=== PATIENT | male | born 1945 | race Caucasian/White ===

== ENCOUNTER 2016-07-12 12:26 | Inpatient (IN) | payer MEDICARE ==
--- NOTE | 2016-07-12 12:38 | ER Document Report ---
ED Medical Screen (RME) - General Chief Complaint: Productive Cough Stated Complaint: COUGHING UP BLOOD,NOSE BLEED Time Seen by Provider: 07/12/16 12:32 Notes: 71-year-old male with A. fib, diabetes, hypertension, hyperlipidemia, on Coumadin. Recently getting over pneumonia. Reports last night developed bleeding from the left nostril, blurred throughout the mouth. He is noted bleeding areas on the margins of the tongue, and petechial spots all over the thighs. He states his PT/INR has not been checked in quite some time. I have greeted and performed a rapid initial assessment of this patient. A comprehensive ED assessment and evaluation of the patient, analysis of test results and completion of the medical decision making process will be conducted by additional ED providers. TRAVEL OUTSIDE OF THE [place] IN LAST 30 DAYS: No - Related Data Allergies/Adverse Reactions: Sulfa (Sulfonamide Antibiotics) Allergy (Verified 07/12/16 12:33) Past Medical History - Past Medical History Cardiac Medical History: Reports: Hx Hypertension Renal/ Medical History: Denies: Hx Peritoneal Dialysis Past Surgical History: Reports: Hx Tonsillectomy, Hx Vascular Surgery - Immunizations Hx Diphtheria, Pertussis, Tetanus Vaccination: Yes Physical Exam - Vital signs Vitals: Temp Pulse Resp BP Pulse Ox 98.7 F 130 H 16 113/40 L 96 07/12/16 12:28 07/12/16 12:28 07/12/16 12:28 07/12/16 12:28 07/12/16 12:28 Course - Vital Signs Vital signs: Temp Pulse Resp BP Pulse Ox 98.7 F 130 H 16 113/40 L 96 07/12/16 12:28 07/12/16 12:28 07/12/16 12:28 07/12/16 12:28 07/12/16 12:28
[2016-07-12] MEDS ORDERED: NORMAL SALINE 1000 ML 1,000 ML IV ONE ×2 (12:57→15:29)
--- NOTE | 2016-07-12 12:57 | ER Document Report ---
ED General - General Chief Complaint: Productive Cough Stated Complaint: COUGHING UP BLOOD,NOSE BLEED Time Seen by Provider: 07/12/16 12:32 Mode of Arrival: Ambulatory Information source: Patient Notes: Pt is a 71 year old male with a history of copd, A fib, HTN, HLD on warfarin and aspirin who presents to the ER today for nosebleed, cough, and spotted rash over his body. Pt states he just got over pneumonia and was coughing 2 nights ago when he coughed "very hard" and woke up the next morning with the spots on his legs, states it has progressively spread all over his body and today he started having a nose bleed and bleeding from his mouth. he has never had this happen before. He denies shortness of breath, wheezing, trouble breathing, abdominal pain or headache. He does not know his warfarin doseage. Dr. Weber follows his INR regularly per patient. TRAVEL OUTSIDE OF THE [place] IN LAST 30 DAYS: No - Related Data Allergies/Adverse Reactions: Sulfa (Sulfonamide Antibiotics) Allergy (Verified 07/12/16 12:33) Past Medical History - General Information source: Patient - Social History Smoking Status: Former Smoker Family History: Reviewed & Not Pertinent Patient has suicidal ideation: No Patient has homicidal ideation: No - Past Medical History Cardiac Medical History: Reports: Hx Hypertension Renal/ Medical History: Denies: Hx Peritoneal Dialysis Past Surgical History: Reports: Hx Tonsillectomy, Hx Vascular Surgery - Immunizations Hx Diphtheria, Pertussis, Tetanus Vaccination: Yes Review of Systems - Review of Systems Constitutional: See HPI EENT: See HPI Cardiovascular: See HPI Respiratory: No symptoms reported Gastrointestinal: No symptoms reported Genitourinary: No symptoms reported Male Genitourinary: No symptoms reported Musculoskeletal: No symptoms reported Skin: See HPI Hematologic/Lymphatic: No symptoms reported Neurological/Psychological: No symptoms reported Physical Exam - Vital signs Vitals: Temp Pulse Resp BP Pulse Ox 98.7 F 130 H 16 113/40 L 96 07/12/16 12:28 07/12/16 12:28 07/12/16 12:28 07/12/16 12:28 07/12/16 12:28 - Notes Notes: PHYSICAL EXAMINATION: GENERAL: pale appearing, in no acute distress. HEAD: Atraumatic, normocephalic. EYES: Pupils equal round and reactive to light, extraocular movements intact, sclera anicteric, conjunctiva are normal. ENT: petechiae to soft and hard palate, dried blood on tongue and lips, dried and congealed blood in bilateral nostrils, no active bleeding NECK: Normal range of motion, supple without lymphadenopathy LUNGS: CTAB and equal. No wheezes rales or rhonchi. HEART: tachycardic with regular rhythm without murmurs ABDOMEN: Soft, no tenderness. No guarding, no rebound BACK: no vertebral tenderness, normal ROM GI/: no CVA tenderness EXTREMITIES: Normal range of motion, no pitting edema. No cyanosis. NEUROLOGICAL: Cranial nerves grossly intact. Normal sensory/motor exams. PSYCH: Normal mood, normal affect. alert and oriented x 3 SKIN: Warm, Dry, normal turgor, petechial rash over entire body, non blanching, discloration to bilateral lower extremities Course - Re-evaluation Re-evalutation: 07/12/16 14:59 Pt has a platelet count of 3,000, PT of 52.6 and INR of 5.56, fibrinogen is normal, hemoglobin of 11.3, WBC elevated at 12.6, potassium of 2.8, he has gotten potassium IV and po, FFP and platelets were ordered, we only have 1 unit of platelets in the hospital. Dr. Jenkins was consulted and did evaluate pt with me, agree with plan. Dr. Mendoza, hospitalist agrees to admit pt to [facility] here with normal CT head, no bleed and chest x ray revealing mild vascular congestion but no pneumonia. 07/12/16 15:00 07/12/16 15:01 - Vital Signs Vital signs: Temp Pulse Resp BP Pulse Ox 98.7 F 109 H 20 131/70 H 92 07/12/16 12:28 07/12/16 13:19 07/12/16 13:19 07/12/16 13:19 07/12/16 13:19 - Laboratory Result Diagrams: 07/12/16 12:44 07/12/16 12:44 Laboratory results interpreted by me: 07/12/16 07/12/16 07/12/16 12:44 12:44 12:44 WBC 12.6 H RBC 4.17 L Hgb 11.3 L Hct 33.6 L RDW 16.0 H Plt Count 3 L* PT 52.6 H* INR 5.56 H* APTT Potassium 2.8 L* Chloride 96 L Carbon Dioxide 33 H BUN 31 H Calcium 8.0 L Total Bilirubin 2.1 H Direct Bilirubin 0.6 H Total Protein 5.9 L Albumin 2.7 L Crossmatch 07/12/16 07/12/16 12:44 13:45 WBC RBC Hgb Hct RDW Plt Count PT INR APTT 74.1 H Potassium Chloride Carbon Dioxide BUN Calcium Total Bilirubin Direct Bilirubin Total Protein Albumin Crossmatch See Detail Critical Care Note - Critical Care Note Total time excluding time spent on procedures (mins): 55 - 55 minutes spent in critical care time with patient, consulted with attending, speaking with family , placing orders and evaluating tests and labs. Discharge - Discharge Clinical Impression: Elevated INR (international normalized ratio) due to prior anticoagulant medication ingestion, Hypokalemia, Nosebleed, Petechial rash Condition: Stable Disposition: ADMITTED INPATIENT Admitting Provider: Hospitalist Unit Admitted: [facility]
[2016-07-12 13:02] LABS: HEMATOCRIT 33.6 % (37.9-51.0); HEMOGLOBIN 11.3 g/dL (13.5-17.0); HGB HCT DIFFERENCE 0.3; MEAN CORPUSCULAR HGB CONC 33.5 g/dL (32.0-36.0); MEAN CORPUSCULAR VOLUME 81 fl (80-97); RED BLOOD COUNT 4.17 10^6/uL (4.35-5.55); WHITE BLOOD COUNT 12.6 10^3/uL (4.0-10.5)
[2016-07-12 13:15] LABS: ALANINE AMINOTRANSFERASE 50 U/L (21-72); ALBUMIN 2.7 g/dL (3.5-5.0); ALKALINE PHOSPHATASE 57 U/L (38-126); ANION GAP 10 (5-19); ASPARTATE AMINO TRANSFERASE 48 U/L (17-59); BILIRUBIN,DIRECT 0.6 mg/dL (0.0-0.4); BILIRUBIN,TOTAL 2.1 mg/dL (0.2-1.3); BLOOD UREA NITROGEN 31 mg/dL (7-20); CARBON DIOXIDE 33 mmol/L (22-30); CHLORIDE 96 mmol/L (98-107); GLUCOSE 105 mg/dL (75-110); SODIUM 138.8 mmol/L (137-145); TOTAL PROTEIN 5.9 g/dL (6.3-8.2)
[2016-07-12 13:18] LABS: BAND NEUTROPHILS % (MANUAL) 4 % (3-5); BASOPHILS % (MANUAL) 0 % (0-2); EOSINOPHILS % (MANUAL) 0 % (0-6); LYMPHOCYTES % (MANUAL) 27 % (13-45); TOTAL CELLS COUNTED 100
[2016-07-12 13:19] LABS: POTASSIUM 2.8 mmol/L (3.6-5.0)
[2016-07-12 13:21] LABS: ANISOCYTOSIS 1+; HYPOCHROMASIA SLIGHT; POLYCHROMASIA SLIGHT
[2016-07-12] MEDS ORDERED: POTASSIUM CHLORIDE 10 MEQ TABLET.SA PO ONE ×2 (13:23→16:05)
[2016-07-12] MEDS ORDERED: NORMAL SALINE 250 ML IV PRN ×4 (13:27→14:43)
[2016-07-12] MEDS ORDERED: PHYTONADIONE INJ 10 MG/1 ML AMPULE IV ONE (13:29)
[2016-07-12 13:35] LABS: PROTHROMBIN TIME 52.6 SEC (11.4-15.4)
[2016-07-12 13:58] LABS: PARTIAL THROMBOPLASTIN TIME 74.1 SEC (23.5-35.8)
--- NOTE | 2016-07-12 14:28 | RADIOLOGY REPORT (SQ) ---
EXAM DESCRIPTION: CT HEAD WITHOUT COMPLETED DATE/TIME: 07/12/2016 2:18 pm REASON FOR STUDY: low platelelets COMPARISON: 11/13/2014. TECHNIQUE: Axial images acquired through the brain without intravenous contrast. Images reviewed wi th bone, brain and subdural windows. Images stored on PACS. All CT scanners at this facility use dose modulation, iterative reconstruction, and/or weight based d osing when appropriate to reduce radiation dose to as low as reasonably achievable (ALARA). [facility]: Dose Right [facility]: CareDose [facility]: Dose Right [facility]: Teradose 4D [facility]: Crowd Analyzer RADIATION DOSE: 129.22 mGy. LIMITATIONS: None. FINDINGS: VENTRICLES: Normal size and contour. CEREBRUM: No masses. No hemorrhage. No midline shift. Normal yadav/white matter differentiation. N o evidence for acute infarction. CEREBELLUM: No masses. No hemorrhage. No alteration of density. No evidence for acute infarction. EXTRAAXIAL SPACES: No fluid collections. No masses. ORBITS AND GLOBE: No intra- or extraconal masses. Normal contour of globe without masses. CALVARIUM: No fracture. PARANASAL SINUSES: Soft tissue completely fills the left maxillary sinus. The remainder of the paran noemí sinuses are clear. SOFT TISSUES: No mass or hematoma. OTHER: No other significant finding. IMPRESSION: NORMAL BRAIN CT WITHOUT CONTRAST. CHRONIC LEFT MAXILLARY SINUS DISEASE. TECHNICAL DOCUMENTATION: JOB ID: [id number] Quality ID # [id number]: Final reports with documentation of one or more dose reduction techniques (e.g., Au tomated exposure control, adjustment of the mA and/or kV according to patient size, use of iterative reconstruction technique) 2010 [employer]- All Rights Reserved
--- NOTE | 2016-07-12 14:33 | RADIOLOGY REPORT (SQ) ---
EXAM DESCRIPTION: CHEST SINGLE VIEW COMPLETED DATE/TIME: 07/12/2016 2:24 pm REASON FOR STUDY: hypoxia COMPARISON: 11/13/2014. EXAM PARAMETERS: NUMBER OF VIEWS: One view. TECHNIQUE: Single frontal radiographic view of the chest acquired. RADIATION DOSE: NA LIMITATIONS: None. FINDINGS: LUNGS AND PLEURA: No opacities, masses or pneumothorax. No pleural effusion. MEDIASTINUM AND HILAR STRUCTURES: No masses. Contour normal. HEART AND VASCULAR STRUCTURES: Mild cardiomegaly. Mild vascular congestion. BONES: No acute findings. HARDWARE: Sternotomy wires and coronary bypass markers. OTHER: No other significant finding. IMPRESSION: MILD CARDIOMEGALY WITH MILD VASCULAR CONGESTION. TECHNICAL DOCUMENTATION: JOB ID: [id number]
[2016-07-12] MEDS: POTASSI CL 20 MEQ/50 ML RIDER 50 ML IV SCH ×2 (14:45→14:54)
[2016-07-12] MEDS ORDERED: IMMUNE GLOB,GAM CAPRYLATE(IGG) 20 GM/200 ML SDV IV SCH ×2 (15:30→17:00)
[2016-07-12] MEDS ORDERED: METOPROLOL TARTRATE PF/INJ 5 MG/5 ML SDV IV ONE (15:31)
[2016-07-12] MEDS ORDERED: LANSOPRAZOLE 30 MG TAB.RAP.DR PO ONE (15:32)
[2016-07-12] MEDS ORDERED: DEXAMETHASONE SOD PHOS INJ 10 MG/1 ML VIAL IV ONE (15:33)
[2016-07-12] MEDS ORDERED: DEXAMETHASONE 4 MG TABLET PO ONE (16:00)
[2016-07-12] MEDS ORDERED: ACETAMINOPHEN 325 MG TABLET PO PRN (16:06)
[2016-07-12] MEDS ORDERED: ONDANSETRON HCL INJ/PF 4 MG/2 ML SDV IV PRN (16:06)
[2016-07-12] MEDS ORDERED: LEVALBUTEROL HCL NEB 1.25 MG/3 ML AMPUL NEB PRN (16:06)
[2016-07-12] MEDS ORDERED: PANTOPRAZOLE SODIUM 40 MG VIAL IV ONE (16:30)
[2016-07-12] MEDS ORDERED: IMMUNE GLOBULIN 10 GM/100 ML IV SCH (17:00)
[2016-07-12] MEDS ORDERED: LANSOPRAZOLE 30 MG TAB.RAP.DR PO SCH (17:00)
[2016-07-12] MEDS ORDERED: FUROSEMIDE INJ/PF 20 MG/2 ML SDV IV ONE (18:19)
[2016-07-12] MEDS ORDERED: HYDROCODONE BIT/HOMATROPINE 5-1.5 MG TABLET PO PRN (18:20)
[2016-07-12] MEDS ORDERED: ALPRAZOLAM 0.25 MG TABLET PO PRN (18:21)
[2016-07-12] MEDS: SUCRALFATE SUSP 1 GM/10 ML UDCUP PO SCH ×2 (18:30→22:48)
--- NOTE | 2016-07-12 18:30 | PDOC H&P ---
History of Present Illness Admission Date/PCP: 07/12/16 16:06 History of Present Illness: DAVID MERAZ is a 71 year old male with a past medical history of coronary artery disease, BPH, COPD who presents to the emergency department with epistaxis. Patient approximately 3 weeks ago was diagnosed with pneumonia and was prescribed Levaquin and steroids. After this time he had resolution including improvement of his breathing and return to his primary care physician because of ongoing cough. He was started on Symbicort at that time. Patient continued to have a cough is productive of clear sputum. Approximately 1 week after his pneumonia, the patient was feeling ill with a "stomach virus. He had diarrhea at that time. Patient does continue to have diarrhea. He denies any abdominal pain but reports that he is uncomfortable. 2 days ago patient continued to cough and acutely developed a petechial rash all over his body. He then subsequently developed epistaxis and began having dizziness. Patient denies any fevers except for an association with his pneumonia 3 weeks prior. In the emergency department, patient is found to have a platelet level of 3000. He is referred to the hospitalist service for evaluation and treatment of his thrombocytopenia. Patient's medications are currently unavailable at this time. He does not know them and they are being reconciled by the pharmacy. Currently list is automatically generated by [employer]. Past Medical History Cardiac Medical History: Reports: Atrial Fibrillation, Coronary Artery Disease, Myocardial Infarction, Hypertension Pulmonary Medical History: Reports: Chronic Obstructive Pulmonary Disease (COPD) , Pneumonia Endocrine Medical History: Reports: Obesity GI Medical History: Reports: Gastroesophageal Reflux Disease Musculoskeltal Medical History: Reports: Arthritis Hematology: Reports: None Past Surgical History Past Surgical History: Reports: Coronary Artery Bypass Graft, Tonsillectomy, Vascular Surgery Social History Smoking Status: Current Every Day Smoker Cigarettes Packs Per Day: 1.5 Frequency of Alcohol Use: None Hx Recreational Drug Use: No Hx Prescription Drug Abuse: No - Advance Directive Resuscitation Status: Full Code Surrogate healthcare decision maker:: Tino Begum Family History Family History: CAD, DM, Hypertension Parental Family History Reviewed: Yes Children Family History Reviewed: Yes Sibling(s) Family History Reviewed.: Yes Medication/Allergy Allergies/Adverse Reactions: Sulfa (Sulfonamide Antibiotics) Allergy (Verified 07/12/16 12:33) Review of Systems Constitutional: PRESENT: anorexia, fatigue. ABSENT: chills, fever(s), headache( s), weight gain, weight loss Eyes: ABSENT: visual disturbances Ears: ABSENT: hearing changes Nose, Mouth, and Throat: PRESENT: other - Epistaxis Cardiovascular: ABSENT: chest pain, dyspnea on exertion, edema, orthropnea, palpitations Respiratory: PRESENT: cough, dyspnea, hemoptysis Gastrointestinal: PRESENT: diarrhea, melena. ABSENT: abdominal pain, constipation, heartburn, hematemesis, hematochezia, nausea, vomiting Genitourinary: ABSENT: dysuria, hematuria Musculoskeletal: ABSENT: joint swelling Integumentary: PRESENT: lesions, rash. ABSENT: wounds Neurological: ABSENT: abnormal gait, abnormal speech, confusion, dizziness, focal weakness, syncope Psychiatric: ABSENT: anxiety, depression, homidical ideation, suicidal ideation Endocrine: ABSENT: cold intolerance, heat intolerance, polydipsia, polyuria Hematologic/Lymphatic: ABSENT: easy bleeding, easy bruising Physical Exam Vital Signs: Temp Pulse Resp BP Pulse Ox 98.7 F 109 H 24 H 146/86 H 92 07/12/16 12:28 07/12/16 13:19 07/12/16 16:41 07/12/16 16:41 07/12/16 16:41 Intake & Output 07/11/16 07/12/16 07/13/16 06:59 06:59 06:59 Intake Total 347 Balance 347 General appearance: PRESENT: morbidly obese, severe distress, well-developed, well-nourished Head exam: PRESENT: normocephalic Eye exam: PRESENT: conjunctiva pale, EOMI, PERRLA, scleral icterus Ear exam: PRESENT: normal external ear exam Mouth exam: PRESENT: dry mucosa, tongue midline - purpura, other - dried blood Neck exam: ABSENT: JVD, lymphadenopathy, thyromegaly, tracheal deviation Respiratory exam: PRESENT: clear to auscultation la, prolonged expiratory phas , symmetrical, unlabored. ABSENT: rales, rhonchi, tachypnea, wheezes Cardiovascular exam: PRESENT: irregular rhythm, +S1, +S2, systolic murmur, tachycardia. ABSENT: diastolic murmur, gallop, rubs Pulses: PRESENT: +1 pedal pulses bilateral Vascular exam: PRESENT: normal capillary refill GI/Abdominal exam: PRESENT: normal bowel sounds, soft. ABSENT: distended, firm , guarding, mass, organolmegaly, rebound, rigid, tenderness Rectal exam: PRESENT: black stool, bloody stool, heme (+) stool Extremities exam: PRESENT: full ROM. ABSENT: clubbing, pedal edema, tenderness Neurological exam: PRESENT: alert, awake, oriented to person, oriented to place , oriented to time, oriented to situation, CN II-XII grossly intact. ABSENT: motor sensory deficit Psychiatric exam: PRESENT: appropriate affect, normal mood. ABSENT: homicidal ideation, suicidal ideation Skin exam: PRESENT: dry, petechiae, warm. ABSENT: cyanosis, rash Results Impressions: Chest X-Ray 07/12/16 13:31 IMPRESSION: MILD CARDIOMEGALY WITH MILD VASCULAR CONGESTION. Head CT 07/12/16 13:33 IMPRESSION: NORMAL BRAIN CT WITHOUT CONTRAST. CHRONIC LEFT MAXILLARY SINUS DISEASE. Assessment & Plan - Diagnosis (1) Acute ITP Is this a current diagnosis for this admission?: YesPlan: Patient's labs and presentation are most consistent with acute ITP. Place patient in the ICU. We will give platelets, IvIg 1 mg/kg for 2 days dexamethasone 40 mg p.o. daily x4 days, and plasma. Have sent antiplatelet antibodies, Levar, LDH, haptoglobin. Patient's fibrinogen is normal. Unlikely to be DIC. Have consulted hematology. Initial CT of the head is negative. Monitor with mends every [address] if patient has any alteration in mentation. (2) CAD (coronary artery disease) Qualifiers: Coronary Disease-Associated Artery/Lesion type: [place] artery [place] vs. transplanted heart: [place] heart Associated angina: without angina Qualified Code(s): I25.10 - Atherosclerotic heart disease of [place] coronary artery without angina pectoris Is this a current diagnosis for this admission?: Yes (3) A-fib Qualifiers: Atrial fibrillation type: unspecified Qualified Code(s): I48.91 - Unspecified atrial fibrillation Is this a current diagnosis for this admission?: YesPlan: We will continue metoprolol. Stop Coumadin (4) Acute blood loss anemia Is this a current diagnosis for this admission?: YesPlan: Secondary to ITP. Will recheck a CBC and likely transfuse packed red cells. If he falls below 8. (5) COPD (chronic obstructive pulmonary disease) Qualifiers: COPD type: unspecified COPD Qualified Code(s): J44.9 - Chronic obstructive pulmonary disease, unspecified Is this a current diagnosis for this admission?: YesPlan: Place patient on Spiriva and as needed breathing treatments. (6) Tobacco abuse Is this a current diagnosis for this admission?: YesPlan: Nicotine patch as needed. Patient has only stopped smoking recently. (7) Elevated INR (international normalized ratio) due to prior anticoagulant medication ingestion Is this a current diagnosis for this admission?: YesPlan: Patient has been given vitamin K and will give FFP. (8) Hypokalemia Is this a current diagnosis for this admission?: YesPlan: check a magnesium and replete - Time Critical Time spent with patient: 35 or more minutes Medications reviewed and adjusted accordingly: Yes - Inpatient Certification Based on my medical assessment, after consideration of the patient's comorbidities, presenting symptoms, or acuity I expect that the services needed warrant INPATIENT care.: Yes I certify that my determination is in accordance with my understanding of Medicare's requirements for reasonable and necessary INPATIENT services [42 CFR 412.3e].: Yes Medical Necessity: Significant Comorbidiites Make Outpatient Treatment Too Risky , Need for Neurological Checks, Risk of Complication if Not Cared For in Hospital Post Hospital Care: D/C Trouble Tracer Documentation
[2016-07-12] MEDS ORDERED: FUROSEMIDE INJ/PF 20 MG/2 ML SDV ONE (18:31)
[2016-07-12] MEDS: METOPROLOL TARTRATE 25 MG TABLET PO SCH ×2 (18:32→22:47)
[2016-07-12] MEDS ORDERED: FUROSEMIDE INJ/PF 20 MG/2 ML SDV IV PRN (18:49)
[2016-07-12 19:23] LABS: LDH 1335 U/L (313-618); MAGNESIUM 1.5 mg/dL (1.6-2.3)
[2016-07-12 20:39] LABS: FOLATE 7.51 ng/mL (>2.76)
[2016-07-12] MEDS ORDERED: PANTOPRAZOLE SODIUM 40 MG VIAL IV SCH (22:00)
[2016-07-13 00:37] LABS: PARTIAL THROMBOPLASTIN TIME 40.6 SEC (23.5-35.8)
[2016-07-13 00:45] LABS: ANION GAP 10 (5-19); BLOOD UREA NITROGEN 29 mg/dL (7-20); CALCIUM 7.6 mg/dL (8.4-10.2); CARBON DIOXIDE 30 mmol/L (22-30); CHLORIDE 100 mmol/L (98-107); CREATININE RESULT 0.88 mg/dL (0.52-1.25); GLUCOSE 164 mg/dL (75-110); POTASSIUM 3.1 mmol/L (3.6-5.0); SODIUM 139.5 mmol/L (137-145)
[2016-07-13 00:53] LABS: PROTHROMBIN TIME 17.4 SEC (11.4-15.4)
[2016-07-13 01:15] LABS: ABSOLUTE BASOPHILS # (AUTO) 0.1 10^3/uL (0.0-0.2); ABSOLUTE LYMPHOCYTES (AUTO) 2.9 10^3/uL (0.5-4.7); ABSOLUTE MONOCYTES (AUTO) 0.2 10^3/uL (0.1-1.4); ABSOLUTE NEUT (AUTO) 5.9 10^3/uL (1.7-8.2); BASOPHILS % (AUTO) 0.7 % (0-2); EOSINOPHILS % (AUTO) 0.1 % (0-6); HEMATOCRIT 25.9 % (37.9-51.0); HGB HCT DIFFERENCE -0.1; LYMPHOCYTES % (AUTO) 31.7 % (13-45); MEAN CORPUSCULAR HEMOGLOBIN 27.2 pg (27.0-33.4); MEAN CORPUSCULAR HGB CONC 33.3 g/dL (32.0-36.0); MEAN CORPUSCULAR VOLUME 82 fl (80-97); MONOCYTES % (AUTO) 2.4 % (3-13); RED BLOOD COUNT 3.17 10^6/uL (4.35-5.55); RED CELL DISTRIBUTION WIDTH 16.2 % (11.5-14.0); SEGMENTED NEUTROPHILS % (AUTO) 65.1 % (42-78)
[2016-07-13 01:17] LABS: HEMOGLOBIN 8.6 g/dL (13.5-17.0)
[2016-07-13] MEDS ORDERED: POTASSIUM CHLORIDE 20 MEQ/50 ML RTU IV SCH (02:15)
[2016-07-13] MEDS ORDERED: CALCIUM GLUCONATE 1,000 MG in DEXTROSE 5%-WATER 50 ML IV ONE (02:15)
[2016-07-13 02:17] LABS: HEMATOCRIT 26.5 % (37.9-51.0); HGB HCT DIFFERENCE 0.5; MEAN CORPUSCULAR HEMOGLOBIN 27.8 pg (27.0-33.4); MEAN CORPUSCULAR VOLUME 82 fl (80-97); RED BLOOD COUNT 3.24 10^6/uL (4.35-5.55); WHITE BLOOD COUNT 10.6 10^3/uL (4.0-10.5)
[2016-07-13] MEDS ORDERED: CALCIUM GLUCONATE 1000 MG/10 ML INJ IV ONE (02:49)
[2016-07-13 02:50] LABS: BAND NEUTROPHILS % (MANUAL) 1 % (3-5); BASOPHILS % (MANUAL) 0 % (0-2); EOSINOPHILS % (MANUAL) 0 % (0-6); LYMPHOCYTES % (MANUAL) 14 % (13-45); TOTAL CELLS COUNTED 100
[2016-07-13 02:52] LABS: ANISOCYTOSIS 1+; OVALOCYTES SLIGHT; POLYCHROMASIA SLIGHT; TOXIC GRANULATION SLIGHT; TOXIC VACUOLATION PRESENT
[2016-07-13 02:56] LABS: ADD HIVPANEL? NO; HIV (1 AND 2) ANTIBODY NEGATIVE (NEGATIVE)
--- NOTE | 2016-07-13 02:57 | PDOC TRANSFER SUMMARY ---
General Admission Date/PCP: 07/12/16 16:06 Resuscitation Status: Full Code - Transfer Diagnosis (1) Acute ITP Is this a current diagnosis for this admission?: YesDiagnosis Summary: See the H&P for details to summarize patient had pneumonia 3 weeks ago placed on Levaquin and prednisone resulting in resolution of symptoms. 1 week ago developed symptoms of viral gastroenteritis with persistent melena. 48 hours ago developed epistasis and petechial rash. Patient continued to take usual dose of Coumadin and aspirin. In the emergency room he was found to have an INR of 5.5 and hemoglobin 11.3, platelets of 3000. He is admitted to the ICU receiving FFP, Decadron, IVIG, subcu vitamin K, 4 units of platelets 2 hour posttransfusion CBC reveal platelets still 3000, hemoglobin of 8.6 verified by blood smear, INR improved to 1.3 patient has persistent bleeding. Subsequently I believe he is a candidate for teaching facility and tertiary care with subspecialty support including hematology and surgery for possible rituximab versus splenectomy. (2) A-fib Is this a current diagnosis for this admission?: YesDiagnosis Summary: Current rate control beta-konstantin as needed (3) Acute blood loss anemia Is this a current diagnosis for this admission?: YesDiagnosis Summary: Secondary to ITP 2 units of packed red blood cells ordered follow-up CBC (4) Elevated INR (international normalized ratio) due to prior anticoagulant medication ingestion Is this a current diagnosis for this admission?: YesDiagnosis Summary: Normalizing status post FFP and discontinuation of Coumadin. - Transfer Medications Home Medications: Amlodipine Besylate [Amlodipine Besylate] 1 tab PO BID 07/12/16 Atorvastatin Calcium [Lipitor 80 mg Tablet] 1 tab PO QAM 07/12/16 Budesonide/Formoterol Fumarate [Symbicort Hfa 80-4.5 Mcg Inhaler 6.9 gm] 1 puff IH 07/12/16 Cyclobenzaprine HCl [Cyclobenzaprine HCl] 1 tab PO TID PRN 07/12/16 Lisinopril [Lisinopril] 1 tab PO QAM 07/12/16 Metoprolol Tartrate [Metoprolol Tartrate] 75 mg PO BID 07/12/16 Oxycodone HCl [Oxycodone HCl] 1 tab PO Q6H PRN 07/12/16 Tamsulosin HCl [Tamsulosin HCl] 0.4 mg PO QAM 07/12/16 Warfarin Sodium [Warfarin Sodium] 3 tab PO QHS 07/12/16 Transfer Medications: Current Medications Acetaminophen (Tylenol 325 Mg Tablet) 650 mg PO Q4HP PRN PRN Reason: PAIN/FEVER Stop: 08/11/16 16:05 Alprazolam (Xanax 0.25 Mg Tablet) 0.25 mg PO Q6HP PRN Stop: 07/19/16 18:20 Dexamethasone (Decadron 4 Mg Tablet) 40 mg PO DAILY JENNIFER Stop: 07/16/16 09:59 Furosemide (Lasix Inj/Pf 20 Mg/2 Ml Sdv) 20 mg IV Q2HP PRN Stop: 08/11/16 18:48 Hydrocodone Bit/Homatropine Methylb (Hycodan 5-1.5 Mg Tablet) 1 tab PO Q6HP PRN Stop: 08/11/16 18:19 Sodium Chloride (Nacl 0.9% 250 Ml Iv Soln) 250 mls @ 0 mls/hr IV CONTINUOUS PRN ; As Directed PRN Reason: AFTER EACH UNIT Stop: 07/13/16 13:26 Sodium Chloride (Nacl 0.9% 250 Ml Iv Soln) 250 mls @ 0 mls/hr IV CONTINUOUS PRN ; As Directed PRN Reason: AFTER EACH UNIT Stop: 07/13/16 13:43 Sodium Chloride (Nacl 0.9% 250 Ml Iv Soln) 250 mls @ 30 mls/hr IV .DURING TRANSFUSION PRN PRN Reason: THIS MED IS NOT "PRN" Stop: 07/13/16 14:42 Sodium Chloride (Nacl 0.9% 250 Ml Iv Soln) 250 mls @ 0 mls/hr IV CONTINUOUS PRN ; As Directed PRN Reason: AFTER EACH UNIT Stop: 07/13/16 14:42 Last Admin: 07/12/16 18:32 Dose: Not Given Potassium Chloride/Water (Potassium Chloride Donaldo 20 Meq/50 Ml) 20 meq in 50 mls @ 25 mls/hr IV Q2H [facility] Stop: 07/13/16 06:14 Calcium Gluconate 1,000 mg/ (Dextrose) 60 mls @ 60 mls/hr IV NOW ONE Stop: 07/13/16 03:14 Immune Globulin (Gamunex-C 10% Inj 20 Gm/200 Ml (Ivig) Sdv) 100 gm IV DAILY@ 1700 [facility] Stop: 07/15/16 16:59 Last Admin: 07/12/16 18:31 Dose: 100 gm Immune Globulin (Gamunex-C 10% Inj 10 Gm/100 Ml (Ivig) Sdv) 10 gm IV DAILY@ 1700 JENN[facility] Stop: 07/15/16 16:59 Last Admin: 07/12/16 16:48 Dose: 10 gm Levalbuterol HCl (Xopenex Neb 1.25 Mg/3 Ml Ampul) 1.25 mg NEB RTQ2HP PRN Stop: 08/11/16 16:05 Last Admin: 07/13/16 00:02 Dose: 1.25 mg Metoprolol Tartrate (Lopressor 25 Mg Tablet) 75 mg PO BID JENNIFER Stop: 08/11/16 17:59 Last Admin: 07/12/16 22:47 Dose: 75 mg Ondansetron HCl (Zofran Inj/Pf 4 Mg/2 Ml Sdv) 4 mg IV Q6HP PRN PRN Reason: FOR NAUSEA/VOMITING Stop: 08/11/16 16:05 Pantoprazole Sodium (Protonix Iv Inj 40 Mg Vial) 40 mg IV Q12 JENNIFER Stop: 07/15/16 21:59 Last Admin: 07/12/16 22:48 Dose: 40 mg Potassium Chloride (Klor-Con 10 Meq Tablet.Sa) 40 meq PO NOW ONE Stop: 07/13/16 03:01 Sodium Chloride (Saline Flush 2.5 Ml Monoject Prefil Syrin) 2.5 ml IV Q8 JENNIFER Stop: 08/11/16 21:59 Last Admin: 07/12/16 22:48 Dose: 2.5 ml Sucralfate (Carafate Susp 1 Gm/10 Ml Udcup) 1 gm PO Q6 JENNIFER Stop: 08/11/16 17:59 Last Admin: 07/12/16 22:48 Dose: 1 gm - Allergies Allergies/Adverse Reactions: Sulfa (Sulfonamide Antibiotics) Allergy (Verified 07/12/16 12:33) Hospital Course Hospital Course: See the H&P for details to summarize patient had pneumonia 3 weeks ago placed on Levaquin and prednisone resulting in resolution of symptoms. 1 week ago developed symptoms of viral gastroenteritis with persistent melena. 48 hours ago developed epistasis and petechial rash. Patient continued to take usual dose of Coumadin and aspirin. In the emergency room he was found to have an INR of 5.5 and hemoglobin 11.3, platelets of 3000. He is admitted to the ICU receiving FFP, Decadron, IVIG, subcu vitamin K, 4 units of platelets 2 hour posttransfusion CBC reveal platelets still 3000, hemoglobin of 8.6 verified by blood smear, INR improved to 1.3 patient has persistent bleeding. Subsequently I believe he is a candidate for teaching facility and tertiary care with subspecialty support including hematology and surgery for possible rituximab and /or splenectomy. Physical Exam Vital Signs: Temp Pulse Resp BP Pulse Ox 97.7 F 80 26 H 124/81 91 L 07/12/16 23:48 07/12/16 23:56 07/13/16 02:00 07/13/16 01:56 07/13/16 02:00 Intake & Output 07/11/16 07/12/16 07/13/16 11:59 11:59 11:59 Intake Total 1706 Output Total 2350 Balance -644 Weight 113.6 kg General appearance: PRESENT: cooperative, mild distress, obese Head exam: PRESENT: atraumatic, normocephalic Eye exam: PRESENT: conjunctiva pink, EOMI, PERRLA. ABSENT: scleral icterus Mouth exam: PRESENT: other - Widespread ataxia of the oral mucosa Neck exam: ABSENT: carotid bruit, JVD, lymphadenopathy, thyromegaly Respiratory exam: PRESENT: crackles, prolonged expiratory phas, tachypnea Cardiovascular exam: PRESENT: irregular rhythm, +S1, +S2, tachycardia Pulses: PRESENT: normal dorsalis pedis pul Vascular exam: PRESENT: normal capillary refill GI/Abdominal exam: PRESENT: normal bowel sounds, soft, other - Scattered petechia on the abdomen and trunk. ABSENT: distended, guarding, mass, organolmegaly, rebound, tenderness Rectal exam: PRESENT: deferred Extremities exam: PRESENT: +1 edema, other - Widespread petechia of the lower extremity Neurological exam: PRESENT: altered, oriented to person, oriented to place, CN II-XII grossly intact Psychiatric exam: PRESENT: appropriate affect, normal mood. ABSENT: homicidal ideation, suicidal ideation Skin exam: PRESENT: petechiae Results Laboratory Results: 07/13/16 00:20 07/12/16 07/13/16 07/13/16 18:45 00:20 00:20 WBC 9.0 RBC 3.17 L Hgb 8.6 L D Hct 25.9 L MCV 82 MCH 27.2 MCHC 33.3 RDW 16.2 H Plt Count 3 L* Seg Neutrophils % 65.1 Lymphocytes % 31.7 Monocytes % 2.4 L Eosinophils % 0.1 Basophils % 0.7 Absolute Neutrophils 5.9 Absolute Lymphocytes 2.9 Absolute Monocytes 0.2 Absolute Eosinophils 0.0 Absolute Basophils 0.1 Sodium 139.5 Potassium 3.1 L Chloride 100 Carbon Dioxide 30 Anion Gap 10 BUN 29 H Creatinine 0.88 Est GFR ( Amer) > 60 Est GFR (Non-Af Amer) > 60 Glucose 164 H Calcium 7.6 L Magnesium 1.5 L Iron 85.4 TIBC 260 % Saturation 33 Ferritin 208.00 Vitamin B12 675.0 Folate 7.51 Impressions: Chest X-Ray 07/12/16 13:31 IMPRESSION: MILD CARDIOMEGALY WITH MILD VASCULAR CONGESTION. Head CT 07/12/16 13:33 IMPRESSION: NORMAL BRAIN CT WITHOUT CONTRAST. CHRONIC LEFT MAXILLARY SINUS DISEASE. Plan Discharge Plan: Coordination of CARE in transfer to tertiary care facility with hematology support. Time Spent: Greater than 30 Minutes - Time spent approximately 40 minutes
[2016-07-13] MEDS ORDERED: POTASSIUM CHLORIDE 10 MEQ TABLET.SA PO ONE (03:00)
[2016-07-13 04:42] VITALS: BP 122/96
[2016-07-13] MEDS ORDERED: DEXAMETHASONE 4 MG TABLET PO SCH (10:00)
[2016-07-14 12:13] LABS: PATH REVIEW PATHOLOGIST REVIEWED
== END 2016-07-13 04:40 | disposition short-term general hospital (02) | DRG 813 ==
LOC: ER 12:26 → EH 15:17 → UNDOADMIN 15:17 → EH 16:06 → ICU 17:40
PROVIDERS: ADMIT Family Medicine; ATTEND Family Medicine
PROC: 30230K1 Transfusion of Nonautologous Frozen Plasma into Peripheral Vein, Open Approach (ICD-10-PCS; principal; 2016-07-12)
PROC: 30230R1 Transfusion of Nonautologous Platelets into Peripheral Vein, Open Approach (ICD-10-PCS; 2016-07-12)
DX: D69.3 Immune thrombocytopenic purpura (principal); D62 Acute posthemorrhagic anemia; E87.6 Hypokalemia; E11.9 Type 2 diabetes mellitus without complications; I10 Essential (primary) hypertension; J44.9 Chronic obstructive pulmonary disease, unspecified; E78.5 Hyperlipidemia, unspecified; I48.91 Unspecified atrial fibrillation; F17.210 Nicotine dependence, cigarettes, uncomplicated; Z79.01 Long term (current) use of anticoagulants; Z88.2 Allergy status to sulfonamides; Z75.1 Person awaiting admission to adequate facility elsewhere
CPT/HCPCS: 36415; 36430; 70450; 71010; 80048; 80053; 82607; 82728; 82746; 83540; 83550; 83615; 83735; 84466; 85025; 85045; 85384; 85610; 85730; 86701; 86850; 86880; 86900; 86901; 86920; 87493; 94640; 96361; 96365; 96375; 99285; J1561; J0610; J1100; J1940; J3430; J3480; J3490; J7030; P9017; P9035; S0164

== ENCOUNTER 2016-11-22 12:45 | Emergency (ER) | payer MEDICARE ==
--- NOTE | 2016-11-22 13:19 | ER Document Report ---
ED General - General Chief Complaint: Foot Pain Stated Complaint: LEFT ANKLE PAIN Time Seen by Provider: 11/22/16 13:05 Notes: patient is a 71 year old male who presents with left big toe pain that started this am and left lateral ankle pain that has been for 48 hours. 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 HE admits to pain in these areas after helping his aorund the house and walking more then he is used to. denies trauma fall PMH: COPD, HTN, A. fib. Recent treatment at [facility] for ITP. F/u with Dr. Weber on TRAVEL OUTSIDE OF THE [place] IN LAST 30 DAYS: No - Related Data Allergies/Adverse Reactions: Sulfa (Sulfonamide Antibiotics) Allergy (Verified 11/22/16 12:57) Past Medical History - Social History Smoking Status: Former Smoker Family History: CAD, DM, Hypertension - Past Medical History Cardiac Medical History: Reports: Hx Atrial Fibrillation, Hx Coronary Artery Disease, Hx Heart Attack, Hx Hypertension Pulmonary Medical History: Reports: Hx COPD, Hx Pneumonia Renal/ Medical History: Denies: Hx Peritoneal Dialysis GI Medical History: Reports: Hx Gastroesophageal Reflux Disease Musculoskeltal Medical History: Reports Hx Arthritis Past Surgical History: Reports: Hx Coronary Artery Bypass Graft, Hx Tonsillectomy, Hx Vascular Surgery - Immunizations Hx Diphtheria, Pertussis, Tetanus Vaccination: Yes Review of Systems - Review of Systems Constitutional: No symptoms reported Cardiovascular: No symptoms reported Respiratory: No symptoms reported Gastrointestinal: No symptoms reported Musculoskeletal: See HPI -: Yes All other systems reviewed and negative Physical Exam - Vital signs Vitals: Temp Pulse Resp BP Pulse Ox 98.0 F 106 H 18 172/93 H 95 11/22/16 12:55 11/22/16 12:55 11/22/16 12:55 11/22/16 12:55 11/22/16 12:55 - General General appearance: Appears well, Alert In distress: None - Respiratory Respiratory status: No respiratory distress Chest status: Nontender Breath sounds: Normal Chest palpation: Normal - Cardiovascular Rhythm: Regular Heart sounds: Normal auscultation, S1 appreciated, S2 appreciated Gallop: None auscultated Pulses: Normal: Dorsalis pedis Normal capillary refill: Yes - Extremities General lower extremity: No: Lisa's sign Knee: Normal, Nontender Calf: Normal, Nontender, Other - 1+ pitting edema bilaterally Ankle: Tender - lateral malleolus, Edema. No: Abrasion, Deformity, Ecchymosis, Instability, Laceration, Limited ROM, Positive Martínez's test, Unable to bear weight Foot: Other - no erythema, swelling or tenderness. No: Normal - amputated left big toe, Tender, Deformity, Ecchymosis, Edema, Metatarsal compress. pain, Unable to bear weight - Skin Skin Temperature: Warm Skin Moisture: Dry Skin Color: Wylie Skin Turgor: Edematous Course - Re-evaluation Re-evalutation: 11/22/16 14:41 Patient is a 71 year old male who is hemodynamically stable, no acute distress and afebrile. No evidence of a septic joint, gout flare, dislocation, or fracture on exam and imaging. Vitals wnl. At this time, I do not see an indication for labs or further imaging. Will discharge with conservative measures, return precautions, and follow-up recommendations. - Vital Signs Vital signs: Temp Pulse Resp BP Pulse Ox 98.1 F 76 22 H 152/86 H 95 11/22/16 13:22 11/22/16 13:22 11/22/16 13:22 11/22/16 13:22 11/22/16 13:22 - Diagnostic Test Radiology reviewed: Image reviewed, Reports reviewed Discharge - Discharge Clinical Impression: Toe pain, Ankle pain Condition: Good Disposition: HOME, SELF-CARE Instructions: Gout ([facility]), Gout Diet ([facility]), Sprained Ankle ([facility]) Prescriptions: Naproxen 500 mg PO BID 5 Days tablet Referrals: JESSICA CANALES MD [Primary Care Provider] - Follow up in 3-5 days
[2016-11-22 13:23] VITALS: BP 152/86
--- NOTE | 2016-11-22 14:00 | RADIOLOGY REPORT (SQ) ---
EXAM DESCRIPTION: FOOT LEFT COMPLETE COMPLETED DATE/TIME: 11/22/2016 1:52 pm REASON FOR STUDY: pain COMPARISON: None. NUMBER OF VIEWS: Three views. TECHNIQUE: AP, lateral and oblique radiographic images acquired of the left foot. LIMITATIONS: None. FINDINGS: MINERALIZATION: Normal. BONES: No acute fracture or dislocation. No worrisome bone lesions. Chronic post amputation change 1st toe phalanx. Minimal posterior calcaneal spurring. JOINTS: No effusions. SOFT TISSUES: No soft tissue swelling. No foreign body. OTHER: No other significant finding. IMPRESSION: NO RADIOGRAPHIC EVIDENCE OF ACUTE INJURY. TECHNICAL DOCUMENTATION: JOB ID: [id number] [employer]- All Rights Reserved
--- NOTE | 2016-11-22 14:00 | RADIOLOGY REPORT (SQ) ---
EXAM DESCRIPTION: ANKLE LEFT COMPLETE COMPLETED DATE/TIME: 11/22/2016 1:52 pm REASON FOR STUDY: pain COMPARISON: None. NUMBER OF VIEWS: Three views. TECHNIQUE: AP, lateral, and oblique radiographic images acquired of the left ankle. LIMITATIONS: None. FINDINGS: MINERALIZATION: Normal. BONES: No acute fracture or dislocation. No worrisome bone lesions. JOINTS: No effusions. SOFT TISSUES: Diffuse soft tissue swelling. OTHER: No other significant finding. IMPRESSION: SOFT TISSUE SWELLING. NO ACUTE OSSEOUS ABNORMALITY. TECHNICAL DOCUMENTATION: JOB ID: [id number] [employer]- All Rights Reserved
[2016-11-22] MEDS ORDERED: NAPROXEN 250 MG TABLET PO ONE (14:25)
== END 2016-11-22 14:35 | disposition home or self-care (01) ==
LOC: ER 12:45
DX: M79.675 Pain in left toe(s) (principal); M25.572 Pain in left ankle and joints of left foot; J44.9 Chronic obstructive pulmonary disease, unspecified; I10 Essential (primary) hypertension; I48.91 Unspecified atrial fibrillation; Z88.2 Allergy status to sulfonamides; Z87.891 Personal history of nicotine dependence; I25.2 Old myocardial infarction; Z95.1 Presence of aortocoronary bypass graft
CPT/HCPCS: 99283

== ENCOUNTER 2017-08-17 13:00 | Inpatient (IN) | payer MEDICARE ==
--- NOTE | 2017-08-17 14:20 | ER Document Report ---
ED Medical Screen (RME) - General Chief Complaint: Leg Swelling Stated Complaint: ANKLE PAIN Time Seen by Provider: 08/17/17 14:17 Mode of Arrival: Wheelchair Information source: Patient Notes: 72-year-old male has been to 5 different doctors in the past 5 days presents with complaints of swelling and pain in the right lateral ankle remains in the mid calf with discoloration Patient has had Doppler x-ray seen ortho vascular PCP I have greeted and performed a rapid initial assessment of this patient. A comprehensive ED assessment and evaluation of the patient, analysis of test results and completion of the medical decision making process will be conducted by additional ED providers. PHYSICAL EXAMINATION: GENERAL: Well-appearing, well-nourished and in no acute distress. HEAD: Atraumatic, normocephalic. EYES: Pupils equal round extraocular movements intact, conjunctiva are normal. ENT: Nares patent NECK: Normal range of motion LUNGS: No respiratory distress Musculoskeletal: Normal range of motion NEUROLOGICAL: Normal speech, normal gait. PSYCH: Normal mood, normal affect. SKIN: Discoloration noted of the right lateral ankle to the midcalf TRAVEL OUTSIDE OF THE [place] IN LAST 30 DAYS: No - Related Data Allergies/Adverse Reactions: Sulfa (Sulfonamide Antibiotics) Allergy (Verified 08/17/17 13:03) Past Medical History - Past Medical History Cardiac Medical History: Reports: Hx Atrial Fibrillation, Hx Coronary Artery Disease, Hx Heart Attack, Hx Hypertension Pulmonary Medical History: Reports: Hx COPD, Hx Pneumonia Renal/ Medical History: Denies: Hx Peritoneal Dialysis GI Medical History: Reports: Hx Gastroesophageal Reflux Disease Musculoskeltal Medical History: Reports Hx Arthritis Past Surgical History: Reports: Hx Coronary Artery Bypass Graft, Hx Tonsillectomy, Hx Vascular Surgery - Immunizations Hx Diphtheria, Pertussis, Tetanus Vaccination: Yes Physical Exam - Vital signs Vitals: Temp Pulse Resp BP Pulse Ox 97.9 F 113 H 20 149/88 H 95 08/17/17 13:10 08/17/17 13:10 08/17/17 13:10 08/17/17 13:10 08/17/17 13:10 Course - Vital Signs Vital signs: Temp Pulse Resp BP Pulse Ox 97.9 F 113 H 20 149/88 H 95 08/17/17 13:10 08/17/17 13:10 08/17/17 13:10 08/17/17 13:10 08/17/17 13:10 Doctor's Discharge - Discharge Referrals: RAMÓN DICKERSON MD [Primary Care Provider] - Follow up as needed
[2017-08-17 15:23] LABS: HEMATOCRIT 49.8 % (37.9-51.0); HEMOGLOBIN 16.7 g/dL (13.5-17.0); MEAN CORPUSCULAR HEMOGLOBIN 27.4 pg (27.0-33.4); MEAN CORPUSCULAR HGB CONC 33.6 g/dL (32.0-36.0); MEAN CORPUSCULAR VOLUME 82 fl (80-97); PLATELET COUNT 318 10^3/uL (150-450); RED BLOOD COUNT 6.11 10^6/uL (4.35-5.55); RED CELL DISTRIBUTION WIDTH 15.4 % (11.5-14.0); WHITE BLOOD COUNT 20.1 10^3/uL (4.0-10.5)
[2017-08-17 15:40] LABS: ABSOLUTE LYMPHOCYTES# (MANUAL) 1.8 10^3/uL (0.5-4.7); ABSOLUTE MONOCYTES # (MANUAL) 1.2 10^3/uL (0.1-1.4); ABSOLUTE NEUTROPHILS# (MANUAL) 17.1 10^3/uL (1.7-8.2); BAND NEUTROPHILS % (MANUAL) 1 % (3-5); BASOPHILS % (MANUAL) 0 % (0-2); EOSINOPHILS % (MANUAL) 0 % (0-6); LYMPHOCYTES % (MANUAL) 9 % (13-45); MONOCYTES % (MANUAL) 6 % (3-13); SEGMENTED NEUTROPHILS % (MAN) 84 % (42-78); TOTAL CELLS COUNTED 100
[2017-08-17 15:41] LABS: ANISOCYTOSIS SLIGHT; PLATELET COMMENT ADEQUATE; TOXIC GRANULATION SLIGHT
[2017-08-17 15:43] LABS: ALANINE AMINOTRANSFERASE 31 U/L (21-72); ALBUMIN 4.2 g/dL (3.5-5.0); ALKALINE PHOSPHATASE 93 U/L (38-126); ANION GAP 19 (5-19); ASPARTATE AMINO TRANSFERASE 41 U/L (17-59); BILIRUBIN,DIRECT 0.7 mg/dL (0.0-0.4); BILIRUBIN,TOTAL 0.9 mg/dL (0.2-1.3); BLOOD UREA NITROGEN 35 mg/dL (7-20); CALCIUM 8.8 mg/dL (8.4-10.2); CARBON DIOXIDE 21 mmol/L (22-30); CHLORIDE 97 mmol/L (98-107); SODIUM 136.5 mmol/L (137-145); TOTAL PROTEIN 8.7 g/dL (6.3-8.2); URIC ACID 6.7 mg/dL (3.5-8.5)
[2017-08-17 16:11] LABS: GLUCOSE 459 mg/dL (75-110)
[2017-08-17] MEDS ORDERED: CLINDAMYCIN 900 MG/D5W RTU 900 MG/50 ML RTUPB IV ONE (16:17)
[2017-08-17] MEDS: NORMAL SALINE 1000 ML 1,000 ML IV PRN ×2 (16:46→17:29)
[2017-08-17] MEDS ORDERED: IPRATROPIUM/ALBUTEROL 0.5-2.5 MG/3 ML AMPUL NEB PRN (17:40)
[2017-08-17] MEDS ORDERED: NORMAL SALINE 1000 ML 1,000 ML IV PRN (17:53)
[2017-08-17] MEDS ORDERED: ONDANSETRON 4 MG TAB.RAPDIS PO PRN (17:53)
[2017-08-17] MEDS ORDERED: ONDANSETRON HCL INJ/PF 4 MG/2 ML SDV IV PRN (17:53)
[2017-08-17] MEDS ORDERED: DEXTROSE 40% GEL 15 GM TUBE PO PRN ×2 (18:01)
[2017-08-17] MEDS ORDERED: DEXTROSE 50%-WATER 25 GM/50 ML DISP.SYRIN IV PRN ×2 (18:01)
[2017-08-17] MEDS ORDERED: GLUCAGON,HUMAN RECOMB 1 MG INJ IM PRN (18:01)
--- NOTE | 2017-08-17 18:09 | ER Document Report ---
ED General - General Chief Complaint: Leg Swelling Stated Complaint: ANKLE PAIN Time Seen by Provider: 08/17/17 14:17 Mode of Arrival: Wheelchair TRAVEL OUTSIDE OF THE [place] IN LAST 30 DAYS: No - HPI Patient complains to provider of: Ankle pain Notes: Patient coming in for redness erythema of the right ankle. Patient states been evaluated multiple providers is on PCP orthopedics vascular with no clear definite diagnosis of why his ankle is painful and red. Patient states that patient x-rays performed showing arthritic changes however was diagnosed with gout placed on prednisone with no relief of his pain or redness. Patient states mild increase in the redness going up the leg. Patient states no fevers. No history of diabetes. - Related Data Allergies/Adverse Reactions: Sulfa (Sulfonamide Antibiotics) Allergy (Verified 08/17/17 13:03) Past Medical History - General Information source: Patient - Social History Smoking Status: Current Some Day Smoker Chew tobacco use (# tins/day): No Frequency of alcohol use: None Drug Abuse: None Family History: CAD, DM, Hypertension Patient has suicidal ideation: No Patient has homicidal ideation: No - Past Medical History Cardiac Medical History: Reports: Hx Atrial Fibrillation, Hx Coronary Artery Disease, Hx Heart Attack, Hx Hypertension Pulmonary Medical History: Reports: Hx COPD, Hx Pneumonia Renal/ Medical History: Denies: Hx Peritoneal Dialysis GI Medical History: Reports: Hx Gastroesophageal Reflux Disease Musculoskeltal Medical History: Reports Hx Arthritis Past Surgical History: Reports: Hx Bowel Surgery, Hx Cardiac Surgery - bypass, Hx Coronary Artery Bypass Graft, Hx Tonsillectomy, Hx Vascular Surgery - Immunizations Hx Diphtheria, Pertussis, Tetanus Vaccination: Yes Review of Systems - Review of Systems Constitutional: No symptoms reported EENT: No symptoms reported Cardiovascular: No symptoms reported Respiratory: No symptoms reported Gastrointestinal: No symptoms reported Genitourinary: No symptoms reported Male Genitourinary: No symptoms reported Musculoskeletal: Other - Ankle pain swelling Skin: No symptoms reported Hematologic/Lymphatic: No symptoms reported Neurological/Psychological: No symptoms reported Physical Exam - Vital signs Vitals: Temp Pulse Resp BP Pulse Ox 97.9 F 113 H 20 149/88 H 95 08/17/17 13:10 08/17/17 13:10 08/17/17 13:10 08/17/17 13:10 08/17/17 13:10 Interpretation: Normal - General General appearance: Appears well, Alert - HEENT Head: Normocephalic, Atraumatic Eyes: Normal Pupils: PERRL - Respiratory Respiratory status: No respiratory distress Chest status: Nontender Breath sounds: Normal Chest palpation: Normal - Cardiovascular Rhythm: Regular Heart sounds: Normal auscultation Murmur: No - Abdominal Inspection: Normal Distension: No distension Bowel sounds: Normal Tenderness: Nontender Organomegaly: No organomegaly - Back Back: Normal, Nontender - Extremities General upper extremity: Normal inspection, Nontender, Normal color, Normal ROM , Normal temperature General lower extremity: Nontender, Normal color, Normal ROM, Normal temperature , Normal weight bearing. No: Normal inspection - Redness erythema warmth of the lateral malleolus the erythema does extend up to the anterior salmeron, Lisa's sign - Neurological Neuro grossly intact: Yes Cognition: Normal Orientation: AAOx4 Perry Coma Scale Eye Opening: Spontaneous Perry Coma Scale Verbal: Oriented Guy Coma Scale Motor: Obeys Commands Guy Coma Scale Total: 15 Speech: Normal Motor strength normal: LUE, RUE, LLE, RLE Sensory: Normal - Psychological Associated symptoms: Normal affect, Normal mood - Skin Skin Temperature: Warm Skin Moisture: Dry Skin Color: Normal Course - Re-evaluation Re-evalutation: 08/17/17 18:07 Patient recently on steroids does have elevated blood glucose however no signs of acute DKA. Patient states he has had this happen before when he is on chronic steroid therapy did require insulin at the time however this is been many years ago when this occurred. Patient states he is on no medication at this time for diabetes. Patient does have also leukocytosis which could be due to underlying infection or steroids. Complicated history and do feel the best course of action at this time will be to treat the patient for overlying cellulitis as this looks to be clinically what is going on and to continue to monitor the patient. Patient agrees discussed with hospitalist agrees with plan. - Vital Signs Vital signs: Temp Pulse Resp BP Pulse Ox 97.5 F 76 18 170/96 H 93 08/17/17 17:56 08/17/17 17:56 08/17/17 17:56 08/17/17 17:56 08/17/17 17:56 - Laboratory Result Diagrams: 08/17/17 15:08 08/17/17 15:08 Laboratory results interpreted by me: 08/17/17 08/17/17 15:08 15:08 WBC 20.1 H RBC 6.11 H RDW 15.4 H Seg Neuts % (Manual) 84 H Band Neutrophils % 1 L Lymphocytes % (Manual) 9 L Abs Neuts (Manual) 17.1 H Sodium 136.5 L Chloride 97 L Carbon Dioxide 21 L BUN 35 H Glucose 459 H* Direct Bilirubin 0.7 H Total Protein 8.7 H Discharge - Discharge Clinical Impression: Cellulitis Qualifiers: Site of cellulitis: unspecified site Qualified Code(s): L03.90 - Cellulitis, unspecified Condition: Good Disposition: ADMITTED INPATIENT Admitting Provider: Hospitalist - May Unit Admitted: Medical Floor Referrals: RAMÓN DICKERSON MD [ACTIVE STAFF] - Follow up as needed
[2017-08-17 19:33] LABS: INTERNATIONAL RATION (INR) 2.35; PROTHROMBIN TIME 26.9 SEC (11.4-15.4)
[2017-08-17 19:34] LABS: PARTIAL THROMBOPLASTIN TIME 42.5 SEC (23.5-35.8)
--- NOTE | 2017-08-17 19:41 | PDOC H&P ---
History of Present Illness Admission Date/PCP: August 17, 2017 JESSICA CANALES MD Patient complains of: Erythema and pain of the right ankle History of Present Illness: The patient is a 72-year-old gentleman with past medical history of Coronary artery disease Benign prostatic hypertrophy COPD Atrial fibrillation on Coumadin for anticoagulation. Hypertension Obesity GERD Arthritis History of History ITP [address] Canales for primary care. He presented to the emergency room reporting pain and swelling of the right ankle erythema, which has been ongoing for the past 2 weeks. There was concern for possible gout and he also saw orthopedics as an outpatient. He was also seen by the surgical service he was treated with steroids and colchicine. And reports that venous Dopplers were negative for blood clots. In the emergency room he was treated with IV clindamycin and was also noted to have blood sugars in the 400s. He tells me that he is not diabetic and that in the past he was on a prolonged course of steroids for ITP which had raised his blood sugars but he is on no medicine for blood sugars at present. Past Medical History Cardiac Medical History: Reports: Atrial Fibrillation, Coronary Artery Disease, Myocardial Infarction, Hypertension Pulmonary Medical History: Reports: Chronic Obstructive Pulmonary Disease (COPD) , Pneumonia GI Medical History: Reports: Gastroesophageal Reflux Disease Musculoskeltal Medical History: Reports: Arthritis Past Surgical History Past Surgical History: Reports: Coronary Artery Bypass Graft, Tonsillectomy, Vascular Surgery Social History Smoking Status: Current Some Day Smoker Frequency of Alcohol Use: None Hx Recreational Drug Use: No Hx Prescription Drug Abuse: No - Advance Directive Resuscitation Status: Full Code Family History Family History: CAD, DM, Hypertension Parental Family History Reviewed: Yes Children Family History Reviewed: Yes Sibling(s) Family History Reviewed.: Yes Medication/Allergy Home Medications: Amlodipine Besylate [Norvasc 5 mg Tablet] 5 mg PO Q12 08/17/17 Aspirin [Aspirin EC] 81 mg PO BID 08/17/17 Fiber [Fiber Choice] 1 tab PO DAILY 08/17/17 Lisinopril [Zestril] 20 mg PO DAILY 08/17/17 Metoprolol Tartrate [Lopressor 50 mg Tablet] 75 mg PO Q12 08/17/17 Oxycodone HCl 15 mg PO Q6HP PRN 08/17/17 Tamsulosin HCl [Flomax 0.4 mg Cap.sr] 0.4 mg PO DAILY 08/17/17 Warfarin Sodium [Coumadin 5 mg Tablet] 5 mg PO QHS 08/17/17 Allergies/Adverse Reactions: Sulfa (Sulfonamide Antibiotics) Allergy (Verified 08/17/17 13:03) Review of Systems Constitutional: ABSENT: fever(s) Eyes: ABSENT: visual disturbances Ears: ABSENT: hearing changes Nose, Mouth, and Throat: ABSENT: headache(s) Cardiovascular: PRESENT: edema. ABSENT: chest pain Respiratory: ABSENT: dyspnea Gastrointestinal: PRESENT: constipation. ABSENT: abdominal pain Genitourinary: ABSENT: dysuria Musculoskeletal: PRESENT: joint swelling - Right ankle pain erythema and swelling Integumentary: ABSENT: pruritus Neurological: PRESENT: focal weakness Psychiatric: ABSENT: hallucinations Endocrine: ABSENT: heat intolerance Hematologic/Lymphatic: ABSENT: easy bleeding Allergic/Immunologic: ABSENT: seasonal rhinorrhea Physical Exam Vital Signs: Temp Pulse Resp BP Pulse Ox 97.5 F 76 18 170/96 H 93 08/17/17 17:56 08/17/17 17:56 08/17/17 17:56 08/17/17 17:56 08/17/17 17:56 Intake & Output 08/16/17 08/17/17 08/18/17 06:59 06:59 06:59 Weight 115.9 kg General appearance: PRESENT: no acute distress, obese Head exam: PRESENT: normocephalic Ear exam: PRESENT: normal external ear exam Mouth exam: PRESENT: moist Neck exam: ABSENT: tracheal deviation Respiratory exam: PRESENT: symmetrical, unlabored. ABSENT: crackles, wheezes Cardiovascular exam: PRESENT: RRR GI/Abdominal exam: PRESENT: normal bowel sounds, soft. ABSENT: tenderness Rectal exam: PRESENT: deferred Extremities exam: PRESENT: other - Right ankle pain swelling and erythema and tenderness with decreased range of movement. Neurological exam: PRESENT: alert, awake, oriented to person, oriented to place , oriented to time, oriented to situation Psychiatric exam: PRESENT: appropriate affect Skin exam: ABSENT: petechiae Results Laboratory Results: 08/17/17 15:08 08/17/17 15:08 08/17/17 08/17/17 15:08 15:08 WBC 20.1 H RBC 6.11 H Hgb 16.7 Hct 49.8 MCV 82 MCH 27.4 MCHC 33.6 RDW 15.4 H Plt Count 318 Seg Neutrophils % Not Reportable Lymphocytes % Not Reportable Monocytes % Not Reportable Eosinophils % Not Reportable Basophils % Not Reportable Absolute Neutrophils Not Reportable Absolute Lymphocytes Not Reportable Absolute Monocytes Not Reportable Absolute Eosinophils Not Reportable Absolute Basophils Not Reportable Sodium 136.5 L Potassium 4.0 Chloride 97 L Carbon Dioxide 21 L Anion Gap 19 BUN 35 H Creatinine 1.06 Est GFR ( Amer) > 60 Est GFR (Non-Af Amer) > 60 Glucose 459 H* Uric Acid 6.7 Calcium 8.8 Total Bilirubin 0.9 AST 41 ALT 31 Alkaline Phosphatase 93 Total Protein 8.7 H Albumin 4.2 Assessment & Plan - Diagnosis (1) Cellulitis of right ankle Is this a current diagnosis for this admission?: Yes Plan: IsClindamycin, MRI- rule out osteomyelitis (2) A-fib Qualifiers: Atrial fibrillation type: unspecified Qualified Code(s): I48.91 - Unspecified atrial fibrillation Is this a current diagnosis for this admission?: Yes Plan: On coumadin. Check INR Continue Metoprolol (3) CAD (coronary artery disease) Qualifiers: Coronary Disease-Associated Artery/Lesion type: [place] artery [place] vs. transplanted heart: [place] heart Associated angina: without angina Qualified Code(s): I25.10 - Atherosclerotic heart disease of [place] coronary artery without angina pectoris Is this a current diagnosis for this admission?: Yes Plan: Continue outpatient meds (4) Tobacco abuse Is this a current diagnosis for this admission?: Yes (5) Uncontrolled blood glucose Is this a current diagnosis for this admission?: Yes Plan: 1 dose Lantus now. Diabetic diet. Insulin sliding scale. Check hemoglobin A1c. - Time Time Spent: 50 to 70 Minutes - Inpatient Certification Medical Necessity: Significant Comorbidiites Make Outpatient Treatment Too Risky , Need Close Monitoring Due to Risk of Patient Decompensation, Need for IV Antibiotics
[2017-08-17] MEDS ORDERED: METOPROLOL TARTRATE 100 MG TABLET PO SCH (20:00)
[2017-08-17] MEDS ORDERED: ENOXAPARIN SODIUM INJ 40 MG/0.4 ML DISP.SYRIN SUBCUT ONE (20:00)
[2017-08-17] MEDS ORDERED: INSULIN GLARGINE,HUM.REC.ANLOG 1,000 UNIT/10 ML UNIT SUBCUT ONE (20:30)
[2017-08-17] MEDS: CLINDAMYCIN 300 MG/D5W RTU 300 MG/50 ML RTUPB IV SCH (21:27)
[2017-08-17] MEDS: AMLODIPINE BESYLATE 5 MG TABLET PO SCH (21:28)
[2017-08-17] MEDS: METOPROLOL TARTRATE 50 MG TABLET PO SCH (21:29)
[2017-08-17] MEDS: LACTOBACILLUS ACIDOPHILUS 250 MG TAB PO SCH (21:29)
[2017-08-17] MEDS: WARFARIN SODIUM 5 MG TABLET PO SCH (21:31)
[2017-08-17] MEDS: ACETAMINOPHEN 325 MG TABLET PO PRN (21:41)
[2017-08-17] MEDS ORDERED: (PENDING PHARMACY ID) (Warfarin Sodium 5 MG) PO SCH (22:00)
[2017-08-18] MEDS: OXYCODONE HCL IR 5 MG TABLET PO PRN ×4 (00:59→23:59)
[2017-08-18] MEDS: CLINDAMYCIN 300 MG/D5W RTU 300 MG/50 ML RTUPB IV SCH ×4 (03:50→21:28)
--- NOTE | 2017-08-18 04:32 | RADIOLOGY REPORT (SQ) ---
EXAM DESCRIPTION: MRI LOWER EXTREMITY WITHOUT IV CONTRAST COMPLETED DATE/TME: 08/17/2017 00:00 CLINICAL HISTORY: 72 years Male, R ankle swelling erythema, r/o osteomyelitis COMPARISON: None. TECHNIQUE/LIMITATION: Targeted, large [id number] noncontrast MRI of the distal right lower leg and ankle. FINDINGS: Moderate subcutaneous edema of the right lower leg, bone marrow signal appears normal, no noncontrast MRI evidence to suggest osteomyelitis. Flexor and extensor structures of the right ankle, stabilization structures, Achilles tendon, plantar fascia, talar dome, and cartilaginous surfaces appear grossly intact. IMPRESSION: Moderate subcutaneous soft tissue edema of the right lower leg and ankle. Else, no acute findings. Correlation with current radiographs recommended.
[2017-08-18 07:32] LABS: HEMATOCRIT 46.3 % (37.9-51.0); HEMOGLOBIN 15.7 g/dL (13.5-17.0); MEAN CORPUSCULAR HEMOGLOBIN 27.4 pg (27.0-33.4); MEAN CORPUSCULAR HGB CONC 33.9 g/dL (32.0-36.0); MEAN CORPUSCULAR VOLUME 81 fl (80-97); PLATELET COUNT 274 10^3/uL (150-450); RED BLOOD COUNT 5.73 10^6/uL (4.35-5.55); RED CELL DISTRIBUTION WIDTH 15.3 % (11.5-14.0); WHITE BLOOD COUNT 19.4 10^3/uL (4.0-10.5)
[2017-08-18 07:49] LABS: ANION GAP 13 (5-19); BLOOD UREA NITROGEN 24 mg/dL (7-20); CALCIUM 8.6 mg/dL (8.4-10.2); CARBON DIOXIDE 23 mmol/L (22-30); CHLORIDE 104 mmol/L (98-107); GLUCOSE 125 mg/dL (75-110); PHOSPHORUS 2.9 mg/dL (2.5-4.5); POTASSIUM 3.4 mmol/L (3.6-5.0); SODIUM 140.2 mmol/L (137-145)
[2017-08-18] MEDS ORDERED: (PENDING PHARMACY ID) (Lisinopril [Zestril] 20 MG) PO SCH (10:00)
[2017-08-18] MEDS ORDERED: ENOXAPARIN SODIUM INJ 40 MG/0.4 ML DISP.SYRIN SUBCUT SCH (10:00)
[2017-08-18] MEDS: TAMSULOSIN HCL 0.4 MG CAP.SR.24H PO SCH (10:30)
[2017-08-18] MEDS: LISINOPRIL 10 MG TABLET PO SCH (10:30)
[2017-08-18] MEDS: AMLODIPINE BESYLATE 5 MG TABLET PO SCH ×2 (10:30→21:32)
[2017-08-18] MEDS: METOPROLOL TARTRATE 50 MG TABLET PO SCH ×2 (10:31→21:34)
[2017-08-18] MEDS: LACTOBACILLUS ACIDOPHILUS 250 MG TAB PO SCH ×2 (10:32→21:32)
--- NOTE | 2017-08-18 18:06 | PDOC PROGRESS REPORT ---
Subjective Progress Note for:: 08/18/17 Subjective:: Doing a little better today. Ankle remains swollen. Unable to ambulate due to pain and swelling. Denies fevers, chills, CP, SOB, N/V Reason For Visit: CELLULITIS,UNCONTROLLED DIABETES Physical Exam Vital Signs: Temp Pulse Resp BP Pulse Ox 98.7 F 74 16 137/68 H 94 08/18/17 08:07 08/18/17 12:15 08/18/17 12:15 08/18/17 08:07 08/18/17 12:15 Intake & Output 08/17/17 08/18/17 08/19/17 06:59 06:59 06:59 Intake Total 220 Output Total 1300 Balance -1080 Weight 110.4 kg General appearance: PRESENT: no acute distress, cooperative, obese Head exam: PRESENT: normocephalic Mouth exam: PRESENT: moist Respiratory exam: PRESENT: unlabored Cardiovascular exam: PRESENT: +S1, +S2. ABSENT: tachycardia GI/Abdominal exam: PRESENT: normal bowel sounds, soft. ABSENT: tenderness Extremities exam: PRESENT: pedal edema, other - Right ankle + erythema, + swelling + tender to palpation Neurological exam: PRESENT: alert, awake, CN II-XII grossly intact Psychiatric exam: PRESENT: appropriate affect Skin exam: PRESENT: erythema Results Laboratory Results: 08/18/17 06:38 08/18/17 06:38 08/18/17 08/18/17 08/18/17 06:38 06:38 06:38 WBC 19.4 H RBC 5.73 H Hgb 15.7 Hct 46.3 MCV 81 MCH 27.4 MCHC 33.9 RDW 15.3 H Plt Count 274 Sodium 140.2 Potassium 3.4 L Chloride 104 Carbon Dioxide 23 Anion Gap 13 BUN 24 H Creatinine 0.67 Est GFR ( Amer) > 60 Est GFR (Non-Af Amer) > 60 Glucose 125 H Calcium 8.6 Phosphorus 2.9 Magnesium 1.8 TSH 2.93 08/18/17 06:38 NT-Pro-B Natriuret Pep 1430 H Impressions: Lower Extremity MRI 08/17/17 00:00 IMPRESSION: Moderate subcutaneous soft tissue edema of the right lower leg and ankle. Else, no acute findings. Correlation with current radiographs recommended. Assessment & Plan - Diagnosis (1) Cellulitis of right ankle Is this a current diagnosis for this admission?: Yes Plan: Improved however remains swollen and painful. Unable to ambulate - MRI negative for osteomyelitis, notable for soft tissue swelling - Leukocytosis persists, however no fevers or other criteria for SIRS - Blood cultures NGTD at 24 hours - Continue IV clindamycin --> likely transition to PO on 08/19 - PT consult and anticipate discharge in 24 hours (2) Inability to ambulate due to ankle or foot Is this a current diagnosis for this admission?: Yes Plan: Per above - PT consulted, appreciated recommendations (3) Leukocytosis Is this a current diagnosis for this admission?: Yes Plan: Left shift, likely due to active infection - Continue antibitiotics - Trend WBC (4) HTN (hypertension) Qualifiers: Hypertension type: essential hypertension Qualified Code(s): I10 - Essential (primary) hypertension Is this a current diagnosis for this admission?: Yes Plan: BP good control here. continue current medications - Time Time Spent with patient: Less than 15 minutes Medications reviewed and adjusted accordingly: Yes Anticipated discharge: Home, Home with Homehealth Within: within 24 hours
[2017-08-18] MEDS: WARFARIN SODIUM 5 MG TABLET PO SCH (21:34)
[2017-08-19] MEDS: CLINDAMYCIN 300 MG/D5W RTU 300 MG/50 ML RTUPB IV SCH ×2 (02:36→09:02)
[2017-08-19 06:17] LABS: HEMATOCRIT 45.9 % (37.9-51.0); HEMOGLOBIN 15.8 g/dL (13.5-17.0); MEAN CORPUSCULAR HEMOGLOBIN 27.9 pg (27.0-33.4); MEAN CORPUSCULAR HGB CONC 34.5 g/dL (32.0-36.0); MEAN CORPUSCULAR VOLUME 81 fl (80-97); PLATELET COUNT 244 10^3/uL (150-450); RED BLOOD COUNT 5.68 10^6/uL (4.35-5.55); RED CELL DISTRIBUTION WIDTH 15.6 % (11.5-14.0); WHITE BLOOD COUNT 19.3 10^3/uL (4.0-10.5)
[2017-08-19 06:36] LABS: ANION GAP 13 (5-19); BLOOD UREA NITROGEN 24 mg/dL (7-20); CALCIUM 8.4 mg/dL (8.4-10.2); CARBON DIOXIDE 23 mmol/L (22-30); CHLORIDE 102 mmol/L (98-107); GLUCOSE 147 mg/dL (75-110); PHOSPHORUS 3.2 mg/dL (2.5-4.5); POTASSIUM 3.2 mmol/L (3.6-5.0); SODIUM 137.6 mmol/L (137-145)
[2017-08-19] MEDS: OXYCODONE HCL IR 5 MG TABLET PO PRN ×4 (09:00→18:43)
[2017-08-19] MEDS ORDERED: POTASSIUM CHLORIDE 10 MEQ CAPSULE.ER PO ONE (09:58)
[2017-08-19] MEDS: AMLODIPINE BESYLATE 5 MG TABLET PO SCH ×2 (10:05→21:52)
[2017-08-19] MEDS: LACTOBACILLUS ACIDOPHILUS 250 MG TAB PO SCH ×2 (10:06→21:50)
[2017-08-19] MEDS: TAMSULOSIN HCL 0.4 MG CAP.SR.24H PO SCH (10:06)
[2017-08-19] MEDS: LISINOPRIL 10 MG TABLET PO SCH (10:06)
[2017-08-19] MEDS: METOPROLOL TARTRATE 50 MG TABLET PO SCH ×2 (10:07→21:51)
[2017-08-19 10:51] LABS: INTERNATIONAL RATION (INR) 1.87; PROTHROMBIN TIME 22.4 SEC (11.4-15.4)
[2017-08-19] MEDS ORDERED: CEPHALEXIN 500 MG CAPSULE PO ONE (13:00)
[2017-08-19] MEDS ORDERED: LEVOFLOXACIN 500 MG TABLET PO SCH (15:00)
--- NOTE | 2017-08-19 16:20 | PDOC CONSULTATION ---
Consultation Consult Date: 08/19/17 Consult reason:: right lateral malleolar skin infection and abscess History of Present Illness Admission Date/PCP: 08/17/17 18:17 JESSICA CANALES MD Patient complains of: right lateral malleolar skin infection and abscess History of Present Illness: DAVID MERAZ is a 72 year old male with a 2 week hx of right lateral malleolar skin redness, pain, swelling, now with suspected fluid collection. I have been consulted to perform incision and drainage of this area as oer apparent subcutaneous abscess. According to the patient, he had a right femoral distal vascular bypass several years ago; he has been suffering of redness and pain of the lateral right malleolus with increase of pain and redness now spread to the right anterolateral leg. Past Medical History Cardiac Medical History: Reports: Atrial Fibrillation, Coronary Artery Disease, Myocardial Infarction, Hypertension Pulmonary Medical History: Reports: Chronic Obstructive Pulmonary Disease (COPD) , Pneumonia GI Medical History: Reports: Gastroesophageal Reflux Disease Musculoskeltal Medical History: Reports: Arthritis Past Surgical History Past Surgical History: Reports: Coronary Artery Bypass Graft, Tonsillectomy, Vascular Surgery Social History Smoking Status: Current Some Day Smoker Frequency of Alcohol Use: None Hx Recreational Drug Use: No Hx Prescription Drug Abuse: No - Advance Directive Resuscitation Status: Full Code Family History Family History: Reviewed & Not Pertinent, CAD, DM, Hypertension Parental Family History Reviewed: No Children Family History Reviewed: No Sibling(s) Family History Reviewed.: No Medication/Allergy Home Medications: Amlodipine Besylate [Norvasc 5 mg Tablet] 5 mg PO Q12 08/17/17 Aspirin [Aspirin EC] 81 mg PO BID 08/17/17 Fiber [Fiber Choice] 1 tab PO DAILY 08/17/17 Lisinopril [Zestril] 20 mg PO DAILY 08/17/17 Metoprolol Tartrate [Lopressor 50 mg Tablet] 75 mg PO Q12 08/17/17 Oxycodone HCl 15 mg PO Q6HP PRN 08/17/17 Tamsulosin HCl [Flomax 0.4 mg Cap.sr] 0.4 mg PO DAILY 08/17/17 Warfarin Sodium [Coumadin 5 mg Tablet] 5 mg PO QHS 08/17/17 Acetaminophen [Tylenol 325 mg Tablet] 650 mg PO Q4HP PRN tablet 08/19/17 Cephalexin Monohydrate [Keflex 500 mg Capsule] 500 mg PO Q6 7 Days #14 capsule 08/19/17 Lactobacillus Acidophilus [Bacid 250 mg Tablet] 500 mg PO Q12 15 Days #30 tab Levofloxacin [Levaquin 500 mg Tablet] 500 mg PO DAILY 5 Days #5 tablet 08/19/17 Allergies/Adverse Reactions: Sulfa (Sulfonamide Antibiotics) Allergy (Verified 08/17/17 13:03) Physical Exam Vital Signs: Temp Pulse Resp BP Pulse Ox 98.2 F 75 18 147/83 H 96 08/19/17 11:47 08/19/17 11:47 08/19/17 11:47 08/19/17 11:47 08/19/17 11:47 Intake & Output 08/18/17 08/19/17 08/20/17 06:59 06:59 06:59 Intake Total 220 515 Output Total 1300 1075 Balance -1080 -560 Weight 110.4 kg 110.858 kg General appearance: PRESENT: no acute distress Head exam: PRESENT: atraumatic Eye exam: PRESENT: EOMI Mouth exam: PRESENT: neck supple Respiratory exam: PRESENT: clear to auscultation la Cardiovascular exam: PRESENT: irregular rhythm - as per atrial fibrillation Pulses: PRESENT: +1 pedal pulses bilateral, +2 pedal pulses bilateral - on the right foot (DP) GI/Abdominal exam: PRESENT: soft Extremities exam: PRESENT: full ROM, tenderness - of the right lateral malleolus with erythema and edema 10 x 8 cm Musculoskeletal exam: PRESENT: full ROM Results Laboratory Results: 08/19/17 05:40 08/19/17 05:40 08/19/17 08/19/17 05:40 05:40 WBC 19.3 H RBC 5.68 H Hgb 15.8 Hct 45.9 MCV 81 MCH 27.9 MCHC 34.5 RDW 15.6 H Plt Count 244 Sodium 137.6 Potassium 3.2 L Chloride 102 Carbon Dioxide 23 Anion Gap 13 BUN 24 H Creatinine 0.75 Est GFR ( Amer) > 60 Est GFR (Non-Af Amer) > 60 Glucose 147 H Calcium 8.4 Phosphorus 3.2 Magnesium 1.9 08/18/17 06:38 NT-Pro-B Natriuret Pep 1430 H Impressions: Lower Extremity MRI 08/17/17 00:00 IMPRESSION: Moderate subcutaneous soft tissue edema of the right lower leg and ankle. Else, no acute findings. Correlation with current radiographs recommended. Assessment & Plan - Diagnosis (2) Cellulitis of right ankle Is this a current diagnosis for this admission?: Yes - Plan Summary Plan Summary: A/ Right lateral malleolus erythema, edema, tenderness with palpable fluctuation as pe subcutaneous abscess symptoms persistent for 2 week Atrial fibrillation Paient on Coumadin INR today 1.8 K 3.2, replaced orally Patient on Keflex Plan: NPO after midnight IVF Hold Coumadin T&C 2 units FFP to be given before surgery tomorrow Replace K Consent for right lateral malleolus Incision and drainage tomorrow
[2017-08-19] MEDS ORDERED: NORMAL SALINE 1000 ML 1,000 ML IV PRN (16:23)
--- NOTE | 2017-08-19 16:32 | PDOC PROGRESS REPORT ---
Subjective Progress Note for:: 08/19/17 Subjective:: The patient is a 72-year-old gentleman with a history of coronary artery disease who presented with cellulitis of the right ankle. He was started on antibiotics. MRI did not show osteomyelitis. He has an area of tenderness and fluctuance over the right lateral malleolus. The patient was evaluated by Dr. Jacobson from the surgical service. There are plans for incision and drainage tomorrow morning. Reason For Visit: CELLULITIS,UNCONTROLLED DIABETES Physical Exam Vital Signs: Temp Pulse Resp BP Pulse Ox 98.2 F 75 18 147/83 H 96 08/19/17 11:47 08/19/17 11:47 08/19/17 11:47 08/19/17 11:47 08/19/17 11:47 Intake & Output 08/18/17 08/19/17 08/20/17 06:59 06:59 06:59 Intake Total 220 515 Output Total 1300 1075 Balance -1080 -560 Weight 110.4 kg 110.858 kg General appearance: PRESENT: no acute distress, obese Head exam: PRESENT: normocephalic Mouth exam: PRESENT: moist Respiratory exam: PRESENT: symmetrical, unlabored Cardiovascular exam: PRESENT: RRR GI/Abdominal exam: PRESENT: normal bowel sounds, soft. ABSENT: tenderness Rectal exam: PRESENT: deferred Musculoskeletal exam: PRESENT: other - Erythema of the right ankle, improving positive fluctuance and tenderness over the right lateral malleolus Neurological exam: PRESENT: alert, awake, oriented to person, oriented to place , oriented to time, oriented to situation Psychiatric exam: PRESENT: appropriate affect Results Laboratory Results: 08/19/17 05:40 08/19/17 05:40 08/19/17 08/19/17 05:40 05:40 WBC 19.3 H RBC 5.68 H Hgb 15.8 Hct 45.9 MCV 81 MCH 27.9 MCHC 34.5 RDW 15.6 H Plt Count 244 Sodium 137.6 Potassium 3.2 L Chloride 102 Carbon Dioxide 23 Anion Gap 13 BUN 24 H Creatinine 0.75 Est GFR ( Amer) > 60 Est GFR (Non-Af Amer) > 60 Glucose 147 H Calcium 8.4 Phosphorus 3.2 Magnesium 1.9 08/18/17 06:38 NT-Pro-B Natriuret Pep 1430 H Impressions: Lower Extremity MRI 08/17/17 00:00 IMPRESSION: Moderate subcutaneous soft tissue edema of the right lower leg and ankle. Else, no acute findings. Correlation with current radiographs recommended. Assessment & Plan - Diagnosis (1) Cellulitis of right ankle Is this a current diagnosis for this admission?: Yes Plan: Clindamycin switched to Keflex. Plan for incision and drainage on August 20. (2) A-fib Qualifiers: Atrial fibrillation type: unspecified Qualified Code(s): I48.91 - Unspecified atrial fibrillation Is this a current diagnosis for this admission?: Yes Plan: On Coumadin. Monitor INR. Plan to reverse INR for incision and drainage tomorrow. Continue Metoprolol (3) CAD (coronary artery disease) Qualifiers: Coronary Disease-Associated Artery/Lesion type: [place] artery [place] vs. transplanted heart: [place] heart Associated angina: without angina Qualified Code(s): I25.10 - Atherosclerotic heart disease of [place] coronary artery without angina pectoris Is this a current diagnosis for this admission?: Yes Plan: Continue outpatient meds (4) Tobacco abuse Is this a current diagnosis for this admission?: Yes (5) Uncontrolled blood glucose Is this a current diagnosis for this admission?: Yes Plan: Secondary to steroid use. Follow-up with primary care physician. - Time Time Spent with patient: 35 or more minutes
[2017-08-19] MEDS ORDERED: POTASSI CL 20 MEQ/50 ML RIDER 20 MEQ/50 ML RTUPB IV SCH (17:00)
[2017-08-19] MEDS ORDERED: VANCOMYCIN HCL 1,000 MG in DEXTROSE 5%-WATER 250 ML IV ONE (17:30)
[2017-08-19] MEDS ORDERED: PIPERACILLIN SODIUM/TAZOBACTAM 3.375 GM in NORMAL SALINE 100 ML IV SCH (18:00)
[2017-08-19] MEDS ORDERED: CEPHALEXIN 500 MG CAPSULE PO SCH (18:00)
[2017-08-19] MEDS: CLINDAMYCIN 600 MG/D5W RTU 600 MG/50 ML RTUPB IV SCH (21:52)
[2017-08-19 22:39] LABS: ANION GAP 13 (5-19); BLOOD UREA NITROGEN 25 mg/dL (7-20); CALCIUM 7.7 mg/dL (8.4-10.2); CARBON DIOXIDE 22 mmol/L (22-30); CHLORIDE 103 mmol/L (98-107); GLUCOSE 163 mg/dL (75-110); POTASSIUM 3.6 mmol/L (3.6-5.0); SODIUM 138.2 mmol/L (137-145)
[2017-08-19] MEDS: INSULIN LISPRO 100 UNIT/ML 3 ML VIAL SUBCUT PRN (22:42)
[2017-08-20 04:34] LABS: HEMATOCRIT 46.4 % (37.9-51.0); HEMOGLOBIN 15.9 g/dL (13.5-17.0); MEAN CORPUSCULAR HEMOGLOBIN 27.6 pg (27.0-33.4); MEAN CORPUSCULAR HGB CONC 34.2 g/dL (32.0-36.0); MEAN CORPUSCULAR VOLUME 81 fl (80-97); PLATELET COUNT 209 10^3/uL (150-450); RED BLOOD COUNT 5.75 10^6/uL (4.35-5.55); RED CELL DISTRIBUTION WIDTH 15.6 % (11.5-14.0); WHITE BLOOD COUNT 16.3 10^3/uL (4.0-10.5)
[2017-08-20 04:40] LABS: INTERNATIONAL RATION (INR) 2.74; PROTHROMBIN TIME 30.3 SEC (11.4-15.4)
[2017-08-20 05:00] LABS: ANION GAP 13 (5-19); BLOOD UREA NITROGEN 25 mg/dL (7-20); CALCIUM 8.5 mg/dL (8.4-10.2); CARBON DIOXIDE 23 mmol/L (22-30); CHLORIDE 106 mmol/L (98-107); GLUCOSE 129 mg/dL (75-110); PHOSPHORUS 3.4 mg/dL (2.5-4.5); POTASSIUM 3.5 mmol/L (3.6-5.0); SODIUM 142.1 mmol/L (137-145)
[2017-08-20] MEDS: CLINDAMYCIN 600 MG/D5W RTU 600 MG/50 ML RTUPB IV SCH ×3 (06:00→22:39)
[2017-08-20] MEDS ORDERED: FENTANYL CITRATE INJ/PF 100 MCG/2 ML AMPUL ONE (06:48)
[2017-08-20] MEDS ORDERED: MIDAZOLAM 2 MG/2 ML INJ ONE (06:48)
[2017-08-20] MEDS ORDERED: LIDOCAINE 2% INJ-PF (20 MG/ML) 10 ML AMPUL ONE (06:48)
[2017-08-20] MEDS ORDERED: PROPOFOL INJ 200 MG/20 ML VIAL IV ONE (06:49)
[2017-08-20] MEDS ORDERED: NORMAL SALINE 250 ML IV PRN (07:54)
--- NOTE | 2017-08-20 08:35 | PDOC PROGRESS REPORT ---
Subjective Progress Note for:: 08/20/17 Subjective:: 72 y/o M with a right lateral ankle abscess. He denies any CP, SOB, F/C, N/V, dizziness, orthostasis, malaise, fatigue. He does report pain in his ankle, and redness extending up the leg. Reason For Visit: CELLULITIS,UNCONTROLLED DIABETES Physical Exam Vital Signs: Temp Pulse Resp BP Pulse Ox 98.4 F 88 18 142/88 H 96 08/20/17 04:18 08/20/17 04:18 08/20/17 04:18 08/20/17 04:18 08/20/17 04:18 Intake & Output 08/19/17 08/20/17 08/21/17 06:59 06:59 06:59 Intake Total 515 2508 Output Total 1075 2355 Balance -560 153 Weight 110.858 kg 108.681 kg General appearance: PRESENT: no acute distress Head exam: PRESENT: atraumatic, normocephalic Eye exam: PRESENT: EOMI, PERRLA. ABSENT: scleral icterus Mouth exam: PRESENT: moist, neck supple Neck exam: ABSENT: meningismus, tenderness, thyromegaly, tracheal deviation Respiratory exam: ABSENT: rales, retraction, rhonchi Cardiovascular exam: PRESENT: RRR Pulses: PRESENT: normal radial pulses Vascular exam: PRESENT: normal capillary refill GI/Abdominal exam: ABSENT: distended, tenderness Rectal exam: PRESENT: deferred Extremities exam: PRESENT: +1 edema - right LE, other - Abscess to right ankle with skin necrosis and purulent drainage. Musculoskeletal exam: PRESENT: tenderness - right ankle Neurological exam: PRESENT: alert, awake, oriented to person, oriented to place , oriented to time, CN II-XII grossly intact. ABSENT: motor sensory deficit Psychiatric exam: ABSENT: agitated, anxious, depressed Skin exam: PRESENT: erythema - right ankle. ABSENT: cyanosis Results Laboratory Results: 08/20/17 03:51 08/20/17 03:51 08/19/17 08/19/17 08/20/17 17:10 22:01 03:51 WBC 16.3 H RBC 5.75 H Hgb 15.9 Hct 46.4 MCV 81 MCH 27.6 MCHC 34.2 RDW 15.6 H Plt Count 209 Sodium 138.2 Potassium 3.6 Chloride 103 Carbon Dioxide 22 Anion Gap 13 BUN 25 H Creatinine 0.97 Est GFR ( Amer) > 60 Est GFR (Non-Af Amer) > 60 Glucose 163 H Calcium 7.7 L Phosphorus Magnesium Blood Type A NEGATIVE 08/20/17 03:51 WBC RBC Hgb Hct MCV MCH MCHC RDW Plt Count Sodium 142.1 Potassium 3.5 L Chloride 106 Carbon Dioxide 23 Anion Gap 13 BUN 25 H Creatinine 0.82 Est GFR ( Amer) > 60 Est GFR (Non-Af Amer) > 60 Glucose 129 H Calcium 8.5 Phosphorus 3.4 Magnesium 2.2 Blood Type 08/18/17 06:38 NT-Pro-B Natriuret Pep 1430 H Impressions: Lower Extremity MRI 08/17/17 00:00 IMPRESSION: Moderate subcutaneous soft tissue edema of the right lower leg and ankle. Else, no acute findings. Correlation with current radiographs recommended. Assessment & Plan - Plan Summary Plan Summary: 72 y/o M with a right ankle abscess. There is purulent drainage and skin necrosis. I have recommended surgical drainage with debridement. The pt is on Coumadin and his INR is elevated. Plan FFP administration and surgery after correction of INR. Risks/benefits discussed, informed consent obtained, and all questions answered.
[2017-08-20] MEDS ORDERED: DIPHENHYDRAMINE HCL 50 MG/ML VIAL ONE (09:26)
[2017-08-20] MEDS ORDERED: DEXAMETHASONE SOD PHOSPHATE INJ 4 MG/1 ML VIAL ONE (09:32)
[2017-08-20] MEDS ORDERED: FAMOTIDINE INJ/PF 20 MG/2 ML SDV IV ONE (09:39)
--- NOTE | 2017-08-20 09:59 | Progress Note ---
Provider Note Provider Note: While undergoing his second unit of FFP transfusion, the patient experienced a transfusion reaction. Surgery will be delayed at this time due to the transfusion reaction. The patient is currently receiving treatment for this.
[2017-08-20] MEDS ORDERED: DIPHENHYDRAMINE HCL 50 MG/ML VIAL IV PRN (10:02)
[2017-08-20 10:10] LABS: PROTHROMBIN TIME 24.6 SEC (11.4-15.4)
[2017-08-20] MEDS: AMLODIPINE BESYLATE 5 MG TABLET PO SCH ×2 (11:25→22:33)
[2017-08-20] MEDS: TAMSULOSIN HCL 0.4 MG CAP.SR.24H PO SCH (11:26)
[2017-08-20] MEDS: METOPROLOL TARTRATE 50 MG TABLET PO SCH ×2 (11:26→22:34)
[2017-08-20] MEDS: LACTOBACILLUS ACIDOPHILUS 250 MG TAB PO SCH ×2 (11:27→22:33)
[2017-08-20] MEDS: LISINOPRIL 10 MG TABLET PO SCH (11:28)
[2017-08-20] MEDS: INSULIN LISPRO 100 UNIT/ML 3 ML VIAL SUBCUT PRN ×3 (11:40→22:39)
[2017-08-20] MEDS: OXYCODONE HCL IR 5 MG TABLET PO PRN ×4 (11:40→22:37)
[2017-08-20 13:15] LABS: APPEARANCE,URINE CLEAR; BILIRUBIN,URINE NEGATIVE (NEGATIVE); COLOR,URINE YELLOW; GLUCOSE, URINE >=500 mg/dL (NEGATIVE); KETONES,URINE NEGATIVE (NEGATIVE); LEUKOCYTE ESTERASE,URINE NEGATIVE (NEGATIVE); NITRITE,URINE NEGATIVE (NEGATIVE); PROTEIN,URINE 100 mg/dL (NEGATIVE); URINE SPECIFIC GRAVITY 1.008
--- NOTE | 2017-08-20 16:29 | PDOC PROGRESS REPORT ---
Subjective Progress Note for:: 08/20/17 - Patient seen on rounds this morning Subjective:: Patient states that his leg is still really hard and surgeon had canceled the I& D due to his elevated INR levels. He has no other acute complaints at this time. Reason For Visit: CELLULITIS,UNCONTROLLED DIABETES Physical Exam Vital Signs: Temp Pulse Resp BP Pulse Ox 98.5 F 74 16 139/69 H 96 08/20/17 11:06 08/20/17 14:00 08/20/17 11:06 08/20/17 11:06 08/20/17 11:06 Intake & Output 08/19/17 08/20/17 08/21/17 06:59 06:59 06:59 Intake Total 515 2508 Output Total 1075 2355 Balance -560 153 Weight 244 lb 6.4 oz 239 lb 9.6 oz General appearance: PRESENT: no acute distress, well-developed, well-nourished Head exam: PRESENT: atraumatic, normocephalic Eye exam: PRESENT: EOMI. ABSENT: conjunctival injection Mouth exam: PRESENT: neck supple. ABSENT: dry mucosa Neck exam: PRESENT: full ROM. ABSENT: JVD - He really wants to go home and, tenderness Respiratory exam: PRESENT: clear to auscultation la, symmetrical - As always amazes me Cardiovascular exam: PRESENT: irregular rhythm, +S1, +S2 Pulses: PRESENT: +2 pedal pulses bilateral GI/Abdominal exam: PRESENT: normal bowel sounds, soft. ABSENT: tenderness Extremities exam: PRESENT: tenderness - Right lower [id number] and tender to palpation with serosanguineous discharge noted from wound. Sensation intact. Decreased range of motion due to pain and swelling. Pulses 2 + Neurological exam: PRESENT: alert, altered, awake, oriented to person, oriented to place, oriented to time, CN II-XII grossly intact Skin exam: PRESENT: dry, warm, other - Except as noted above Results Laboratory Results: 08/20/17 03:51 08/20/17 03:51 08/19/17 08/19/17 08/20/17 17:10 22:01 03:51 WBC 16.3 H RBC 5.75 H Hgb 15.9 Hct 46.4 MCV 81 MCH 27.6 MCHC 34.2 RDW 15.6 H Plt Count 209 Sodium 138.2 Potassium 3.6 Chloride 103 Carbon Dioxide 22 Anion Gap 13 BUN 25 H Creatinine 0.97 Est GFR ( Amer) > 60 Est GFR (Non-Af Amer) > 60 Glucose 163 H Uric Acid Calcium 7.7 L Phosphorus Magnesium Urine Color Urine Appearance Urine pH Ur Specific [place] Urine Protein Urine Glucose (UA) Urine Ketones Urine Blood Urine Nitrite Ur Leukocyte Esterase Blood Type A NEGATIVE 08/20/17 08/20/17 08/20/17 03:51 09:45 12:55 WBC RBC Hgb Hct MCV MCH MCHC RDW Plt Count Sodium 142.1 Potassium 3.5 L Chloride 106 Carbon Dioxide 23 Anion Gap 13 BUN 25 H Creatinine 0.82 Est GFR ( Amer) > 60 Est GFR (Non-Af Amer) > 60 Glucose 129 H Uric Acid 6.6 Calcium 8.5 Phosphorus 3.4 Magnesium 2.2 Urine Color YELLOW Urine Appearance CLEAR Urine pH 6.0 Ur Specific [place] 1.008 Urine Protein 100 H Urine Glucose (UA) >=500 H Urine Ketones NEGATIVE Urine Blood MODERATE H Urine Nitrite NEGATIVE Ur Leukocyte Esterase NEGATIVE Blood Type 08/18/17 06:38 NT-Pro-B Natriuret Pep 1430 H Impressions: Lower Extremity MRI 08/17/17 00:00 IMPRESSION: Moderate subcutaneous soft tissue edema of the right lower leg and ankle. Else, no acute findings. Correlation with current radiographs recommended. Assessment & Plan - Diagnosis (1) Cellulitis of right ankle Is this a current diagnosis for this admission?: Yes (2) Abscess of ankle Is this a current diagnosis for this admission?: Yes (3) CAD (coronary artery disease) Qualifiers: Coronary Disease-Associated Artery/Lesion type: [place] artery [place] vs. transplanted heart: [place] heart Associated angina: without angina Qualified Code(s): I25.10 - Atherosclerotic heart disease of [place] coronary artery without angina pectoris Is this a current diagnosis for this admission?: Yes (4) A-fib Qualifiers: Atrial fibrillation type: chronic Qualified Code(s): I48.2 - Chronic atrial fibrillation Is this a current diagnosis for this admission?: Yes (5) COPD (chronic obstructive pulmonary disease) Qualifiers: COPD type: unspecified COPD Qualified Code(s): J44.9 - Chronic obstructive pulmonary disease, unspecified Is this a current diagnosis for this admission?: Yes (6) HTN (hypertension) Qualifiers: Hypertension type: essential hypertension Qualified Code(s): I10 - Essential (primary) hypertension Is this a current diagnosis for this admission?: Yes - Time Time Spent with patient: 25-34 minutes - Plan Summary Plan Summary: Patient was to go for I&D this morning with surgery unfortunately due to elevated INR surgery is declining procedure at this time. He received 1 dose of PE but ended up with urticarial rash for the second FFP and hence it was held. I talked with surgeon and we will hold his Coumadin and repeat his INR in the morning-if his INR is less than 1.8 and he will go ahead and have his I& D done. In the meantime today we will give him some heparin for DVT prophylaxis. Otherwise he is doing stable and his pain is well controlled.
[2017-08-20] MEDS: FAMOTIDINE INJ/PF 20 MG/2 ML SDV IV SCH (22:40)
[2017-08-21 05:31] LABS: HEMATOCRIT 45.1 % (37.9-51.0); HEMOGLOBIN 15.5 g/dL (13.5-17.0); MEAN CORPUSCULAR HEMOGLOBIN 27.9 pg (27.0-33.4); MEAN CORPUSCULAR HGB CONC 34.5 g/dL (32.0-36.0); MEAN CORPUSCULAR VOLUME 81 fl (80-97); PLATELET COUNT 263 10^3/uL (150-450); RED BLOOD COUNT 5.57 10^6/uL (4.35-5.55); RED CELL DISTRIBUTION WIDTH 15.2 % (11.5-14.0)
[2017-08-21 05:34] LABS: PROTHROMBIN TIME 26.4 SEC (11.4-15.4)
[2017-08-21 05:49] LABS: ALANINE AMINOTRANSFERASE 38 U/L (21-72); ALBUMIN 3.8 g/dL (3.5-5.0); ALKALINE PHOSPHATASE 83 U/L (38-126); ANION GAP 14 (5-19); ASPARTATE AMINO TRANSFERASE 20 U/L (17-59); BILIRUBIN,DIRECT 0.5 mg/dL (0.0-0.4); BILIRUBIN,TOTAL 0.9 mg/dL (0.2-1.3); BLOOD UREA NITROGEN 27 mg/dL (7-20); CALCIUM 8.9 mg/dL (8.4-10.2); CARBON DIOXIDE 24 mmol/L (22-30); CHLORIDE 104 mmol/L (98-107); GLUCOSE 115 mg/dL (75-110); POTASSIUM 3.7 mmol/L (3.6-5.0); SODIUM 142.4 mmol/L (137-145); TOTAL PROTEIN 7.6 g/dL (6.3-8.2)
[2017-08-21] MEDS: CLINDAMYCIN 600 MG/D5W RTU 600 MG/50 ML RTUPB IV SCH ×3 (06:09→22:17)
[2017-08-21] MEDS: LACTOBACILLUS ACIDOPHILUS 250 MG TAB PO SCH ×3 (09:42→22:48)
--- NOTE | 2017-08-21 10:12 | PDOC PROGRESS REPORT ---
Subjective Progress Note for:: 08/21/17 Subjective:: no c/o Reason For Visit: CELLULITIS,UNCONTROLLED DIABETES Physical Exam Vital Signs: Temp Pulse Resp BP Pulse Ox 98.5 F 89 16 142/92 H 95 08/21/17 08:24 08/21/17 08:24 08/21/17 08:24 08/21/17 08:24 08/21/17 08:24 Intake & Output 08/20/17 08/21/17 08/22/17 06:59 06:59 06:59 Intake Total 2508 1216 Output Total 2355 1175 Balance 153 41 Weight 108.681 kg 108.4 kg Skin exam: PRESENT: other - right leg cellulitis Results Laboratory Results: 08/21/17 04:06 08/21/17 04:06 08/19/17 08/20/17 08/20/17 17:10 09:45 12:55 WBC RBC Hgb Hct MCV MCH MCHC RDW Plt Count Sodium Potassium Chloride Carbon Dioxide Anion Gap BUN Creatinine Est GFR ( Amer) Est GFR (Non-Af Amer) Glucose Uric Acid 6.6 Calcium Total Bilirubin AST ALT Alkaline Phosphatase Total Protein Albumin Urine Color YELLOW Urine Appearance CLEAR Urine pH 6.0 Ur Specific [place] 1.008 Urine Protein 100 H Urine Glucose (UA) >=500 H Urine Ketones NEGATIVE Urine Blood MODERATE H Urine Nitrite NEGATIVE Ur Leukocyte Esterase NEGATIVE Blood Type A NEGATIVE 08/21/17 08/21/17 04:06 04:06 WBC 17.0 H RBC 5.57 H Hgb 15.5 Hct 45.1 MCV 81 MCH 27.9 MCHC 34.5 RDW 15.2 H Plt Count 263 Sodium 142.4 Potassium 3.7 Chloride 104 Carbon Dioxide 24 Anion Gap 14 BUN 27 H Creatinine 0.79 Est GFR ( Amer) > 60 Est GFR (Non-Af Amer) > 60 Glucose 115 H Uric Acid Calcium 8.9 Total Bilirubin 0.9 AST 20 ALT 38 Alkaline Phosphatase 83 Total Protein 7.6 Albumin 3.8 Urine Color Urine Appearance Urine pH Ur Specific [place] Urine Protein Urine Glucose (UA) Urine Ketones Urine Blood Urine Nitrite Ur Leukocyte Esterase Blood Type 08/18/17 06:38 NT-Pro-B Natriuret Pep 1430 H Impressions: Lower Extremity MRI 08/17/17 00:00 IMPRESSION: Moderate subcutaneous soft tissue edema of the right lower leg and ankle. Else, no acute findings. Correlation with current radiographs recommended. Assessment & Plan - Diagnosis (1) Abscess of ankle Is this a current diagnosis for this admission?: Yes (2) Cellulitis of right ankle Is this a current diagnosis for this admission?: Yes - Plan Summary Plan Summary: A/ right leg cellulitis, possible malleolar subcutaneous abscess transfusion reaction to FFP yesterday Still elevated PT/INR P/ Please, call us when PT/INR are approaching normal values and patient will undergo I&D right lateral malleolar subcutanous abscess
[2017-08-21] MEDS: LISINOPRIL 10 MG TABLET PO SCH (11:01)
[2017-08-21] MEDS: TAMSULOSIN HCL 0.4 MG CAP.SR.24H PO SCH (11:01)
[2017-08-21] MEDS: METOPROLOL TARTRATE 50 MG TABLET PO SCH ×2 (11:02→22:24)
[2017-08-21] MEDS: AMLODIPINE BESYLATE 5 MG TABLET PO SCH ×2 (11:02→22:16)
[2017-08-21] MEDS: FAMOTIDINE INJ/PF 20 MG/2 ML SDV IV SCH ×2 (11:03→22:18)
[2017-08-21] MEDS: INSULIN LISPRO 100 UNIT/ML 3 ML VIAL SUBCUT PRN ×3 (12:28→22:22)
[2017-08-21] MEDS: OXYCODONE HCL IR 5 MG TABLET PO PRN (17:07)
--- NOTE | 2017-08-21 18:37 | PDOC PROGRESS REPORT ---
Subjective Progress Note for:: 08/21/17 - seen on rounds this morning Subjective:: states he continues to have pain in right ankle but otherwise doing well. Reason For Visit: CELLULITIS,UNCONTROLLED DIABETES Physical Exam Vital Signs: Temp Pulse Resp BP Pulse Ox 98.5 F 70 14 154/80 H 97 08/21/17 16:48 08/21/17 16:48 08/21/17 16:48 08/21/17 16:48 08/21/17 16:48 Intake & Output 08/20/17 08/21/17 08/22/17 06:59 06:59 06:59 Intake Total 2508 1216 882 Output Total 2355 1175 980 Balance 153 41 -98 Weight 239 lb 9.6 oz 238 lb 15.697 oz General appearance: PRESENT: no acute distress, obese Head exam: PRESENT: atraumatic, normocephalic Eye exam: PRESENT: EOMI. ABSENT: conjunctival injection, scleral icterus Ear exam: PRESENT: normal external ear exam Mouth exam: PRESENT: moist, neck supple Neck exam: PRESENT: full ROM. ABSENT: JVD, tenderness Respiratory exam: PRESENT: clear to auscultation la, symmetrical Cardiovascular exam: PRESENT: +S1, +S2 Pulses: PRESENT: +2 pedal pulses bilateral GI/Abdominal exam: PRESENT: normal bowel sounds, soft. ABSENT: tenderness Extremities exam: PRESENT: joint swelling - Right ankle swollen and tender to touch, receding erythema, decreased range of motion due to pain edema, sensation intact, distal pulses 2+, tenderness, +2 edema Neurological exam: PRESENT: alert, awake, oriented to person, oriented to place , oriented to time, CN II-XII grossly intact Skin exam: PRESENT: warm Results Laboratory Results: 08/21/17 04:06 08/21/17 04:06 08/21/17 08/21/17 04:06 04:06 WBC 17.0 H RBC 5.57 H Hgb 15.5 Hct 45.1 MCV 81 MCH 27.9 MCHC 34.5 RDW 15.2 H Plt Count 263 Sodium 142.4 Potassium 3.7 Chloride 104 Carbon Dioxide 24 Anion Gap 14 BUN 27 H Creatinine 0.79 Est GFR ( Amer) > 60 Est GFR (Non-Af Amer) > 60 Glucose 115 H Calcium 8.9 Total Bilirubin 0.9 AST 20 ALT 38 Alkaline Phosphatase 83 Total Protein 7.6 Albumin 3.8 08/18/17 06:38 NT-Pro-B Natriuret Pep 1430 H Impressions: Lower Extremity MRI 08/17/17 00:00 IMPRESSION: Moderate subcutaneous soft tissue edema of the right lower leg and ankle. Else, no acute findings. Correlation with current radiographs recommended. Assessment & Plan - Diagnosis (1) Cellulitis of right ankle Is this a current diagnosis for this admission?: Yes (2) Abscess of ankle Is this a current diagnosis for this admission?: Yes (3) CAD (coronary artery disease) Qualifiers: Coronary Disease-Associated Artery/Lesion type: [place] artery [place] vs. transplanted heart: [place] heart Associated angina: without angina Qualified Code(s): I25.10 - Atherosclerotic heart disease of [place] coronary artery without angina pectoris Is this a current diagnosis for this admission?: Yes (4) A-fib Qualifiers: Atrial fibrillation type: chronic Qualified Code(s): I48.2 - Chronic atrial fibrillation Is this a current diagnosis for this admission?: Yes (5) COPD (chronic obstructive pulmonary disease) Qualifiers: COPD type: unspecified COPD Qualified Code(s): J44.9 - Chronic obstructive pulmonary disease, unspecified Is this a current diagnosis for this admission?: Yes (6) HTN (hypertension) Qualifiers: Hypertension type: essential hypertension Qualified Code(s): I10 - Essential (primary) hypertension Is this a current diagnosis for this admission?: Yes - Time Time Spent with patient: 15-24 minutes - Plan Summary Plan Summary: Patient seen and his INR is still greater than 1.8. Surgery will not I&D his wound until INR is less than 1.8. I have held this Coumadin for the last 2 days hoping that it will go below 1.8 and surgery can perform the procedure. reStarted on diet. Otherwise she is doing well.
[2017-08-22 05:07] LABS: INTERNATIONAL RATION (INR) 1.92; PROTHROMBIN TIME 22.9 SEC (11.4-15.4)
[2017-08-22] MEDS: CLINDAMYCIN 600 MG/D5W RTU 600 MG/50 ML RTUPB IV SCH ×3 (05:40→21:37)
[2017-08-22] MEDS: METOPROLOL TARTRATE 50 MG TABLET PO SCH ×2 (09:32→21:37)
[2017-08-22] MEDS: AMLODIPINE BESYLATE 5 MG TABLET PO SCH ×2 (09:33→21:37)
[2017-08-22] MEDS: TAMSULOSIN HCL 0.4 MG CAP.SR.24H PO SCH (09:34)
[2017-08-22] MEDS: LISINOPRIL 10 MG TABLET PO SCH (09:34)
[2017-08-22] MEDS: FAMOTIDINE INJ/PF 20 MG/2 ML SDV IV SCH ×2 (09:34→21:37)
[2017-08-22] MEDS: OXYCODONE HCL IR 5 MG TABLET PO PRN ×3 (11:36→22:37)
[2017-08-22] MEDS ORDERED: GLUCAGON,HUMAN RECOMB 1 MG INJ SUBCUT PRN (11:38)
[2017-08-22] MEDS ORDERED: DEXTROSE 50%-WATER 25 GM/50 ML DISP.SYRIN IV PRN ×2 (11:38)
[2017-08-22] MEDS ORDERED: DEXTROSE 40% GEL 15 GM TUBE PO PRN ×2 (11:38)
--- NOTE | 2017-08-22 11:48 | PDOC PROGRESS REPORT ---
Subjective Progress Note for:: 08/22/17 Subjective:: comfortable Reason For Visit: CELLULITIS,UNCONTROLLED DIABETES Physical Exam Vital Signs: Temp Pulse Resp BP Pulse Ox 98.7 F 72 22 H 125/83 94 08/22/17 07:44 08/22/17 07:44 08/22/17 07:44 08/22/17 07:44 08/22/17 07:44 Intake & Output 08/21/17 08/22/17 08/23/17 06:59 06:59 06:59 Intake Total 1216 2132 Output Total 1175 8700 Balance 41 -248 Weight 108.4 kg 97.8 kg General appearance: PRESENT: no acute distress Extremities exam: PRESENT: other - RLE: decreased anterior leg erythema, still erythema and edema right lateral malleolar area with skin uceration and drainage ; stogmata of venostasis Results Laboratory Results: 08/21/17 04:06 08/21/17 04:06 08/18/17 06:38 NT-Pro-B Natriuret Pep 1430 H Impressions: Lower Extremity MRI 08/17/17 00:00 IMPRESSION: Moderate subcutaneous soft tissue edema of the right lower leg and ankle. Else, no acute findings. Correlation with current radiographs recommended. Assessment & Plan - Diagnosis (1) Abscess of ankle Is this a current diagnosis for this admission?: Yes (2) Cellulitis of right ankle Is this a current diagnosis for this admission?: Yes (3) Coagulopathy Is this a current diagnosis for this admission?: Yes - Plan Summary Plan Summary: A/ RLE cellulitis improved Subcutaneous abscess right lateral malleolar area with skin ulceration and drainage PT/INR spontaneously decreased to almost normal (22.9/1.9, respectively) P/ Plan I&D right lateral malleolar subcutaneous abscess tomorrow NPO after midnight Cipro IV preop IVF starting tonight
[2017-08-22] MEDS: INSULIN LISPRO 100 UNIT/ML 3 ML VIAL SUBCUT PRN ×2 (12:41→17:29)
--- NOTE | 2017-08-22 12:53 | PDOC PROGRESS REPORT ---
Subjective Progress Note for:: 08/22/17 Subjective:: Patient doing well has no new complaints at this time. He continues to have pain on his right ankle from the abscess/cellulitis. Reason For Visit: CELLULITIS,UNCONTROLLED DIABETES Physical Exam Vital Signs: Temp Pulse Resp BP Pulse Ox 98.5 F 75 20 133/81 H 97 08/22/17 11:21 08/22/17 11:21 08/22/17 11:21 08/22/17 11:21 08/22/17 11:21 Intake & Output 08/21/17 08/22/17 08/23/17 06:59 06:59 06:59 Intake Total 1216 2132 Output Total 1175 2380 Balance 41 -248 Weight 238 lb 15.697 oz 215 lb 9.793 oz General appearance: PRESENT: no acute distress, obese Head exam: PRESENT: atraumatic, normocephalic Eye exam: PRESENT: EOMI. ABSENT: conjunctival injection, scleral icterus Mouth exam: PRESENT: moist, neck supple Neck exam: PRESENT: full ROM. ABSENT: JVD, tenderness Respiratory exam: PRESENT: clear to auscultation la, symmetrical Cardiovascular exam: PRESENT: +S1, +S2 Pulses: PRESENT: +2 pedal pulses bilateral GI/Abdominal exam: PRESENT: normal bowel sounds, soft. ABSENT: tenderness Extremities exam: PRESENT: tenderness - Right ankle tender to palpation with 1-2 + edema. Erythema is improving. Sensation intact, distal pulses 2+. Musculoskeletal exam: PRESENT: full ROM Neurological exam: PRESENT: alert, awake, oriented to person, oriented to place , oriented to time, CN II-XII grossly intact Skin exam: PRESENT: dry, warm Results Laboratory Results: 08/21/17 04:06 08/21/17 04:06 08/18/17 06:38 NT-Pro-B Natriuret Pep 1430 H Impressions: Lower Extremity MRI 08/17/17 00:00 IMPRESSION: Moderate subcutaneous soft tissue edema of the right lower leg and ankle. Else, no acute findings. Correlation with current radiographs recommended. Assessment & Plan - Diagnosis (1) Cellulitis of right ankle Is this a current diagnosis for this admission?: Yes (2) Abscess of ankle Is this a current diagnosis for this admission?: Yes (3) CAD (coronary artery disease) Qualifiers: Coronary Disease-Associated Artery/Lesion type: [place] artery [place] vs. transplanted heart: [place] heart Associated angina: without angina Qualified Code(s): I25.10 - Atherosclerotic heart disease of [place] coronary artery without angina pectoris Is this a current diagnosis for this admission?: Yes (4) A-fib Qualifiers: Atrial fibrillation type: chronic Qualified Code(s): I48.2 - Chronic atrial fibrillation Is this a current diagnosis for this admission?: Yes (5) COPD (chronic obstructive pulmonary disease) Qualifiers: COPD type: unspecified COPD Qualified Code(s): J44.9 - Chronic obstructive pulmonary disease, unspecified Is this a current diagnosis for this admission?: Yes (6) HTN (hypertension) Qualifiers: Hypertension type: essential hypertension Qualified Code(s): I10 - Essential (primary) hypertension Is this a current diagnosis for this admission?: Yes - Time Time Spent with patient: Less than 15 minutes - Plan Summary Plan Summary: Patient has cellulitis/abscess of the right ankle. Currently on clindamycin. He has been awaiting surgery to perform I&D but unfortunately his INR is not at the level that surgeons would want to perform the procedure. The target goal is INR less than 1.8. Unfortunately his INR today is once again 1.9. I have held his warfarin for the last 3 days and hoping that his INR with be below 1.8 before he is able to have the procedure performed on a by surgery. We will consult surgery again tomorrow if his INR is less than 1.8. We will continue to hold his Coumadin. But I will put him back on heparin to prevent any DVTs at this time. He is currently on her diet but we may have to do n.p.o. overnight for possible procedure tomorrow.
[2017-08-22] MEDS ORDERED: CYCLOBENZAPRINE HCL 10 MG TABLET PO PRN (14:04)
[2017-08-22] MEDS ORDERED: LEVOFLOXACIN 500 MG/D5W RTU 500 MG/100 ML RTUPB IV SCH (18:00)
[2017-08-22] MEDS: LACTOBACILLUS ACIDOPHILUS 250 MG TAB PO SCH (21:37)
[2017-08-22] MEDS ORDERED: NORMAL SALINE 1000 ML 1,000 ML IV PRN (23:00)
[2017-08-23] MEDS ORDERED: LEVOFLOXACIN 500 MG/D5W RTU 500 MG/100 ML RTUPB IV PRN (05:00)
[2017-08-23] MEDS: CLINDAMYCIN 600 MG/D5W RTU 600 MG/50 ML RTUPB IV SCH ×3 (05:07→21:36)
[2017-08-23 05:35] LABS: ABSOLUTE BASOPHILS # (AUTO) 0.1 10^3/uL (0.0-0.2); ABSOLUTE EOSINOPHILS # (AUTO) 0.1 10^3/uL (0.0-0.6); ABSOLUTE LYMPHOCYTES (AUTO) 1.9 10^3/uL (0.5-4.7); ABSOLUTE MONOCYTES (AUTO) 1.6 10^3/uL (0.1-1.4); ABSOLUTE NEUT (AUTO) 11.6 10^3/uL (1.7-8.2); BASOPHILS % (AUTO) 0.5 % (0-2); EOSINOPHILS % (AUTO) 0.8 % (0-6); HEMATOCRIT 46.2 % (37.9-51.0); HEMOGLOBIN 15.8 g/dL (13.5-17.0); LYMPHOCYTES % (AUTO) 12.5 % (13-45); MEAN CORPUSCULAR HEMOGLOBIN 27.6 pg (27.0-33.4); MEAN CORPUSCULAR HGB CONC 34.1 g/dL (32.0-36.0); MEAN CORPUSCULAR VOLUME 81 fl (80-97); MONOCYTES % (AUTO) 10.5 % (3-13); PLATELET COUNT 205 10^3/uL (150-450); RED BLOOD COUNT 5.72 10^6/uL (4.35-5.55); RED CELL DISTRIBUTION WIDTH 15.1 % (11.5-14.0); SEGMENTED NEUTROPHILS % (AUTO) 75.7 % (42-78); TOTAL CELLS COUNTED % (AUTO) 100 %; WHITE BLOOD COUNT 15.4 10^3/uL (4.0-10.5)
[2017-08-23 06:35] LABS: INTERNATIONAL RATION (INR) 1.43; PROTHROMBIN TIME 18.1 SEC (11.4-15.4)
[2017-08-23] MEDS ORDERED: LIDOCAINE 0.5% INJ-PF (5 MG/ML) 50 ML SDV ONE (08:47)
[2017-08-23] MEDS ORDERED: BUPIVACAINE HCL 0.25 % INJ/PF (2.5 MG/1 ML) 30 ML VIAL ONE (08:47)
[2017-08-23] MEDS ORDERED: LIDOCAINE 2% INJ-PF (20 MG/ML) 10 ML AMPUL ONE (09:01)
[2017-08-23] MEDS ORDERED: KETAMINE HCL INJ 500 MG/10 ML VIAL ONE (09:01)
[2017-08-23] MEDS ORDERED: FENTANYL CITRATE INJ/PF 100 MCG/2 ML AMPUL ONE ×3 (09:01→10:06)
[2017-08-23] MEDS ORDERED: PROPOFOL INJ 200 MG/20 ML VIAL IV ONE (09:02)
[2017-08-23] MEDS ORDERED: MIDAZOLAM 2 MG/2 ML INJ ONE (09:02)
--- NOTE | 2017-08-23 09:12 | EKG REPORT ---
SEVERITY:- ABNORMAL ECG - ATRIAL FIBRILLATION, V-RATE 64-101 LAD, LAFB PROBABLE LVH WITH SECONDARY REPOL ABNRM : Confirmed by: Kelsy Tuttle MD 23-Aug-2017 09:11:31
[2017-08-23] MEDS ORDERED: DIPHENHYDRAMINE HCL 50 MG/ML VIAL IV PRN (09:46)
[2017-08-23] MEDS ORDERED: PROMETHAZINE HCL INJ 25 MG/1 ML VIAL IV PRN (09:46)
[2017-08-23] MEDS ORDERED: FENTANYL CITRATE INJ/PF 100 MCG/2 ML AMPUL IV PRN ×2 (09:46)
--- NOTE | 2017-08-23 09:54 | Operative Report ---
Operative Report DATE OF SURGERY: 08/23/17 PREOPERATIVE DIAGNOSIS: Deep soft tissue infection right ankle POSTOPERATIVE DIAGNOSIS: Same OPERATION: Excisional debridement with a #10 blade of skin, subcutaneous tissue , fascia involving the tissue overlying the right lateral malleolus and distal posterior lateral leg SURGEON: RIDGE MUÑIZ ANESTHESIA: LMAC TISSUE REMOVED OR ALTERED: Skin, subcutaneous tissue, fascia, nonviable tissue, fibrous tissue COMPLICATIONS: None ESTIMATED BLOOD LOSS: Minimal INTRAOPERATIVE FINDINGS: See below PROCEDURE: The patient was taken to the preop holding area the main operating room where the right leg was isolated and prepped and draped sterile fashion with emphasis on the foot and the ankle. Surgical plan surgical timeout conducted. The procedure is performed on the [facility]. Findings are significant for a 2 cm ulcer over the lateral malleolus's, with excoriated, necrotic skin around the perimeter. The lateral malleolus was anesthetized with quarter percent Marcaine. Approximately 2-1/2 cm diameter hole was cut in the skin and subcutaneous tissue all the way down to the fascia of the with a #10 blade. Using a curette, and suction district plant supervisor, loculations and tracking under the skin flaps were broken up. There was tracking of the infection up the posterior lateral distal leg. There was no raymond pus; the infection was primarily involving the subcutaneous tissue. Loculations and tracks were broken up such that there was one common open area. We felt the debridement was thorough and complete. Deep subcutaneous tissue was cultured for Gram stain sensitivity. Wound irrigated out with saline, packed with approximately 1 foot of half-inch iodoform packing. 4 x 4's and Kerlix applied. Patient tolerated procedure well. Plan: 1. Continue intravenous antibiotics; 2. Patient may be up and ambulating surgical boot 3. Likely start dressing changes more morning and plan for outpatient p.o. antibiotics in the next 24 hours.
[2017-08-23] MEDS: FENTANYL CITRATE INJ/PF 100 MCG/2 ML AMPUL IV PRN ×2 (10:10→10:20)
[2017-08-23] MEDS: AMLODIPINE BESYLATE 5 MG TABLET PO SCH ×2 (11:49→21:36)
[2017-08-23] MEDS: FAMOTIDINE INJ/PF 20 MG/2 ML SDV IV SCH ×2 (11:49→21:36)
[2017-08-23] MEDS: METOPROLOL TARTRATE 50 MG TABLET PO SCH ×2 (11:50→21:36)
[2017-08-23] MEDS: OXYCODONE HCL IR 5 MG TABLET PO PRN ×2 (11:50→20:08)
[2017-08-23] MEDS: LISINOPRIL 10 MG TABLET PO SCH (11:51)
[2017-08-23] MEDS: LACTOBACILLUS ACIDOPHILUS 250 MG TAB PO SCH ×2 (11:51→21:36)
[2017-08-23] MEDS: TAMSULOSIN HCL 0.4 MG CAP.SR.24H PO SCH (11:51)
--- NOTE | 2017-08-23 15:39 | PDOC PROGRESS REPORT ---
Subjective Progress Note for:: 08/23/17 - Seen on rounds this morning. Subjective:: Discussed with patient about his I&D today since his Coumadin is below 1.8 today. He will be going for I&D with the surgeon later this morning. No new acute symptoms except for his right ankle pain. Reason For Visit: CELLULITIS,UNCONTROLLED DIABETES Physical Exam Vital Signs: Temp Pulse Resp BP Pulse Ox 97.5 F 68 18 135/77 H 95 08/23/17 13:48 08/23/17 13:48 08/23/17 13:48 08/23/17 13:48 08/23/17 13:48 Intake & Output 08/22/17 08/23/17 08/24/17 06:59 06:59 06:59 Intake Total 2132 2879 550 Output Total 2380 2050 200 Balance -248 829 350 Weight 215 lb 9.793 oz 214 lb 15.211 oz General appearance: PRESENT: no acute distress, obese Head exam: PRESENT: atraumatic, normocephalic Eye exam: PRESENT: EOMI. ABSENT: conjunctival injection, conjunctiva pink, scleral icterus Ear exam: PRESENT: normal external ear exam Mouth exam: PRESENT: moist, neck supple Neck exam: PRESENT: full ROM. ABSENT: JVD, tenderness Respiratory exam: PRESENT: clear to auscultation la, symmetrical Cardiovascular exam: PRESENT: RRR, +S1, +S2 Pulses: PRESENT: +2 pedal pulses bilateral GI/Abdominal exam: PRESENT: normal bowel sounds, soft. ABSENT: tenderness Extremities exam: PRESENT: tenderness - Right lower ankle- with edema, warm to touc, tender to palpation, sensation intact and decreased range of motion due to pain and swelling. Distal pulses 2+, dressing in place with some serosanguineous discharge Neurological exam: PRESENT: alert, awake, oriented to person, oriented to place , oriented to time, CN II-XII grossly intact Skin exam: PRESENT: dry, warm Results Laboratory Results: 08/23/17 03:51 08/21/17 04:06 08/23/17 03:51 WBC 15.4 H RBC 5.72 H Hgb 15.8 Hct 46.2 MCV 81 MCH 27.6 MCHC 34.1 RDW 15.1 H Plt Count 205 Seg Neutrophils % 75.7 Lymphocytes % 12.5 L Monocytes % 10.5 Eosinophils % 0.8 Basophils % 0.5 Absolute Neutrophils 11.6 H Absolute Lymphocytes 1.9 Absolute Monocytes 1.6 H Absolute Eosinophils 0.1 Absolute Basophils 0.1 08/18/17 06:38 NT-Pro-B Natriuret Pep 1430 H Impressions: Lower Extremity MRI 08/17/17 00:00 IMPRESSION: Moderate subcutaneous soft tissue edema of the right lower leg and ankle. Else, no acute findings. Correlation with current radiographs recommended. Assessment & Plan - Diagnosis (1) Cellulitis of right ankle Is this a current diagnosis for this admission?: Yes (2) Abscess of ankle Is this a current diagnosis for this admission?: Yes (3) CAD (coronary artery disease) Qualifiers: Coronary Disease-Associated Artery/Lesion type: [place] artery [place] vs. transplanted heart: [place] heart Associated angina: without angina Qualified Code(s): I25.10 - Atherosclerotic heart disease of [place] coronary artery without angina pectoris Is this a current diagnosis for this admission?: Yes (4) A-fib Qualifiers: Atrial fibrillation type: chronic Qualified Code(s): I48.2 - Chronic atrial fibrillation Is this a current diagnosis for this admission?: Yes (5) COPD (chronic obstructive pulmonary disease) Qualifiers: COPD type: unspecified COPD Qualified Code(s): J44.9 - Chronic obstructive pulmonary disease, unspecified Is this a current diagnosis for this admission?: Yes (6) HTN (hypertension) Qualifiers: Hypertension type: essential hypertension Qualified Code(s): I10 - Essential (primary) hypertension Is this a current diagnosis for this admission?: Yes - Plan Summary Plan Summary: 72-year-old male with a right ankle cellulitis/abscess. We have been awaiting for the surgeons to do an I&D but his INR was not an optimal level for procedure. Today his INR is less than 1.8 and hence surgery we will perform I& D this morning. We will start his Coumadin this afternoon and continue with IV antibiotics and hopefully we can transition him tomorrow to p.o. after procedure and hopefully discharge him. Recheck INR in the morning.
[2017-08-23] MEDS: WARFARIN SODIUM 5 MG TABLET PO SCH (21:36)
[2017-08-23] MEDS: ACETAMINOPHEN 325 MG TABLET PO PRN (23:56)
[2017-08-24 05:00] LABS: INTERNATIONAL RATION (INR) 1.37; PROTHROMBIN TIME 17.6 SEC (11.4-15.4)
[2017-08-24] MEDS: CLINDAMYCIN 600 MG/D5W RTU 600 MG/50 ML RTUPB IV SCH ×2 (05:04→14:19)
[2017-08-24] MEDS: INSULIN LISPRO 100 UNIT/ML 3 ML VIAL SUBCUT PRN ×2 (08:55→12:31)
[2017-08-24] MEDS ORDERED: LEVOFLOXACIN 500 MG/D5W RTU 500 MG/100 ML RTUPB IV SCH (10:00)
[2017-08-24] MEDS: AMLODIPINE BESYLATE 5 MG TABLET PO SCH ×2 (10:50→21:33)
[2017-08-24] MEDS: LACTOBACILLUS ACIDOPHILUS 250 MG TAB PO SCH ×2 (10:50→21:33)
[2017-08-24] MEDS: LISINOPRIL 10 MG TABLET PO SCH (10:50)
[2017-08-24] MEDS: METOPROLOL TARTRATE 50 MG TABLET PO SCH ×2 (10:51→21:33)
[2017-08-24] MEDS: TAMSULOSIN HCL 0.4 MG CAP.SR.24H PO SCH (10:51)
[2017-08-24] MEDS: FAMOTIDINE INJ/PF 20 MG/2 ML SDV IV SCH ×2 (10:52→21:33)
[2017-08-24] MEDS: OXYCODONE HCL IR 5 MG TABLET PO PRN ×3 (14:26→21:29)
--- NOTE | 2017-08-24 15:53 | PDOC PROGRESS REPORT ---
Subjective Progress Note for:: 08/24/17 Subjective:: The patient is a 72-year-old gentleman with a history of coronary artery disease who presented with cellulitis of the right ankle. He was started on antibiotics. MRI did not show osteomyelitis. He was found to have an area of tenderness and fluctuance over the right lateral malleolus. Incision and drainage was performed on August 23 by the surgical service. Wound cultures are positive for staph aureus Reason For Visit: CELLULITIS,UNCONTROLLED DIABETES Physical Exam Vital Signs: Temp Pulse Resp BP Pulse Ox 98.2 F 74 17 156/94 H 94 08/24/17 11:35 08/24/17 14:00 08/24/17 11:35 08/24/17 11:35 08/24/17 11:35 Intake & Output 08/23/17 08/24/17 08/25/17 06:59 06:59 06:59 Intake Total 2879 1726 Output Total 2050 1425 Balance 829 301 Weight 97.5 kg 102.4 kg General appearance: PRESENT: no acute distress, obese Head exam: PRESENT: normocephalic Ear exam: PRESENT: normal external ear exam Mouth exam: PRESENT: moist Neck exam: ABSENT: tracheal deviation Respiratory exam: PRESENT: symmetrical, unlabored Cardiovascular exam: PRESENT: RRR GI/Abdominal exam: PRESENT: normal bowel sounds, soft. ABSENT: tenderness Rectal exam: PRESENT: deferred Extremities exam: ABSENT: pedal edema Neurological exam: PRESENT: alert, awake, oriented to person, oriented to place , oriented to time Psychiatric exam: PRESENT: appropriate affect Results Laboratory Results: 08/23/17 03:51 08/21/17 04:06 08/21/17 18:47 Ankle - Cellulitis Gram Stain - Final 08/21/17 18:47 Ankle - Cellulitis Wound Culture - Final Staphylococcus Aureus 08/18/17 06:38 NT-Pro-B Natriuret Pep 1430 H Impressions: Lower Extremity MRI 08/17/17 00:00 IMPRESSION: Moderate subcutaneous soft tissue edema of the right lower leg and ankle. Else, no acute findings. Correlation with current radiographs recommended. Assessment & Plan - Diagnosis (1) Cellulitis of right ankle Is this a current diagnosis for this admission?: Yes Plan: Clindamycin switched to Keflex. status post incision and drainage. (2) A-fib Qualifiers: Atrial fibrillation type: chronic Qualified Code(s): I48.2 - Chronic atrial fibrillation Is this a current diagnosis for this admission?: Yes Plan: On Coumadin and metoprolol (3) CAD (coronary artery disease) Qualifiers: Coronary Disease-Associated Artery/Lesion type: [place] artery [place] vs. transplanted heart: [place] heart Associated angina: without angina Qualified Code(s): I25.10 - Atherosclerotic heart disease of [place] coronary artery without angina pectoris Is this a current diagnosis for this admission?: Yes Plan: Continue outpatient meds (4) Tobacco abuse Is this a current diagnosis for this admission?: Yes (5) Uncontrolled blood glucose Is this a current diagnosis for this admission?: Yes Plan: Secondary to steroid use. Hyperglycemia has resolved. - Time Time Spent with patient: 25-34 minutes
[2017-08-24] MEDS ORDERED: ENOXAPARIN SODIUM INJ 40 MG/0.4 ML DISP.SYRIN SUBCUT ONE (17:00)
[2017-08-24] MEDS: CEPHALEXIN 500 MG CAPSULE PO SCH ×2 (18:13→23:13)
--- NOTE | 2017-08-24 20:34 | PDOC PROGRESS REPORT ---
Subjective Reason For Visit: CELLULITIS,UNCONTROLLED DIABETES Physical Exam Vital Signs: Temp Pulse Resp BP Pulse Ox 98.6 F 70 17 154/83 H 96 08/24/17 15:39 08/24/17 15:39 08/24/17 15:39 08/24/17 15:39 08/24/17 15:39 Intake & Output 08/23/17 08/24/17 08/25/17 06:59 06:59 06:59 Intake Total 2879 1726 1507 Output Total 2050 1425 Balance 402 511 4761 Weight 97.5 kg 102.4 kg Results Laboratory Results: 08/23/17 03:51 08/21/17 04:06 08/21/17 18:47 Ankle - Cellulitis Gram Stain - Final 08/21/17 18:47 Ankle - Cellulitis Wound Culture - Final Staphylococcus Aureus 08/18/17 06:38 NT-Pro-B Natriuret Pep 1430 H Impressions: Lower Extremity MRI 08/17/17 00:00 IMPRESSION: Moderate subcutaneous soft tissue edema of the right lower leg and ankle. Else, no acute findings. Correlation with current radiographs recommended. Assessment & Plan - Diagnosis (1) Abscess of ankle Is this a current diagnosis for this admission?: Yes - Plan Summary Plan Summary: This is a 72-year-old male status post incision and drainage of a right ankle abscess. The dressing was removed today. There is no further purulence. Start damp to dry dressing changes twice daily. Continue antibiotics. Home soon.
[2017-08-24] MEDS: WARFARIN SODIUM 5 MG TABLET PO SCH (21:33)
[2017-08-25] MEDS: CEPHALEXIN 500 MG CAPSULE PO SCH ×2 (05:11→11:23)
[2017-08-25 07:23] LABS: INTERNATIONAL RATION (INR) 1.54; PROTHROMBIN TIME 19.2 SEC (11.4-15.4)
[2017-08-25] MEDS: FAMOTIDINE INJ/PF 20 MG/2 ML SDV IV SCH (09:51)
[2017-08-25] MEDS: TAMSULOSIN HCL 0.4 MG CAP.SR.24H PO SCH (09:51)
[2017-08-25] MEDS: AMLODIPINE BESYLATE 5 MG TABLET PO SCH (09:52)
[2017-08-25] MEDS: LACTOBACILLUS ACIDOPHILUS 250 MG TAB PO SCH (09:52)
[2017-08-25] MEDS: LISINOPRIL 10 MG TABLET PO SCH (09:53)
[2017-08-25] MEDS: METOPROLOL TARTRATE 50 MG TABLET PO SCH (09:53)
[2017-08-25] MEDS ORDERED: ENOXAPARIN SODIUM INJ 40 MG/0.4 ML DISP.SYRIN SUBCUT SCH (10:00)
[2017-08-25] MEDS: OXYCODONE HCL IR 5 MG TABLET PO PRN (11:23)
[2017-08-25 12:18] VITALS: BP 155/77
--- NOTE | 2017-08-25 15:24 | PDOC DISCHARGE SUMMARY ---
General - Admit/Disc Date/PCP Admission Date/Primary Care Provider: 08/17/17 18:17 JESSICA CANALES MD Discharge Date: 08/25/17 - Discharge Diagnosis (1) Cellulitis of right ankle Is this a current diagnosis for this admission?: Yes Summary: Cellulitis and abscess status post incision and drainage. Wound cultures grew MSSA (2) A-fib Is this a current diagnosis for this admission?: Yes (3) CAD (coronary artery disease) Is this a current diagnosis for this admission?: Yes (4) Tobacco abuse Is this a current diagnosis for this admission?: Yes (5) Uncontrolled blood glucose Is this a current diagnosis for this admission?: Yes Summary: Due to steroids, diabetes was ruled out - Additional Information Resuscitation Status: Full Code Discharge Diet: Cardiac, Diabetic Discharge Activity: Activity As Tolerated, Balance Activity w/Rest Prescriptions: Cephalexin Monohydrate [Keflex 500 mg Capsule] 500 mg PO Q6 7 Days #14 capsule Cephalexin Monohydrate [Keflex 500 mg Capsule] 500 mg PO Q6 5 Days #20 capsule Lactobacillus Acidophilus [Bacid 250 mg Tablet] 500 mg PO Q12 15 Days #30 tab Levofloxacin [Levaquin 500 mg Tablet] 500 mg PO DAILY 5 Days #5 tablet Home Medications: Amlodipine Besylate [Norvasc 5 mg Tablet] 5 mg PO Q12 08/17/17 Aspirin [Aspirin EC] 81 mg PO BID 08/17/17 Fiber [Fiber Choice] 1 tab PO DAILY 08/17/17 Lisinopril [Zestril] 20 mg PO DAILY 08/17/17 Metoprolol Tartrate [Lopressor 50 mg Tablet] 75 mg PO Q12 08/17/17 Oxycodone HCl 15 mg PO Q6HP PRN 08/17/17 Tamsulosin HCl [Flomax 0.4 mg Cap.sr] 0.4 mg PO DAILY 08/17/17 Warfarin Sodium [Coumadin 5 mg Tablet] 5 mg PO QHS 08/17/17 Acetaminophen [Tylenol 325 mg Tablet] 650 mg PO Q4HP PRN tablet 08/19/17 Cephalexin Monohydrate [Keflex 500 mg Capsule] 500 mg PO Q6 7 Days #14 capsule 08/19/17 Lactobacillus Acidophilus [Bacid 250 mg Tablet] 500 mg PO Q12 15 Days #30 tab Levofloxacin [Levaquin 500 mg Tablet] 500 mg PO DAILY 5 Days #5 tablet 08/19/17 Cephalexin Monohydrate [Keflex 500 mg Capsule] 500 mg PO Q6 5 Days #20 capsule 08/25/17 Warfarin Sodium [Coumadin 5 mg Tablet] 5 mg PO QHS tablet 08/25/17 History of Present Illness Patient complains of: Right ankle pain and swelling History of Present Illness: The patient is a 72-year-old gentleman with past medical history of Coronary artery disease Benign prostatic hypertrophy COPD Atrial fibrillation on Coumadin for anticoagulation. Hypertension Obesity GERD Arthritis History of History ITP [address] Canales for primary care. He presented to the emergency room reporting pain and swelling of the right ankle erythema, which has been ongoing for the past 2 weeks. There was concern for possible gout and he also saw orthopedics as an outpatient. He was also seen by the surgical service he was treated with steroids and colchicine, and reports that venous Dopplers were negative for blood clots. In the emergency room he was treated with IV clindamycin and was also noted to have blood sugars in the 400s. MRI of the right foot showed no evidence of joint involvement or osteomyelitis. He did have a significant subcutaneous abscess and incision and drainage was performed by the surgical service. Wound cultures grew MSSA. He was switched to p.o. Keflex. He is to follow-up with the wound clinic within 1 week. He is to get an INR checked on August 27. Follow-up with primary care in 1 week. Ready for discharge home. The rest of his hospital stay was unremarkable. Hospital Course Hospital Course: As above Physical Exam Vital Signs: Temp Pulse Resp BP Pulse Ox 98.6 F 60 18 155/77 H 95 08/25/17 11:47 08/25/17 11:47 08/25/17 11:47 08/25/17 11:47 08/25/17 11:47 Intake & Output 08/24/17 08/25/17 08/26/17 06:59 06:59 06:59 Intake Total 1726 2609 Output Total 1427 475 Balance 301 4794 Weight 102.4 kg 101.1 kg General appearance: PRESENT: no acute distress Respiratory exam: PRESENT: symmetrical, unlabored Neurological exam: PRESENT: alert, awake Results Laboratory Results: 08/23/17 03:51 08/21/17 04:06 08/21/17 18:47 Ankle - Cellulitis Gram Stain - Final 08/21/17 18:47 Ankle - Cellulitis Wound Culture - Final Staphylococcus Aureus 08/18/17 06:38 NT-Pro-B Natriuret Pep 1430 H Impressions: Lower Extremity MRI 08/17/17 00:00 IMPRESSION: Moderate subcutaneous soft tissue edema of the right lower leg and ankle. Else, no acute findings. Correlation with current radiographs recommended. Qualifiers - * PATIENT BEING DISCHARGED WITH ANY OF THE FOLLOWING DIAGNOSIS: No Plan Time Spent: Greater than 30 Minutes
--- NOTE | 2017-08-25 22:10 | PDOC PROGRESS REPORT ---
Subjective Progress Note for:: 08/25/17 Subjective:: no pains left foot Reason For Visit: CELLULITIS,UNCONTROLLED DIABETES Physical Exam Vital Signs: Temp Pulse Resp BP Pulse Ox 98.6 F 60 18 155/77 H 95 08/25/17 11:47 08/25/17 11:47 08/25/17 11:47 08/25/17 11:47 08/25/17 11:47 Intake & Output 08/24/17 08/25/17 08/26/17 06:59 06:59 06:59 Intake Total 1726 3059 Output Total 1425 675 Balance 301 2384 Weight 102.4 kg 101.1 kg Exam: left lateral malleolar I&D site looks clean with some granulation tissue OK to discharge with wet to dry dressings once a day Continue po antibiotics. He can be followed in the wound care center or the surgical clinic Results Laboratory Results: 08/23/17 03:51 08/21/17 04:06 08/18/17 06:38 NT-Pro-B Natriuret Pep 1430 H Impressions: Lower Extremity MRI 08/17/17 00:00 IMPRESSION: Moderate subcutaneous soft tissue edema of the right lower leg and ankle. Else, no acute findings. Correlation with current radiographs recommended.
== END 2017-08-25 13:04 | disposition home health service (06) | DRG 572 ==
LOC: ER 13:00 → EH 18:17 → 5 08-18
PROVIDERS: ADMIT Internal Medicine; ATTEND Internal Medicine
PROC: 0JBQ0ZZ Excision of Right Foot Subcutaneous Tissue and Fascia, Open Approach (ICD-10-PCS; principal; 2017-08-23 09:30)
DX: L03.115 Cellulitis of right lower limb (principal); B95.61 Methicillin susceptible Staphylococcus aureus infection as the cause of diseases classified elsewhere; I48.91 Unspecified atrial fibrillation; J44.9 Chronic obstructive pulmonary disease, unspecified; R73.9 Hyperglycemia, unspecified; T38.0X5A Adverse effect of glucocorticoids and synthetic analogues, initial encounter; Y92.239 Unspecified place in hospital as the place of occurrence of the external cause; I10 Essential (primary) hypertension; K21.9 Gastro-esophageal reflux disease without esophagitis; N40.0 Benign prostatic hyperplasia without lower urinary tract symptoms; M19.90 Unspecified osteoarthritis, unspecified site; I25.10 Atherosclerotic heart disease of native coronary artery without angina pectoris; Z79.899 Other long term (current) drug therapy; Z79.01 Long term (current) use of anticoagulants; Z79.82 Long term (current) use of aspirin
CPT/HCPCS: 00400; 36415; 36430; 80048; 80053; 81002; 82962; 83036; 83735; 83880; 84100; 84443; 84550; 85025; 85027; 85610; 85730; 86900; 86901; 87040; 87070; 87075; 87077; 87186; 87205; 93005; 93010; 96361; 96365; 99285; G8978-GP; G8979-GP; J1100; J1200; J1650; J1815; J1956; J2250; J2704; J3010; J3480; J3490; J7030; P9017; S0028

== ENCOUNTER → 2017-09-07 | Outpatient (CLI) | payer MEDICARE, OTHER ==
--- NOTE | 2017-09-08 10:27 | XCELERA REPORT ---
[address] [address] Lower Extremity Arterial Evaluation Name: DAVID MERAZ Age: 72 yrs Gender: Male : 1945 Patient Status: Outpatient Patient Location: Study Date: 09/07/2017 01:23 PM Procedure: A color flow and duplex scan of the lower extremity arteries was performed bilaterally with velocity and waveform anaylsis. Reason For Study: ULCER Ordering Physician: ELEONORA DURÁN Performed By: Campbell Medrano Measurements and Calculations Right Left FRONT DESK WORKER PSV 131.8 83.8 cm/sec Prox PFA PSV -49.9 -59.3 cm/sec Prox SFA PSV 134.4 69.5 cm/sec Mid SFA PSV -76.1 -73.7 cm/sec Dist SFA PSV -57.2 -63.7 cm/sec Prox Pop A PSV 82.2 68.8 cm/sec Dist FER PSV 64.8 42.9 cm/sec Dist SEARCH MARKETING SPECIALIST PSV 75.5 75.4 cm/sec Sree Pedis PSV -73.1 16.9 cm/sec Right Side Arterial Evaluation Normal velocity and triphasic waveforms noted from the Common Femoral artery to the infrageniculate vessels. Biphasic in the Deep Femoral. 0-19% stenosis at the Deep Femoral artery. Ankle Brachial index was not done due to pain. Left Side Arterial Evaluation Normal velocity and triphasic waveforms noted from the Common Femoral artery to the Posterior Tibial. . Biphasic in the Deep Femoral, and Anterior Tibial. 0-19% stenosis at the Deep Femoral, and Anterior Tibia. Ankle Brachial index was not done due to pain. Interpretation Summary Mild hemodynamically significant lesions in the bilateral lower extremities, on duplex imaging, at rest. : ELEONORA DURÁN > Jairon Ahumada
== END ==
LOC: SP 12:33
PROVIDERS: ATTEND Preventive Medicine Undersea and Hyperbaric Medicine
DX: L97.312 Non-pressure chronic ulcer of right ankle with fat layer exposed (principal)
CPT/HCPCS: 93925

== ENCOUNTER 2017-09-22 14:42 | Inpatient (IN) | payer MEDICARE ==
[2017-09-22] MEDS ORDERED: DICYCLOMINE HCL INJ 20 MG/2 ML AMPULE IM ONE (15:39)
[2017-09-22] MEDS ORDERED: KETOROLAC TROMETHAMINE INJ/PF 30 MG/1 ML SDV IV ONE (15:39)
--- NOTE | 2017-09-22 15:41 | ER Document Report ---
ED Medical Screen (RME) - General Chief Complaint: Abdominal Pain Stated Complaint: ABDOMINAL PAIN Time Seen by Provider: 09/22/17 15:37 Notes: 72 years old male with a history of coronary artery bypass surgery, hernia, presents today with diffuse abdominal pain since 11:00 this morning. Associated with nausea no vomiting denies any diarrhea or constipation. Denies any dysuria frequency urgency. Denies any hematuria. Denies any fever chills or other constitutional symptoms. Diffuse abdominal tenderness. TRAVEL OUTSIDE OF THE [place] IN LAST 30 DAYS: No - Related Data Allergies/Adverse Reactions: Sulfa (Sulfonamide Antibiotics) Allergy (Verified 09/22/17 14:43) Past Medical History - Social History Chew tobacco use (# tins/day): No Frequency of alcohol use: None Drug Abuse: None - Past Medical History Cardiac Medical History: Reports: Hx Atrial Fibrillation, Hx Coronary Artery Disease, Hx Heart Attack, Hx Hypertension Pulmonary Medical History: Reports: Hx COPD, Hx Pneumonia Renal/ Medical History: Denies: Hx Peritoneal Dialysis GI Medical History: Reports: Hx Gastroesophageal Reflux Disease Musculoskeltal Medical History: Reports Hx Arthritis Past Surgical History: Reports: Hx Bowel Surgery, Hx Cardiac Surgery - bypass, Hx Coronary Artery Bypass Graft, Hx Orthopedic Surgery, Hx Tonsillectomy, Hx Vascular Surgery - Immunizations Hx Diphtheria, Pertussis, Tetanus Vaccination: Yes Physical Exam - Vital signs Vitals: Temp Pulse Resp BP Pulse Ox 97.5 F 83 16 177/94 H 98 09/22/17 14:52 09/22/17 14:52 09/22/17 14:52 09/22/17 14:52 09/22/17 14:52 Course - Vital Signs Vital signs: Temp Pulse Resp BP Pulse Ox 97.5 F 83 16 177/94 H 98 09/22/17 14:52 09/22/17 14:52 09/22/17 14:52 09/22/17 14:52 09/22/17 14:52 Doctor's Discharge - Discharge Referrals: ELEONORA DURÁN DPM [Primary Care Provider] - Follow up as needed
[2017-09-22] MEDS ORDERED: CYCLOBENZAPRINE HCL 10 MG TABLET PO ONE (16:40)
--- NOTE | 2017-09-22 16:43 | ER Document Report ---
ED General - General TRAVEL OUTSIDE OF THE [place] IN LAST 30 DAYS: No <ESTER HENRY - Last Filed: 09/22/17 19:21> <FADIA MELCHOR - Last Filed: 09/23/17 08:19> - General Chief Complaint: Abdominal Pain Stated Complaint: ABDOMINAL PAIN Time Seen by Provider: 09/22/17 15:37 - HPI Notes: Patient is a 72-year-old male with a history of A. fib (on Coumadin) coronary artery bypass graft, COPD, hypertension who presents to the ED complaining of generalized abdominal pain with primary focus to the right upper quadrant that began this afternoon. Patient states that he had been eating and drinking without any difficulties earlier today as well as having a normal bowel movement. Patient states that his pain started relatively suddenly and is described as a cramp with occasional sharp pain to his right upper quadrant. Patient states that the pain does not radiate. Patient states that the pain has exacerbated his muscle spasms in his back. Patient states that he still urinating normally. He does have allergies to sulfa drugs and does not want any kind of narcotic medication. No abdominal surgical history. Denies any headache, fever, neck pain, URI, sore throat, chest pain, palpitations, syncope , cough, shortness of breath, wheeze, dyspnea, nausea/vomiting/diarrhea, urinary retention, dysuria, hematuria, loss of control of bowel or bladder, numbness/tingling, saddle anesthesia, muscle paralysis/weakness, or rash. ( ESTER HENRY) - Related Data Allergies/Adverse Reactions: Sulfa (Sulfonamide Antibiotics) Allergy (Verified 09/22/17 14:43) Past Medical History - Social History Smoking Status: Current Every Day Smoker Chew tobacco use (# tins/day): No Frequency of alcohol use: None Drug Abuse: None Family History: Reviewed & Not Pertinent, CAD, DM, Hypertension Patient has suicidal ideation: No Patient has homicidal ideation: No - Past Medical History Cardiac Medical History: Reports: Hx Atrial Fibrillation, Hx Coronary Artery Disease, Hx Heart Attack, Hx Hypertension Pulmonary Medical History: Reports: Hx COPD, Hx Pneumonia Renal/ Medical History: Denies: Hx Peritoneal Dialysis GI Medical History: Reports: Hx Gastroesophageal Reflux Disease Musculoskeletal Medical History: Reports Hx Arthritis Past Surgical History: Reports: Hx Bowel Surgery, Hx Cardiac Surgery - bypass, Hx Coronary Artery Bypass Graft, Hx Orthopedic Surgery, Hx Tonsillectomy, Hx Vascular Surgery - Immunizations Hx Diphtheria, Pertussis, Tetanus Vaccination: Yes <ESTER HENRY - Last Filed: 09/22/17 19:21> Review of Systems - Review of Systems -: Yes All other systems reviewed and negative <ESTER HENRY - Last Filed: 09/22/17 19:21> Physical Exam <ESTER HENRY - Last Filed: 09/22/17 19:21> <FADIA MELCHOR - Last Filed: 09/23/17 08:19> - Vital signs Vitals: Temp Pulse Resp BP Pulse Ox 97.5 F 83 16 177/94 H 98 09/22/17 14:52 09/22/17 14:52 09/22/17 14:52 09/22/17 14:52 09/22/17 14:52 - Notes Notes: PHYSICAL EXAMINATION: GENERAL: Well-appearing, well-nourished and in no acute distress. A&Ox4. Answers questions appropriately. HEAD: Atraumatic, normocephalic. EYES: Pupils equal round and reactive to light, extraocular movements intact, sclera anicteric, conjunctiva are normal. ENT: Nares patent and without discharge. oropharynx clear without exudates. No tonsilar hypertrophy or erythema. Moist mucous membranes. NECK: Normal range of motion, supple without lymphadenopathy LUNGS: Breath sounds clear to auscultation bilaterally and equal. No wheezes rales or rhonchi. HEART: Regular rate and rhythm without murmurs, rubs, gallops. ABDOMEN: Soft, nondistended abdomen. No guarding, no rebound. No masses appreciated. Normal bowel sounds present. No CVA tenderness bilaterally. + tenderness to the RUQ (correlates with pain described), ?+Rogers. no tenderness at McBurney point. Musculoskeletal: FROM to passive/active. Strength 5+/5. Extremities: No cyanosis, clubbing, or edema b/l. Peripheral pulses 2+. Capillary refill less than 3 seconds. NEUROLOGICAL: Normal speech, normal gait. PSYCH: Normal mood, normal affect. SKIN: Warm, Dry, normal turgor, no rashes or lesions noted. (ESTER HENRY) Course - Laboratory Result Diagrams: 09/22/17 16:36 09/22/17 16:36 <ESTER HENRY - Last Filed: 09/22/17 19:21> - Laboratory Result Diagrams: 09/22/17 16:36 09/22/17 22:45 <FADIA MELCHOR - Last Filed: 09/23/17 08:19> - Re-evaluation Re-evalutation: 09/22/17 19:21 I did review with Dr. Parrish and Dr. Jenkins: CT scan and ultrasound showed biliary sludge and cholelithiasis without cholecystitis. Patient has no new concerns or complaints at this time. Last p.o. intake was 10 hours ago. We will obtain an MRCP and re-evaluate. If there is a stone we may be transferring and if not, reconsult with the general surgeon. Transfer of care to Fadia Smiley NP. (ESTER HENRY) 09/22/17 23:40 MRCP negative for any acute findings, no CBD stone or duct dilation. Repeat CMP reveals K 3.2, total bili 1.5, direct bili 0.6, AST 209, ALT 175. Consulted Dr. Parrish. Due to patients chronic medical conditions he would like me to consult the hospitalist as the primary admitting service and he agrees to consult. I then consulted Dr. Ann who states she will review the patient's chart and return call. Patient is accepted for admission by the hospitalist, surgery will consult. Patient and family member updated on plan of care and deny any questions. ( FADIA MELCHOR) - Vital Signs Vital signs: Temp Pulse Resp BP Pulse Ox 97.5 F 83 29 H 165/101 H 96 09/22/17 14:52 09/22/17 14:52 09/23/17 03:31 09/23/17 03:31 09/23/17 03:31 - Laboratory Laboratory results interpreted by me: 09/22/17 09/22/17 09/22/17 15:53 16:36 16:36 RBC 5.68 H RDW 15.6 H PT APTT Potassium 3.5 L BUN 21 H Glucose 211 H Total Bilirubin 2.2 H Direct Bilirubin 1.3 H AST 183 H ALT 107 H Total Protein 8.5 H Urine Protein 100 H Urine Glucose (UA) >=500 H Urine Blood SMALL H Urine Urobilinogen 4.0 H 09/22/17 09/22/17 09/22/17 16:36 16:36 22:45 RBC RDW PT 27.1 H APTT 37.6 H Potassium 3.5 L 3.3 L BUN 22 H Glucose 215 H 121 H Total Bilirubin 2.3 H 1.5 H Direct Bilirubin 1.3 H 0.6 H AST 194 H 209 H ALT 102 H 175 H Total Protein 8.5 H 8.6 H Urine Protein Urine Glucose (UA) Urine Blood Urine Urobilinogen Discharge <ESTER HENRY - Last Filed: 09/22/17 19:21> - Discharge Admitting Provider: Hospitalist Unit Admitted: Medical Floor <FADIA MELCHOR - Last Filed: 09/23/17 08:19> - Discharge Clinical Impression: Gall stones, Pulmonary nodules, RUQ abdominal pain, Nodular prostate Condition: Stable Disposition: ADMITTED INPATIENT
[2017-09-22 17:24] LABS: ABSOLUTE BASOPHILS # (AUTO) 0.1 10^3/uL (0.0-0.2); ABSOLUTE LYMPHOCYTES (AUTO) 1.3 10^3/uL (0.5-4.7); ABSOLUTE MONOCYTES (AUTO) 0.6 10^3/uL (0.1-1.4); ABSOLUTE NEUT (AUTO) 7.5 10^3/uL (1.7-8.2); BASOPHILS % (AUTO) 0.9 % (0-2); EOSINOPHILS % (AUTO) 0.5 % (0-6); HEMATOCRIT 46.2 % (37.9-51.0); HEMOGLOBIN 15.6 g/dL (13.5-17.0); LYMPHOCYTES % (AUTO) 13.9 % (13-45); MEAN CORPUSCULAR HEMOGLOBIN 27.5 pg (27.0-33.4); MEAN CORPUSCULAR HGB CONC 33.8 g/dL (32.0-36.0); MEAN CORPUSCULAR VOLUME 81 fl (80-97); MONOCYTES % (AUTO) 6.7 % (3-13); PLATELET COUNT 204 10^3/uL (150-450); RED BLOOD COUNT 5.68 10^6/uL (4.35-5.55); RED CELL DISTRIBUTION WIDTH 15.6 % (11.5-14.0); TOTAL CELLS COUNTED % (AUTO) 100 %; WHITE BLOOD COUNT 9.7 10^3/uL (4.0-10.5)
[2017-09-22 17:29] LABS: ALANINE AMINOTRANSFERASE 107 U/L (21-72); ALBUMIN 4.3 g/dL (3.5-5.0); ALKALINE PHOSPHATASE 107 U/L (38-126); ANION GAP 15 (5-19); ASPARTATE AMINO TRANSFERASE 183 U/L (17-59); BILIRUBIN,DIRECT 1.3 mg/dL (0.0-0.4); BILIRUBIN,TOTAL 2.2 mg/dL (0.2-1.3); BLOOD UREA NITROGEN 21 mg/dL (7-20); CALCIUM 9.2 mg/dL (8.4-10.2); CARBON DIOXIDE 25 mmol/L (22-30); CHLORIDE 102 mmol/L (98-107); GLUCOSE 211 mg/dL (75-110); LIPASE 153.2 U/L (23-300); POTASSIUM 3.5 mmol/L (3.6-5.0); SODIUM 142.3 mmol/L (137-145); TOTAL PROTEIN 8.5 g/dL (6.3-8.2)
[2017-09-22 17:56] LABS: APPEARANCE,URINE CLEAR; BILIRUBIN,URINE NEGATIVE (NEGATIVE); COLOR,URINE YELLOW; GLUCOSE, URINE >=500 mg/dL (NEGATIVE); KETONES,URINE NEGATIVE (NEGATIVE); LEUKOCYTE ESTERASE,URINE NEGATIVE (NEGATIVE); NITRITE,URINE NEGATIVE (NEGATIVE); PROTEIN,URINE 100 mg/dL (NEGATIVE); URINE SPECIFIC GRAVITY 1.012
--- NOTE | 2017-09-22 18:36 | RADIOLOGY REPORT (SQ) ---
EXAM DESCRIPTION: CT ABD/PELVIS WITH IV ONLY COMPLETED DATE/TIME: 09/22/2017 6:18 pm REASON FOR STUDY: Abdominal pain COMPARISON: None. TECHNIQUE: CT scan of the abdomen and pelvis performed using helical scanning technique with dynamic intravenous contrast injection. No oral contrast. Images reviewed with lung, soft tissue, and bone windows. Reconstructed coronal and sagittal MPR images reviewed. Delayed images for evaluation of the urinary system also acquired. All images stored on PACS. All CT scanners at this facility use dose modulation, iterative reconstruction, and/or weight based d osing when appropriate to reduce radiation dose to as low as reasonably achievable (ALARA). [facility]: Dose Right [facility]: CareDose [facility]: Dose Right [facility]: Teradose 4D [facility]: [employer] CONTRAST TYPE AND DOSE: contrast/concentration: Isovue 350.00 mg/ml; Total Contrast Delivered: 91.0 ml; Total Saline Delivered: 50.0 ml RENAL FUNCTION: BUN 21 creatinine 1 RADIATION DOSE: CT Rad equipment meets quality standard of care and radiation dose reduction techniq ues were employed. CTDIvol: 17.4 - 19.8 mGy. DLP: 2062 mGy-cm.. LIMITATIONS: None. FINDINGS: LOWER CHEST: There is a 10 mm right lower lobe pulmonary nodule and a 12 mm in the right l ower lobe pulmonary nodule. LIVER: Normal size. No masses. No dilated ducts. SPLEEN: Normal size. No focal lesions. PANCREAS: No masses. No significant calcifications. No adjacent inflammation or peripancreatic fluid collections. Pancreatic duct not dilated. GALLBLADDER: Cholelithiasis. ADRENAL GLANDS: No significant masses or asymmetry. RIGHT KIDNEY AND URETER: No solid masses. No significant calcifications. No hydronephrosis or hyd roureter. LEFT KIDNEY AND URETER: No solid masses. No significant calcifications. No hydronephrosis or hydr oureter. 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 There is a 31 mm aneurysm of the infrarenal abdominal aorta. Extensive atherosclerosis. RETROPERITONEUM: No retroperitoneal adenopathy, hemorrhage or masses. BOWEL AND PERITONEAL CAVITY: Descending and sigmoid diverticulosis. No acute inflammatory changes. APPENDIX: Surgically absent. PELVIS: There is nodular protrusion of the prostate gland into the base of the bladder. ABDOMINAL WALL: No masses. No hernias. BONES: Lumbar degenerative disc changes. OTHER: No other significant finding. IMPRESSION: 1. There are 2 right lower lobe pulmonary nodules. 2. Aortic atherosclerosis and small aortic aneurysms as described. 3. Diverticulosis coli. 4. Nodular protrusion of the prostate gland into the base of the bladder. COMMENT: [place] CRITERIA FOR FOLLOW-UP OF PULMONARY NODULES Incidentally detected new nodules in persons 35 or older. HIGH RISK: History of smoking or other known risk factors. >8mm multiple solid nodules: LOW RISK: CT 3-6 mo; then consider CT 18-24 mo. HIGH RISK: CT 3-6 mo; th en CT 18-24 mo. TECHNICAL DOCUMENTATION: JOB ID: [id number] Quality ID # [id number]: Final reports with documentation of one or more dose reduction techniques (e.g., Au tomated exposure control, adjustment of the mA and/or kV according to patient size, use of iterative reconstruction technique) 2010 [employer]- All Rights Reserved Reading location - IP/workstation name: [email or web address]
--- NOTE | 2017-09-22 19:14 | RADIOLOGY REPORT (SQ) ---
EXAM DESCRIPTION: U/S ABDOMEN LIMITED W/O DOP COMPLETED DATE/TIME: 09/22/2017 6:45 pm REASON FOR STUDY: elevated LFT's, RUQ pain COMPARISON: None. TECHNIQUE: Dynamic and static grayscale images acquired of the abdomen and recorded on PACS. Lorraineo emily selected color Doppler and spectral images recorded. LIMITATIONS: None. FINDINGS: PANCREAS: No masses. Visualized pancreatic duct normal caliber. LIVER: 16 cm normal echotexture. LIVER VASCULATURE: Normal directional flow of the main portal vein and hepatic veins. GALLBLADDER: Multiple stones and sludge. The largest is 17 mm sludge is present. There is no wall t hickening. There is no pericholecystic fluid. . ULTRASOUND-DETECTED VILLALBA'S SIGN: Negative. INTRAHEPATIC DUCTS AND COMMON DUCT: CBD and intrahepatic ducts normal caliber. No filling defects. INFERIOR VENA CAVA: Patent AORTA: No aneurysm. RIGHT KIDNEY: Normal size, 13 cm. Normal echogenicity. No solid or suspicious masses. Multiple cyst s. The largest 16 mm. No hydronephrosis. No calcifications. PERITONEAL AND RIGHT PLEURAL SPACE: No ascites or effusions. OTHER: No other significant findings. IMPRESSION: Cholelithiasis with no evidence of cholecystitis. TECHNICAL DOCUMENTATION: JOB ID: [id number] [employer]- All Rights Reserved Reading location - IP/workstation name: [email or web address]
[2017-09-22 19:44] LABS: INTERNATIONAL RATION (INR) 2.38; PROTHROMBIN TIME 27.1 SEC (11.4-15.4)
[2017-09-22 19:45] LABS: PARTIAL THROMBOPLASTIN TIME 37.6 SEC (23.5-35.8)
[2017-09-22 19:47] LABS: ALANINE AMINOTRANSFERASE 102 U/L (21-72); ALBUMIN 4.3 g/dL (3.5-5.0); ALKALINE PHOSPHATASE 116 U/L (38-126); ANION GAP 16 (5-19); ASPARTATE AMINO TRANSFERASE 194 U/L (17-59); BILIRUBIN,DIRECT 1.3 mg/dL (0.0-0.4); BILIRUBIN,TOTAL 2.3 mg/dL (0.2-1.3); BLOOD UREA NITROGEN 22 mg/dL (7-20); CALCIUM 9.2 mg/dL (8.4-10.2); CARBON DIOXIDE 24 mmol/L (22-30); CHLORIDE 103 mmol/L (98-107); GLUCOSE 215 mg/dL (75-110); POTASSIUM 3.5 mmol/L (3.6-5.0); SODIUM 142.6 mmol/L (137-145); TOTAL PROTEIN 8.5 g/dL (6.3-8.2)
[2017-09-22] MEDS ORDERED: LORAZEPAM INJ 2 MG/1 ML VIAL IV ONE (20:14)
--- NOTE | 2017-09-22 21:22 | EKG REPORT ---
SEVERITY:- ABNORMAL ECG - ATRIAL FIBRILLATION LEFT AXIS DEVIATION LVH WITH SECONDARY REPOLARIZATION ABNORMALITY ANTERIOR Q WAVES, POSSIBLY DUE TO LVH : Confirmed by: Kelsy Tuttle MD 22-Sep-2017 21:21:51
--- NOTE | 2017-09-22 22:21 | RADIOLOGY REPORT (SQ) ---
EXAM DESCRIPTION: MRI ABDOMEN WITHOUT COMPLETED DATE/TIME: 09/22/2017 9:58 pm REASON FOR STUDY: MRCP COMPARISON: Abdominal ultrasound TECHNIQUE: Multiplanar multisequence imaging performed without contrast including sagittal, axial an d coronal T2, axial T1, axial gradient fat sat T1, axial, sagittal and coronal fat sat T1 post contra st. CONTRAST TYPE AND DOSE: Not applicable RENAL FUNCTION: Not applicable LIMITATIONS: Patient was medicated and unable to hold his breath. FINDINGS: LIVER: Normal size. No masses. No dilated ducts. CBD normal. SPLEEN: Normal size. No focal lesions. PANCREAS: No masses. No adjacent inflammation or peripancreatic fluid collections. Pancreatic duct no t dilated. GALLBLADDER: Gallstones. No pericholecystic fluid or gallbladder wall thickening. ADRENAL GLANDS: No significant masses or asymmetry. RIGHT KIDNEY AND URETER: No masses. No hydronephrosis. LEFT KIDNEY AND URETER: No masses. No hydronephrosis. AORTA AND VESSELS: Small aneurysms as described on the CT report. RETROPERITONEUM: No retroperitoneal adenopathy, hemorrhage or masses. BOWEL: No visualized masses. No inflammation. No significant dilatation. ABDOMINAL WALL AND PERITONEUM: No hernias. No free fluid. BONES: No acute or significant findings. OTHER: MRCP images show no intrahepatic or extrahepatic ductal dilatation. Limited reformats. IMPRESSION: 1. Cholelithiasis. 2. Normal MRCP. 3. Findings as described. TECHNICAL DOCUMENTATION: JOB ID: [id number] [employer] All Rights Reserved Reading location - IP/workstation name: [email or web address]
[2017-09-22 23:07] LABS: ALANINE AMINOTRANSFERASE 175 U/L (21-72); ALBUMIN 4.4 g/dL (3.5-5.0); ALKALINE PHOSPHATASE 111 U/L (38-126); ANION GAP 16 (5-19); ASPARTATE AMINO TRANSFERASE 209 U/L (17-59); BILIRUBIN,DIRECT 0.6 mg/dL (0.0-0.4); BILIRUBIN,TOTAL 1.5 mg/dL (0.2-1.3); BLOOD UREA NITROGEN 16 mg/dL (7-20); CALCIUM 9.3 mg/dL (8.4-10.2); CARBON DIOXIDE 23 mmol/L (22-30); CHLORIDE 104 mmol/L (98-107); GLUCOSE 121 mg/dL (75-110); POTASSIUM 3.3 mmol/L (3.6-5.0); SODIUM 142.7 mmol/L (137-145); TOTAL PROTEIN 8.6 g/dL (6.3-8.2)
[2017-09-22] MEDS ORDERED: ONDANSETRON HCL INJ/PF 4 MG/2 ML SDV IV PRN (23:37)
[2017-09-23] MEDS: POTASSI CL 20 MEQ/50 ML RIDER 20 MEQ/50 ML RTUPB IV SCH ×2 (00:10→02:38)
[2017-09-23] MEDS ORDERED: AMLODIPINE BESYLATE 5 MG TABLET PO ONE (01:12)
[2017-09-23] MEDS ORDERED: METOPROLOL TARTRATE 100 MG TABLET PO ONE (01:12)
[2017-09-23] MEDS ORDERED: MORPHINE SULFATE 10 MG/ML INJ IV ONE (02:29)
--- NOTE | 2017-09-23 05:16 | PDOC CONSULTATION ---
Consultation Consult reason:: Right upper quadrant pain, cholecystitis History of Present Illness Admission Date/PCP: 09/22/17 23:51 History of Present Illness: DAVID MERAZ is a 72 year old male seen in consultation at the request of the hospitalist service. The patient reports sharp, stabbing right upper quadrant pain that is unrelenting. The pain started yesterday at home. Patient was found to have hyperbilirubinemia, and workup was undertaken in the ER. The patient underwent ultrasound and MRCP. The patient has no evidence of dilation of the ductal system. The patient is being admitted for definitive treatment. The patient reports nausea, vomiting, sharp/stabbing right upper quadrant pain, radiation to the shoulder/back. The patient denies chest pain, fevers, chills, dizziness, orthostasis, malaise, fatigue, shortness of breath, headache. Patient has a long cardiac history. Patient is also currently anticoagulated on Coumadin. Past Medical History Cardiac Medical History: Reports: Atrial Fibrillation, Coronary Artery Disease, Myocardial Infarction, Hypertension Pulmonary Medical History: Reports: Chronic Obstructive Pulmonary Disease (COPD) , Pneumonia GI Medical History: Reports: Gastroesophageal Reflux Disease Musculoskeltal Medical History: Reports: Arthritis Past Surgical History Past Surgical History: Reports: Coronary Artery Bypass Graft, Orthopedic Surgery , Tonsillectomy, Vascular Surgery, Other - Incision and drainage of lower extremity abscess with debridement Social History Smoking Status: Current Every Day Smoker Frequency of Alcohol Use: None Hx Recreational Drug Use: No Hx Prescription Drug Abuse: No Family History Family History: Reviewed & Not Pertinent, CAD, DM, Hypertension Parental Family History Reviewed: Yes Children Family History Reviewed: Yes Sibling(s) Family History Reviewed.: Yes Medication/Allergy Home Medications: Amlodipine Besylate [Norvasc 5 mg Tablet] 5 mg PO Q12 08/17/17 Aspirin [Aspirin EC] 81 mg PO BID 08/17/17 Fiber [Fiber Choice] 1 tab PO DAILY 08/17/17 Lisinopril [Zestril] 20 mg PO DAILY 08/17/17 Metoprolol Tartrate [Lopressor 50 mg Tablet] 75 mg PO Q12 08/17/17 Oxycodone HCl 15 mg PO Q6HP PRN 08/17/17 Tamsulosin HCl [Flomax 0.4 mg Cap.sr] 0.4 mg PO DAILY 08/17/17 Warfarin Sodium [Coumadin 5 mg Tablet] 5 mg PO QHS 08/17/17 Acetaminophen [Tylenol 325 mg Tablet] 650 mg PO Q4HP PRN tablet 08/19/17 Cephalexin Monohydrate [Keflex 500 mg Capsule] 500 mg PO Q6 7 Days #14 capsule 08/19/17 Lactobacillus Acidophilus [Bacid 250 mg Tablet] 500 mg PO Q12 15 Days #30 tab Levofloxacin [Levaquin 500 mg Tablet] 500 mg PO DAILY 5 Days #5 tablet 08/19/17 Cephalexin Monohydrate [Keflex 500 mg Capsule] 500 mg PO Q6 5 Days #20 capsule 08/25/17 Warfarin Sodium [Coumadin 5 mg Tablet] 5 mg PO QHS tablet 08/25/17 Allergies/Adverse Reactions: Sulfa (Sulfonamide Antibiotics) Allergy (Verified 09/22/17 14:43) Review of Systems Constitutional: ABSENT: chills, fatigue, fever(s), headache(s) Eyes: ABSENT: visual disturbances Ears: ABSENT: hearing changes Nose, Mouth, and Throat: ABSENT: sore throat Cardiovascular: ABSENT: chest pain, orthropnea Respiratory: ABSENT: cough, dyspnea Gastrointestinal: PRESENT: abdominal pain - Right upper quadrant, nausea, vomiting. ABSENT: hematemesis, hematochezia, melena Genitourinary: ABSENT: dysuria Musculoskeletal: ABSENT: deformity Integumentary: PRESENT: wounds - Right lower extremity. ABSENT: pruritus, rash Neurological: ABSENT: confusion, convulsions, dizziness, memory loss Psychiatric: ABSENT: anxiety, depression Endocrine: ABSENT: cold intolerance, heat intolerance Hematologic/Lymphatic: PRESENT: easy bleeding, easy bruising Physical Exam Vital Signs: Temp Pulse Resp BP Pulse Ox 97.5 F 83 29 H 165/101 H 96 09/22/17 14:52 09/22/17 14:52 09/23/17 03:31 09/23/17 03:31 09/23/17 03:31 Intake & Output 09/21/17 09/22/17 09/23/17 06:59 06:59 06:59 Intake Total 50 Balance 50 General appearance: PRESENT: no acute distress Head exam: PRESENT: atraumatic, normocephalic Eye exam: PRESENT: EOMI, PERRLA Mouth exam: PRESENT: neck supple Teeth exam: ABSENT: poor dentation Neck exam: ABSENT: lymphadenopathy, meningismus, tenderness, thyromegaly, tracheal deviation Respiratory exam: PRESENT: clear to auscultation la, unlabored. ABSENT: accessory muscle use, chest wall tenderness, tachypnea, wheezes Cardiovascular exam: PRESENT: irregular rhythm Pulses: PRESENT: normal radial pulses Vascular exam: PRESENT: normal capillary refill. ABSENT: pallor GI/Abdominal exam: PRESENT: Rogers's sign, tenderness - right upper quadrant. ABSENT: distended, firm, guarding Rectal exam: PRESENT: deferred Extremities exam: ABSENT: clubbing Neurological exam: PRESENT: alert, awake, oriented to person, oriented to place , oriented to time, oriented to situation, CN II-XII grossly intact. ABSENT: motor sensory deficit Psychiatric exam: ABSENT: agitated, anxious, depressed Focused psych exam: ABSENT: delusional Skin exam: PRESENT: other - Wound to the right lower extremity, covered by bandage at this time. ABSENT: cyanosis, erythema, jaundice Results Impressions: Abdomen/Pelvis CT 09/22/17 15:38 IMPRESSION: 1. There are 2 right lower lobe pulmonary nodules. 2. Aortic atherosclerosis and small aortic aneurysms as described. 3. Diverticulosis coli. 4. Nodular protrusion of the prostate gland into the base of the bladder. Abdomen Ultrasound 09/22/17 18:02 IMPRESSION: Cholelithiasis with no evidence of cholecystitis. Abdomen MRI 09/22/17 19:20 IMPRESSION: 1. Cholelithiasis. 2. Normal MRCP. 3. Findings as described. Assessment & Plan - Diagnosis (1) Acute cholecystitis Is this a current diagnosis for this admission?: Yes - Plan Summary Plan Summary: This is a 72-year-old male with signs of acute cholecystitis. He has mild hyperbilirubinemia. He has an MRCP which demonstrates no dilation of the ductal system or identified filling defects. The patient has right upper quadrant pain, consistent with acute cholecystitis. Patient will be admitted by the hospitalist service for medical management. The patient has a significant cardiac history and will require cardiac clearance before surgery. The patient also must have his Coumadin reversed prior to the operation. I will start the patient on antibiotics. I will follow this patient very closely with you.
[2017-09-23] MEDS ORDERED: PIPERACILLIN SODIUM/TAZOBACTAM 3.375 GM in NORMAL SALINE 100 ML IV SCH (06:00)
[2017-09-23] MEDS: PIPERACILLIN SODIUM/TAZOBACTAM 3.375 GM in NORMAL SALINE 100 ML IV SCH ×3 (09:40→22:25)
[2017-09-23] MEDS ORDERED: ACETAMINOPHEN 650 MG SUPP.RECT PR PRN (09:59)
--- NOTE | 2017-09-23 11:33 | EKG REPORT ---
SEVERITY:- ABNORMAL ECG - ATRIAL FIBRILLATION, V-RATE 73-136 LEFT AXIS DEVIATION LVH WITH SECONDARY REPOLARIZATION ABNORMALITY BORDERLINE PROLONGED QT INTERVAL : Confirmed by: Kelsy Tuttle MD 23-Sep-2017 11:33:17
[2017-09-23] MEDS: RINGERS SOLUTION,LACTATED 1,000 ML IV PRN (13:49)
[2017-09-23] MEDS ORDERED: OXYCODONE HCL IR 5 MG TABLET PO PRN (16:45)
--- NOTE | 2017-09-23 18:38 | PDOC H&P ---
History of Present Illness Admission Date/PCP: 09/22/17 23:51 Patient complains of: abdominal pain, nausea and vomiting. History of Present Illness: DAVID MERAZ is a 72 year old male who states that on 09/22/2017 he had sudden onset of mid epigastric abdominal pain with nausea and vomting. He denies fevers or chills, but states that the pain just continued to get worse. He has had an abdominal ultrasound in the ED which is positive for cholelithiasis. He has had pain control, antiemetics, and IV antibiotics. General surgery has been consulted. Past Medical History Cardiac Medical History: Reports: Atrial Fibrillation, Coronary Artery Disease, Myocardial Infarction, Hypertension Pulmonary Medical History: Reports: Chronic Obstructive Pulmonary Disease (COPD) , Pneumonia GI Medical History: Reports: Gastroesophageal Reflux Disease Musculoskeltal Medical History: Reports: Arthritis Past Surgical History Past Surgical History: Reports: Coronary Artery Bypass Graft, Orthopedic Surgery , Tonsillectomy, Vascular Surgery, Other - Incision and drainage of lower extremity abscess with debridement Social History Smoking Status: Current Every Day Smoker Frequency of Alcohol Use: None Hx Recreational Drug Use: No Hx Prescription Drug Abuse: No - Advance Directive Resuscitation Status: Full Code Family History Family History: Reviewed & Not Pertinent, CAD, DM, Hypertension Parental Family History Reviewed: Yes Children Family History Reviewed: Yes Sibling(s) Family History Reviewed.: Yes Medication/Allergy Home Medications: Amlodipine Besylate [Norvasc 5 mg Tablet] 5 mg PO Q12 09/23/17 Aspirin [Aspirin EC] 81 mg PO DAILY 09/23/17 Metoprolol Tartrate [Lopressor 50 mg Tablet] 100 mg PO Q12 09/23/17 Oxycodone HCl [Oxy-Ir 5 mg Tablet] 15 mg PO Q4HP PRN 09/23/17 Tamsulosin HCl [Flomax 0.4 mg Cap.sr] 0.4 mg PO DAILY 09/23/17 Warfarin Sodium [Coumadin 4 mg Tablet] 4 mg PO Q2D@1000 09/23/17 Warfarin Sodium [Coumadin 5 mg Tablet] 5 mg PO Q2D@2200 09/23/17 Allergies/Adverse Reactions: Sulfa (Sulfonamide Antibiotics) Allergy (Verified 09/22/17 14:43) Review of Systems Constitutional: ABSENT: chills, fever(s) Eyes: ABSENT: visual disturbances Ears: ABSENT: hearing changes Nose, Mouth, and Throat: ABSENT: mouth pain, sore throat, vertigo Cardiovascular: ABSENT: chest pain, dyspnea on exertion, palpitations Respiratory: ABSENT: cough, dyspnea, hemoptysis, sputum Gastrointestinal: PRESENT: abdominal pain, bloating, nausea, vomiting Genitourinary: ABSENT: dysuria, hematuria Musculoskeletal: ABSENT: back pain, muscle weakness Neurological: ABSENT: confusion, focal weakness, lack of coordination, syncope, vertigo, weakness Psychiatric: ABSENT: anxiety, depression Endocrine: ABSENT: cold intolerance, polyphagia, polyuria Physical Exam Vital Signs: Temp Pulse Resp BP Pulse Ox 98.9 F 92 16 153/79 H 96 09/23/17 15:33 09/23/17 15:33 09/23/17 15:33 09/23/17 15:33 09/23/17 15:33 Intake & Output 09/22/17 09/23/17 09/24/17 06:59 06:59 06:59 Intake Total 50 250 Balance 50 250 Weight 91.5 kg General appearance: PRESENT: no acute distress, cooperative Respiratory exam: PRESENT: other - No increased work of breathing. No wheezes, rales, or rhonchi. Cardiovascular exam: PRESENT: RRR. ABSENT: gallop, rubs, systolic murmur Pulses: PRESENT: normal dorsalis pedis pul GI/Abdominal exam: PRESENT: distended, hypoactive bowel sounds, tenderness. ABSENT: hernia, organolmegaly Rectal exam: PRESENT: deferred Extremities exam: PRESENT: other - Right lower extrremity is wrapped. 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 ABSENT: clubbing, joint swelling, tenderness Musculoskeletal exam: ABSENT: deformity, dislocation, normal inspection Neurological exam: PRESENT: alert, awake, oriented to person, oriented to place , oriented to time, oriented to situation, CN II-XII grossly intact, motor sensory deficit Psychiatric exam: PRESENT: appropriate affect, normal mood Skin exam: PRESENT: dry, intact, warm Results Laboratory Results: 09/23/17 09/23/17 11:01 16:25 Troponin I < 0.012 < 0.012 09/22/17 09/22/17 09/22/17 16:36 16:36 22:45 WBC 9.7 RBC 5.68 H Hgb 15.6 Hct 46.2 RDW 15.6 H Plt Count 204 Seg Neutrophils % 78.0 PT 27.1 H INR 2.38 APTT 37.6 H Sodium 142.7 Potassium 3.3 L Chloride 104 Carbon Dioxide 23 Anion Gap 16 BUN 16 Creatinine 0.72 Est GFR (Non-Af Amer) > 60 Glucose 121 H Calcium 9.3 Total Bilirubin 1.5 H Direct Bilirubin 0.6 H AST 209 H ALT 175 H Alkaline Phosphatase 111 Troponin I Total Protein 8.6 H Albumin 4.4 09/23/17 09/23/17 11:01 16:25 WBC RBC Hgb Hct RDW Plt Count Seg Neutrophils % PT INR APTT Sodium Potassium Chloride Carbon Dioxide Anion Gap BUN Creatinine Est GFR (Non-Af Amer) Glucose Calcium Total Bilirubin Direct Bilirubin AST ALT Alkaline Phosphatase Troponin I < 0.012 < 0.012 Total Protein Albumin Impressions: Abdomen/Pelvis CT 09/22/17 15:38 IMPRESSION: 1. There are 2 right lower lobe pulmonary nodules. 2. Aortic atherosclerosis and small aortic aneurysms as described. 3. Diverticulosis coli. 4. Nodular protrusion of the prostate gland into the base of the bladder. Abdomen Ultrasound 09/22/17 18:02 IMPRESSION: Cholelithiasis with no evidence of cholecystitis. Abdomen MRI 09/22/17 19:20 IMPRESSION: 1. Cholelithiasis. 2. Normal MRCP. 3. Findings as described. Assessment & Plan - Diagnosis (1) Acute cholecystitis Is this a current diagnosis for this admission?: Yes Plan: Surgery has been consulted. The plan is for possible cholecystectomy once the patient has been cleared by cardiology. (2) Gall stones Is this a current diagnosis for this admission?: Yes Plan: No ductal dilatation noted. Surgery has been consulted. The plan is for possible cholecystectomy once the patient has been cleared by cardiology. (3) Nodular prostate Is this a current diagnosis for this admission?: Yes Plan: I will check a PSA. (4) Pulmonary nodules Is this a current diagnosis for this admission?: Yes Plan: Follow up CT to monitor for change in size. (5) RUQ abdominal pain Is this a current diagnosis for this admission?: Yes Plan: Secondary to cholecystectomy. Pain control. (6) A-fib Qualifiers: Atrial fibrillation type: chronic Qualified Code(s): I48.2 - Chronic atrial fibrillation Is this a current diagnosis for this admission?: Yes Plan: Rate is controlled. (7) Abscess of ankle Is this a current diagnosis for this admission?: Yes Plan: Consult podiatry. - Time Time Spent: Greater than 70 Minutes Medications reviewed and adjusted accordingly: Yes - Inpatient Certification Based on my medical assessment, after consideration of the patient's comorbidities, presenting symptoms, or acuity I expect that the services needed warrant INPATIENT care.: Yes I certify that my determination is in accordance with my understanding of Medicare's requirements for reasonable and necessary INPATIENT services [42 CFR 412.3e].: Yes Medical Necessity: Significant Comorbidiites Make Outpatient Treatment Too Risky , Need For IV Fluids, Need For Continuous Telemetry Monitoring, Need for Pain Control, Need for IV Antibiotics, Need for Surgery
[2017-09-23] MEDS: OXYCODONE HCL IR 5 MG TABLET PO PRN (19:44)
[2017-09-23] MEDS: CYCLOBENZAPRINE HCL 10 MG TABLET PO PRN (19:46)
--- NOTE | 2017-09-23 20:20 | PDOC PROGRESS REPORT ---
Subjective Progress Note for:: 09/23/17 Subjective:: Still complaining of right upper quadrant abdominal pain. But surprisingly is hungry. Reason For Visit: HYPERBILIRUBINEMIA,ACUTE CHOLECYSTITIS Physical Exam Vital Signs: Temp Pulse Resp BP Pulse Ox 98.9 F 92 16 153/79 H 96 09/23/17 15:33 09/23/17 15:33 09/23/17 15:33 09/23/17 15:33 09/23/17 15:33 Intake & Output 09/22/17 09/23/17 09/24/17 06:59 06:59 06:59 Intake Total 50 250 Balance 50 250 Weight 91.5 kg General appearance: PRESENT: no acute distress, cooperative Respiratory exam: PRESENT: clear to auscultation la Cardiovascular exam: PRESENT: irregular rhythm GI/Abdominal exam: PRESENT: other - Soft, tender in the right upper quadrant with a positive Rogers sign. Results Laboratory Results: 09/23/17 09/23/17 11:01 16:25 Troponin I < 0.012 < 0.012 Impressions: Abdomen/Pelvis CT 09/22/17 15:38 IMPRESSION: 1. There are 2 right lower lobe pulmonary nodules. 2. Aortic atherosclerosis and small aortic aneurysms as described. 3. Diverticulosis coli. 4. Nodular protrusion of the prostate gland into the base of the bladder. Abdomen Ultrasound 09/22/17 18:02 IMPRESSION: Cholelithiasis with no evidence of cholecystitis. Abdomen MRI 09/22/17 19:20 IMPRESSION: 1. Cholelithiasis. 2. Normal MRCP. 3. Findings as described. Assessment & Plan - Diagnosis (1) Acute cholecystitis Is this a current diagnosis for this admission?: Yes Plan: Patient with possible common bile duct stones as well as indicated by elevations in his LFTs. MRCP was negative but it is not 100% accurate study. Patient with the benefit from a laparoscopic cholecystectomy and intraoperative cholangiogram however we need cardiology input prior to this procedure. If his cardiac risks are prohibitive, he will be managed with a cholecystostomy tube followed by possible ERCP if his LFTs continues to be elevated. If he is reasonable cardiac risk patient will undergo cholecystectomy and cholangiogram during this admission. In the meantime we will keep the patient at bowel rest and on IV antibiotics. Cardiac evaluation is still pending at this time. Will hold his Coumadin in the meantime. Patient had a profound reaction to FFP in the past and we would like to avoid it if possible. Vitamin K could be used to reverse his Coumadin but may complicate resumption of his Coumadin afterwards and therefore will hold off for now. I have had a long discussion with the patient and the patient's family concerning the rationale for this line of treatment.
[2017-09-23] MEDS: AMLODIPINE BESYLATE 5 MG TABLET PO SCH (22:26)
[2017-09-23] MEDS: METOPROLOL TARTRATE 50 MG TABLET PO SCH (22:26)
[2017-09-24] MEDS: PIPERACILLIN SODIUM/TAZOBACTAM 3.375 GM in NORMAL SALINE 100 ML IV SCH ×4 (02:56→21:18)
[2017-09-24 05:11] LABS: ABSOLUTE BASOPHILS # (AUTO) 0.1 10^3/uL (0.0-0.2); ABSOLUTE EOSINOPHILS # (AUTO) 0.1 10^3/uL (0.0-0.6); ABSOLUTE LYMPHOCYTES (AUTO) 2.4 10^3/uL (0.5-4.7); ABSOLUTE MONOCYTES (AUTO) 1.5 10^3/uL (0.1-1.4); ABSOLUTE NEUT (AUTO) 10.2 10^3/uL (1.7-8.2); BASOPHILS % (AUTO) 0.6 % (0-2); EOSINOPHILS % (AUTO) 0.5 % (0-6); HEMATOCRIT 45.3 % (37.9-51.0); HEMOGLOBIN 15.4 g/dL (13.5-17.0); LYMPHOCYTES % (AUTO) 16.9 % (13-45); MEAN CORPUSCULAR HEMOGLOBIN 27.8 pg (27.0-33.4); MEAN CORPUSCULAR HGB CONC 34.1 g/dL (32.0-36.0); MEAN CORPUSCULAR VOLUME 82 fl (80-97); MONOCYTES % (AUTO) 10.4 % (3-13); PLATELET COUNT 168 10^3/uL (150-450); RED BLOOD COUNT 5.55 10^6/uL (4.35-5.55); RED CELL DISTRIBUTION WIDTH 16.1 % (11.5-14.0); SEGMENTED NEUTROPHILS % (AUTO) 71.6 % (42-78); TOTAL CELLS COUNTED % (AUTO) 100 %; WHITE BLOOD COUNT 14.3 10^3/uL (4.0-10.5)
[2017-09-24 05:17] LABS: INTERNATIONAL RATION (INR) 1.96; PROTHROMBIN TIME 23.3 SEC (11.4-15.4)
[2017-09-24 05:18] LABS: PARTIAL THROMBOPLASTIN TIME 45.5 SEC (23.5-35.8)
[2017-09-24 05:34] LABS: ALANINE AMINOTRANSFERASE 91 U/L (21-72); ALBUMIN 3.7 g/dL (3.5-5.0); ALKALINE PHOSPHATASE 90 U/L (38-126); ANION GAP 14 (5-19); ASPARTATE AMINO TRANSFERASE 43 U/L (17-59); BILIRUBIN,DIRECT 0.5 mg/dL (0.0-0.4); BILIRUBIN,TOTAL 2.5 mg/dL (0.2-1.3); BLOOD UREA NITROGEN 18 mg/dL (7-20); CALCIUM 8.7 mg/dL (8.4-10.2); CARBON DIOXIDE 22 mmol/L (22-30); CHLORIDE 105 mmol/L (98-107); GLUCOSE 117 mg/dL (75-110); POTASSIUM 3.2 mmol/L (3.6-5.0); SODIUM 141.2 mmol/L (137-145); TOTAL PROTEIN 7.4 g/dL (6.3-8.2)
[2017-09-24] MEDS: CYCLOBENZAPRINE HCL 10 MG TABLET PO PRN ×2 (07:18→17:05)
[2017-09-24] MEDS: OXYCODONE HCL IR 5 MG TABLET PO PRN ×3 (07:18→21:23)
[2017-09-24] MEDS: POTASSI CL 20 MEQ/50 ML RIDER 20 MEQ/50 ML RTUPB IV SCH ×5 (10:02→22:06)
[2017-09-24] MEDS: TAMSULOSIN HCL 0.4 MG CAP.SR.24H PO SCH (10:13)
[2017-09-24] MEDS: METOPROLOL TARTRATE 50 MG TABLET PO SCH ×2 (10:13→21:18)
[2017-09-24] MEDS: AMLODIPINE BESYLATE 5 MG TABLET PO SCH ×2 (10:13→21:18)
--- NOTE | 2017-09-24 11:03 | XCELERA REPORT ---
[address] [address] Transthoracic Echocardiogram Report Name: DAVID MERAZ Age: 72 yrs Gender: Male : 1945 Patient Status: Inpatient Patient Location: [address] [place] [address] Study Date: 09/23/2017 08:22 PM Procedure: A complete two-dimensional transthoracic echocardiogram was performed (2D, M-mode, spectral and color flow Doppler). The study was technically difficult with many images being suboptimal in quality. Reason For Study: Pre op, CAD, PVD Ordering Physician: ZEYNEP CAMPO Performed By: Agnes Nickerson Interpretation Summary The left ventricular ejection fraction is preserved. There is mild concentric left ventricular hypertrophy. The left ventricle is grossly normal size. LV diastolic function could not be adequately assessed. Not all wall segments were well visualized. Regional wall motion abnormalities cannot be excluded due to limited visualization. The right ventricle is grossly normal size. Right ventricular function cannot be assessed due to poor image quality. The right atrium is mildly dilated. The left atrium is severely dilated. There is no mitral valve stenosis. There is no mitral regurgitation noted. There is no aortic valve stenosis No aortic regurgitation is present. There is no tricuspid stenosis. No tricuspid regurgitation. The aortic root is not well visualized. The inferior vena cava was not well visualized There is no pericardial effusion. MMode/2D Measurements & Calculations RVDd: 3.8 cm LVIDd: 4.6 cm FS: 35.5 % Ao root diam: 3.9 cm IVSd: 1.2 cm LVIDs: 2.9 cm EDV(Teich): 95.8 ml Ao root area: 11.9 cm2 LVPWd: 1.2 cm ESV(Teich): 33.4 ml EF(Teich): 65.1 % Doppler Measurements & Calculations MV E max minh: MV dec slope: Ao V2 max: LV V1 max P.9 cm/sec 96.0 cm/sec 2.3 mmHg MV A max minh: 675.1 cm/sec2 Ao max PG: LV V1 max: 24.6 cm/sec MV dec time: 0.16 sec3.7 mmHg 75.1 cm/sec MV E/A: 4.4 PA V2 max: 95.3 cm/sec PA max P.6 mmHg Left Ventricle The left ventricle is grossly normal size. There is mild concentric left ventricular hypertrophy. The left ventricular ejection fraction is preserved. LV diastolic function could not be adequately assessed. Not all wall segments were well visualized. Regional wall motion abnormalities cannot be excluded due to limited visualization. Right Ventricle The right ventricle is grossly normal size. Right ventricular function cannot be assessed due to poor image quality. Atria The right atrium is mildly dilated. The left atrium is severely dilated. Mitral Valve The mitral valve is not well visualized. There is no mitral valve stenosis. There is no mitral regurgitation noted. Aortic Valve The aortic valve is not well visualized secondary to technical limitations. There is no aortic valve stenosis. No aortic regurgitation is present. Tricuspid Valve The tricuspid valve is not well visualized secondary to technical limitations. There is no tricuspid stenosis. No tricuspid regurgitation. Pulmonic Valve The pulmonic valve is not well visualized. Great Vessels The aortic root is not well visualized. The inferior vena cava was not well visualized. Effusions There is no pericardial effusion. : ZEYNEP CAMPO > Zeynep Campo
[2017-09-24] MEDS ORDERED: IPRATROPIUM/ALBUTEROL 0.5-2.5 MG/3 ML AMPUL NEB PRN (11:22)
--- NOTE | 2017-09-24 12:23 | PDOC PROGRESS REPORT ---
Subjective Progress Note for:: 09/24/17 Subjective:: RUQ pains Reason For Visit: HYPERBILIRUBINEMIA,ACUTE CHOLECYSTITIS Physical Exam Vital Signs: Temp Pulse Resp BP Pulse Ox 98.4 F 89 20 129/79 H 95 09/24/17 07:00 09/24/17 07:00 09/24/17 07:00 09/24/17 07:00 09/24/17 07:00 Intake & Output 09/23/17 09/24/17 09/25/17 06:59 06:59 06:59 Intake Total 50 650 Output Total 900 Balance 50 -250 Weight 99.8 kg 91.5 kg Exam: abd is soft with tenderness at epigastric and RUQ areas. Results Laboratory Results: 09/24/17 04:23 09/24/17 04:23 09/24/17 09/24/17 04:23 04:23 WBC 14.3 H RBC 5.55 Hgb 15.4 Hct 45.3 MCV 82 MCH 27.8 MCHC 34.1 RDW 16.1 H Plt Count 168 Seg Neutrophils % 71.6 Lymphocytes % 16.9 Monocytes % 10.4 Eosinophils % 0.5 Basophils % 0.6 Absolute Neutrophils 10.2 H Absolute Lymphocytes 2.4 Absolute Monocytes 1.5 H Absolute Eosinophils 0.1 Absolute Basophils 0.1 Sodium 141.2 Potassium 3.2 L Chloride 105 Carbon Dioxide 22 Anion Gap 14 BUN 18 Creatinine 0.86 Est GFR ( Amer) > 60 Est GFR (Non-Af Amer) > 60 Glucose 117 H Calcium 8.7 Total Bilirubin 2.5 H AST 43 ALT 91 H Alkaline Phosphatase 90 Total Protein 7.4 Albumin 3.7 09/23/17 09/23/17 09/23/17 11:01 16:25 22:30 Troponin I < 0.012 < 0.012 < 0.012 Impressions: Abdomen/Pelvis CT 09/22/17 15:38 IMPRESSION: 1. There are 2 right lower lobe pulmonary nodules. 2. Aortic atherosclerosis and small aortic aneurysms as described. 3. Diverticulosis coli. 4. Nodular protrusion of the prostate gland into the base of the bladder. Abdomen Ultrasound 09/22/17 18:02 IMPRESSION: Cholelithiasis with no evidence of cholecystitis. Abdomen MRI 09/22/17 19:20 IMPRESSION: 1. Cholelithiasis. 2. Normal MRCP. 3. Findings as described. Assessment & Plan - Time Time Spent with patient: 15-24 minutes - Inpatient Certification Medical Necessity: Need For IV Fluids, Need for Pain Control, Need for IV Antibiotics, Need for Surgery - Plan Summary Plan Summary: Will repeat PT/INR in am. Possible lap mainor if INR <1.4
[2017-09-24] MEDS: RINGERS SOLUTION,LACTATED 1,000 ML IV PRN (15:19)
--- NOTE | 2017-09-24 16:15 | PDOC PROGRESS REPORT ---
Subjective Progress Note for:: 09/24/17 Subjective:: The patient is resting quietly. No new complaints. Reason For Visit: HYPERBILIRUBINEMIA,ACUTE CHOLECYSTITIS Physical Exam Vital Signs: Temp Pulse Resp BP Pulse Ox 97.4 F 86 16 138/68 H 97 09/24/17 15:07 09/24/17 15:07 09/24/17 15:07 09/24/17 15:07 09/24/17 15:07 Intake & Output 09/23/17 09/24/17 09/25/17 06:59 06:59 06:59 Intake Total 50 1650 150 Output Total 900 575 Balance 50 750 -425 Weight 99.8 kg 91.5 kg General appearance: PRESENT: no acute distress, cooperative Respiratory exam: PRESENT: rhonchi, wheezes, other - No increased work of breathing.. ABSENT: rales Cardiovascular exam: PRESENT: RRR. ABSENT: gallop, systolic murmur GI/Abdominal exam: PRESENT: distended, soft, tenderness. ABSENT: hernia Rectal exam: PRESENT: deferred Extremities exam: ABSENT: clubbing, joint swelling, tenderness Musculoskeletal exam: PRESENT: normal inspection. ABSENT: deformity, dislocation Neurological exam: PRESENT: alert, awake, oriented to person, oriented to place , oriented to time, oriented to situation, CN II-XII grossly intact. ABSENT: motor sensory deficit Psychiatric exam: PRESENT: appropriate affect, normal mood Skin exam: PRESENT: dry, intact, warm Results Laboratory Results: 09/24/17 04:23 09/24/17 04:23 09/24/17 09/24/17 04:23 04:23 WBC 14.3 H RBC 5.55 Hgb 15.4 Hct 45.3 MCV 82 MCH 27.8 MCHC 34.1 RDW 16.1 H Plt Count 168 Seg Neutrophils % 71.6 Lymphocytes % 16.9 Monocytes % 10.4 Eosinophils % 0.5 Basophils % 0.6 Absolute Neutrophils 10.2 H Absolute Lymphocytes 2.4 Absolute Monocytes 1.5 H Absolute Eosinophils 0.1 Absolute Basophils 0.1 Sodium 141.2 Potassium 3.2 L Chloride 105 Carbon Dioxide 22 Anion Gap 14 BUN 18 Creatinine 0.86 Est GFR ( Amer) > 60 Est GFR (Non-Af Amer) > 60 Glucose 117 H Calcium 8.7 Total Bilirubin 2.5 H AST 43 ALT 91 H Alkaline Phosphatase 90 Total Protein 7.4 Albumin 3.7 09/23/17 09/23/17 09/23/17 11:01 16:25 22:30 Troponin I < 0.012 < 0.012 < 0.012 09/22/17 09/22/17 09/22/17 16:36 16:36 22:45 WBC 9.7 RBC 5.68 H Hgb 15.6 Hct 46.2 MCV MCH MCHC RDW 15.6 H Plt Count 204 Seg Neutrophils % 78.0 Absolute Neutrophils Absolute Lymphocytes Absolute Monocytes Absolute Eosinophils PT 27.1 H INR 2.38 APTT 37.6 H Sodium 142.7 Potassium 3.3 L Chloride 104 Carbon Dioxide 23 Anion Gap 16 BUN 16 Creatinine 0.72 Est GFR (Non-Af Amer) > 60 Glucose 121 H Calcium 9.3 Total Bilirubin 1.5 H Direct Bilirubin 0.6 H AST 209 H ALT 175 H Alkaline Phosphatase 111 Troponin I Total Protein 8.6 H Albumin 4.4 09/23/17 09/23/17 09/24/17 11:01 16:25 04:23 WBC 14.3 H RBC 5.55 Hgb 15.4 Hct 45.3 MCV 82 MCH 27.8 MCHC 34.1 RDW 16.1 H Plt Count 168 Seg Neutrophils % Absolute Neutrophils 10.2 H Absolute Lymphocytes 2.4 Absolute Monocytes 1.5 H Absolute Eosinophils 0.1 PT INR APTT Sodium Potassium Chloride Carbon Dioxide Anion Gap BUN Creatinine Est GFR (Non-Af Amer) Glucose Calcium Total Bilirubin Direct Bilirubin AST ALT Alkaline Phosphatase Troponin I < 0.012 < 0.012 Total Protein Albumin 09/24/17 04:23 WBC RBC Hgb Hct MCV MCH MCHC RDW Plt Count Seg Neutrophils % Absolute Neutrophils Absolute Lymphocytes Absolute Monocytes Absolute Eosinophils PT INR APTT Sodium 141.2 Potassium 3.2 L Chloride 105 Carbon Dioxide 22 Anion Gap 14 BUN 18 Creatinine 0.86 Est GFR (Non-Af Amer) Glucose 117 H Calcium 8.7 Total Bilirubin 2.5 H Direct Bilirubin 0.5 H AST 43 ALT 91 H Alkaline Phosphatase 90 Troponin I Total Protein 7.4 Albumin 3.7 Impressions: Abdomen/Pelvis CT 09/22/17 15:38 IMPRESSION: 1. There are 2 right lower lobe pulmonary nodules. 2. Aortic atherosclerosis and small aortic aneurysms as described. 3. Diverticulosis coli. 4. Nodular protrusion of the prostate gland into the base of the bladder. Abdomen Ultrasound 09/22/17 18:02 IMPRESSION: Cholelithiasis with no evidence of cholecystitis. Abdomen MRI 09/22/17 19:20 IMPRESSION: 1. Cholelithiasis. 2. Normal MRCP. 3. Findings as described. Assessment & Plan - Diagnosis (1) Acute cholecystitis Is this a current diagnosis for this admission?: Yes Plan: Surgery tomorrow in INR less 1.4 or less. (2) Gall stones Is this a current diagnosis for this admission?: Yes Plan: No ductal dilatation noted. Surgery tomorrow in INR less 1.4 or less. (3) Nodular prostate Is this a current diagnosis for this admission?: Yes (4) Pulmonary nodules Is this a current diagnosis for this admission?: Yes (5) RUQ abdominal pain Is this a current diagnosis for this admission?: Yes Plan: Secondary to cholecystectomy. Pain control. (6) A-fib Qualifiers: Atrial fibrillation type: chronic Qualified Code(s): I48.2 - Chronic atrial fibrillation Is this a current diagnosis for this admission?: Yes Plan: Rate is controlled. (7) Abscess of ankle Is this a current diagnosis for this admission?: Yes Plan: Consult podiatry. (8) Hypokalemia Is this a current diagnosis for this admission?: Yes Plan: Supplement and follow. (9) Wheezing Is this a current diagnosis for this admission?: Yes Plan: prn nebulizer treatments. - Time Time Spent with patient: 35 or more minutes Medications reviewed and adjusted accordingly: Yes
[2017-09-24] MEDS ORDERED: PHYTONADIONE 5 MG TABLET PO ONE (17:00)
--- NOTE | 2017-09-24 17:04 | PDOC CONSULTATION ---
History of Present Illness Admission Date/PCP: 09/22/17 23:51 History of Present Illness: DAVID MERAZ is a 72 year old male Past Medical History Cardiac Medical History: Reports: Atrial Fibrillation, Coronary Artery Disease, Myocardial Infarction, Hypertension Pulmonary Medical History: Reports: Chronic Obstructive Pulmonary Disease (COPD) , Pneumonia GI Medical History: Reports: Gastroesophageal Reflux Disease Musculoskeltal Medical History: Reports: Arthritis Past Surgical History Past Surgical History: Reports: Coronary Artery Bypass Graft, Orthopedic Surgery , Tonsillectomy, Vascular Surgery, Other - Incision and drainage of lower extremity abscess with debridement Social History Smoking Status: Current Every Day Smoker Frequency of Alcohol Use: None Hx Recreational Drug Use: No Hx Prescription Drug Abuse: No - Advance Directive Resuscitation Status: Full Code Family History Family History: Reviewed & Not Pertinent, CAD, DM, Hypertension Parental Family History Reviewed: Yes Children Family History Reviewed: NA Sibling(s) Family History Reviewed.: NA Medication/Allergy Home Medications: Amlodipine Besylate [Norvasc 5 mg Tablet] 5 mg PO Q12 09/23/17 Aspirin [Aspirin EC] 81 mg PO DAILY 09/23/17 Metoprolol Tartrate [Lopressor 50 mg Tablet] 100 mg PO Q12 09/23/17 Oxycodone HCl [Oxy-Ir 5 mg Tablet] 15 mg PO Q4HP PRN 09/23/17 Tamsulosin HCl [Flomax 0.4 mg Cap.sr] 0.4 mg PO DAILY 09/23/17 Warfarin Sodium [Coumadin 4 mg Tablet] 4 mg PO Q2D@1000 09/23/17 Warfarin Sodium [Coumadin 5 mg Tablet] 5 mg PO Q2D@2200 09/23/17 Allergies/Adverse Reactions: Sulfa (Sulfonamide Antibiotics) Allergy (Verified 09/22/17 14:43) Physical Exam Vital Signs: Temp Pulse Resp BP Pulse Ox 97.4 F 86 16 138/68 H 97 09/24/17 15:07 09/24/17 15:07 09/24/17 15:07 09/24/17 15:07 09/24/17 15:07 Intake & Output 09/23/17 09/24/17 09/25/17 06:59 06:59 06:59 Intake Total 50 1650 150 Output Total 900 575 Balance 50 750 -425 Weight 99.8 kg 91.5 kg General appearance: PRESENT: cooperative, well-developed, well-nourished Pulses: PRESENT: +1 pedal pulses bilateral Vascular exam: PRESENT: normal capillary refill Skin exam: PRESENT: other - There is an ulcer lateral aspect left ankle over the lateral malleolus. The ulcer measures 1.3cm in length by 1.8 cm wide by 0.5 cm deep with a red granulation base. Results Laboratory Results: 09/24/17 04:23 09/24/17 04:23 09/24/17 09/24/17 04:23 04:23 WBC 14.3 H RBC 5.55 Hgb 15.4 Hct 45.3 MCV 82 MCH 27.8 MCHC 34.1 RDW 16.1 H Plt Count 168 Seg Neutrophils % 71.6 Lymphocytes % 16.9 Monocytes % 10.4 Eosinophils % 0.5 Basophils % 0.6 Absolute Neutrophils 10.2 H Absolute Lymphocytes 2.4 Absolute Monocytes 1.5 H Absolute Eosinophils 0.1 Absolute Basophils 0.1 Sodium 141.2 Potassium 3.2 L Chloride 105 Carbon Dioxide 22 Anion Gap 14 BUN 18 Creatinine 0.86 Est GFR ( Amer) > 60 Est GFR (Non-Af Amer) > 60 Glucose 117 H Calcium 8.7 Total Bilirubin 2.5 H AST 43 ALT 91 H Alkaline Phosphatase 90 Total Protein 7.4 Albumin 3.7 09/23/17 09/23/17 09/23/17 11:01 16:25 22:30 Troponin I < 0.012 < 0.012 < 0.012 Impressions: Abdomen/Pelvis CT 09/22/17 15:38 IMPRESSION: 1. There are 2 right lower lobe pulmonary nodules. 2. Aortic atherosclerosis and small aortic aneurysms as described. 3. Diverticulosis coli. 4. Nodular protrusion of the prostate gland into the base of the bladder. Abdomen Ultrasound 09/22/17 18:02 IMPRESSION: Cholelithiasis with no evidence of cholecystitis. Abdomen MRI 09/22/17 19:20 IMPRESSION: 1. Cholelithiasis. 2. Normal MRCP. 3. Findings as described. Assessment & Plan - Diagnosis (1) Type 2 diabetes mellitus with foot ulcer Qualifiers: Qualified Code(s): E11.621 - Type 2 diabetes mellitus with foot ulcer; L97.509 - Non-pressure chronic ulcer of other part of unspecified foot with unspecified severity; L97.509 - Non-pressure chronic ulcer of other part of unspecified foot with unspecified severity; L97.509 - Non-pressure chronic ulcer of other part of unspecified foot with unspecified severity; L97.509 - Non -pressure chronic ulcer of other part of unspecified foot with unspecified severity Is this a current diagnosis for this admission?: Yes Plan: Collagen with silver was applied to ulcer site and covered with a sterile dressing.
[2017-09-24] MEDS ORDERED: POTASSIUM CHLORIDE 10 MEQ CAPSULE.ER PO ONE (22:00)
--- NOTE | 2017-09-24 23:50 | PDOC CONSULTATION ---
Consultation Consult Date: 09/23/17 Attending physician:: CHIDI IGNACIO Consult reason:: CAD History of Present Illness Admission Date/PCP: 09/22/17 23:51 Patient complains of: Abdominal pain and the need for gallbladder surgery. History of Present Illness: DAVID MERAZ is a 72 year old male, admitted under surgical service and is being evaluated for gallbladder surgery. Patient has known history of coronary artery disease with prior myocardial infarction. Patient is denying any chest, neck discomfort. Patient is denying any shortness of breath. Past Medical History Cardiac Medical History: Reports: Atrial Fibrillation, Coronary Artery Disease, Myocardial Infarction, Hypertension Pulmonary Medical History: Reports: Chronic Obstructive Pulmonary Disease (COPD) , Pneumonia GI Medical History: Reports: Gastroesophageal Reflux Disease Musculoskeltal Medical History: Reports: Arthritis Past Surgical History Past Surgical History: Reports: Coronary Artery Bypass Graft, Orthopedic Surgery , Tonsillectomy, Vascular Surgery, Other - Incision and drainage of lower extremity abscess with debridement Social History Information Source: Patient Smoking Status: Current Every Day Smoker Frequency of Alcohol Use: None Hx Recreational Drug Use: No Hx Prescription Drug Abuse: No - Advance Directive Resuscitation Status: Full Code Surrogate healthcare decision maker:: Patient's is the surrogate decision-maker Family History Family History: Reviewed & Not Pertinent, CAD, DM, Hypertension Parental Family History Reviewed: Yes Children Family History Reviewed: Yes Sibling(s) Family History Reviewed.: Yes Medication/Allergy Home Medications: Amlodipine Besylate [Norvasc 5 mg Tablet] 5 mg PO Q12 09/23/17 Aspirin [Aspirin EC] 81 mg PO DAILY 09/23/17 Metoprolol Tartrate [Lopressor 50 mg Tablet] 100 mg PO Q12 09/23/17 Oxycodone HCl [Oxy-Ir 5 mg Tablet] 15 mg PO Q4HP PRN 09/23/17 Tamsulosin HCl [Flomax 0.4 mg Cap.sr] 0.4 mg PO DAILY 09/23/17 Warfarin Sodium [Coumadin 4 mg Tablet] 4 mg PO Q2D@1000 09/23/17 Warfarin Sodium [Coumadin 5 mg Tablet] 5 mg PO Q2D@2200 09/23/17 Allergies/Adverse Reactions: Sulfa (Sulfonamide Antibiotics) Allergy (Verified 09/22/17 14:43) Review of Systems Review of Systems: Please see history of present illness and past medical history as wall. Constitutional: No fever or chills reported. Head : No recent chronic headaches, recent head injury. Eyes: No recent eye pain, diplopia, redness, discharge, acute visual changes. Ears: No recent chronic ear pain, acute hearing loss, ear discharge. Oral cavity: No recent ulcerations, bleeding, oral cavity discomfort. Neck: No recent acute neck pain reported. Hematologic: No recent easy bruising or bleeding. Lymphatic: No recent lymph node enlargement reported. Cardiovascular system review: See history of present illness. Respiratory system review: No hemoptysis or blood clots in the lungs reported. Mild Shortness of breath on exertion Gastrointestinal system review: Negative for any recent acute hematemesis, melena. Recent abdominal pain with diagnosis of acute cholecystitis. Genitourinary system review: No recent acute or chronic hematuria, flank pain, UTI etc. reported. Skin system review: Negative for any recent abnormal bruising, no rash, no pruritus reported. Describes foot ulcer from diabetes. Neurologic: No prior history of strokes, mini strokes, seizure disorder. Psychologic: No history of major psychosis or major depression reported. Musculoskeletal: Minor aches and pains reported. No acute joint swelling reported. Endocrine: No recent polyuria, polydipsia, recent heat or cold intolerance. Physical Exam Vital Signs: Temp Pulse Resp BP Pulse Ox 99.4 F 93 19 151/72 H 97 09/23/17 20:00 09/23/17 20:00 09/23/17 20:00 09/23/17 20:00 09/23/17 20:00 Intake & Output 09/22/17 09/23/17 09/24/17 06:59 06:59 06:59 Intake Total 50 250 Balance 50 250 Weight 91.5 kg Exam: GENERAL: well-nourished and in no acute distress. Alert and oriented x3 HEAD: Atraumatic, normocephalic. EYES: Pupils equal round and reactive to light, extraocular movements intact, sclera anicteric, conjunctiva are normal. ENT: TMs normal, nares patent, oropharynx clear without exudates. Moist mucous membranes. No oral ulcerations or bleeding gums noted NECK: supple without lymphadenopathy. Trachea is central. No cervical or axillary lymphadenopathy noted. Carotids are 2+, JVD WNL LUNGS: Respiration seems nonlabored, no significant accessory muscle action noted. Breath sounds clear to auscultation bilaterally and equal noted. Few a scattered wheezes rales or rhonchi noted. No significant dullness noted on percussion. CHEST: Palpation of the chest wall shows no significant chest wall tenderness. HEART: [place] [employer], No PSH, 1/6 SAMANTHA aortic area, 1/6 parmar systolic murmur mitral area, no rubs, no gallops. ABDOMEN: Soft, no significant tenderness appreciated, normoactive bowel sounds. No guarding, no rebound. No rigidity noted . No masses appreciated. EXTREMITIES: Pedal pulses are bilaterally diminished +, no calf tenderness noted. No clubbing or cyanosis. negative pedal edema noted NEUROLOGICAL: Focused neurological exam showed no significant neurologic deficit. Normal speech, no focal weakness appreciated. PSYCH: Normal mood, normal affect. Judgment and insight within normal limits. SKIN: No significant ecchymosis, skin is noted to be warm. Foot ulcer noted. MUSCULOSKELETAL EXAM: No significant acute joint swelling noted. Results Laboratory Results: 09/23/17 09/23/17 11:01 16:25 Troponin I < 0.012 < 0.012 Impressions: Abdomen/Pelvis CT 09/22/17 15:38 IMPRESSION: 1. There are 2 right lower lobe pulmonary nodules. 2. Aortic atherosclerosis and small aortic aneurysms as described. 3. Diverticulosis coli. 4. Nodular protrusion of the prostate gland into the base of the bladder. Abdomen Ultrasound 09/22/17 18:02 IMPRESSION: Cholelithiasis with no evidence of cholecystitis. Abdomen MRI 09/22/17 19:20 IMPRESSION: 1. Cholelithiasis. 2. Normal MRCP. 3. Findings as described. Assessment & Plan - Diagnosis (1) Acute cholecystitis Is this a current diagnosis for this admission?: Yes (2) Type 2 diabetes mellitus with foot ulcer Is this a current diagnosis for this admission?: Yes (3) A-fib Qualifiers: Atrial fibrillation type: chronic Qualified Code(s): I48.2 - Chronic atrial fibrillation Is this a current diagnosis for this admission?: Yes (4) CAD (coronary artery disease) Qualifiers: Coronary Disease-Associated Artery/Lesion type: [place] artery [place] vs. transplanted heart: [place] heart Associated angina: without angina Qualified Code(s): I25.10 - Atherosclerotic heart disease of [place] coronary artery without angina pectoris (5) COPD (chronic obstructive pulmonary disease) Qualifiers: COPD type: unspecified COPD Qualified Code(s): J44.9 - Chronic obstructive pulmonary disease, unspecified - Notes Notes: Patient has known history of CAD status post CABG but has had no recent angina, CHF or any acute cardiac issues. Patient does have chronic atrial fibrillation and was on Coumadin which is now on hold. Patient currently is stable from cardiac standpoint. Therefore cleared for surgery from cardiac standpoint. At this point I am told that surgery is waiting for his PT with INR to come towards normalization before they would offer him surgery. We will continue to follow patient. CAD: Symptomatically stable without any angina or angina equivalent symptoms. Atrial fibrillation: Currently rate seems reasonably well controlled. Continue current therapeutic measures and rate control. Anticoagulation on hold for preparation for surgery. COPD: Patient seems stable without any significant wheezing being noted. Diabetes with foot ulcer: Patient stable patient has been seen by surgeon. We will leave management of diabetes to the hospitalist. Acute cholecystitis: Patient has been evaluated by surgeon and is awaiting surgery when PT with INR is satisfactorily low to reduce bleeding. - Time Time Spent: 30 to 50 Minutes - CODE STATUS was discussed, patient remains full code. Surrogate decision-maker patient's . Multiple medical problems were addressed. More than 50% of the time spent coordinating care, discussing management plans with involved caregivers. Management plans discussed with involved personnels. Medical decision making was of moderate to high complexity , patient's has multiple comorbidities. Medications reviewed and adjusted accordingly: Yes
[2017-09-25] MEDS: RINGERS SOLUTION,LACTATED 1,000 ML IV PRN ×2 (02:59→16:53)
[2017-09-25] MEDS: PIPERACILLIN SODIUM/TAZOBACTAM 3.375 GM in NORMAL SALINE 100 ML IV SCH ×4 (03:04→21:35)
[2017-09-25 06:50] LABS: INTERNATIONAL RATION (INR) 1.47; PROTHROMBIN TIME 18.6 SEC (11.4-15.4)
[2017-09-25 06:51] LABS: PARTIAL THROMBOPLASTIN TIME 42.1 SEC (23.5-35.8)
[2017-09-25 07:03] LABS: ALANINE AMINOTRANSFERASE 58 U/L (21-72); ALBUMIN 3.6 g/dL (3.5-5.0); ALKALINE PHOSPHATASE 73 U/L (38-126); ANION GAP 14 (5-19); ASPARTATE AMINO TRANSFERASE 28 U/L (17-59); BILIRUBIN,DIRECT 0.6 mg/dL (0.0-0.4); BILIRUBIN,TOTAL 2.8 mg/dL (0.2-1.3); BLOOD UREA NITROGEN 18 mg/dL (7-20); CALCIUM 8.7 mg/dL (8.4-10.2); CARBON DIOXIDE 20 mmol/L (22-30); CHLORIDE 108 mmol/L (98-107); GLUCOSE 96 mg/dL (75-110); POTASSIUM 3.8 mmol/L (3.6-5.0); SODIUM 141.5 mmol/L (137-145); TOTAL PROTEIN 7.3 g/dL (6.3-8.2)
[2017-09-25 09:24] LABS: ABSOLUTE BASOPHILS # (AUTO) 0.1 10^3/uL (0.0-0.2); ABSOLUTE EOSINOPHILS # (AUTO) 0.3 10^3/uL (0.0-0.6); ABSOLUTE LYMPHOCYTES (AUTO) 2.2 10^3/uL (0.5-4.7); ABSOLUTE MONOCYTES (AUTO) 1.1 10^3/uL (0.1-1.4); ABSOLUTE NEUT (AUTO) 7.7 10^3/uL (1.7-8.2); EOSINOPHILS % (AUTO) 2.5 % (0-6); HEMATOCRIT 43.8 % (37.9-51.0); HEMOGLOBIN 15.1 g/dL (13.5-17.0); MEAN CORPUSCULAR HEMOGLOBIN 28.2 pg (27.0-33.4); MEAN CORPUSCULAR HGB CONC 34.4 g/dL (32.0-36.0); MEAN CORPUSCULAR VOLUME 82 fl (80-97); MONOCYTES % (AUTO) 9.6 % (3-13); PLATELET COUNT 149 10^3/uL (150-450); RED BLOOD COUNT 5.35 10^6/uL (4.35-5.55); RED CELL DISTRIBUTION WIDTH 15.6 % (11.5-14.0); SEGMENTED NEUTROPHILS % (AUTO) 67.9 % (42-78); TOTAL CELLS COUNTED % (AUTO) 100 %; WHITE BLOOD COUNT 11.3 10^3/uL (4.0-10.5)
[2017-09-25] MEDS: METOPROLOL TARTRATE 50 MG TABLET PO SCH ×2 (09:39→21:36)
[2017-09-25] MEDS: AMLODIPINE BESYLATE 5 MG TABLET PO SCH ×2 (09:40→21:36)
[2017-09-25] MEDS: TAMSULOSIN HCL 0.4 MG CAP.SR.24H PO SCH (09:40)
[2017-09-25] MEDS: OXYCODONE HCL IR 5 MG TABLET PO PRN ×3 (09:44→21:36)
--- NOTE | 2017-09-25 12:18 | EKG REPORT ---
SEVERITY:- ABNORMAL ECG - ATRIAL FIBRILLATION, V-RATE 68-120 LEFT ANTERIOR FASCICULAR BLOCK PROBABLE LVH WITH SECONDARY REPOL ABNRM ANTERIOR Q WAVES, POSSIBLY DUE TO LVH : Confirmed by: Kelsy Tuttle MD 25-Sep-2017 12:17:35
--- NOTE | 2017-09-25 16:06 | PROGRESS NOTE E ---
Progress Note NAME: DAVID MERAZ : 1945 AGE: 72Y DATE: 09/25/2017 ROOM: 407 SUBJECTIVE: Note that the patient denies any chest pain or discomfort. He has no abdominal pain today. There is no nausea or vomiting. There is no chest pain or discomfort. There is no PND or orthopnea. There is only trace leg edema. There are no TIA or CVA symptoms. Note that the patient's surgery has been rescheduled for tomorrow, since the patient's INR is 1.47. Note that the patient is off Coumadin. The patient has no prior history of TIA or CVA. The patient denies any PND or orthopnea. There are no palpitations. The patient has chronic atrial fibrillation. OBJECTIVE: VITAL SIGNS: The patient is afebrile, with a temperature of 98.5 degrees Fahrenheit. His pulse is 82 beats per minute, irregularly irregular. Blood pressure is 124/69, respirations 20 per minute, O2 sats are 98% on room air. GENERAL: On examination, the patient is mildly obese, in no acute distress. He is well-groomed. HEENT: Head is atraumatic, normocephalic. Eyes: Pupils are equal, round, regular, reactive to light and accommodation. Extraocular movements are normal. There is no conjunctival pallor. There is no scleral icterus. ENT is negative. NECK: Supple. There is no JVD. Carotids are equal. There is no bruit. There is no lymphadenopathy. There is no goiter. Trachea is central. LUNGS: Clear to auscultation and percussion. HEART: S1, S2 are heard. S1 is of variable intensity. There is no S3 gallop. There is no S4 gallop. There is a systolic murmur at the left sternal border, at the apex. There is no rub. ABDOMEN: Soft, obese, nontender. There is no hepatosplenomegaly. Bowel sounds are well-heard. There are no tender areas or masses. There is no rebound, guarding or rigidity. EXTREMITIES: Femorals are deep. Femorals are diminished. The leg pulses are diminished. There is trace pedal edema bilaterally. There is no DVT or cellulitis. There is no calf tenderness. There is no cyanosis or clubbing. CORPORATE PLANNER: The patient is conscious, awake, alert, oriented x3, with no focal deficits. DIAGNOSTICS: The patient's EKG done today shows atrial fibrillation with ventricular response of 95 beats per minute, left anterior fascicular block, probable LVH with secondary repolarization changes. The patient's white count is 11,300, hemoglobin is 15.1, hematocrit is 43.8, platelet count is 149,000. The patient's sodium is 141, potassium 3.8, chloride 108, CO2 is 20. The patient's BUN is 18, creatinine is 0.92. GFR is greater than 60. The patient's glucose is 96. The patient's calcium is 8.7. The patient's total bilirubin is elevated at 2.8. Direct bilirubin is 0.6. His AST is 28. His ALT is 58. His alk phos is 73. The patient's total protein is 7.3, albumin is 3.6, lipase is 54. Note that the patient's troponin I serially were negative x3 on the . IMPRESSION: 1. CHOLELITHIASIS, FOR SURGERY TOMORROW. 2. CHRONIC ATRIAL FIBRILLATION. Patient off Coumadin. Rate is well-controlled on current medication. 3. CORONARY ARTERY DISEASE, HISTORY OF GA AND HISTORY OF CORONARY ARTERY BYPASS GRAFT SURGERY, WITHOUT ANY ANGINAL SYMPTOMS. 4. HYPERTENSION. 5. DIABETES MELLITUS. 6. HISTORY OF COPD, BUT AT PRESENT WITH NO ACUTE EXACERBATION OF COPD. The patient is stable and his medications have been reviewed. 7. PREOPERATIVE CARDIAC RISK ASSESSMENT. Note, 30 minutes spent on this patient, with more than 50% of the time spent in direct patient care. Medical decision-making at present is of mild complexity. Note that the patient would be an acceptable cardiac risk for surgery. Postoperatively, will get serial EKGs and enzymes and monitor patient on telemetry. Watch for atrial fibrillation with rapid ventricular response and development of congestive heart failure. Also will get serial enzymes to make sure the patient does not have perioperative GA. Would recommend restarting the patient's Coumadin as soon as possible and as soon as safe post surgery. Will follow with you. Thank you. DICTATING PHYSICIAN: MICHELLE HILARIO M.D. [id number] PHY#: [id number] ID: [id number] JOB#: [id number] ACCT: [id number] cc: >
--- NOTE | 2017-09-25 17:18 | PDOC PROGRESS REPORT ---
Subjective Progress Note for:: 09/24/17 Subjective:: Patient seems to be doing better no new complaints. Pt is denying any chest arm or neck discomfort. Patient denying any PND, orthopnea. Patient denied any sustained palpitations, dizziness, syncope, near syncope. Patient denying any fever chills. Patient denying any other significant discomfort. Patient is maintaining atrial fibrillation Review of systems: Rest review of systems negative. Medications: Medications have been reviewed. Reason For Visit: HYPERBILIRUBINEMIA,ACUTE CHOLECYSTITIS Physical Exam Vital Signs: Temp Pulse Resp BP Pulse Ox 98.9 F 91 18 132/79 H 97 09/24/17 19:26 09/24/17 19:26 09/24/17 19:26 09/24/17 19:26 09/24/17 19:26 Intake & Output 09/23/17 09/24/17 09/25/17 06:59 06:59 06:59 Intake Total 50 1650 400 Output Total 900 575 Balance 50 750 -175 Weight 99.8 kg 91.5 kg Exam: GENERAL: well-nourished and in no acute distress. Alert and oriented x3 HEAD: Atraumatic, normocephalic. EYES: Pupils equal round and reactive to light, extraocular movements intact, sclera anicteric, conjunctiva are normal. ENT: TMs normal, nares patent, oropharynx clear without exudates. Moist mucous membranes. No oral ulcerations or bleeding gums noted NECK: supple without lymphadenopathy. Trachea is central. No cervical or axillary lymphadenopathy noted. Carotids are 2+, JVD WNL LUNGS: Respiration seems nonlabored, no significant accessory muscle action noted. Breath sounds clear to auscultation bilaterally and equal noted. No wheezes rales or rhonchi noted. No significant dullness noted on percussion. CHEST: Palpation of the chest wall shows no significant chest wall tenderness. HEART: [employer], No PSH, 1/6 SAMANTHA aortic area, 1/6 parmar systolic murmur mitral area, no rubs, no gallops. ABDOMEN: Soft, no significant tenderness appreciated, normoactive bowel sounds. No guarding, no rebound. No rigidity noted . No masses appreciated. EXTREMITIES: Pedal pulses are bilaterally diminished, no calf tenderness noted. No clubbing or cyanosis. negative pedal edema noted NEUROLOGICAL: Focused neurological exam showed no significant neurologic deficit. Normal speech, no focal weakness appreciated. PSYCH: Normal mood, normal affect. Judgment and insight within normal limits. SKIN: No significant ecchymosis, skin is noted to be warm. Ulcer noted over left ankle. Which has been covered up. MUSCULOSKELETAL EXAM: No significant acute joint swelling noted. Results Laboratory Results: 09/24/17 04:23 09/24/17 04:23 09/24/17 09/24/17 04:23 04:23 WBC 14.3 H RBC 5.55 Hgb 15.4 Hct 45.3 MCV 82 MCH 27.8 MCHC 34.1 RDW 16.1 H Plt Count 168 Seg Neutrophils % 71.6 Lymphocytes % 16.9 Monocytes % 10.4 Eosinophils % 0.5 Basophils % 0.6 Absolute Neutrophils 10.2 H Absolute Lymphocytes 2.4 Absolute Monocytes 1.5 H Absolute Eosinophils 0.1 Absolute Basophils 0.1 Sodium 141.2 Potassium 3.2 L Chloride 105 Carbon Dioxide 22 Anion Gap 14 BUN 18 Creatinine 0.86 Est GFR ( Amer) > 60 Est GFR (Non-Af Amer) > 60 Glucose 117 H Calcium 8.7 Total Bilirubin 2.5 H AST 43 ALT 91 H Alkaline Phosphatase 90 Total Protein 7.4 Albumin 3.7 09/23/17 09/23/17 09/23/17 11:01 16:25 22:30 Troponin I < 0.012 < 0.012 < 0.012 EKG Comments: Shows atrial fibrillation with controlled ventricular response Impressions: Abdomen/Pelvis CT 09/22/17 15:38 IMPRESSION: 1. There are 2 right lower lobe pulmonary nodules. 2. Aortic atherosclerosis and small aortic aneurysms as described. 3. Diverticulosis coli. 4. Nodular protrusion of the prostate gland into the base of the bladder. Abdomen Ultrasound 09/22/17 18:02 IMPRESSION: Cholelithiasis with no evidence of cholecystitis. Abdomen MRI 09/22/17 19:20 IMPRESSION: 1. Cholelithiasis. 2. Normal MRCP. 3. Findings as described. Assessment & Plan - Diagnosis (1) Acute cholecystitis Is this a current diagnosis for this admission?: Yes (2) Type 2 diabetes mellitus with foot ulcer Is this a current diagnosis for this admission?: Yes (3) A-fib Qualifiers: Atrial fibrillation type: chronic Qualified Code(s): I48.2 - Chronic atrial fibrillation Is this a current diagnosis for this admission?: Yes (4) CAD (coronary artery disease) Qualifiers: Coronary Disease-Associated Artery/Lesion type: [place] artery [place] vs. transplanted heart: [place] heart Associated angina: without angina Qualified Code(s): I25.10 - Atherosclerotic heart disease of [place] coronary artery without angina pectoris (5) COPD (chronic obstructive pulmonary disease) Qualifiers: COPD type: unspecified COPD Qualified Code(s): J44.9 - Chronic obstructive pulmonary disease, unspecified - Notes Notes: Preop cardiovascular examination: Patient was cleared yesterday and also today. It seems surgery might be done tomorrow. Patient generally stable from cardiac standpoint. Dr. Tuttle want to cover from tomorrow. CAD: Symptomatically stable without any angina or angina equivalent symptoms. Atrial fibrillation: Currently rate seems reasonably well controlled. Continue current therapeutic measures and rate control. Anticoagulation on hold for preparation for surgery. COPD: Patient seems stable without any significant wheezing being noted. Diabetes with foot ulcer: Patient stable patient has been seen by surgeon. We will leave management of diabetes to the hospitalist. Acute cholecystitis: Patient has been evaluated by surgeon and is awaiting surgery when PT with INR is satisfactorily low to reduce bleeding. - Time Time with patient: 15-25 minutes - CODE STATUS was discussed, patient remains full code. Surrogate decision-maker unchanged. Multiple medical problems were addressed. More than 50% of the time spent coordinating care, discussing management plans with involved caregivers. Management plans discussed with involved personnels. Medical decision making was of moderate to high complexity , patient's has multiple comorbidities. Medications reviewed and adjusted accordingly: Yes
--- NOTE | 2017-09-25 17:23 | PDOC PROGRESS REPORT ---
Subjective Progress Note for:: 09/25/17 Subjective:: The patient is resting quietly. No new complaints. Surgery will be delayed until Wednesday. INR this morning is 1.47. Reason For Visit: HYPERBILIRUBINEMIA,ACUTE CHOLECYSTITIS Physical Exam Vital Signs: Temp Pulse Resp BP Pulse Ox 97.7 F 85 18 123/71 97 09/25/17 15:00 09/25/17 15:00 09/25/17 15:00 09/25/17 15:00 09/25/17 15:00 Intake & Output 09/24/17 09/25/17 09/26/17 06:59 06:59 06:59 Intake Total 1650 1500 1100 Output Total 900 1000 Balance 884 834 5089 Weight 91.5 kg 104.1 kg General appearance: PRESENT: no acute distress, cooperative Respiratory exam: PRESENT: other - No increased work of breathing.. ABSENT: rales, rhonchi, wheezes Cardiovascular exam: PRESENT: RRR, other - No lateral PMI. No thrills.. ABSENT : gallop, rubs, systolic murmur Pulses: PRESENT: other - Diminished breath sound bilaterally. GI/Abdominal exam: PRESENT: soft. ABSENT: hernia, mass, organolmegaly, tenderness Extremities exam: ABSENT: clubbing, joint swelling, tenderness Musculoskeletal exam: PRESENT: normal inspection. ABSENT: deformity, dislocation Neurological exam: PRESENT: alert, awake, oriented to person, oriented to place , oriented to time, oriented to situation, CN II-XII grossly intact. ABSENT: motor sensory deficit Skin exam: PRESENT: dry, intact, warm Results Laboratory Results: 09/25/17 08:23 09/25/17 06:31 09/25/17 09/25/17 06:31 08:23 WBC 11.3 H RBC 5.35 Hgb 15.1 Hct 43.8 MCV 82 MCH 28.2 MCHC 34.4 RDW 15.6 H Plt Count 149 L Seg Neutrophils % 67.9 Lymphocytes % 19.0 Monocytes % 9.6 Eosinophils % 2.5 Basophils % 1.0 Absolute Neutrophils 7.7 Absolute Lymphocytes 2.2 Absolute Monocytes 1.1 Absolute Eosinophils 0.3 Absolute Basophils 0.1 Sodium 141.5 Potassium 3.8 Chloride 108 H Carbon Dioxide 20 L Anion Gap 14 BUN 18 Creatinine 0.92 Est GFR ( Amer) > 60 Est GFR (Non-Af Amer) > 60 Glucose 96 Calcium 8.7 Total Bilirubin 2.8 H AST 28 ALT 58 Alkaline Phosphatase 73 Total Protein 7.3 Albumin 3.6 Lipase 54.0 09/23/17 09/23/17 09/23/17 11:01 16:25 22:30 Troponin I < 0.012 < 0.012 < 0.012 09/22/17 09/22/17 09/22/17 16:36 16:36 22:45 WBC 9.7 RBC 5.68 H Hgb 15.6 Hct 46.2 MCV MCH MCHC RDW 15.6 H Plt Count 204 Seg Neutrophils % 78.0 Absolute Neutrophils Absolute Lymphocytes Absolute Monocytes Absolute Eosinophils PT 27.1 H INR 2.38 APTT 37.6 H Sodium 142.7 Potassium 3.3 L Chloride 104 Carbon Dioxide 23 Anion Gap 16 BUN 16 Creatinine 0.72 Est GFR (Non-Af Amer) > 60 Glucose 121 H Calcium 9.3 Total Bilirubin 1.5 H Direct Bilirubin 0.6 H AST 209 H ALT 175 H Alkaline Phosphatase 111 Troponin I Total Protein 8.6 H Albumin 4.4 Lipase 09/23/17 09/23/17 09/24/17 11:01 16:25 04:23 WBC 14.3 H RBC 5.55 Hgb 15.4 Hct 45.3 MCV 82 MCH 27.8 MCHC 34.1 RDW 16.1 H Plt Count 168 Seg Neutrophils % Absolute Neutrophils 10.2 H Absolute Lymphocytes 2.4 Absolute Monocytes 1.5 H Absolute Eosinophils 0.1 PT INR APTT Sodium Potassium Chloride Carbon Dioxide Anion Gap BUN Creatinine Est GFR (Non-Af Amer) Glucose Calcium Total Bilirubin Direct Bilirubin AST ALT Alkaline Phosphatase Troponin I < 0.012 < 0.012 Total Protein Albumin Lipase 09/24/17 09/25/17 09/25/17 04:23 06:31 06:31 WBC RBC Hgb Hct MCV MCH MCHC RDW Plt Count Seg Neutrophils % Absolute Neutrophils Absolute Lymphocytes Absolute Monocytes Absolute Eosinophils PT 18.6 H INR 1.47 APTT 42.1 H Sodium 141.2 141.5 Potassium 3.2 L 3.8 Chloride 105 108 H Carbon Dioxide 22 20 L Anion Gap 14 14 BUN 18 18 Creatinine 0.86 0.92 Est GFR (Non-Af Amer) Glucose 117 H 96 Calcium 8.7 8.7 Total Bilirubin 2.5 H 2.8 H Direct Bilirubin 0.5 H 0.6 H AST 43 28 ALT 91 H 58 Alkaline Phosphatase 90 73 Troponin I Total Protein 7.4 7.3 Albumin 3.7 3.6 Lipase 54.0 09/25/17 08:23 WBC 11.3 H RBC 5.35 Hgb 15.1 Hct 43.8 MCV 82 MCH 28.2 MCHC 34.4 RDW 15.6 H Plt Count 149 L Seg Neutrophils % Absolute Neutrophils Absolute Lymphocytes Absolute Monocytes Absolute Eosinophils PT INR APTT Sodium Potassium Chloride Carbon Dioxide Anion Gap BUN Creatinine Est GFR (Non-Af Amer) Glucose Calcium Total Bilirubin Direct Bilirubin AST ALT Alkaline Phosphatase Troponin I Total Protein Albumin Lipase Impressions: Abdomen/Pelvis CT 09/22/17 15:38 IMPRESSION: 1. There are 2 right lower lobe pulmonary nodules. 2. Aortic atherosclerosis and small aortic aneurysms as described. 3. Diverticulosis coli. 4. Nodular protrusion of the prostate gland into the base of the bladder. Abdomen Ultrasound 09/22/17 18:02 IMPRESSION: Cholelithiasis with no evidence of cholecystitis. Abdomen MRI 09/22/17 19:20 IMPRESSION: 1. Cholelithiasis. 2. Normal MRCP. 3. Findings as described. Assessment & Plan - Diagnosis (1) Acute cholecystitis Is this a current diagnosis for this admission?: Yes Plan: Surgery on Wednesday. Bilirubin increasing. (2) Gall stones Is this a current diagnosis for this admission?: Yes Plan: No ductal dilatation noted, but bilirubin is increased to 2.9. Surgery on Wednesday. (3) Nodular prostate Is this a current diagnosis for this admission?: Yes Plan: I will check a PSA. The patient will need to follow up with Urology as outpatient. (4) Pulmonary nodules Is this a current diagnosis for this admission?: Yes (5) RUQ abdominal pain Is this a current diagnosis for this admission?: Yes Plan: Secondary to cholecystitis. Pain control. (6) A-fib Qualifiers: Qualified Code(s): I48.2 - Chronic atrial fibrillation Is this a current diagnosis for this admission?: Yes Plan: Rate is controlled. (7) Abscess of ankle Is this a current diagnosis for this admission?: Yes Plan: I appreciate podiatry's help. (8) Hypokalemia Is this a current diagnosis for this admission?: Yes Plan: Supplement and follow. (9) Wheezing Is this a current diagnosis for this admission?: Yes Plan: prn nebulizer treatments. - Time Time Spent with patient: 25-34 minutes Medications reviewed and adjusted accordingly: Yes
--- NOTE | 2017-09-25 18:12 | PDOC PROGRESS REPORT ---
Subjective Progress Note for:: 09/25/17 Subjective:: less abdominal pains Reason For Visit: HYPERBILIRUBINEMIA,ACUTE CHOLECYSTITIS Physical Exam Vital Signs: Temp Pulse Resp BP Pulse Ox 97.7 F 85 18 123/71 97 09/25/17 15:00 09/25/17 15:00 09/25/17 15:00 09/25/17 15:00 09/25/17 15:00 Intake & Output 09/24/17 09/25/17 09/26/17 06:59 06:59 06:59 Intake Total 1650 1500 1200 Output Total 900 1000 Balance 050 252 6146 Weight 91.5 kg 104.1 kg Exam: abd is soft with mild epigastric and RUQ pains Results Laboratory Results: 09/25/17 08:23 09/25/17 06:31 09/25/17 09/25/17 06:31 08:23 WBC 11.3 H RBC 5.35 Hgb 15.1 Hct 43.8 MCV 82 MCH 28.2 MCHC 34.4 RDW 15.6 H Plt Count 149 L Seg Neutrophils % 67.9 Lymphocytes % 19.0 Monocytes % 9.6 Eosinophils % 2.5 Basophils % 1.0 Absolute Neutrophils 7.7 Absolute Lymphocytes 2.2 Absolute Monocytes 1.1 Absolute Eosinophils 0.3 Absolute Basophils 0.1 Sodium 141.5 Potassium 3.8 Chloride 108 H Carbon Dioxide 20 L Anion Gap 14 BUN 18 Creatinine 0.92 Est GFR ( Amer) > 60 Est GFR (Non-Af Amer) > 60 Glucose 96 Calcium 8.7 Total Bilirubin 2.8 H AST 28 ALT 58 Alkaline Phosphatase 73 Total Protein 7.3 Albumin 3.6 Lipase 54.0 09/23/17 09/23/17 09/23/17 11:01 16:25 22:30 Troponin I < 0.012 < 0.012 < 0.012 Impressions: Abdomen/Pelvis CT 09/22/17 15:38 IMPRESSION: 1. There are 2 right lower lobe pulmonary nodules. 2. Aortic atherosclerosis and small aortic aneurysms as described. 3. Diverticulosis coli. 4. Nodular protrusion of the prostate gland into the base of the bladder. Abdomen Ultrasound 09/22/17 18:02 IMPRESSION: Cholelithiasis with no evidence of cholecystitis. Abdomen MRI 09/22/17 19:20 IMPRESSION: 1. Cholelithiasis. 2. Normal MRCP. 3. Findings as described. Assessment & Plan - Time Time Spent with patient: 15-24 minutes - Plan Summary Plan Summary: INR still elevated. OK to increase diet Lap mainor in 24-48 hrs
[2017-09-26] MEDS: PIPERACILLIN SODIUM/TAZOBACTAM 3.375 GM in NORMAL SALINE 100 ML IV SCH ×4 (02:17→21:23)
[2017-09-26] MEDS: RINGERS SOLUTION,LACTATED 1,000 ML IV PRN ×2 (02:17→14:22)
[2017-09-26 06:25] LABS: INTERNATIONAL RATION (INR) 1.22
[2017-09-26] MEDS: OXYCODONE HCL IR 5 MG TABLET PO PRN ×3 (09:40→21:15)
--- NOTE | 2017-09-26 12:38 | PDOC PROGRESS REPORT ---
Subjective Progress Note for:: 09/26/17 Subjective:: The patient is resting quietly. No new complaints. Surgery will be delayed until Wednesday. Reason For Visit: HYPERBILIRUBINEMIA,ACUTE CHOLECYSTITIS Physical Exam Vital Signs: Temp Pulse Resp BP Pulse Ox 98.7 F 80 19 133/62 H 92 09/26/17 07:40 09/26/17 07:40 09/26/17 07:40 09/26/17 07:40 09/26/17 07:40 Intake & Output 09/25/17 09/26/17 09/27/17 06:59 06:59 06:59 Intake Total 1500 3880 Output Total 1000 650 Balance 500 3230 Weight 104.1 kg 104.9 kg General appearance: PRESENT: no acute distress, cooperative Respiratory exam: PRESENT: other - No increased work of breathing. No wheezes, rales, or rhonchi. No tactile fremitus.. ABSENT: rales, rhonchi, wheezes Cardiovascular exam: PRESENT: RRR, other - No lateral PMI. No thrills.. ABSENT : gallop, rubs, systolic murmur Extremities exam: PRESENT: other - Right lower extremity is bandaged.. ABSENT: clubbing, pedal edema, +1 edema Musculoskeletal exam: ABSENT: deformity, dislocation, tenderness Neurological exam: PRESENT: alert, awake, oriented to person, oriented to place , oriented to time, oriented to situation, CN II-XII grossly intact. ABSENT: motor sensory deficit Psychiatric exam: PRESENT: appropriate affect, normal mood Skin exam: PRESENT: dry, intact, warm Results Laboratory Results: 09/25/17 08:23 09/25/17 06:31 09/23/17 09/23/17 09/23/17 11:01 16:25 22:30 Troponin I < 0.012 < 0.012 < 0.012 09/22/17 09/22/17 09/22/17 16:36 16:36 22:45 WBC 9.7 RBC 5.68 H Hgb 15.6 Hct 46.2 MCV MCH MCHC RDW 15.6 H Plt Count 204 Seg Neutrophils % 78.0 Absolute Neutrophils Absolute Lymphocytes Absolute Monocytes Absolute Eosinophils PT 27.1 H INR 2.38 APTT 37.6 H Sodium 142.7 Potassium 3.3 L Chloride 104 Carbon Dioxide 23 Anion Gap 16 BUN 16 Creatinine 0.72 Est GFR (Non-Af Amer) > 60 Glucose 121 H Calcium 9.3 Total Bilirubin 1.5 H Direct Bilirubin 0.6 H AST 209 H ALT 175 H Alkaline Phosphatase 111 Troponin I Total Protein 8.6 H Albumin 4.4 Lipase 09/23/17 09/23/17 09/24/17 11:01 16:25 04:23 WBC 14.3 H RBC 5.55 Hgb 15.4 Hct 45.3 MCV 82 MCH 27.8 MCHC 34.1 RDW 16.1 H Plt Count 168 Seg Neutrophils % Absolute Neutrophils 10.2 H Absolute Lymphocytes 2.4 Absolute Monocytes 1.5 H Absolute Eosinophils 0.1 PT INR APTT Sodium Potassium Chloride Carbon Dioxide Anion Gap BUN Creatinine Est GFR (Non-Af Amer) Glucose Calcium Total Bilirubin Direct Bilirubin AST ALT Alkaline Phosphatase Troponin I < 0.012 < 0.012 Total Protein Albumin Lipase 09/24/17 09/25/17 09/25/17 04:23 06:31 06:31 WBC RBC Hgb Hct MCV MCH MCHC RDW Plt Count Seg Neutrophils % Absolute Neutrophils Absolute Lymphocytes Absolute Monocytes Absolute Eosinophils PT 18.6 H INR 1.47 APTT 42.1 H Sodium 141.2 141.5 Potassium 3.2 L 3.8 Chloride 105 108 H Carbon Dioxide 22 20 L Anion Gap 14 14 BUN 18 18 Creatinine 0.86 0.92 Est GFR (Non-Af Amer) Glucose 117 H 96 Calcium 8.7 8.7 Total Bilirubin 2.5 H 2.8 H Direct Bilirubin 0.5 H 0.6 H AST 43 28 ALT 91 H 58 Alkaline Phosphatase 90 73 Troponin I Total Protein 7.4 7.3 Albumin 3.7 3.6 Lipase 54.0 09/25/17 09/26/17 08:23 04:40 WBC 11.3 H RBC 5.35 Hgb 15.1 Hct 43.8 MCV 82 MCH 28.2 MCHC 34.4 RDW 15.6 H Plt Count 149 L Seg Neutrophils % Absolute Neutrophils Absolute Lymphocytes Absolute Monocytes Absolute Eosinophils PT 16.0 H INR 1.22 APTT Sodium Potassium Chloride Carbon Dioxide Anion Gap BUN Creatinine Est GFR (Non-Af Amer) Glucose Calcium Total Bilirubin Direct Bilirubin AST ALT Alkaline Phosphatase Troponin I Total Protein Albumin Lipase Impressions: Abdomen/Pelvis CT 09/22/17 15:38 IMPRESSION: 1. There are 2 right lower lobe pulmonary nodules. 2. Aortic atherosclerosis and small aortic aneurysms as described. 3. Diverticulosis coli. 4. Nodular protrusion of the prostate gland into the base of the bladder. Abdomen Ultrasound 09/22/17 18:02 IMPRESSION: Cholelithiasis with no evidence of cholecystitis. Abdomen MRI 09/22/17 19:20 IMPRESSION: 1. Cholelithiasis. 2. Normal MRCP. 3. Findings as described. Assessment & Plan - Diagnosis (1) Acute cholecystitis Is this a current diagnosis for this admission?: Yes Plan: Surgery on Wednesday. Bilirubin increasing. INR 1.27. (2) Gall stones Is this a current diagnosis for this admission?: Yes Plan: No ductal dilatation noted, but bilirubin is increased. Surgery on Wednesday. INR is 1.27. (3) Nodular prostate Is this a current diagnosis for this admission?: Yes Plan: PSA pending. The patient will need to follow up with Urology as outpatient. (4) Pulmonary nodules Is this a current diagnosis for this admission?: Yes Plan: Follow up CT to monitor for change in size. (5) RUQ abdominal pain Is this a current diagnosis for this admission?: Yes Plan: Secondary to cholecystitis. Pain control. (6) A-fib Qualifiers: Atrial fibrillation type: chronic Qualified Code(s): I48.2 - Chronic atrial fibrillation Is this a current diagnosis for this admission?: Yes Plan: Rate is controlled. (7) Abscess of ankle Is this a current diagnosis for this admission?: Yes Plan: I appreciate podiatry's help. (8) Hypokalemia Is this a current diagnosis for this admission?: Yes Plan: Resolved. Supplement and follow. (9) Wheezing Is this a current diagnosis for this admission?: Yes Plan: PRN nebulizer treatments. - Time Time Spent with patient: 25-34 minutes Medications reviewed and adjusted accordingly: Yes - Inpatient Certification Based on my medical assessment, after consideration of the patient's comorbidities, presenting symptoms, or acuity I expect that the services needed warrant INPATIENT care.: Yes I certify that my determination is in accordance with my understanding of Medicare's requirements for reasonable and necessary INPATIENT services [42 CFR 412.3e].: Yes Medical Necessity: Need for Surgery, Risk of Complication if Not Cared For in Hospital
[2017-09-26] MEDS: METOPROLOL TARTRATE 50 MG TABLET PO SCH ×2 (13:42→21:14)
[2017-09-26] MEDS: AMLODIPINE BESYLATE 5 MG TABLET PO SCH ×2 (13:42→21:17)
[2017-09-26] MEDS: TAMSULOSIN HCL 0.4 MG CAP.SR.24H PO SCH (13:43)
--- NOTE | 2017-09-26 20:07 | Progress Note ---
Provider Note Provider Note: PROGRESS NOTE FOR 09/26/[address] MR Kelsy Tuttle. SUBJECTIVE: Note that the patient denies any chest pain or discomfort. He has no abdominal pain today. There is no nausea or vomiting. There is no chest pain or discomfort. There is no PND or orthopnea. There is only trace leg edema. There are no TIA or CVA symptoms. Note that the patient's surgery has been rescheduled for tomorrow, since the patient's INR is 1.22. Note that the patient is off Coumadin. The patient has no prior history of TIA or CVA. The patient denies any PND or orthopnea. There are no palpitations. The patient has chronic atrial fibrillation. He has a nonhealing ulcer in the right foot which has been bandaged. OBJECTIVE: Selected Entries 09/26/17 11:39 Temperature 97.5 F Temperature Oral Source Pulse Rate 90 Respiratory 19 Rate Blood Pressure 110/68 O2 Sat by Pulse 95 Oximetry Oxygen Delivery Room Air Method GENERAL: On examination, the patient is mildly obese, in no acute distress. He is well-groomed. HEENT: Head is atraumatic, normocephalic. Eyes: Pupils are equal, round, regular, reactive to light and accommodation. Extraocular movements are normal. There is no conjunctival pallor. There is no scleral icterus. ENT is negative. NECK: Supple. There is no JVD. Carotids are equal. There is no bruit. There is no lymphadenopathy. There is no goiter. Trachea is central. LUNGS: Clear to auscultation and percussion. HEART: S1, S2 are heard. S1 is of variable intensity. There is no S3 gallop. There is no S4 gallop. There is a systolic murmur at the left sternal border, at the apex. There is no rub. ABDOMEN: Soft, obese, nontender. There is no hepatosplenomegaly. Bowel sounds are well-heard. There are no tender areas or masses. There is no rebound, guarding or rigidity. EXTREMITIES: Femorals are deep. Femorals are diminished. The leg pulses are diminished. There is trace pedal edema bilaterally. There is no DVT or cellulitis. There is no calf tenderness. There is no cyanosis or clubbing. There is a dressing on the right foot ulcer in the lower part of the leg which is clean and dry. SENIOR ADMINISTRATOR SUPPORT: The patient is conscious, awake, alert, oriented x3, with no focal deficits. DIAGNOSTICS: 09/26/17 04:40 PT 16.0 H INR 1.22 IMPRESSION: 1. CHOLELITHIASIS, FOR SURGERY TOMORROW. 2. CHRONIC ATRIAL FIBRILLATION. Patient off Coumadin. Rate is well-controlled on current medication. 3. CORONARY ARTERY DISEASE, HISTORY OF UT AND HISTORY OF CORONARY ARTERY BYPASS GRAFT SURGERY, WITHOUT ANY ANGINAL SYMPTOMS. 4. HYPERTENSION. 5. DIABETES MELLITUS. 6. HISTORY OF COPD, BUT AT PRESENT WITH NO ACUTE EXACERBATION OF COPD. The patient is stable and his medications have been reviewed. 7. PREOPERATIVE CARDIAC RISK ASSESSMENT. Note, 30 minutes spent on this patient, with more than 50% of the time spent in direct patient care. Continue all his other medications except Coumadin. Medical decision-making at present is of mild complexity. Note that the patient would be an acceptable cardiac risk for surgery. Postoperatively, will get serial EKGs and enzymes and monitor patient on telemetry. Watch for atrial fibrillation with rapid ventricular response and development of congestive heart failure. Also will get serial enzymes to make sure the patient does not have perioperative UT. Would recommend restarting the patient's Coumadin as soon as possible and as soon as safe post surgery. Will follow with you. Thank you.
[2017-09-26] MEDS: FLUTICASONE NASAL SPRAY 50 MCG/SPRY 120 SPRAY/16 GM NAREB SCH (21:13)
[2017-09-26] MEDS: GUAIFENESIN 600 MG TABLET.SA PO SCH (21:15)
--- NOTE | 2017-09-26 21:29 | PDOC PROGRESS REPORT ---
Subjective Progress Note for:: 09/26/17 Subjective:: minimal abd pains Reason For Visit: HYPERBILIRUBINEMIA,ACUTE CHOLECYSTITIS Physical Exam Vital Signs: Temp Pulse Resp BP Pulse Ox 98.2 F 76 16 155/88 H 93 09/26/17 19:34 09/26/17 19:34 09/26/17 19:34 09/26/17 19:34 09/26/17 19:34 Intake & Output 09/25/17 09/26/17 09/27/17 06:59 06:59 06:59 Intake Total 1500 3880 2582 Output Total 8300 884 8463 Balance 500 3230 1382 Weight 104.1 kg 104.9 kg Exam: abd soft with minimal tenderness RUQ Results Laboratory Results: 09/25/17 08:23 09/25/17 06:31 09/23/17 09/23/17 09/23/17 11:01 16:25 22:30 Troponin I < 0.012 < 0.012 < 0.012 Impressions: Abdomen/Pelvis CT 09/22/17 15:38 IMPRESSION: 1. There are 2 right lower lobe pulmonary nodules. 2. Aortic atherosclerosis and small aortic aneurysms as described. 3. Diverticulosis coli. 4. Nodular protrusion of the prostate gland into the base of the bladder. Abdomen Ultrasound 09/22/17 18:02 IMPRESSION: Cholelithiasis with no evidence of cholecystitis. Abdomen MRI 09/22/17 19:20 IMPRESSION: 1. Cholelithiasis. 2. Normal MRCP. 3. Findings as described. Assessment & Plan - Time Time Spent with patient: 15-24 minutes - Plan Summary Plan Summary: His PT/INR just a tad high For lap mainor tomorrow by Dr Lockwood whom the family know
[2017-09-27] MEDS: RINGERS SOLUTION,LACTATED 1,000 ML IV PRN (02:37)
[2017-09-27] MEDS: PIPERACILLIN SODIUM/TAZOBACTAM 3.375 GM in NORMAL SALINE 100 ML IV SCH ×4 (03:20→20:30)
[2017-09-27] MEDS: NORMAL SALINE 1000 ML 1,000 ML IV PRN ×2 (05:16→20:20)
[2017-09-27] MEDS ORDERED: FENTANYL CITRATE INJ/PF 100 MCG/2 ML AMPUL ONE (06:45)
[2017-09-27] MEDS ORDERED: ACETAMINOPHEN 1,000 MG/100 ML RTUPB IV ONE (06:46)
[2017-09-27] MEDS ORDERED: MIDAZOLAM 2 MG/2 ML INJ ONE (06:46)
[2017-09-27] MEDS ORDERED: LIDOCAINE 2% INJ-PF (20 MG/ML) 10 ML AMPUL ONE (06:46)
[2017-09-27] MEDS ORDERED: PROPOFOL INJ 200 MG/20 ML VIAL IV ONE (06:46)
[2017-09-27] MEDS ORDERED: BUPIVACAINE HCL 0.25 % INJ/PF (2.5 MG/1 ML) 30 ML VIAL ONE (07:44)
[2017-09-27] MEDS ORDERED: PROMETHAZINE HCL INJ 25 MG/1 ML VIAL IV PRN ×2 (09:04)
[2017-09-27] MEDS ORDERED: DIPHENHYDRAMINE HCL 50 MG/ML VIAL IV PRN (09:04)
[2017-09-27] MEDS ORDERED: MORPHINE SULFATE 10 MG/ML INJ IV PRN (09:04)
[2017-09-27] MEDS ORDERED: FENTANYL CITRATE INJ/PF 100 MCG/2 ML AMPUL IV PRN ×3 (09:04)
[2017-09-27] MEDS ORDERED: MEPERIDINE HCL/PF INJ 25 MG/1 ML DISP.SYRIN IV PRN (09:04)
--- NOTE | 2017-09-27 10:12 | Operative Report ---
Operative Report DATE OF SURGERY: 09/27/17 PREOPERATIVE DIAGNOSIS: Acute cholecystitis with cholelithiasis POSTOPERATIVE DIAGNOSIS: Same with hemorrhagic necrosis of the gallbladder OPERATION: Laparoscopic cholecystectomy with extremely difficult modifier SURGEON: RIDGE MUÑIZ ANESTHESIA: GA TISSUE REMOVED OR ALTERED: 1 gallbladder with contents COMPLICATIONS: None ESTIMATED BLOOD LOSS: 75 cc INTRAOPERATIVE FINDINGS: See below PROCEDURE: After obtaining informed consent, the patient was taken to the operating room. General Anesthesia was induced; the arms were extended, and the abdomen was exposed, and prepped and draped in a sterile fashion. Instrumentation was set up for laparoscopic cholecystectomy. Surgical plan and surgical timeout were conducted. A vertical incision was made above the umbilicus, and a verres needle was inserted uneventfully into the peritoneal cavity. Pneumoperitoneum was established. The verres needle was removed and a 5 mm trocar was inserted and a 5 mm flexible laparoscope was inserted. Visualization of the peritoneal cavity confirmed safe uneventful entry. Under direct visualization 3 additional 5 mm ports were established, one in the subxiphoid position and second in the subcostal position. The intraoperative findings were significant for the greater omentum stuck to the fundus of the gallbladder consistent with acute inflammation. Of note the stomach was significantly distended upon entry into the peritoneal cavity and throughout the case. Multiple attempts were made by the geological engineer to position and orogastric tube but these did not successfully decompress the stomach. Using a hand-held LigaSure device, the was taken off of the body of the gallbladder. We now placed the graspers on the gallbladder after having aspirated several cc of old bloody fluid from the lumen of the gallbladder using a sharp trocar. The findings were consistent with hemorrhagic necrosis. Unfortunately we could not decompress the gallbladder sufficiently from this approach. We manipulated the gallbladder up over the liver bed, and began entering the inflammatory peel surrounding the infundibulum of the gallbladder. Because of the dark hemorrhagic appearance of the gallbladder, a mild amount of bleeding, and heavily distorted anatomy due to the inflammatory peel, I chose to remove the gallbladder using the top-down approach. We repositioned our graspers, and opened up the reflection liberating the gallbladder from the inferior surface of the liver. I took down both the medial and lateral aspects of the attachments under excellent visualization using a combination of cautery and LigaSure dissection. Some onerous oozing from the lateral attachments but these were managed with cautery. Eventually we have the gallbladder suspended from the patulous cystic duct, and the cystic artery. We took multiple pictures, and visualized the relevant anatomy in a circumferential fashion confirming gallbladder suspended solely by the cystic duct and cystic artery. IN fact I made a small jennifer in the cystic artery and encountered atherosclerotic changes, and a small loose confirming cystic artery anatomy. We proceeded to divide the cystic artery after clipping it twice proximally once distally then with scissors. The gallbladder was now suspended by the cystic duct. Photos were taken. We placed a 0 PDS Endoloop over the flared neck of the cystic duct and secured it. I now opened the cystic duct and encountered several small pieces of gravel- like stone. All of the stones were removed and irrigated, and despite multiple attempts at manipulating the proximal cystic duct and region of the common duct , I did not get raymond bile coming out of the cystic duct opening. Because of the difficulty of the case, the acute inflammation likely explaining the patient's hyperbilirubinemia, I opted to forego intraoperative cholangiography. Furthermore preoperatively the patient had CT scan ultrasound and MRI studies dictating no evidence of common duct stones. We next amputated the gallbladder from the cystic duct, then secured the cystic duct stump with a 0 PDS loop. We were very satisfied with the placement. We remove the gallbladder by placing it in an Endobag and bringing it out through the supraumbilical port site after stretching the fascia. We returned to the peritoneal cavity check for bleeding, and evidence of bile leak, and there was none. We Confirmed satisfactory placement of clips on the cystic artery were secured . The loop on the cystic duct stump was intact. Liver surfaces were dry at this point. The patient is going to go back on Coumadin, we did place a 15 [place] drain through 1 of the right upper quadrant port sites. At this point we felt the operation was complete. The subcutaneous tissue was then anesthetized with quarter percent Marcaine Sponge and needle counts are correct. All ports removed under direct visualization pneumoperitoneum evacuated, and 5 mm port wounds closed with 0 Vicryl at the supraumbilical position and 3-0 Vicryl suture, benzoin and Steri-Strips. The drain was secured to the skin with 2-0 Prolene suture. The patient was extubated, and taken to the recovery room in stable condition.
[2017-09-27] MEDS ORDERED: OXYCODONE-ACETAMINOPHEN 5-325 MG TABLET PO PRN (10:13)
[2017-09-27] MEDS ORDERED: KETOROLAC TROMETHAMINE INJ/PF 30 MG/1 ML SDV IV PRN (10:13)
[2017-09-27] MEDS: GUAIFENESIN 600 MG TABLET.SA PO SCH ×2 (13:39→22:03)
[2017-09-27] MEDS: AMLODIPINE BESYLATE 5 MG TABLET PO SCH ×2 (13:39→22:04)
[2017-09-27] MEDS: FLUTICASONE NASAL SPRAY 50 MCG/SPRY 120 SPRAY/16 GM NAREB SCH ×2 (13:40→22:08)
[2017-09-27] MEDS: METOPROLOL TARTRATE 50 MG TABLET PO SCH ×2 (13:40→22:04)
[2017-09-27] MEDS: TAMSULOSIN HCL 0.4 MG CAP.SR.24H PO SCH (13:40)
[2017-09-27] MEDS: OXYCODONE HCL IR 5 MG TABLET PO PRN (16:18)
[2017-09-27] MEDS: DOCUSATE SODIUM 100 MG CAPSULE PO SCH (17:58)
[2017-09-27] MEDS ORDERED: DEXAMETHASONE SOD PHOSPHATE INJ 4 MG/1 ML VIAL ONE (18:38)
[2017-09-27] MEDS ORDERED: NEOSTIGMINE METHYLSULFATE 10 MG/10 ML VIAL ONE (18:38)
[2017-09-27] MEDS ORDERED: PHENYLEPHRINE HCL INJ/PF 10 MG/1 ML SDV ONE (18:38)
[2017-09-27] MEDS ORDERED: GLYCOPYRROLATE 1 MG/5 ML SYRINGE ONE (18:38)
[2017-09-27] MEDS ORDERED: ONDANSETRON HCL INJ/PF 4 MG/2 ML SDV ONE (18:38)
[2017-09-27] MEDS ORDERED: ROCURONIUM BROMIDE INJ 50 MG/5 ML VIAL IV ONE (18:38)
--- NOTE | 2017-09-27 22:00 | PDOC PROGRESS REPORT ---
Subjective Progress Note for:: 09/27/17 Subjective:: The patient is seen post-operatively. He has tolerated the procedure well. Reason For Visit: HYPERBILIRUBINEMIA,ACUTE CHOLECYSTITIS Physical Exam Vital Signs: Temp Pulse Resp BP Pulse Ox 98.4 F 76 14 136/83 H 94 09/27/17 19:29 09/27/17 19:29 09/27/17 19:29 09/27/17 19:29 09/27/17 19:29 Intake & Output 09/26/17 09/27/17 09/28/17 06:59 06:59 06:59 Intake Total 3880 4284 3500 Output Total 650 2325 2150 Balance 3230 1959 1350 Weight 104.9 kg 102.8 kg 105.4 kg General appearance: PRESENT: other - somnolent Respiratory exam: PRESENT: other - No increased work of breathing. Cardiovascular exam: PRESENT: RRR. ABSENT: gallop, rubs, systolic murmur GI/Abdominal exam: PRESENT: hypoactive bowel sounds, soft, tenderness - mild, other - slightly distended. ABSENT: hernia, mass Rectal exam: PRESENT: deferred Musculoskeletal exam: PRESENT: normal inspection. ABSENT: deformity, dislocation, tenderness Neurological exam: PRESENT: alert, awake, oriented to person, oriented to place , oriented to time, oriented to situation, CN II-XII grossly intact. ABSENT: motor sensory deficit Psychiatric exam: PRESENT: appropriate affect, normal mood Skin exam: PRESENT: dry, intact, warm Results Laboratory Results: 09/25/17 08:23 09/25/17 06:31 09/23/17 09/23/17 09/23/17 11:01 16:25 22:30 Troponin I < 0.012 < 0.012 < 0.012 Impressions: Abdomen/Pelvis CT 09/22/17 15:38 IMPRESSION: 1. There are 2 right lower lobe pulmonary nodules. 2. Aortic atherosclerosis and small aortic aneurysms as described. 3. Diverticulosis coli. 4. Nodular protrusion of the prostate gland into the base of the bladder. Abdomen Ultrasound 09/22/17 18:02 IMPRESSION: Cholelithiasis with no evidence of cholecystitis. Abdomen MRI 09/22/17 19:20 IMPRESSION: 1. Cholelithiasis. 2. Normal MRCP. 3. Findings as described. Assessment & Plan - Diagnosis (1) Acute cholecystitis Is this a current diagnosis for this admission?: Yes Plan: S/P cholecystectomy (2) Gall stones Is this a current diagnosis for this admission?: Yes Plan: S/P cholecystectomy. (3) RUQ abdominal pain Is this a current diagnosis for this admission?: Yes Plan: S/P cholecystectomy. (4) A-fib Qualifiers: Atrial fibrillation type: chronic Qualified Code(s): I48.2 - Chronic atrial fibrillation Is this a current diagnosis for this admission?: Yes Plan: Rate is controlled. (5) Abscess of ankle Is this a current diagnosis for this admission?: Yes Plan: I appreciate podiatry's help. (6) Hypokalemia Is this a current diagnosis for this admission?: Yes Plan: Resolved. Supplement and follow. (7) Wheezing Is this a current diagnosis for this admission?: Yes Plan: PRN nebulizer treatments. - Time Time Spent with patient: 25-34 minutes Medications reviewed and adjusted accordingly: Yes Anticipated discharge: Home
--- NOTE | 2017-09-28 00:21 | PROGRESS NOTE E ---
Progress Note NAME: DAVID MERAZ : 1945 AGE: 72Y DATE: 09/27/2017 ROOM: 407 SUBJECTIVE: Note that the patient uneventful gallbladder surgery. It was a pretty infected gallbladder as per the patient and the patient's , as they were told by the surgeon. The patient denies any chest pain or discomfort. His pain control is good. There is no PND, orthopnea. He remains in atrial fibrillation with controlled ventricular response. There is no leg edema. There are no anginal symptoms. There is no syncope or near syncope. There is no nausea or vomiting. OBJECTIVE: GENERAL: The patient on examination is mildly obese in no acute distress. He is well-groomed. VITAL SIGNS: He is afebrile with a temperature of 98.4 degrees Fahrenheit, pulse is 76 beats per minute, blood pressure 136/83, respirations are 14 per minute, O2 saturations are 94% on room air. HEENT: Head is atraumatic, normocephalic. Eyes: Pupils are equal, round and regular, reactive to light and accommodation. Extraocular movements are normal. There is no conjunctival pallor. There is no scleral icterus. ENT is negative. NECK: Supple. There is no JVD. There is no lymphadenopathy. There is no goiter. Carotids are equal. There is no bruit. Trachea is central. LUNGS: Clear to auscultation and percussion. HEART: S1, S2 is heard. S1 is variable intensity. There is no S3 gallop. There is no S4 gallop. There is a systolic murmur in the left sternal border and the apex. There is no rub. ABDOMEN: Soft, obese, nontender. There is a drain at the site of surgery in the right upper quadrant. There is no hepatosplenomegaly. Bowel sounds are well heard. There is no rebound, guarding, or rigidity. EXTREMITIES: Femorals are diminished. Femorals are deep. There are no femoral bruits. Leg pulses are diminished. There is trace pedal edema bilaterally. There is no DVT or cellulitis. There is no calf tenderness. There is a dressing on the right foot ulcer in the lower part of the right leg, which is clean and dry. There is no cyanosis or clubbing. CENTRAL NERVOUS SYSTEM: The patient is conscious, awake, alert and oriented x3 with no focal deficits. PSYCHIATRIC: The patient's judgment and insight are intact. His affect is normal. IMPRESSION: 1. ACUTE CHOLECYSTITIS WITH CHOLELITHIASIS, STATUS POST CHOLECYSTECTOMY. The patient is stable from a surgical point of view. 2. CHRONIC ATRIAL FIBRILLATION WITH CONTROLLED VENTRICULAR RESPONSE. The patient is off of Coumadin, would recommend restarting the Coumadin as soon as possible. 3. CORONARY ARTERY DISEASE, HISTORY OF MYOCARDIAL INFARCTION AND HISTORY OF CORONARY ARTERY BYPASS GRAFT WITHOUT ANGINAL SYMPTOMS. 4. HYPERTENSION. 5. DIABETES MELLITUS. 6. HISTORY OF COPD. At present without any symptoms or acute exacerbation. RECOMMENDATION: Would continue current medication, resume the Coumadin when deemed safe by the surgeon. We will check patient's EKG in the morning and also get a troponin I in the morning. Note his medications have been reviewed. TIME SPENT: Note 30 minutes spent on this patient with more than 50% of the time spend on direct patient care. Medical decision making is of moderate complexity. We will follow with you. DICTATING PHYSICIAN: MICHELLE HILARIO M.D. [id number] LILA#: [id number] ID: [id number] JOB#: [id number] ACCT: [id number] cc: >
[2017-09-28] MEDS: PIPERACILLIN SODIUM/TAZOBACTAM 3.375 GM in NORMAL SALINE 100 ML IV SCH ×2 (03:44→09:11)
[2017-09-28 06:26] LABS: ALANINE AMINOTRANSFERASE 42 U/L (21-72); ALBUMIN 3.4 g/dL (3.5-5.0); ALKALINE PHOSPHATASE 62 U/L (38-126); ASPARTATE AMINO TRANSFERASE 25 U/L (17-59); BILIRUBIN,DIRECT 0.5 mg/dL (0.0-0.4); BILIRUBIN,TOTAL 0.9 mg/dL (0.2-1.3); TOTAL PROTEIN 6.6 g/dL (6.3-8.2)
[2017-09-28] MEDS: NORMAL SALINE 1000 ML 1,000 ML IV PRN (06:30)
--- NOTE | 2017-09-28 07:32 | EKG REPORT ---
SEVERITY:- ABNORMAL ECG - ATRIAL FIBRILLATION, V-RATE 63-89 LAD, CONSIDER LAFB OR INFERIOR INFARCT LVH WITH SECONDARY REPOLARIZATION ABNORMALITY CONSIDER ANTERIOR INFARCT : Confirmed by: Yaw Garcia MD 28-Sep-2017 07:31:14
[2017-09-28] MEDS: GUAIFENESIN 600 MG TABLET.SA PO SCH (09:10)
[2017-09-28] MEDS: DOCUSATE SODIUM 100 MG CAPSULE PO SCH (09:10)
[2017-09-28] MEDS: TAMSULOSIN HCL 0.4 MG CAP.SR.24H PO SCH (09:10)
[2017-09-28] MEDS: AMLODIPINE BESYLATE 5 MG TABLET PO SCH (09:11)
[2017-09-28] MEDS: METOPROLOL TARTRATE 50 MG TABLET PO SCH (09:11)
[2017-09-28] MEDS: FLUTICASONE NASAL SPRAY 50 MCG/SPRY 120 SPRAY/16 GM NAREB SCH (09:12)
[2017-09-28] MEDS: OXYCODONE HCL IR 5 MG TABLET PO PRN (09:18)
[2017-09-28 10:52] VITALS: BP 149/78
--- NOTE | 2017-09-28 13:31 | DISCHARGE SUMMARY E ---
Discharge Summary NAME: DAVID MERAZ : 1945 AGE: 72Y ADMITTED: 09/22/2017 DISCHARGED: 09/28/2017 FINAL DIAGNOSES: 1. Acute calculous cholecystitis. 2. Atrial fibrillation. OPERATION: On 09/27/2017, laparoscopic cholecystectomy. SURGEON: Ryan Lockwood M.D. SUMMARY: This is a 72-year-old male who came in with abdominal pains, noted to have gallstones and acute cholecystitis. He is on Coumadin and his INR was elevated on admission. Since he has a bad reaction to fresh frozen plasma, the INR was allowed to come down on its own, and on 09/27/2017, his labs essentially normal. He was then taken to the OR for laparoscopic cholecystectomy by Dr. Lockwood. Postoperatively, the patient did well. Drain was removed on 09/28/2017, and patient discharged improved on 09/28/2017. Patient to be followed up in the surgical clinic in 2 weeks and also follow up with [facility]. The patient has an appointment today. The patient is discharged today, 09/28/2017 with the above final diagnosis. DICTATING PHYSICIAN: SHAHIDA DUARTE M.D. [id number] PHY#: [id number] ID: [id number] JOB#: [id number] ACCT: [id number] cc:Karen GUZMAN M.D. >
== END 2017-09-28 11:31 | disposition home or self-care (01) | DRG 419 ==
LOC: ER 14:42 → EH 23:51 → 4N 09-23 15:19
PROVIDERS: ADMIT Internal Medicine; ATTEND Internal Medicine
PROC: 3E0F73Z Introduction of Anti-inflammatory into Respiratory Tract, Via Natural or Artificial Opening (ICD-10-PCS; 2017-09-24)
PROC: 0FT44ZZ Resection of Gallbladder, Percutaneous Endoscopic Approach (ICD-10-PCS; principal; 2017-09-27 08:00)
DX: K80.00 Calculus of gallbladder with acute cholecystitis without obstruction (principal); I25.10 Atherosclerotic heart disease of native coronary artery without angina pectoris; I10 Essential (primary) hypertension; J44.9 Chronic obstructive pulmonary disease, unspecified; K21.9 Gastro-esophageal reflux disease without esophagitis; M19.90 Unspecified osteoarthritis, unspecified site; R91.8 Other nonspecific abnormal finding of lung field; K57.30 Diverticulosis of large intestine without perforation or abscess without bleeding; I48.2 Chronic atrial fibrillation; E11.621 Type 2 diabetes mellitus with foot ulcer; L97.509 Non-pressure chronic ulcer of other part of unspecified foot with unspecified severity; F17.210 Nicotine dependence, cigarettes, uncomplicated; N40.2 Nodular prostate without lower urinary tract symptoms; I71.4 Abdominal aortic aneurysm, without rupture; E66.9 Obesity, unspecified; Z68.34 Body mass index [BMI] 34.0-34.9, adult; I25.2 Old myocardial infarction; Z95.1 Presence of aortocoronary bypass graft; Z79.01 Long term (current) use of anticoagulants; Z79.82 Long term (current) use of aspirin; Z79.899 Other long term (current) drug therapy; Z88.2 Allergy status to sulfonamides; Z92.3 Personal history of irradiation; Z83.3 Family history of diabetes mellitus; Z82.49 Family history of ischemic heart disease and other diseases of the circulatory system
CPT/HCPCS: 36415; 74177; 74181; 76705; 790; 80053; 80076; 81001; 83690; 84484; 85025; 85610; 85730; 88304; 93005; 93010; 93306; 94640; 96372; 96374; 96375; 99285; J0131; J0500; J1100; J1885; J2060; J2250; J2270; J2370; J2405; J2543; J2704; J3010; J3480; J3490; J7030; J7120; J7620

== ENCOUNTER → 2018-03-23 | Outpatient (CLI) | payer MEDICARE ==
[2018-03-23 11:22] LABS: ALANINE AMINOTRANSFERASE 23 U/L (21-72); ALBUMIN 4.3 g/dL (3.5-5.0); ALKALINE PHOSPHATASE 82 U/L (38-126); ASPARTATE AMINO TRANSFERASE 18 U/L (17-59); BILIRUBIN,DIRECT 0.2 mg/dL (0.0-0.4); BILIRUBIN,TOTAL 0.9 mg/dL (0.2-1.3); CHOLESTEROL 195.15 mg/dL (0-200); TOTAL PROTEIN 7.7 g/dL (6.3-8.2); TRIGLYCERIDES 299 mg/dL (<150)
[2018-03-23 11:33] LABS: DIRECT LDL 121 mg/dL (<100)
[2018-03-23 11:37] LABS: VLDL CHOLESTEROL 59.8 mg/dL (10-31)
== END ==
LOC: OD 09:59
PROVIDERS: ATTEND Specialist
DX: D69.6 Thrombocytopenia, unspecified (principal); I25.10 Atherosclerotic heart disease of native coronary artery without angina pectoris; Z95.1 Presence of aortocoronary bypass graft; E78.5 Hyperlipidemia, unspecified; I10 Essential (primary) hypertension; E11.9 Type 2 diabetes mellitus without complications; R06.02 Shortness of breath; R00.2 Palpitations; E66.8 Other obesity; F17.210 Nicotine dependence, cigarettes, uncomplicated; I48.2 Chronic atrial fibrillation; Z79.01 Long term (current) use of anticoagulants; R00.1 Bradycardia, unspecified; E78.49 Other hyperlipidemia; Z79.899 Other long term (current) drug therapy
CPT/HCPCS: 36415; 80061; 80076

== ENCOUNTER → 2018-03-25 | Outpatient (CLI) | payer MEDICARE, OTHER ==
--- NOTE | 2018-03-25 11:06 | RADIOLOGY REPORT (SQ) ---
EXAM DESCRIPTION: CT CHEST WITH COMPLETED DATE/TIME: 03/25/2018 9:14 am REASON FOR STUDY: SOLITARY PULMONARY NODULE (R91.1) R91.1 SOLITARY PULMONARY NODULE COMPARISON: CT abdomen pelvis 09/22/2017. TECHNIQUE: CT scan of the chest performed using helical scanning technique with dynamic intravenous contrast injection. Images reviewed with lung, soft tissue and bone windows. Reconstructed coronal and sagittal MPR and MIP images reviewed. All images stored on PACS. All CT scanners at this facility use dose modulation, iterative reconstruction, and/or weight based d osing when appropriate to reduce radiation dose to as low as reasonably achievable (ALARA). [facility]: Dose Right [facility]: CareDose [facility]: Dose Right [facility]: Teradose 4D [facility]: [employer] CONTRAST TYPE AND DOSE: contrast/concentration: Isovue 350.00 mg/ml; Total Contrast Delivered: 80.0 ml; Total Saline Delivered: 55.0 ml RENAL FUNCTION: GFR > 60. RADIATION DOSE: CT Rad equipment meets quality standard of care and radiation dose reduction techniq ues were employed. CTDIvol: 17.2 mGy. DLP: 662 mGy-cm. . LIMITATIONS: None. FINDINGS: LUNGS AND PLEURA: 11 mm solid nodule right lower lobe. 12 mm pleural-based ground-glass n odule in the middle lobe image 81. Mild centrilobular and paraseptal emphysema. Atelectasis or scar ring medial segment middle lobe. No effusions. HILAR AND MEDIASTINAL STRUCTURES: No identified masses or abnormal nodes. HEART AND VASCULAR STRUCTURES: No aneurysm or dissection. No central pulmonary emboli. No pericardi al effusion. HARDWARE: CABG. UPPER ABDOMEN: No significant findings. Limited exam. THYROID AND OTHER SOFT TISSUES: No masses. No adenopathy. BONES: Nothing acute. OTHER: No other significant finding. IMPRESSION: Ground-glass and solid nodules. Consider PET-CT. TECHNICAL DOCUMENTATION: JOB ID: [id number] Quality ID # [id number]: Final reports with documentation of one or more dose reduction techniques (e.g., Au tomated exposure control, adjustment of the mA and/or kV according to patient size, use of iterative reconstruction technique) 2010 [employer]- All Rights Reserved Reading location - IP/workstation name: [email or web address]
== END ==
LOC: RAD 08:15
PROVIDERS: ATTEND Internal Medicine
DX: R91.1 Solitary pulmonary nodule (principal); Z95.1 Presence of aortocoronary bypass graft
CPT/HCPCS: 71260

== ENCOUNTER → 2018-04-10 | Outpatient (CLI) | payer MEDICARE, OTHER ==
--- NOTE | 2018-04-11 09:36 | RADIOLOGY REPORT (SQ) ---
EXAM DESCRIPTION: PET CT SKULL/THIGH COMPLETED DATE/TIME: 04/10/2018 9:11 pm REASON FOR STUDY: SOLITARY PULMONARY NODULE R91.1 SOLITARY PULMONARY NODULE COMPARISON: Chest CT 03/25/2018 RADIONUCLIDE AND DOSE: 10.6 mCi F18 FDG The route of agent administration: Intravenous FASTING BLOOD SUGAR: 93 mg/dl CONTRAST TYPE AND DOSE: No CT contrast given. TECHNIQUE: Blood glucose level was verified. Above dose of FDG was injected intravenously. 2-D seg mented attenuation correction images were obtained from the base of the skull to the midthighs. Nonc ontrast CT images were obtained for attenuation correction and fusion with emission images. CT image s were performed without oral or intravenous contrast and are not sensitive for parenchymal lesions. A series of overlapping emission PET images were obtained. Images reviewed and manipulated at [email or web address] work station by the radiologist. Images stored on PACS. LIMITATIONS: None. FINDINGS: HEAD AND NECK: No areas of abnormal metabolic activity in the soft tissues of the head and neck. CHEST: No areas of abnormal metabolic activity in the chest. ABDOMEN AND PELVIS: No areas of abnormal metabolic activity in the abdomen or pelvis. Expected physi ologic activity is present in the genitourinary system and bowel. PROXIMAL LOWER EXTREMITIES: No areas of abnormal metabolic activity in the soft tissues of the lower extremities. BONES: No abnormal metabolic activity in the visualized skeleton. ADDITIONAL CT FINDINGS: Right lower lobe pulmonary nodule is unchanged. Ground-glass nodule in the m iddle lobe has decreased in size consistent with benign etiology. Bilateral nonobstructing small renal calculi. 4 cm left lower pole cortical cyst. Colonic diverticu losis. OTHER: No other significant findings. IMPRESSION: Non hypermetabolic right lower lobe solid nodule. Benign ground-glass nodule. TECHNICAL DOCUMENTATION: JOB ID: [id number] [employer]- All Rights Reserved Reading location - IP/workstation name: [email or web address]
== END ==
LOC: RAD 18:21
PROVIDERS: ATTEND Internal Medicine
DX: R91.1 Solitary pulmonary nodule (principal); J98.4 Other disorders of lung
CPT/HCPCS: 78815; A9552

== ENCOUNTER 2018-08-14 14:56 | Emergency (ER) | payer MEDICARE ==
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
[2018-08-14 15:31] LABS: ABSOLUTE BASOPHILS # (AUTO) 0.1 10^3/uL (0.0-0.2); ABSOLUTE EOSINOPHILS # (AUTO) 0.3 10^3/uL (0.0-0.6); ABSOLUTE LYMPHOCYTES (AUTO) 2.9 10^3/uL (0.5-4.7); ABSOLUTE NEUT (AUTO) 7.4 10^3/uL (1.7-8.2); BASOPHILS % (AUTO) 1.1 % (0-2); EOSINOPHILS % (AUTO) 2.7 % (0-6); HEMATOCRIT 51.1 % (37.9-51.0); HEMOGLOBIN 17.6 g/dL (13.5-17.0); LYMPHOCYTES % (AUTO) 24.9 % (13-45); MEAN CORPUSCULAR HEMOGLOBIN 28.3 pg (27.0-33.4); MEAN CORPUSCULAR HGB CONC 34.4 g/dL (32.0-36.0); MEAN CORPUSCULAR VOLUME 83 fl (80-97); MONOCYTES % (AUTO) 8.1 % (3-13); PLATELET COUNT 210 10^3/uL (150-450); RED CELL DISTRIBUTION WIDTH 15.5 % (11.5-14.0); SEGMENTED NEUTROPHILS % (AUTO) 63.2 % (42-78); TOTAL CELLS COUNTED % (AUTO) 100 %; WHITE BLOOD COUNT 11.7 10^3/uL (4.0-10.5)
[2018-08-14 15:54] LABS: ALANINE AMINOTRANSFERASE 22 U/L (21-72); ALBUMIN 4.4 g/dL (3.5-5.0); ALKALINE PHOSPHATASE 70 U/L (38-126); ANION GAP 13 (5-19); ASPARTATE AMINO TRANSFERASE 18 U/L (17-59); BILIRUBIN,DIRECT 0.3 mg/dL (0.0-0.4); BILIRUBIN,TOTAL 0.9 mg/dL (0.2-1.3); BLOOD UREA NITROGEN 16 mg/dL (7-20); CALCIUM 9.6 mg/dL (8.4-10.2); CARBON DIOXIDE 24 mmol/L (22-30); CHLORIDE 103 mmol/L (98-107); GLUCOSE 163 mg/dL (75-110); POTASSIUM 3.5 mmol/L (3.6-5.0); SODIUM 139.7 mmol/L (137-145); TOTAL PROTEIN 7.9 g/dL (6.3-8.2)
[2018-08-14] MEDS ORDERED: DOXYCYCLINE HYCLATE 100 MG TABLET PO ONE (17:51)
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
[2018-08-14 18:41] VITALS: BP 188/85
== END 2018-08-14 18:42 | disposition home or self-care (01) ==
LOC: ER 14:56
DX: L03.115 Cellulitis of right lower limb (principal); F17.200 Nicotine dependence, unspecified, uncomplicated; Z98.890 Other specified postprocedural states; I25.10 Atherosclerotic heart disease of native coronary artery without angina pectoris; I10 Essential (primary) hypertension; J44.9 Chronic obstructive pulmonary disease, unspecified; Z95.1 Presence of aortocoronary bypass graft; Z88.2 Allergy status to sulfonamides
CPT/HCPCS: 99283; 36415; 85025; 80053; A9270

== ENCOUNTER 2018-11-20 04:55 | Inpatient (IN) | payer MEDICARE ==
--- NOTE | 2018-11-20 05:33 | ER Document Report ---
ED Medical Screen (RME) - General Chief Complaint: Abdominal Pain Stated Complaint: LOWER ABDOMINAL PAIN Time Seen by Provider: 11/20/18 05:28 Primary Care Provider: NYASIA NAJERA MD [Primary Care Provider] - Follow up as needed Mode of Arrival: Ambulatory Information source: Patient Notes: This 73-year-old male with history of COPD and GI bleed presents emergency department with lower abdominal pain that started tonight at approximately 2030. Denies fever vomiting diarrhea. Reports lower abdominal pain. Reports loose diarrhea stool prior to arrival reports stool with normal colored. Reports decreased appetite. Sleeping calmly when I walked into the room, lower abdominal pain with palpation Dictation of this chart was performed using voice recognition software; therefore, there may be some unintended grammatical errors. I have greeted and performed a rapid initial assessment of this patient. A comprehensive ED assessment and evaluation of the patient, analysis of test results and completion of the medical decision making process will be conducted by additional ED providers. TRAVEL OUTSIDE OF THE [place] IN LAST 30 DAYS: No - Related Data Allergies/Adverse Reactions: Sulfa (Sulfonamide Antibiotics) Allergy (Verified 08/14/18 14:59) Past Medical History - Social History Chew tobacco use (# tins/day): No Frequency of alcohol use: None Drug Abuse: None - Past Medical History Cardiac Medical History: Reports: Hx Atrial Fibrillation, Hx Coronary Artery Disease, Hx Heart Attack, Hx Hypertension Pulmonary Medical History: Reports: Hx COPD, Hx Pneumonia Renal/ Medical History: Denies: Hx Peritoneal Dialysis GI Medical History: Reports: Hx Gastroesophageal Reflux Disease Musculoskeltal Medical History: Reports Hx Arthritis Past Surgical History: Reports: Hx Bowel Surgery, Hx Cardiac Surgery - bypass, Hx Coronary Artery Bypass Graft, Hx Orthopedic Surgery, Hx Tonsillectomy, Hx Vascular Surgery, Other - Incision and drainage of lower extremity abscess with debridement - Immunizations Hx Diphtheria, Pertussis, Tetanus Vaccination: Yes Physical Exam - Vital signs Vitals: Temp Pulse Resp BP Pulse Ox 98.9 F 90 22 H 158/83 H 96 11/20/18 05:00 11/20/18 05:00 11/20/18 05:00 11/20/18 05:00 11/20/18 05:00 Course - Vital Signs Vital signs: Temp Pulse Resp BP Pulse Ox 98.9 F 90 22 H 158/83 H 96 11/20/18 05:00 11/20/18 05:00 11/20/18 05:00 11/20/18 05:00 11/20/18 05:00 Doctor's Discharge - Discharge Referrals: NYASIA NAJERA MD [Primary Care Provider] - Follow up as needed
[2018-11-20 06:07] LABS: HEMATOCRIT 49.6 % (37.9-51.0); HEMOGLOBIN 16.7 g/dL (13.5-17.0); MEAN CORPUSCULAR HEMOGLOBIN 27.9 pg (27.0-33.4); MEAN CORPUSCULAR HGB CONC 33.8 g/dL (32.0-36.0); MEAN CORPUSCULAR VOLUME 83 fl (80-97); PLATELET COUNT 211 10^3/uL (150-450); RED CELL DISTRIBUTION WIDTH 15.1 % (11.5-14.0); WHITE BLOOD COUNT 22.4 10^3/uL (4.0-10.5)
[2018-11-20 06:31] LABS: ALKALINE PHOSPHATASE 67 U/L (38-126); ANION GAP 11 (5-19); ASPARTATE AMINO TRANSFERASE 21 U/L (17-59); BILIRUBIN,DIRECT 0.2 mg/dL (0.0-0.4); BILIRUBIN,TOTAL 1.5 mg/dL (0.2-1.3); BLOOD UREA NITROGEN 18 mg/dL (7-20); CALCIUM 9.2 mg/dL (8.4-10.2); CARBON DIOXIDE 25 mmol/L (22-30); CHLORIDE 104 mmol/L (98-107); GLUCOSE 149 mg/dL (75-110); POTASSIUM 3.5 mmol/L (3.6-5.0); TOTAL PROTEIN 7.6 g/dL (6.3-8.2)
[2018-11-20 06:36] LABS: INTERNATIONAL RATION (INR) 2.47; PROTHROMBIN TIME 27.2 SEC (11.4-15.4)
[2018-11-20] MEDS ORDERED: RINGERS SOLUTION,LACTATED 1,000 ML IV ONE (06:41)
[2018-11-20] MEDS ORDERED: IPRATROPIUM/ALBUTEROL 0.5-2.5 MG/3 ML AMPUL NEB ONE (06:45)
[2018-11-20 06:52] LABS: ABSOLUTE LYMPHOCYTES# (MANUAL) 1.3 10^3/uL (0.5-4.7); ABSOLUTE MONOCYTES # (MANUAL) 2.2 10^3/uL (0.1-1.4); ANISOCYTOSIS SLIGHT; BAND NEUTROPHILS % (MANUAL) 4 % (3-5); BASOPHILS % (MANUAL) 0 % (0-2); EOSINOPHILS % (MANUAL) 0 % (0-6); LYMPHOCYTES % (MANUAL) 6 % (13-45); MONOCYTES % (MANUAL) 10 % (3-13); SEGMENTED NEUTROPHILS % (MAN) 80 % (42-78); TOTAL CELLS COUNTED 100
[2018-11-20 06:53] LABS: PLATELET COMMENT ADEQUATE
[2018-11-20 07:20] LABS: APPEARANCE,URINE CLEAR; BILIRUBIN,URINE NEGATIVE (NEGATIVE); COLOR,URINE YELLOW; GLUCOSE, URINE NEGATIVE (NEGATIVE); KETONES,URINE NEGATIVE (NEGATIVE); LEUKOCYTE ESTERASE,URINE NEGATIVE (NEGATIVE); NITRITE,URINE NEGATIVE (NEGATIVE); PROTEIN,URINE 100 mg/dL (NEGATIVE); URINE SPECIFIC GRAVITY 1.015; UROBILINOGEN,URINE NEGATIVE mg/dL (<2.0)
--- NOTE | 2018-11-20 07:25 | RADIOLOGY REPORT (SQ) ---
EXAM DESCRIPTION: X-ray single view chest. CLINICAL HISTORY: 73 years Male, cough COMPARISON: 11/13/2014 TECHNIQUE: Single portable x-ray view of the chest performed on 11/20/2018 at 6:20 AM FINDINGS: The lungs are well expanded and are clear. There is no evidence of a pneumothorax. The cardiac silhouette is stable and top normal in size. There are postsurgical changes consistent with remote median sternotomy. The mediastinal contours are normal. No acute osseous abnormality is identified. No focal soft tissue abnormalities are seen. Lines and tubes: None. IMPRESSION: No evidence of acute intrathoracic disease. No significant change when compared to the prior study.
--- NOTE | 2018-11-20 07:29 | ER Document Report ---
Entered by ENRIQUE FORD SCRIBE 11/20/18 0627 Acting as scribe for:ALEXSANDRA COSTA MD ED GI/ - General Chief Complaint: Abdominal Pain Stated Complaint: LOWER ABDOMINAL PAIN Time Seen by Provider: 11/20/18 05:28 Mode of Arrival: Ambulatory Information source: Patient Notes: Patient is a 73 year old male that presents to the emergency department today with complaints of lower abdominal pain which began last night at 8:00 PM. Patient also mentions that he has had a productive cough with clear sputum for over 2 weeks. Patient states "it just hit, boom" when he was sitting in his chair last night. Patient describes the pain as a "hard strain", thinking he may have strained something from all his coughing. Patient was started on doxycycline on 10/27, states he dropped some of the pills down the sink, so had another 10-day supply of doxycycline prescribed on 10/31. Patient states he has had chills but denies fevers. Patient denies a history of kidney stones. TRAVEL OUTSIDE OF THE [place] IN LAST 30 DAYS: No - Related Data Allergies/Adverse Reactions: Sulfa (Sulfonamide Antibiotics) Allergy (Verified 08/14/18 14:59) Past Medical History - General Information source: Patient - Social History Smoking Status: Current Every Day Smoker Cigarette use (# per day): Yes - 1 ppd Chew tobacco use (# tins/day): No Frequency of alcohol use: None Drug Abuse: None Lives with: Family Family History: Reviewed & Not Pertinent, CAD, DM, Hypertension Patient has suicidal ideation: No Patient has homicidal ideation: No - Past Medical History Cardiac Medical History: Reports: Hx Atrial Fibrillation, Hx Coronary Artery Disease, Hx Heart Attack, Hx Hypertension Pulmonary Medical History: Reports: Hx COPD, Hx Pneumonia Renal/ Medical History: Reports: Hx Benign Prostatic Hyperplasia GI Medical History: Reports: Hx Gastroesophageal Reflux Disease Musculoskeletal Medical History: Reports Hx Arthritis Past Surgical History: Reports: Hx Appendectomy, Hx Bowel Surgery, Hx Coronary Artery Bypass Graft, Hx Tonsillectomy, Hx Vascular Surgery, Other - Incision and drainage of RLE abscess with debridement. Left great toe amp. - Immunizations Hx Diphtheria, Pertussis, Tetanus Vaccination: Yes Review of Systems - Review of Systems Constitutional: See HPI, Chills. denies: Fever EENT: No symptoms reported Cardiovascular: No symptoms reported Respiratory: See HPI, Cough Gastrointestinal: See HPI, Abdominal pain - lower Genitourinary: No symptoms reported Male Genitourinary: No symptoms reported Musculoskeletal: No symptoms reported Skin: No symptoms reported Hematologic/Lymphatic: No symptoms reported Neurological/Psychological: No symptoms reported -: Yes All other systems reviewed and negative Physical Exam - Vital signs Vitals: Temp Pulse Resp BP Pulse Ox 98.9 F 90 22 H 158/83 H 96 11/20/18 05:00 11/20/18 05:00 11/20/18 05:00 11/20/18 05:00 11/20/18 05:00 - Notes Notes: Physical Exam: General: Alert, appears well. HEENT: Normocephalic. Atraumatic. PERRL. Extraocular movements intact. Orophary nx clear. Neck: Supple. Non-tender. Respiratory: No respiratory distress. Congested cough. Wheezing and rhonchi bilaterally. Cardiovascular: Irregular rate and rhythm, consistent with history of chronic atrial fibrillation. Abdominal: Obese. Diffuse tenderness to palpation across the lower abdomen and pelvic region. Tenderness with palpation over the suprapubic area and superior to this. When patient performs a partial crunch, tensing his abdominal muscles, palpation of the same previously tender area is nontender. No distension. Normal Bowel Sounds. Back: No gross abnormalities. Extremities: Moves all four extremities. Upper extremities: Normal inspection. Normal ROM. Lower extremities: Normal inspection. No edema. Normal ROM. Neurological: Normal cognition. AAOx4. Normal speech. Psychological: Normal affect. Normal Mood. Skin: Warm. Dry. Normal color. Course - Vital Signs Vital signs: Temp Pulse Resp BP Pulse Ox 98.9 F 90 22 H 158/83 H 96 11/20/18 05:00 11/20/18 05:00 11/20/18 05:00 11/20/18 05:00 11/20/18 05:00 - Laboratory Result Diagrams: 11/20/18 05:50 11/20/18 05:50 Laboratory results interpreted by me: 11/20/18 11/20/18 11/20/18 05:50 05:50 05:50 WBC 22.4 H RBC 6.00 H RDW 15.1 H Seg Neuts % (Manual) 80 H Lymphocytes % (Manual) 6 L Abs Neuts (Manual) 18.8 H Abs Monocytes (Manual) 2.2 H PT 27.2 H Potassium 3.5 L Glucose 149 H Total Bilirubin 1.5 H Creatine Kinase Urine Protein Urine Blood 11/20/18 11/20/18 05:50 07:00 WBC RBC RDW Seg Neuts % (Manual) Lymphocytes % (Manual) Abs Neuts (Manual) Abs Monocytes (Manual) PT Potassium Glucose Total Bilirubin Creatine Kinase 53 L Urine Protein 100 H Urine Blood SMALL H - Diagnostic Test Radiology reviewed: Image reviewed, Reports reviewed - CT scan chest abdomen pelvis shows sigmoid diverticulitis, no other acute findings. - EKG Interpretation by Me EKG shows normal: [place], Intervals, QRS Complexes. abnormal: ST-T Waves - Abnormal lateral T waves Rate: Normal - 100 Rhythm: A.Fib Rochelle/QRS: Left axis deviation, LAHB/LAFB - Consults Dr. Booth Time consulted: 09:00 Consulted provider: will come to ER - IMCU, add Cipro to the Flagyl and he will follow the INR Critical Care Note - Critical Care Note Total time excluding time spent on procedures (mins): 35 Discharge - Discharge Clinical Impression: Diverticulitis of sigmoid colon, Chills, Bronchitis, Wheezing Leukocytosis Qualifiers: Leukocytosis type: bandemia Qualified Code(s): D72.825 - Bandemia COPD (chronic obstructive pulmonary disease) Qualifiers: COPD type: unspecified COPD Qualified Code(s): J44.9 - Chronic obstructive pulmonary disease, unspecified HTN (hypertension) Qualifiers: Hypertension type: essential hypertension Qualified Code(s): I10 - Essential (primary) hypertension A-fib Qualifiers: Atrial fibrillation type: unspecified chronic Qualified Code(s): I48.20 - Chronic atrial fibrillation, unspecified Condition: Stable Disposition: ADMITTED INPATIENT Admitting Provider: Emmy (Hospitalist) Unit Admitted: [facility] Scribe Attestation: 11/20/18 08:28 I personally performed the services described in the documentation, reviewed and edited the documentation which was dictated to the scribe in my presence, and it accurately records my words and actions. I personally performed the services described in the documentation, reviewed and edited the documentation which was dictated to the scribe in my presence, and it accurately records my words and actions.
--- NOTE | 2018-11-20 07:42 | RADIOLOGY REPORT (SQ) ---
EXAM DESCRIPTION: X-ray abdomen 1 view CLINICAL DATA: 73-year-old male with abdominal pain. TECHNICAL DATA: A single AP supine x-ray of the abdomen was performed on 11/20/2018 at 6:24 AM. Comparison: None. FINDINGS: The bowel gas pattern is nonspecific and nonobstructive. There are multiple pelvic phleboliths and there are arterial vascular calcifications. No abnormal air collections are identified. No focal soft tissue abnormalities are seen. No acute osseous abnormalities are identified. There are degenerative changes of the visualized thoracolumbar spine. There are surgical clips in the right upper quadrant. IMPRESSION: Nonspecific nonobstructive bowel gas pattern. There are surgical clips in the right upper quadrant. There are degenerative changes of the skeletal and vascular structures.
--- NOTE | 2018-11-20 08:55 | RADIOLOGY REPORT (SQ) ---
EXAM DESCRIPTION: CT ABD/PELVIS WITH IV ONLY COMPLETED DATE/TIME: 11/20/2018 7:51 am REASON FOR STUDY: productive cough X 2wks, pelvic pain COMPARISON: 09/22/2017. TECHNIQUE: CT scan of the abdomen and pelvis performed using helical scanning technique with dynamic intravenous contrast injection. No oral contrast. Images reviewed with lung, soft tissue, and bone windows. Reconstructed coronal and sagittal MPR images reviewed. Delayed images for evaluation of the urinary system also acquired. All images stored on PACS. All CT scanners at this facility use dose modulation, iterative reconstruction, and/or weight based d osing when appropriate to reduce radiation dose to as low as reasonably achievable (ALARA). [facility]: Dose Right [facility]: CareDose [facility]: Dose Right [facility]: Teradose 4D [facility]: [employer] CONTRAST TYPE AND DOSE: contrast/concentration: Isovue 350.00 mg/ml; Total Contrast Delivered: 100.0 ml; Total Saline Delivered: 45.0 ml RENAL FUNCTION: BUN 18 creatinine 1.0. RADIATION DOSE: CT Rad equipment meets quality standard of care and radiation dose reduction techniq ues were employed. CTDIvol: 17.5 - 19.8 mGy. DLP: 2342 mGy-cm.. LIMITATIONS: None. FINDINGS: LOWER CHEST: See separate report of the CT of the chest. LIVER: Normal size. Diffuse fatty infiltration. No masses. No dilated ducts. SPLEEN: Normal size. No focal lesions. PANCREAS: No masses. No significant calcifications. No adjacent inflammation or peripancreatic fluid collections. Pancreatic duct not dilated. GALLBLADDER: No identified stones by CT criteria. No inflammatory changes to suggest cholecystitis. ADRENAL GLANDS: No significant masses or asymmetry. RIGHT KIDNEY AND URETER: Multiple cortical cysts. No solid masses. Tiny calyceal calcifications. No hydronephrosis or hydroureter. LEFT KIDNEY AND URETER: Multiple cortical cyst. No solid masses. Tiny calyceal calcifications. N o hydronephrosis or hydroureter. AORTA AND VESSELS: Small aortic aneurysm, measuring 3.1 cm. No dissection. Renal arteries, SMA, vishnu c without stenosis. RETROPERITONEUM: No retroperitoneal adenopathy, hemorrhage or masses. BOWEL AND PERITONEAL CAVITY: Diverticuli in the sigmoid colon with adjacent inflammatory changes. No fluid collection or extraluminal gas. No free fluid or peritoneal masses. APPENDIX: Normal. PELVIS: No mass. Enlarged prostate. No free fluid. Normal bladder. Right inguinal hernia containin g fat. No involvement of bowel. ABDOMINAL WALL: No masses. No hernias. BONES: No significant or acute findings. Degenerative changes in the spine. OTHER: No other significant finding. IMPRESSION: 1. SIGMOID DIVERTICULITIS. NO EVIDENCE OF ABSCESS OR PERFORATION. 2. 3.1 CM ABDOMINAL AORTIC ANEURYSM. 3. TINY NONOBSTRUCTING CALYCEAL CALCULI IN BOTH KIDNEYS. BILATERAL RENAL CORTICAL CYSTS. 4. RIGHT INGUINAL HERNIA CONTAINING FAT. NO INVOLVEMENT OF BOWEL. 5. FATTY INFILTRATION OF THE LIVER. 6. NO OTHER SIGNIFICANT OR ACUTE FINDING IN THE ABDOMEN OR PELVIS ON CT SCAN WITH IV CONTRAST. TECHNICAL DOCUMENTATION: JOB ID: [id number] Quality ID # [id number]: Final reports with documentation of one or more dose reduction techniques (e.g., Au tomated exposure control, adjustment of the mA and/or kV according to patient size, use of iterative reconstruction technique) 2010 [employer]- All Rights Reserved Reading location - IP/workstation name: [email or web address]
[2018-11-20] MEDS ORDERED: METRONIDAZOLE 500 MG/NS RTU 500 MG/100 ML RTUPB IV ONE (08:59)
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
[2018-11-20] MEDS ORDERED: CIPROFLOXACIN 400 MG/D5W RTU 400 MG/200 ML RTUPB IV ONE (09:07)
[2018-11-20] MEDS ORDERED: ONDANSETRON HCL INJ/PF 4 MG/2 ML SDV IV ONE (09:12)
[2018-11-20] MEDS ORDERED: MORPHINE SULFATE 10 MG/ML INJ IV ONE (09:12)
[2018-11-20 09:26] LABS: CREATINE KINASE 53 U/L (55-170)
[2018-11-20] MEDS ORDERED: LEVALBUTEROL HCL NEB 0.63 MG/3 ML AMPUL NEB PRN (09:36)
[2018-11-20] MEDS ORDERED: ACETAMINOPHEN 325 MG TABLET PO PRN (09:36)
[2018-11-20] MEDS ORDERED: METRONIDAZOLE RTU 500 MG/NS 100 ML IV SCH (09:45)
[2018-11-20] MEDS ORDERED: NICOTINE 21 MG/24 HR PATCH.TD24 TD ONE (09:59)
--- NOTE | 2018-11-20 09:59 | PDOC H&P ---
History of Present Illness Admission Date/PCP: NYASIA NAJERA MD Patient complains of: Came with complaints of abdominal pain and loose stools since yesterday. History of Present Illness: DAVID MERAZ is a 73 year old male history of hypertension, atrial f ibrillation warfarin, smoker, was treated with doxycycline recently for chronic cough came to the emergency room last night or early this morning with complaints of abdominal pain associated with loose stools since yesterday. Pain scale according to the patient is 10 x 10. In the emergency room work-up indicates sigmoid diverticulitis. WBC count is more than 20,000. Medical consult was called for admission. And agreed to stay in the hospital for further evaluation. CT chest was negative for acute pathology. Past Medical History Cardiac Medical History: Reports: Atrial Fibrillation, Coronary Artery Disease, Myocardial Infarction, Hypertension Pulmonary Medical History: Reports: Chronic Obstructive Pulmonary Disease ([employer] D), Pneumonia GI Medical History: Reports: Gastroesophageal Reflux Disease Musculoskeltal Medical History: Reports: Arthritis Past Surgical History Past Surgical History: Reports: Appendectomy, Coronary Artery Bypass Graft, Orthopedic Surgery, Tonsillectomy, Vascular Surgery, Other - Incision and drainage of RLE abscess with debridement. Left great toe amp. Social History Lives with: Family Smoking Status: Current Every Day Smoker Electronic Cigarette use?: No Frequency of Alcohol Use: None Hx Recreational Drug Use: No Hx Prescription Drug Abuse: No - Advance Directive Resuscitation Status: Full Code Family History Family History: Reviewed & Not Pertinent, CAD, DM, Hypertension Parental Family History Reviewed: Yes - Family history of hypertension. Children Family History Reviewed: Yes Sibling(s) Family History Reviewed.: Yes Medication/Allergy Home Medications: Amlodipine Besylate [Norvasc 5 mg Tablet] 5 mg PO Q12 09/23/17 Aspirin [Aspirin EC] 81 mg PO DAILY 09/23/17 Metoprolol Tartrate [Lopressor 50 mg Tablet] 100 mg PO Q12 09/23/17 Tamsulosin HCl [Flomax 0.4 mg Cap.sr] 0.4 mg PO DAILY 09/23/17 Warfarin Sodium [Coumadin 4 mg Tablet] 4 mg PO Q2D@1000 09/23/17 Doxycycline Hyclate 100 mg PO BID #20 capsule 08/14/18 Lisinopril [Prinivil 5 mg Tablet] 5 mg PO DAILY 08/14/18 Allergies/Adverse Reactions: Sulfa (Sulfonamide Antibiotics) Allergy (Verified 08/14/18 14:59) Review of Systems Constitutional: ABSENT: fatigue, fever(s), headache(s), night sweats, weakness Eyes: ABSENT: visual disturbances Ears: ABSENT: hearing changes Nose, Mouth, and Throat: ABSENT: sore throat Respiratory: ABSENT: dyspnea, hemoptysis Gastrointestinal: PRESENT: abdominal pain, diarrhea, nausea Genitourinary: ABSENT: dysuria, hematuria Integumentary: ABSENT: lesions, pruritus, rash Neurological: ABSENT: abnormal gait, abnormal speech, confusion, dizziness, focal weakness, syncope Psychiatric: ABSENT: anxiety, depression, homidical ideation, suicidal ideation Endocrine: ABSENT: cold intolerance, heat intolerance, polydipsia, polyuria Physical Exam Vital Signs: Temp Pulse Resp BP Pulse Ox 98.9 F 90 22 H 158/83 H 96 11/20/18 05:00 11/20/18 05:00 11/20/18 05:00 11/20/18 05:00 11/20/18 05:00 Intake & Output 11/19/18 11/20/18 11/21/18 06:59 06:59 06:59 Intake Total 1000 Balance 1000 Weight 111.3 kg General appearance: PRESENT: cooperative, mild distress, obese Head exam: PRESENT: atraumatic Eye exam: PRESENT: PERRLA Mouth exam: PRESENT: moist, tongue midline Teeth exam: PRESENT: poor dentation Neck exam: ABSENT: carotid bruit, JVD, lymphadenopathy, thyromegaly Respiratory exam: PRESENT: decreased breath sounds, wheezes Cardiovascular exam: PRESENT: irregular rhythm Vascular exam: PRESENT: normal capillary refill GI/Abdominal exam: PRESENT: diminished bowel sounds, tenderness Rectal exam: PRESENT: deferred Neurological exam: PRESENT: alert, awake, oriented to person, oriented to place, oriented to time, oriented to situation, CN II-XII grossly intact. ABSENT: motor sensory deficit Psychiatric exam: PRESENT: appropriate affect, normal mood. ABSENT: homicidal i deation, suicidal ideation Results Laboratory Results: 11/20/18 05:50 11/20/18 05:50 11/20/18 11/20/18 11/20/18 05:50 05:50 07:00 WBC 22.4 H RBC 6.00 H Hgb 16.7 Hct 49.6 MCV 83 MCH 27.9 MCHC 33.8 RDW 15.1 H Plt Count 211 Seg Neutrophils % Not Reportable Sodium 140.3 Potassium 3.5 L Chloride 104 Carbon Dioxide 25 Anion Gap 11 BUN 18 Creatinine 1.00 Est GFR ( Amer) > 60 Glucose 149 H Calcium 9.2 Total Bilirubin 1.5 H AST 21 Alkaline Phosphatase 67 Total Protein 7.6 Albumin 4.0 Lipase 32.1 Urine Color YELLOW Urine Appearance CLEAR Urine pH 6.0 Ur Specific [place] 1.015 Urine Protein 100 H Urine Glucose (UA) NEGATIVE Urine Ketones NEGATIVE Urine Blood SMALL H Urine Nitrite NEGATIVE Ur Leukocyte Esterase NEGATIVE Urine WBC (Auto) 3 Urine RBC (Auto) 6 11/20/18 05:50 Creatine Kinase 53 L Impressions: Chest X-Ray 11/20/18 05:31 IMPRESSION: No evidence of acute intrathoracic disease. No significant change when compared to the prior study. KUB X-Ray 11/20/18 05:31 IMPRESSION: Nonspecific nonobstructive bowel gas pattern. There are surgical clips in the right upper quadrant. There are degenerative changes of the skeletal and vascular structures. Abdomen/Pelvis CT 11/20/18 06:40 IMPRESSION: 1. SIGMOID DIVERTICULITIS. NO EVIDENCE OF ABSCESS OR PERFORATION. 2. 3.1 CM ABDOMINAL AORTIC ANEURYSM. 3. TINY NONOBSTRUCTING CALYCEAL CALCULI IN BOTH KIDNEYS. BILATERAL RENAL CORTICAL CYSTS. 4. RIGHT INGUINAL HERNIA CONTAINING FAT. NO INVOLVEMENT OF BOWEL. 5. FATTY INFILTRATION OF THE LIVER. 6. NO OTHER SIGNIFICANT OR ACUTE FINDING IN THE ABDOMEN OR PELVIS ON CT SCAN WITH IV CONTRAST. Chest CT 11/20/18 06:40 IMPRESSION: SCATTERED ATELECTASIS IN THE LUNG BASES. RIGHT LOWER LOBE LUNG NODULE UNCHANGED. NO APPARENT ACUTE FINDINGS. Assessment and Plan - Diagnosis (1) Diverticulitis of sigmoid colon Is this a current diagnosis for this admission?: Yes (2) A-fib Qualifiers: Atrial fibrillation type: unspecified chronic Qualified Code(s): I48.20 - Chronic atrial fibrillation, unspecified; I48.2 - Chronic atrial fibrillation Is this a current diagnosis for this admission?: No (3) COPD (chronic obstructive pulmonary disease) Qualifiers: COPD type: unspecified COPD Qualified Code(s): J44.9 - Chronic obstructive pulmonary disease, unspecified Is this a current diagnosis for this admission?: No (4) HTN (hypertension) Qualifiers: Hypertension type: essential hypertension Qualified Code(s): I10 - Essential (primary) hypertension Is this a current diagnosis for this admission?: No (5) CAD (coronary artery disease) Qualifiers: Is this a current diagnosis for this admission?: No (6) Tobacco abuse Is this a current diagnosis for this admission?: No - Plan Summary Summary: 1.sigmoid diverticulitis Patient is going to be admitted to [facility] for sigmoid diverticulitis is going to be on telemetry, started on IV morphine 2 mg every 4 hours for pain. Blood cultures are pending stool cultures will be requested. Started on Cipro IV and Flagyl. GI prophylaxis initiated. Patient is already on Coumadin for A. fib INR is 2.43. It is going to be n.p.o. except for medications and start an IV fluids normal saline at 75 cc/h. 2.History of chronic atrial fibrillation Patient has history of chronic atrial fibrillation on warfarin 4 mg p.o. daily to restart Coumadin 4 mg nightly. INR is 2.47 on admission. 3.hypertension Patient has history of chronic essential hypertension blood pressure in the emergency room is stable. Pressure is 158/83. Patient is on lisinopril, amlodipine and metoprolol at home plan is to resume the medications. 4.leukocytosis Patient came with a WBC count of more than 20,000 not on steroids at home. Leukocytosis this is most likely secondary to sigmoid diverticulitis. 5.Obesity The BMI is more than 36 diet exercise weight loss lifestyle modifications are discussed with the patient. 6.tobacco use And is a daily day smoker smoking counseling was provided more than 15 minutes to start him on nicotine patch daily. 7.abdominal aortic aneurysm Incidental finding of abdominal aortic aneurysm 3.1 cm in size. Patient may need follow-up CT scans every 3 to 6 months. 8.COPD Examination chest bilateral wheezing is present. He was diagnosed with COPD but not on inhalers. To start him on Xopenex nebulizations while he was in the hospital. 9.hypokalemia admission serum potassium is 3.5 to supplement potassium with 40 mg of IV potassium.
[2018-11-20] MEDS: CIPROFLOXACIN 400 MG/D5W RTU 400 MG/200 ML RTUPB IV SCH ×2 (10:23→21:07)
[2018-11-20 10:24] LABS: HEMATOCRIT 48.7 % (37.9-51.0); HEMOGLOBIN 16.4 g/dL (13.5-17.0); MEAN CORPUSCULAR HEMOGLOBIN 27.6 pg (27.0-33.4); MEAN CORPUSCULAR HGB CONC 33.7 g/dL (32.0-36.0); MEAN CORPUSCULAR VOLUME 82 fl (80-97); PLATELET COUNT 207 10^3/uL (150-450); RED BLOOD COUNT 5.95 10^6/uL (4.35-5.55); RED CELL DISTRIBUTION WIDTH 14.7 % (11.5-14.0); WHITE BLOOD COUNT 20.7 10^3/uL (4.0-10.5)
[2018-11-20 10:38] LABS: INTERNATIONAL RATION (INR) 2.42; PROTHROMBIN TIME 26.8 SEC (11.4-15.4)
[2018-11-20] MEDS: METRONIDAZOLE 500 MG/NS RTU 500 MG/100 ML RTUPB IV SCH ×3 (11:16→23:57)
[2018-11-20] MEDS: ONDANSETRON HCL INJ/PF 4 MG/2 ML SDV IV PRN (13:38)
[2018-11-20] MEDS: NORMAL SALINE 1000 ML 1,000 ML IV PRN (15:20)
[2018-11-20] MEDS: PANTOPRAZOLE SODIUM 40 MG TABLET.DR PO SCH (17:34)
[2018-11-20] MEDS: WARFARIN SODIUM 3 MG TABLET PO SCH (21:09)
[2018-11-20] MEDS ORDERED: WARFARIN SODIUM 4 MG TABLET PO SCH (22:00)
--- NOTE | 2018-11-20 22:38 | EKG REPORT ---
SEVERITY:- ABNORMAL ECG - ATRIAL FIBRILLATION LAD, CONSIDER LAFB OR INFERIOR INFARCT ABNORMAL T, CONSIDER ISCHEMIA, LATERAL LEADS : Confirmed by: Kelsy Tuttle MD 20-Nov-2018 22:37:45
[2018-11-21] MEDS: MORPHINE SULFATE 10 MG/ML INJ IV PRN ×2 (05:00→23:35)
[2018-11-21] MEDS: PANTOPRAZOLE SODIUM 40 MG TABLET.DR PO SCH ×2 (06:26→17:51)
[2018-11-21] MEDS: METRONIDAZOLE 500 MG/NS RTU 500 MG/100 ML RTUPB IV SCH ×4 (06:26→23:17)
[2018-11-21 07:54] LABS: ALKALINE PHOSPHATASE 72 U/L (38-126); ANION GAP 13 (5-19); ASPARTATE AMINO TRANSFERASE 17 U/L (17-59); BILIRUBIN,DIRECT 0.7 mg/dL (0.0-0.4); BILIRUBIN,TOTAL 2.1 mg/dL (0.2-1.3); BLOOD UREA NITROGEN 17 mg/dL (7-20); CARBON DIOXIDE 23 mmol/L (22-30); CHLORIDE 104 mmol/L (98-107); CHOLESTEROL 177.05 mg/dL (0-200); GLUCOSE 132 mg/dL (75-110); POTASSIUM 3.3 mmol/L (3.6-5.0); TOTAL PROTEIN 7.3 g/dL (6.3-8.2); TRIGLYCERIDES 156 mg/dL (<150)
[2018-11-21 08:05] LABS: DIRECT LDL 112 mg/dL (<100)
[2018-11-21 08:08] LABS: VLDL CHOLESTEROL 31.2 mg/dL (10-31)
--- NOTE | 2018-11-21 08:47 | PDOC PROGRESS REPORT ---
Subjective Progress Note for:: 11/21/18 Subjective:: 73 year old male history of hypertension, atrial fibrillation warfarin, smoker, was treated with doxycycline recently for chronic cough came to the emergency room last night or early this morning with complaints of abdominal pain associated with loose stools since yesterday. Pain scale according to the patient is 10 x 10. In the emergency room work-up indicates sigmoid diverticulitis. WBC count is more than 20,000. Medical consult was called for admission. And agreed to stay in the hospital for further evaluation. CT chest was negative for acute pathology. 11/21/[id number]-mczn-old female admitted for left arm weakness and numbness which was resolved. MRI of the brain was negative for acute pathology carotid Doppler is pending. Patient may go home this evening. Reason For Visit: SIGMOID DIVERTICULITIS Physical Exam Vital Signs: Temp Pulse Resp BP Pulse Ox 99.1 F 116 H 17 160/98 H 94 11/21/18 07:13 11/21/18 07:13 11/21/18 07:13 11/21/18 07:13 11/21/18 07:13 Intake & Output 11/20/18 11/21/18 11/22/18 06:59 06:59 06:59 Intake Total 1700 100 Output Total 350 Balance 1350 100 Weight 111.3 kg 110.6 kg General appearance: PRESENT: no acute distress Head exam: PRESENT: atraumatic Eye exam: PRESENT: PERRLA Mouth exam: PRESENT: dry mucosa Teeth exam: PRESENT: poor dentation Neck exam: ABSENT: carotid bruit, JVD, lymphadenopathy, thyromegaly Respiratory exam: PRESENT: decreased breath sounds Cardiovascular exam: PRESENT: RRR. ABSENT: diastolic murmur, rubs, systolic murmur GI/Abdominal exam: PRESENT: normal bowel sounds, soft. ABSENT: distended, guarding, mass, organolmegaly, rebound, tenderness Rectal exam: PRESENT: deferred Extremities exam: PRESENT: full ROM. ABSENT: calf tenderness, clubbing, pedal edema Neurological exam: PRESENT: alert, awake, oriented to person, oriented to place, oriented to time, oriented to situation, CN II-XII grossly intact. ABSENT: motor sensory deficit Psychiatric exam: PRESENT: appropriate affect, normal mood. ABSENT: homicidal ideation, suicidal ideation Skin exam: PRESENT: dry, intact, warm. ABSENT: cyanosis, rash Results Laboratory Results: 11/20/18 10:05 11/21/18 06:30 11/20/18 11/21/18 10:05 06:30 WBC 20.7 H RBC 5.95 H Hgb 16.4 Hct 48.7 MCV 82 MCH 27.6 MCHC 33.7 RDW 14.7 H Plt Count 207 Sodium 139.9 Potassium 3.3 L Chloride 104 Carbon Dioxide 23 Anion Gap 13 BUN 17 Creatinine 1.02 Est GFR ( Amer) > 60 Glucose 132 H Calcium 9.0 Magnesium 1.8 Total Bilirubin 2.1 H AST 17 Alkaline Phosphatase 72 Total Protein 7.3 Albumin 4.0 Triglycerides 156 H Cholesterol 177.05 LDL Cholesterol Direct 112 H VLDL Cholesterol 31.2 H HDL Cholesterol 27 L 11/20/18 11/20/18 11/20/18 05:50 05:50 10:05 Creatine Kinase 53 L 48 L CK-MB (CK-2) Troponin I < 0.012 NT-Pro-B Natriuret Pep 11/20/18 11/20/18 11/20/18 10:05 15:45 15:45 Creatine Kinase 45 L CK-MB (CK-2) 0.31 0.40 Troponin I NT-Pro-B Natriuret Pep 11/20/18 11/20/18 11/21/18 21:35 21:35 06:30 Creatine Kinase 58 CK-MB (CK-2) 0.27 Troponin I NT-Pro-B Natriuret Pep 1390 H Impressions: Chest X-Ray 11/20/18 05:31 IMPRESSION: No evidence of acute intrathoracic disease. No significant change when compared to the prior study. KUB X-Ray 11/20/18 05:31 IMPRESSION: Nonspecific nonobstructive bowel gas pattern. There are surgical clips in the right upper quadrant. There are degenerative changes of the skeletal and vascular structures. Abdomen/Pelvis CT 11/20/18 06:40 IMPRESSION: 1. SIGMOID DIVERTICULITIS. NO EVIDENCE OF ABSCESS OR PERFORATION. 2. 3.1 CM ABDOMINAL AORTIC ANEURYSM. 3. TINY NONOBSTRUCTING CALYCEAL CALCULI IN BOTH KIDNEYS. BILATERAL RENAL CORTICAL CYSTS. 4. RIGHT INGUINAL HERNIA CONTAINING FAT. NO INVOLVEMENT OF BOWEL. 5. FATTY INFILTRATION OF THE LIVER. 6. NO OTHER SIGNIFICANT OR ACUTE FINDING IN THE ABDOMEN OR PELVIS ON CT SCAN WITH IV CONTRAST. Chest CT 11/20/18 06:40 IMPRESSION: SCATTERED ATELECTASIS IN THE LUNG BASES. RIGHT LOWER LOBE LUNG NODULE UNCHANGED. NO APPARENT ACUTE FINDINGS. Assessment and Plan - Diagnosis (1) Diverticulitis of sigmoid colon Is this a current diagnosis for this admission?: Yes (2) A-fib Qualifiers: Atrial fibrillation type: unspecified chronic Qualified Code(s): I48.20 - Chronic atrial fibrillation, unspecified; I48.2 - Chronic atrial fibrillation Is this a current diagnosis for this admission?: No (3) COPD (chronic obstructive pulmonary disease) Qualifiers: COPD type: unspecified COPD Qualified Code(s): J44.9 - Chronic obstructive pulmonary disease, unspecified Is this a current diagnosis for this admission?: No (4) HTN (hypertension) Qualifiers: Hypertension type: essential hypertension Qualified Code(s): I10 - Essent ial (primary) hypertension Is this a current diagnosis for this admission?: No (5) CAD (coronary artery disease) Qualifiers: Is this a current diagnosis for this admission?: No (6) Tobacco abuse Is this a current diagnosis for this admission?: No - Plan Summary Summary: 1.sigmoid diverticulitis Patient is going to be admitted to [facility] for sigmoid diverticulitis is going to be on telemetry, started on IV morphine 2 mg every 4 hours for pain. Blood cultures are pending stool cultures will be requested. Started on Cipro IV and Flagyl. GI prophylaxis initiated. Patient is already on Coumadin for A. fib INR is 2.43. It is going to be n.p.o. except for medications and start an IV fluids normal saline at 75 cc/h. 11/[id number]-htng-old male admitted with abdominal pain found to have sigmoid diverticulitis still complaining of severe pain in the lower abdomen. We are going to keep him at least n.p.o. except for medications for another day. presently on IV Flagyl and Cipro. 2.History of chronic atrial fibrillation Patient has history of chronic atrial fibrillation on warfarin 4 mg p.o. daily to restart Coumadin 4 mg nightly. INR is 2.47 on admission. 11/21/2018-patient has history of chronic atrial fibrillation on warfarin 4 mg daily latest INR is 2.42. Within therapeutic range. Pharmacy is managing the warfarin doses. 3.hypertension Patient has history of chronic essential hypertension blood pressure in the emergency room is stable. Pressure is 158/83. Patient is on lisinopril, amlodipine and metoprolol at home plan is to resume the medications. 11/21/2018-patient blood pressure today is 144/93. Relatively controlled. Patient is n.p.o. except for medications. To place him on hydralazine 10 mg IV every 6 PRN for systolic blood pressure more than 160. 4.leukocytosis Patient came with a WBC count of more than 20,000 not on steroids at home. Leukocytosis this is most likely secondary to sigmoid diverticulitis. 11/21/2018-patient's WBC count is 20,700 improved from 23,000 yesterday. Most likely secondary to sigmoid colitis. 5.Obesity The BMI is more than 36 diet exercise weight loss lifestyle modifications are discussed with the patient. 6.tobacco use And is a daily day smoker smoking counseling was provided more than 15 minutes to start him on nicotine patch daily. 7.abdominal aortic aneurysm Incidental finding of abdominal aortic aneurysm 3.1 cm in size. Patient may need follow-up CT scans every 3 to 6 months. 8.COPD Examination chest bilateral wheezing is present. He was diagnosed with COPD but not on inhalers. To start him on Xopenex nebulizations while he was in the hospital. 9.hypokalemia admission serum potassium is 3.5 to supplement potassium with 40 mg of IV potassium. 11/21/2018-patient's serum potassium is 3.3 today to give 40 mg of IV potassium today. - Time Time Spent with patient: 15-24 minutes Smoking Cessation Education: 3 to 10 minutes Medications reviewed and adjusted accordingly: Yes Anticipated discharge: Home
[2018-11-21] MEDS ORDERED: CYCLOBENZAPRINE HCL 10 MG TABLET PO PRN (08:49)
[2018-11-21] MEDS ORDERED: (PENDING PHARMACY ID) (Warfarin Sodium 4 MG) PO SCH (09:00)
[2018-11-21] MEDS ORDERED: DILTIAZEM HCL INJ 25 MG/5 ML VIAL ONE (09:20)
[2018-11-21] MEDS ORDERED: DILTIAZEM HCL INJ 25 MG/5 ML VIAL IV ONE (09:30)
[2018-11-21] MEDS: METOPROLOL TARTRATE 100 MG TABLET PO SCH ×2 (09:37→21:25)
[2018-11-21] MEDS: TAMSULOSIN HCL 0.4 MG CAP.SR.24H PO SCH (09:37)
[2018-11-21] MEDS: AMLODIPINE BESYLATE 5 MG TABLET PO SCH ×2 (09:37→21:25)
[2018-11-21] MEDS: LISINOPRIL 10 MG TABLET PO SCH (09:38)
[2018-11-21] MEDS: NORMAL SALINE 1000 ML 1,000 ML IV PRN ×2 (09:39→21:31)
[2018-11-21] MEDS: POTASSI CL 20 MEQ/50 ML RIDER 20 MEQ/50 ML RTUPB IV SCH ×2 (09:44→11:24)
[2018-11-21] MEDS ORDERED: (PENDING PHARMACY ID) (Lisinopril [Prinivil] 20 MG) PO SCH (10:00)
[2018-11-21] MEDS ORDERED: DILTIAZEM HCL/D5W 125 MG/125 ML RTUINJ IV PRN (10:10)
[2018-11-21] MEDS: CIPROFLOXACIN 400 MG/D5W RTU 400 MG/200 ML RTUPB IV SCH ×2 (11:53→21:25)
--- NOTE | 2018-11-21 13:02 | EKG REPORT ---
SEVERITY:- ABNORMAL ECG - ATRIAL FIBRILLATION, V-RATE 90-158 LAD, CONSIDER LAFB OR INFERIOR INFARCT PROBABLE LVH WITH SECONDARY REPOL ABNRM : Confirmed by: Yaw Garcia MD 21-Nov-2018 13:01:45
[2018-11-21 13:37] LABS: APPEARANCE,URINE CLEAR; BILIRUBIN,URINE NEGATIVE (NEGATIVE); COLOR,URINE YELLOW; GLUCOSE, URINE NEGATIVE (NEGATIVE); KETONES,URINE 20 mg/dL (NEGATIVE); LEUKOCYTE ESTERASE,URINE NEGATIVE (NEGATIVE); NITRITE,URINE NEGATIVE (NEGATIVE); PROTEIN,URINE 100 mg/dL (NEGATIVE); URINE SPECIFIC GRAVITY 1.017; UROBILINOGEN,URINE NEGATIVE mg/dL (<2.0)
[2018-11-21] MEDS: ONDANSETRON HCL INJ/PF 4 MG/2 ML SDV IV PRN (17:50)
[2018-11-21] MEDS: WARFARIN SODIUM 3 MG TABLET PO SCH (21:26)
--- NOTE | 2018-11-21 22:32 | PDOC CONSULTATION ---
Consultation-Blank Consultation: CARDIOLOGY CONSULTATION by Dr. Kelsy Tuttle on 11/21/2018. Patient seen at 1700 on 11/21/2018. REASON FOR CONSULTATION: Atrial fibrillation with fast ventricular response. CONSULT REQUESTING PHYSICIAN: Dr. Booth, hospitalist physician, [facility], [place] [facility] HISTORY PRESENT ILLNESS: Patient with a history of hypertension, chronic atrial fibrillation on Coumadin, history of coronary artery disease history of old MO and history of coronary bypass graft surgery admitted with lower abdominal pain on both sides of the abdomen with loose stools. The patient has been diagnosed as having diverticulitis and is being untreated with medications. He is n.p.o. except for medications. This morning his heart rate went up to 140 bpm since the patient was in pain. I had asked the hospitalist to try to start the patient on IV Cardizem drip since in view of the diverticulitis the p.o. intake may not be absorbed very well. But even though the hospitalist physician wrote for the order the patient just got a bolus of Cardizem. His heart rate now is much improved and is 102 without the IV Cardizem drip being. Started. The patient denies any chest pain or discomfort. There is no PND orthopnea or leg edema. He states with the current treatment since admission he feels that the left lower quadrant pain is much improved, but still has significant pain in the right lower quadrant. There is no bleeding on Coumadin. There is no TIA CVA symptoms. He has no PND orthopnea. He does feel palpitations but there is no dizziness or near syncope or syncope. Also the patient states he was seen since 2weeks chronic cough productive of mucoid sputum. Most likely this is a smoker's cough. There is no wheezing. There is no hemoptysis. Past Medical History Cardiac Medical History: Reports: Atrial Fibrillation, Coronary Artery Disease, Myocardial Infarction, Hypertension Pulmonary Medical History: Reports: Chronic Obstructive Pulmonary Disease (COPD), Pneumonia GI Medical History: Reports: Gastroesophageal Reflux Disease Musculoskeltal Medical History: Reports: Arthritis. ENDOCRINE: There is no history of thyroid disease. The patient's blood sugar is elevated and there is infection or stress. Past Surgical History Past Surgical History: Reports: Coronary Artery Bypass Graft, Orthopedic Surgery, Tonsillectomy, Vascular Surgery, Other - Incision and drainage of lower extremity abscess with debridement. And cholecystectomy. Social History Information Source: Patient Smoking Status: Current Every Day Smoker Frequency of Alcohol Use: None Hx Recreational Drug Use: No Hx Prescription Drug Abuse: No - Advance Directive Resuscitation Status: Full Code Surrogate healthcare decision maker:: Patient's is the surrogate decision- maker Family History Family History: Reviewed & Not Pertinent, CAD, DM, Hypertension Parental Family History Reviewed: Yes Children Family History Reviewed: Yes Sibling(s) Family History Reviewed.: Yes Medication/Allergy Home Medications: Amlodipine Besylate [Norvasc 5 mg Tablet] 5 mg PO Q12 09/23/17 Aspirin [Aspirin EC] 81 mg PO DAILY 09/23/17 Metoprolol Tartrate [Lopressor 50 mg Tablet] 100 mg PO Q12 09/23/17 Oxycodone HCl [Oxy-Ir 5 mg Tablet] 15 mg PO Q4HP PRN 09/23/17 Tamsulosin HCl [Flomax 0.4 mg Cap.sr] 0.4 mg PO DAILY 09/23/17 Warfarin Sodium [Coumadin 4 mg Tablet] 4 mg PO Q2D@1000 09/23/17 Warfarin Sodium [Coumadin 5 mg Tablet] 5 mg PO Q2D@2200 09/23/17 Allergies/Adverse Reactions: Sulfa (Sulfonamide Antibiotics) Review of Systems Constitutional: No fever or chills reported Head : No recent chronic headaches, recent head injury. Eyes: No recent eye pain, diplopia, redness, discharge, acute visual changes. Ears: No recent chronic ear pain, acute hearing loss, ear discharge. Oral cavity: No recent ulcerations, bleeding, oral cavity discomfort. Neck: No recent acute neck pain reported. Hematologic: No recent easy bruising or bleeding. Lymphatic: No recent lymph node enlargement reported. Cardiovascular system review: See history of present illness. Respiratory system review: No hemoptysis or blood clots in the lungs reported. Mild Shortness of breath on exertion Gastrointestinal system review: Negative for any recent acute hematemesis, melena. Recent lower abdominal pain with diarrhea and being treated for acute diverticulitis. Genitourinary system review: No recent acute or chronic hematuria, flank pain, UTI etc. reported. Skin system review: Negative for any recent abnormal bruising, no rash, no pruritus reported. Describes foot ulcer from diabetes. Neurologic: No prior history of strokes, mini strokes, seizure disorder. Psychologic: No history of major psychosis or major depression reported. Musculoskeletal: Minor aches and pains reported. No acute joint swelling reported. Endocrine: No recent polyuria, polydipsia, recent heat or cold intolerance. Current Medications Generic Name Dose Route Start Last Admin Trade Name Freq PRN Reason Stop Dose Admin Acetaminophen 650 mg 11/20/18 09:36 11/20/18 21:07 Tylenol 325 Mg Tablet PO 12/20/18 09:35 650 mg Q4HP PRN Administration FEVER >101 Amlodipine Besylate 5 mg 11/21/18 10:00 11/21/18 21:25 Norvasc 5 Mg Tablet PO 12/21/18 09:59 5 mg Q12 JENNIFER Administration Cyclobenzaprine HCl 10 mg 11/21/18 08:49 Flexeril 10 Mg Tablet PO 12/21/18 08:48 Q8HP PRN FOR MUSCLE SPASMS Sodium Chloride 1,000 mls @ 75 mls/hr 11/20/18 09:36 11/21/18 21:31 Nacl 0.9% 1000 Ml Iv Soln IV 12/20/18 09:35 75 mls/hr CONTINUOUS PRN Administration THIS MED IS NOT "PRN" Ciprofloxacin/Dextrose 400 mg in 200 mls @ 200 mls/hr 11/20/18 10:00 11/21/18 21:25 Cipro Rtu 400 Mg/D5w 200 Ml Premix Bag IV 11/27/18 09:59 200 mls/hr Q12 JENNIFER 200 mls/hr Administration Metronidazole 500 mg in 100 mls @ 100 mls/hr 11/20/18 12:00 11/21/18 21:23 Flagyl Rtu 500 Mg/Ns 100ml Premix IV 11/27/18 11:59 Infused Q6 JENNIFER Infusion Diltiazem HCl 125 mg in 125 mls @ 0 mls/hr 11/21/18 10:10 Cardizem Rtu Inj 125 Mg-D5w 125 Ml Premix IV 12/21/18 10:09 CONTINUOUS PRN THIS MED IS NOT "PRN" Protocol Titrate Levalbuterol HCl 0.63 mg 11/20/18 09:36 11/20/18 17:41 Xopenex Neb 0.63 Mg/3 Ml Ampul NEB 12/20/18 09:35 0.63 mg RTQ4HP PRN Administration SHORTNESS OF BREATH Lisinopril 20 mg 11/21/18 10:00 11/21/18 09:38 Prinivil 10 Mg Tablet PO 12/21/18 09:59 20 mg DAILY JENNIFER Administration Metoprolol Tartrate 100 mg 11/21/18 10:00 11/21/18 21:25 Lopressor 100 Mg Tablet PO 12/21/18 09:59 100 mg Q12 JENNIFER Administration Morphine Sulfate 2 mg 11/20/18 09:43 11/21/18 05:00 Morphine 10 Mg/Ml Inj IV 11/27/18 09:42 2 mg Q6HP PRN Administration FOR PAIN Ondansetron HCl 4 mg 11/20/18 09:36 11/21/18 17:50 Zofran Inj/Pf 4 Mg/2 Ml Sdv IV 12/20/18 09:35 4 mg Q8HP PRN Administration FOR NAUSEA/VOMITING Pantoprazole Sodium 40 mg 11/20/18 17:00 11/21/18 17:[address] Tablet PO 12/20/18 16:59 40 mg BID@0600,1700 JENNIFER Administration Tamsulosin HCl 0.4 mg 11/21/18 10:00 11/21/18 09:37 Flomax 0.4 Mg Cap.Sr PO 12/21/18 09:59 0.4 mg DAILY JENNIFER Administration Warfarin Sodium 3 mg 11/20/18 22:00 11/21/18 21:26 Coumadin 3 Mg Tablet PO 12/20/18 21:59 3 mg QHS JENNIFER Administration Warfarin Sodium 4 mg 11/22/18 10:00 Coumadin 4 Mg Tablet PO 12/22/18 09:59 Q2D JENNIFER Discontinued Medications Generic Name Dose Route Start Last Admin Trade Name Freq PRN Reason Stop Dose Admin Albuterol/Ipratropium 3 ml 11/20/18 06:45 11/20/18 06:52 Duoneb 3 Ml Ampul NEB 11/20/18 06:46 3 ml NOW ONE Administration Diltiazem HCl 10 mg 11/21/18 09:30 11/21/18 09:31 Cardizem Inj 25 Mg/5 Ml Vial IV 11/21/18 09:31 10 mg NOW ONE Administration Diltiazem HCl Confirm 11/21/18 09:20 11/21/18 10:03 Cardizem Inj 25 Mg/5 Ml Vial Administered 11/21/18 09:21 Not Given Dose 25 mg .ROUTE .STK-MED ONE Lactated Ringer's 1,000 mls @ 0 mls/hr 11/20/18 06:41 11/20/18 07:59 Lactated Ringers 1000 Ml Iv Soln IV 11/20/18 06:42 Infused BOLUS ONE Infusion Wide Open Metronidazole 500 mg in 100 mls @ 100 mls/hr 11/20/18 08:59 11/20/18 11:49 Flagyl Rtu 500 Mg/Ns 100ml Premix IV 11/20/18 09:58 Infused NOW ONE Infusion Ciprofloxacin/Dextrose 400 mg in 200 mls @ 200 mls/hr 11/20/18 09:07 11/20/18 10:33 Cipro Rtu 400 Mg/D5w 200 Ml Premix Bag IV 11/20/18 10:06 Infused NOW ONE Infusion Potassium Chloride/Water 20 meq in 50 mls @ 25 mls/hr 11/21/18 09:00 11/21/18 21:50 Potassium Chloride Donaldo 20 Meq/50 Ml IV 11/21/18 12:59 Infused Q2H JENNIFER Infusion Morphine Sulfate 4 mg 11/20/18 09:12 11/20/18 09:22 Morphine 10 Mg/Ml Inj IV 11/20/18 09:13 Not Given NOW ONE Nicotine 1 each 11/20/18 09:59 11/20/18 10:38 Nicoderm 21 Mg/24 Hr Transderm Patch TD 11/20/18 10:00 Not Given NOW ONE Ondansetron HCl 8 mg 11/20/18 09:12 11/20/18 09:22 Zofran Inj/Pf 4 Mg/2 Ml Sdv IV 11/20/18 09:13 Not Given NOW ONE Warfarin Sodium 4 mg 11/20/18 22:00 Coumadin 4 Mg Tablet PO 12/20/18 21:59 QHS [facility] PHYSICAL EXAMINATION: The patient is moderately obese. The patient is sitting up in the chair and even though he complains of pain in the right lower quadrant of the abdomen he does not seem to be in any major distress. Selected Entries 11/21/18 11/21/18 19:46 21:12 Temperature 100.0 F Temperature Oral Source Pulse Rate 102 H Respiratory 24 H Rate Blood Pressure 153/75 H Blood Pressure 101 Mean BP Location Right Leg BP Position Supine O2 Sat by Pulse 95 Oximetry Oxygen Delivery Nasal Cannula Method ( includes room air) Oxygen Flow 1 Rate Head, is atraumatic normocephalic EYES: Pupils equal round regular reactive to light accommodation. Extraocular movements are normal. There is no conjunctival pallor. There is no scleral icterus. NOSE: There is no deviated nasal septum. There is no inflammation nasal mucous membrane. MOUTH: Mucous memories of mouth are moist. Tongue is moist. There is no ulcers. There is no bleeding from the gums. THROAT: There is no redness of the oropharynx. There is no exudates. SKIN: There is no skin rashes or skin lesions. There is no petechia or ecchymosis. NECK: There is no JVD. Carotids are equal there is no bruit. There is no lymphadenopathy. There is no goiter. There is no accessory muscles of respiration use. Trachea central. LUNGS: Shows diminished air entry prolonged expiration without any rhonchi rales wheezing. On percussion there is hyperresonance. On palpation there is no chest wall tenderness. HEART: S1-S2 is heard. S1 is of variable intensity. There is no S3 gallop. There is no S4 gallop. There is systolic murmur left sternal border and the apex there is no rub. ABDOMEN: Is obese. There is no hepatospleno megaly. There is mild tenderness without any rebound guarding or rigidity in the lower quadrants of the abdomen right side more than left side.. Bowel sounds are slightly increased. EXTREMITIES: Femorals are diminished. There is no femoral bruits. Leg pulses are well felt. There is no pedal edema. There is no DVT or cellulitis. There is no cyanosis or clubbing. There is no calf tenderness. [employer]: The patient is conscious awake alert oriented x3 with no focal deficits. PSYCHIATRIC: The patient judgment insight are intact his affect is normal. Caps EKG: Atrial fibrillation with fast ventricular response. Nonspecific IVCD. LVH with repolarization changes. Labs- Entire Visit 11/20/18 11/20/18 11/20/18 05:50 05:50 05:50 WBC 22.4 H RBC 6.00 H Hgb 16.7 Hct 49.6 MCV 83 MCH 27.9 MCHC 33.8 RDW 15.1 H Plt Count 211 Lymph % (Auto) Not Reportable Coffey % (Auto) Not Reportable Eos % (Auto) Not Reportable Baso % (Auto) Not Reportable Absolute Neuts (auto) Not Reportable Absolute Lymphs (auto) Not Reportable Absolute Monos (auto) Not Reportable Absolute Eos (auto) Not Reportable Absolute Basos (auto) Not Reportable Total Counted 100 Seg Neutrophils % Not Reportable Seg Neuts % (Manual) 80 H Band Neutrophils % 4 Lymphocytes % (Manual) 6 L Monocytes % (Manual) 10 Eosinophils % (Manual) 0 Basophils % (Manual) 0 Abs Neuts (Manual) 18.8 H Abs Lymphs (Manual) 1.3 Abs Monocytes (Manual) 2.2 H Absolute Eos (Manual) 0.0 Abs Basophils (Manual) 0.0 Platelet Comment ADEQUATE Anisocytosis SLIGHT PT 27.2 H INR 2.47 Sodium 140.3 Potassium 3.5 L Chloride 104 Carbon Dioxide 25 Anion Gap 11 BUN 18 Creatinine 1.00 Est GFR ( Amer) > 60 Est GFR (MDRD) Non-Af > 60 Glucose 149 H Hemoglobin A1c % Calcium 9.2 Magnesium Total Bilirubin 1.5 H Direct Bilirubin 0.2 Neonat Total Bilirubin Not Reportable Neonat Direct Bilirubin Not Reportable Neonat Indirect Bili Not Reportable AST 21 ALT 20 Alkaline Phosphatase 67 Creatine Kinase CK-MB (CK-2) Troponin I NT-Pro-B Natriuret Pep Total Protein 7.6 Albumin 4.0 Triglycerides Cholesterol LDL Cholesterol Direct VLDL Cholesterol HDL Cholesterol Lipase 32.1 TSH Urine Color Urine Appearance Urine pH Ur Specific [place] Urine Protein Urine Glucose (UA) Urine Ketones Urine Blood Urine Nitrite Urine Bilirubin Urine Urobilinogen Ur Leukocyte Esterase Urine WBC (Auto) Urine RBC (Auto) U Hyaline Cast (Auto) Squamous Epi Cells Auto Urine Mucus (Auto) Urine Ascorbic Acid 11/20/18 11/20/18 11/20/18 05:50 05:50 07:00 WBC RBC Hgb Hct MCV MCH MCHC RDW Plt Count Lymph % (Auto) Coffey % (Auto) Eos % (Auto) Baso % (Auto) Absolute Neuts (auto) Absolute Lymphs (auto) Absolute Monos (auto) Absolute Eos (auto) Absolute Basos (auto) Total Counted Seg Neutrophils % Seg Neuts % (Manual) Band Neutrophils % Lymphocytes % (Manual) Monocytes % (Manual) Eosinophils % (Manual) Basophils % (Manual) Abs Neuts (Manual) Abs Lymphs (Manual) Abs Monocytes (Manual) Absolute Eos (Manual) Abs Basophils (Manual) Platelet Comment Anisocytosis PT INR Sodium Potassium Chloride Carbon Dioxide Anion Gap BUN Creatinine Est GFR ( Amer) Est GFR (MDRD) Non-Af Glucose Hemoglobin A1c % Calcium Magnesium Total Bilirubin Direct Bilirubin Neonat Total Bilirubin Neonat Direct Bilirubin Neonat Indirect Bili AST ALT Alkaline Phosphatase Creatine Kinase 53 L CK-MB (CK-2) Troponin I < 0.012 NT-Pro-B Natriuret Pep Total Protein Albumin Triglycerides Cholesterol LDL Cholesterol Direct VLDL Cholesterol HDL Cholesterol Lipase TSH Urine Color YELLOW Urine Appearance CLEAR Urine pH 6.0 Ur Specific [place] 1.015 Urine Protein 100 H Urine Glucose (UA) NEGATIVE Urine Ketones NEGATIVE Urine Blood SMALL H Urine Nitrite NEGATIVE Urine Bilirubin NEGATIVE Urine Urobilinogen NEGATIVE Ur Leukocyte Esterase NEGATIVE Urine WBC (Auto) 3 Urine RBC (Auto) 6 U Hyaline Cast (Auto) 1 Squamous Epi Cells Auto <1 Urine Mucus (Auto) RARE Urine Ascorbic Acid NEGATIVE 11/20/18 11/20/18 11/20/18 10:05 10:05 10:05 WBC 20.7 H RBC 5.95 H Hgb 16.4 Hct 48.7 MCV 82 MCH 27.6 MCHC 33.7 RDW 14.7 H Plt Count 207 Lymph % (Auto) Coffey % (Auto) Eos % (Auto) Baso % (Auto) Absolute Neuts (auto) Absolute Lymphs (auto) Absolute Monos (auto) Absolute Eos (auto) Absolute Basos (auto) Total Counted Seg Neutrophils % Seg Neuts % (Manual) Band Neutrophils % Lymphocytes % (Manual) Monocytes % (Manual) Eosinophils % (Manual) Basophils % (Manual) Abs Neuts (Manual) Abs Lymphs (Manual) Abs Monocytes (Manual) Absolute Eos (Manual) Abs Basophils (Manual) Platelet Comment Anisocytosis PT INR Sodium Potassium Chloride Carbon Dioxide Anion Gap BUN Creatinine Est GFR ( Amer) Est GFR (MDRD) Non-Af Glucose Hemoglobin A1c % Calcium Magnesium Total Bilirubin Direct Bilirubin Neonat Total Bilirubin Neonat Direct Bilirubin Neonat Indirect Bili AST ALT Alkaline Phosphatase Creatine Kinase 48 L CK-MB (CK-2) 0.31 Troponin I NT-Pro-B Natriuret Pep Total Protein Albumin Triglycerides Cholesterol LDL Cholesterol Direct VLDL Cholesterol HDL Cholesterol Lipase TSH Urine Color Urine Appearance Urine pH Ur Specific [place] Urine Protein Urine Glucose (UA) Urine Ketones Urine Blood Urine Nitrite Urine Bilirubin Urine Urobilinogen Ur Leukocyte Esterase Urine WBC (Auto) Urine RBC (Auto) U Hyaline Cast (Auto) Squamous Epi Cells Auto Urine Mucus (Auto) Urine Ascorbic Acid 11/20/18 11/20/18 11/20/18 10:05 15:45 15:45 WBC RBC Hgb Hct MCV MCH MCHC RDW Plt Count Lymph % (Auto) Coffey % (Auto) Eos % (Auto) Baso % (Auto) Absolute Neuts (auto) Absolute Lymphs (auto) Absolute Monos (auto) Absolute Eos (auto) Absolute Basos (auto) Total Counted Seg Neutrophils % Seg Neuts % (Manual) Band Neutrophils % Lymphocytes % (Manual) Monocytes % (Manual) Eosinophils % (Manual) Basophils % (Manual) Abs Neuts (Manual) Abs Lymphs (Manual) Abs Monocytes (Manual) Absolute Eos (Manual) Abs Basophils (Manual) Platelet Comment Anisocytosis PT 26.8 H INR 2.42 Sodium Potassium Chloride Carbon Dioxide Anion Gap BUN Creatinine Est GFR ( Amer) Est GFR (MDRD) Non-Af Glucose Hemoglobin A1c % Calcium Magnesium Total Bilirubin Direct Bilirubin Neonat Total Bilirubin Neonat Direct Bilirubin Neonat Indirect Bili AST ALT Alkaline Phosphatase Creatine Kinase 45 L CK-MB (CK-2) 0.40 Troponin I NT-Pro-B Natriuret Pep Total Protein Albumin Triglycerides Cholesterol LDL Cholesterol Direct VLDL Cholesterol HDL Cholesterol Lipase TSH Urine Color Urine Appearance Urine pH Ur Specific [place] Urine Protein Urine Glucose (UA) Urine Ketones Urine Blood Urine Nitrite Urine Bilirubin Urine Urobilinogen Ur Leukocyte Esterase Urine WBC (Auto) Urine RBC (Auto) U Hyaline Cast (Auto) Squamous Epi Cells Auto Urine Mucus (Auto) Urine Ascorbic Acid 11/20/18 11/20/18 11/21/18 21:35 21:35 06:30 WBC RBC Hgb Hct MCV MCH MCHC RDW Plt Count Lymph % (Auto) Coffey % (Auto) Eos % (Auto) Baso % (Auto) Absolute Neuts (auto) Absolute Lymphs (auto) Absolute Monos (auto) Absolute Eos (auto) Absolute Basos (auto) Total Counted Seg Neutrophils % Seg Neuts % (Manual) Band Neutrophils % Lymphocytes % (Manual) Monocytes % (Manual) Eosinophils % (Manual) Basophils % (Manual) Abs Neuts (Manual) Abs Lymphs (Manual) Abs Monocytes (Manual) Absolute Eos (Manual) Abs Basophils (Manual) Platelet Comment Anisocytosis PT INR Sodium 139.9 Potassium 3.3 L Chloride 104 Carbon Dioxide 23 Anion Gap 13 BUN 17 Creatinine 1.02 Est GFR ( Amer) > 60 Est GFR (MDRD) Non-Af > 60 Glucose 132 H Hemoglobin A1c % Calcium 9.0 Magnesium 1.8 Total Bilirubin 2.1 H Direct Bilirubin 0.7 H Neonat Total Bilirubin Not Reportable Neonat Direct Bilirubin Not Reportable Neonat Indirect Bili Not Reportable AST 17 ALT 16 Alkaline Phosphatase 72 Creatine Kinase 58 CK-MB (CK-2) 0.27 Troponin I NT-Pro-B Natriuret Pep Total Protein 7.3 Albumin 4.0 Triglycerides 156 H Cholesterol 177.05 LDL Cholesterol Direct 112 H VLDL Cholesterol 31.2 H HDL Cholesterol 27 L Lipase TSH Urine Color Urine Appearance Urine pH Ur Specific [place] Urine Protein Urine Glucose (UA) Urine Ketones Urine Blood Urine Nitrite Urine Bilirubin Urine Urobilinogen Ur Leukocyte Esterase Urine WBC (Auto) Urine RBC (Auto) U Hyaline Cast (Auto) Squamous Epi Cells Auto Urine Mucus (Auto) Urine Ascorbic Acid 11/21/18 11/21/18 11/21/18 06:30 06:30 06:30 WBC RBC Hgb Hct MCV MCH MCHC RDW Plt Count Lymph % (Auto) Coffey % (Auto) Eos % (Auto) Baso % (Auto) Absolute Neuts (auto) Absolute Lymphs (auto) Absolute Monos (auto) Absolute Eos (auto) Absolute Basos (auto) Total Counted Seg Neutrophils % Seg Neuts % (Manual) Band Neutrophils % Lymphocytes % (Manual) Monocytes % (Manual) Eosinophils % (Manual) Basophils % (Manual) Abs Neuts (Manual) Abs Lymphs (Manual) Abs Monocytes (Manual) Absolute Eos (Manual) Abs Basophils (Manual) Platelet Comment Anisocytosis PT INR Sodium Potassium Chloride Carbon Dioxide Anion Gap BUN Creatinine Est GFR ( Amer) Est GFR (MDRD) Non-Af Glucose Hemoglobin A1c % 6.5 H Calcium Magnesium Total Bilirubin Direct Bilirubin Neonat Total Bilirubin Neonat Direct Bilirubin Neonat Indirect Bili AST ALT Alkaline Phosphatase Creatine Kinase CK-MB (CK-2) Troponin I NT-Pro-B Natriuret Pep 1390 H Total Protein Albumin Triglycerides Cholesterol LDL Cholesterol Direct VLDL Cholesterol HDL Cholesterol Lipase TSH 2.68 Urine Color Urine Appearance Urine pH Ur Specific [place] Urine Protein Urine Glucose (UA) Urine Ketones Urine Blood Urine Nitrite Urine Bilirubin Urine Urobilinogen Ur Leukocyte Esterase Urine WBC (Auto) Urine RBC (Auto) U Hyaline Cast (Auto) Squamous Epi Cells Auto Urine Mucus (Auto) Urine Ascorbic Acid 11/21/18 10:46 WBC RBC Hgb Hct MCV MCH MCHC RDW Plt Count Lymph % (Auto) Coffey % (Auto) Eos % (Auto) Baso % (Auto) Absolute Neuts (auto) Absolute Lymphs (auto) Absolute Monos (auto) Absolute Eos (auto) Absolute Basos (auto) Total Counted Seg Neutrophils % Seg Neuts % (Manual) Band Neutrophils % Lymphocytes % (Manual) Monocytes % (Manual) Eosinophils % (Manual) Basophils % (Manual) Abs Neuts (Manual) Abs Lymphs (Manual) Abs Monocytes (Manual) Absolute Eos (Manual) Abs Basophils (Manual) Platelet Comment Anisocytosis PT INR Sodium Potassium Chloride Carbon Dioxide Anion Gap BUN Creatinine Est GFR ( Amer) Est GFR (MDRD) Non-Af Glucose Hemoglobin A1c % Calcium Magnesium Total Bilirubin Direct Bilirubin Neonat Total Bilirubin Neonat Direct Bilirubin Neonat Indirect Bili AST ALT Alkaline Phosphatase Creatine Kinase CK-MB (CK-2) Troponin I NT-Pro-B Natriuret Pep Total Protein Albumin Triglycerides Cholesterol LDL Cholesterol Direct VLDL Cholesterol HDL Cholesterol Lipase TSH Urine Color YELLOW Urine Appearance CLEAR Urine pH 5.0 Ur Specific [place] 1.017 Urine Protein 100 H Urine Glucose (UA) NEGATIVE Urine Ketones 20 H Urine Blood MODERATE H Urine Nitrite NEGATIVE Urine Bilirubin NEGATIVE Urine Urobilinogen NEGATIVE Ur Leukocyte Esterase NEGATIVE Urine WBC (Auto) 3 Urine RBC (Auto) 6 U Hyaline Cast (Auto) Squamous Epi Cells Auto Urine Mucus (Auto) RARE Urine Ascorbic Acid NEGATIVE Chest X-Ray 11/20/18 05:31 IMPRESSION: No evidence of acute intrathoracic disease. No significant change when compared to the prior study. KUB X-Ray 11/20/18 05:31 IMPRESSION: Nonspecific nonobstructive bowel gas pattern. There are surgical clips in the right upper quadrant. There are degenerative changes of the skeletal and vascular structures. Abdomen/Pelvis CT 11/20/18 06:40 IMPRESSION: 1. SIGMOID DIVERTICULITIS. NO EVIDENCE OF ABSCESS OR PERFORATION. 2. 3.1 CM ABDOMINAL AORTIC ANEURYSM. 3. TINY NONOBSTRUCTING CALYCEAL CALCULI IN BOTH KIDNEYS. BILATERAL RENAL CORTICAL CYSTS. 4. RIGHT INGUINAL HERNIA CONTAINING FAT. NO INVOLVEMENT OF BOWEL. 5. FATTY INFILTRATION OF THE LIVER. 6. NO OTHER SIGNIFICANT OR ACUTE FINDING IN THE ABDOMEN OR PELVIS ON CT SCAN WITH IV CONTRAST. Chest CT 11/20/18 06:40 IMPRESSION: SCATTERED ATELECTASIS IN THE LUNG BASES. RIGHT LOWER LOBE LUNG NODULE UNCHANGED. NO APPARENT ACUTE FINDINGS. 11/20/18 11/20/18 05:50 10:05 PT 27.2 H 26.8 H INR 2.47 2.42 IMPRESSION/RECOMMENDATION: 1.Atrial fibrillation with rapid ventricular response. Most likely this is in a patient with chronic atrial fibrillation due to his current infection and stress caused by the infection. Note that the patient's heart rate is much improved. Continue his beta-blockers. If the heart rate should go above 100 then would recommend starting the patient on IV Cardizem. Continue Coumadin. In view of the possible need for surgery would recommend that the patient be switched over to Lovenox as a bridge, with the Coumadin being held. Will discuss with the surgical list and the hospitalist but for now continue Coumadin. The patient's INR is therapeutic. 2. Acute diverticulitis: Continue antibiotics. The patient is n.p.o. except for medication continue IV fluids. Would be cautious since the patient has atrial fibrillation and has a low normal ejection fraction by prior echo. Strongly recommend surgical consult. 3. Coronary artery disease: History of [place] and history of coronary bypass graft surgery. No evidence of acute coronary syndrome. Patient has no anginal symptoms. And his troponins are negative. 4. Hypertension: Blood pressure well controlled. 5. Possible COPD: Asymptomatic. No evidence of acute exacerbation 6. History of diet-controlled diabetes mellitus. 7. Cough.? Cause. 8. Tobacco abuse disorder. Medications reviewed. Management plan and medication regimen discussed with the hospitalist physician Dr. Booth. Medical decision making is of moderate complexity. 60 minutes spent on this patient with more than 50% of time spent in direct patient care. Will follow.
[2018-11-22] MEDS: METRONIDAZOLE 500 MG/NS RTU 500 MG/100 ML RTUPB IV SCH ×3 (06:22→17:17)
[2018-11-22] MEDS: PANTOPRAZOLE SODIUM 40 MG TABLET.DR PO SCH ×2 (06:22→17:17)
[2018-11-22 07:32] LABS: ABSOLUTE BASOPHILS # (AUTO) 0.1 10^3/uL (0.0-0.2); ABSOLUTE EOSINOPHILS # (AUTO) 0.1 10^3/uL (0.0-0.6); ABSOLUTE LYMPHOCYTES (AUTO) 1.4 10^3/uL (0.5-4.7); ABSOLUTE NEUT (AUTO) 14.3 10^3/uL (1.7-8.2); BASOPHILS % (AUTO) 0.5 % (0-2); EOSINOPHILS % (AUTO) 0.7 % (0-6); HEMATOCRIT 47.8 % (37.9-51.0); HEMOGLOBIN 16.1 g/dL (13.5-17.0); LYMPHOCYTES % (AUTO) 8.5 % (13-45); MEAN CORPUSCULAR HEMOGLOBIN 27.9 pg (27.0-33.4); MEAN CORPUSCULAR HGB CONC 33.7 g/dL (32.0-36.0); MEAN CORPUSCULAR VOLUME 83 fl (80-97); PLATELET COUNT 205 10^3/uL (150-450); RED BLOOD COUNT 5.78 10^6/uL (4.35-5.55); RED CELL DISTRIBUTION WIDTH 15.3 % (11.5-14.0); SEGMENTED NEUTROPHILS % (AUTO) 84.3 % (42-78); TOTAL CELLS COUNTED % (AUTO) 100 %; WHITE BLOOD COUNT 16.9 10^3/uL (4.0-10.5)
[2018-11-22 07:36] LABS: INTERNATIONAL RATION (INR) 2.82; PROTHROMBIN TIME 30.2 SEC (11.4-15.4)
[2018-11-22 07:54] LABS: ALBUMIN 3.7 g/dL (3.5-5.0); ALKALINE PHOSPHATASE 68 U/L (38-126); ANION GAP 9 (5-19); ASPARTATE AMINO TRANSFERASE 18 U/L (17-59); BILIRUBIN,DIRECT 0.3 mg/dL (0.0-0.4); BILIRUBIN,TOTAL 1.2 mg/dL (0.2-1.3); BLOOD UREA NITROGEN 19 mg/dL (7-20); CALCIUM 8.9 mg/dL (8.4-10.2); CARBON DIOXIDE 24 mmol/L (22-30); CHLORIDE 107 mmol/L (98-107); GLUCOSE 120 mg/dL (75-110); POTASSIUM 3.5 mmol/L (3.6-5.0); TOTAL PROTEIN 7.7 g/dL (6.3-8.2)
--- NOTE | 2018-11-22 08:29 | PDOC CONSULTATION ---
Consultation Consult Date: 11/22/18 Provider Consulted: JEFF CROWE Consult reason:: Hematology/Oncology consultation was requested for patient with elevated WBC count. History of Present Illness Admission Date/PCP: 11/20/18 09:51 NYASIA NAJERA MD History of Present Illness: DAVID MERAZ is a 73 year old male who is on chronic coumadin for A-fib. He presented to the ED with a 3 day history of abdominal pain, diarrhea, and chills. He was found to have elevated WBC count, but no fever. Further studies showed diverticulitis. He was started on fluids and Antibiotics. Today, he sta [place] that the pain is much improved. He has not felt like eating anything but is taking sips of liquids. He continues to have diarrhea, but no nausea. He has had a colonoscopy may years ago with Dr. Alfred. Past Medical History Cardiac Medical History: Reports: Atrial Fibrillation, Coronary Artery Disease, Myocardial Infarction, Hypertension Pulmonary Medical History: Reports: Chronic Obstructive Pulmonary Disease (COPD), Pneumonia GI Medical History: Reports: Gastroesophageal Reflux Disease Musculoskeltal Medical History: Reports: Arthritis Past Surgical History Past Surgical History: Reports: Appendectomy, Coronary Artery Bypass Graft, Orthopedic Surgery, Tonsillectomy, Vascular Surgery, Other - Incision and drainage of RLE abscess with debridement. Left great toe amp. 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 . 3 kids, 2 grandchildren. Lives with grandchildren. Lives with: Family Smoking Status: Current Every Day Smoker Cigarettes Packs Per Day: 1 Electronic Cigarette use?: No Number of Years Smokin Frequency of Alcohol Use: None Hx Recreational Drug Use: No Hx Prescription Drug Abuse: No - Advance Directive Resuscitation Status: Full Code Family History Family History: Reviewed & Not Pertinent, CAD, DM, Hypertension Parental Family History Reviewed: Yes - Grandfather with ulcers. Children Family History Reviewed: No Sibling(s) Family History Reviewed.: Yes - No cancers. Medication/Allergy Home Medications: Amlodipine Besylate [Norvasc 5 mg Tablet] 5 mg PO Q12 11/20/18 Cyclobenzaprine HCl [Flexeril 10 mg Tablet] 10 mg PO Q8HP PRN 11/20/18 Lisinopril [Prinivil] 20 mg PO DAILY 11/20/18 Metoprolol Tartrate [Lopressor 100 mg Tablet] 100 mg PO Q12 11/20/18 Tamsulosin HCl [Flomax 0.4 mg Cap.sr] 0.4 mg PO DAILY 11/20/18 Warfarin Sodium [Coumadin 3 mg Tablet] 3 mg PO Q2D 11/20/18 Warfarin Sodium [Coumadin 4 mg Tablet] 4 mg PO Q2D 11/20/18 Allergies/Adverse Reactions: Sulfa (Sulfonamide Antibiotics) Allergy (Verified 08/14/18 14:59) Review of Systems Constitutional: PRESENT: chills. ABSENT: fever(s) Eyes: ABSENT: visual disturbances Ears: ABSENT: hearing changes Nose, Mouth, and Throat: ABSENT: sore throat Cardiovascular: ABSENT: chest pain Respiratory: ABSENT: dyspnea Gastrointestinal: PRESENT: abdominal pain, diarrhea Genitourinary: ABSENT: dysuria Musculoskeletal: ABSENT: back pain Integumentary: ABSENT: rash Neurological: ABSENT: syncope Hematologic/Lymphatic: ABSENT: easy bleeding Physical Exam Vital Signs: Temp Pulse Resp BP Pulse Ox 98.7 F 91 16 136/62 H 95 11/22/18 04:00 11/22/18 07:00 11/22/18 04:00 11/22/18 04:00 11/22/18 04:00 Intake & Output 11/21/18 11/22/18 11/23/18 06:59 06:59 06:59 Intake Total 2700 1882 Output Total 350 650 Balance 2350 1232 Weight 110.6 kg 110.6 kg General appearance: PRESENT: well-developed Exam: Overweight, 73 year old male. Head exam: PRESENT: atraumatic, normocephalic Eye exam: PRESENT: EOMI Mouth exam: PRESENT: moist, tongue midline Respiratory exam: PRESENT: prolonged expiratory phas, unlabored, other - Upper airway noise on expiration only. Cardiovascular exam: PRESENT: RRR. ABSENT: systolic murmur GI/Abdominal exam: PRESENT: soft, tenderness Extremities exam: ABSENT: pedal edema Musculoskeletal exam: PRESENT: normal inspection Neurological exam: PRESENT: alert, awake, other - Hard of hearing. Psychiatric exam: PRESENT: appropriate affect Skin exam: PRESENT: normal color Results Laboratory Results: 11/22/18 06:49 11/22/18 06:49 11/21/18 11/21/18 11/22/18 06:30 10:46 06:49 WBC RBC Hgb Hct MCV MCH MCHC RDW Plt Count Seg Neutrophils % Sodium 139.9 Potassium 3.5 L Chloride 107 Carbon Dioxide 24 Anion Gap 9 BUN 19 Creatinine 0.96 Est GFR ( Amer) > 60 Glucose 120 H Calcium 8.9 Magnesium 1.9 Total Bilirubin 1.2 AST 18 Alkaline Phosphatase 68 Total Protein 7.7 Albumin 3.7 TSH 2.68 Urine Color YELLOW Urine Appearance CLEAR Urine pH 5.0 Ur Specific [place] 1.017 Urine Protein 100 H Urine Glucose (UA) NEGATIVE Urine Ketones 20 H Urine Blood MODERATE H Urine Nitrite NEGATIVE Ur Leukocyte Esterase NEGATIVE Urine WBC (Auto) 3 Urine RBC (Auto) 6 11/22/18 06:49 WBC 16.9 H RBC 5.78 H Hgb 16.1 Hct 47.8 MCV 83 MCH 27.9 MCHC 33.7 RDW 15.3 H Plt Count 205 Seg Neutrophils % 84.3 H Sodium Potassium Chloride Carbon Dioxide Anion Gap BUN Creatinine Est GFR ( Amer) Glucose Calcium Magnesium Total Bilirubin AST Alkaline Phosphatase Total Protein Albumin TSH Urine Color Urine Appearance Urine pH Ur Specific [place] Urine Protein Urine Glucose (UA) Urine Ketones Urine Blood Urine Nitrite Ur Leukocyte Esterase Urine WBC (Auto) Urine RBC (Auto) 11/20/18 11/20/18 11/20/18 05:50 05:50 10:05 Creatine Kinase 53 L 48 L CK-MB (CK-2) Troponin I < 0.012 NT-Pro-B Natriuret Pep 11/20/18 11/20/18 11/20/18 10:05 15:45 15:45 Creatine Kinase 45 L CK-MB (CK-2) 0.31 0.40 Troponin I NT-Pro-B Natriuret Pep 11/20/18 11/20/18 11/21/18 21:35 21:35 06:30 Creatine Kinase 58 CK-MB (CK-2) 0.27 Troponin I NT-Pro-B Natriuret Pep 1390 H Impressions: Chest X-Ray 11/20/18 05:31 IMPRESSION: No evidence of acute intrathoracic disease. No significant change when compared to the prior study. KUB X-Ray 11/20/18 05:31 IMPRESSION: Nonspecific nonobstructive bowel gas pattern. There are surgical clips in the right upper quadrant. There are degenerative changes of the skeletal and vascular structures. Abdomen/Pelvis CT 11/20/18 06:40 IMPRESSION: 1. SIGMOID DIVERTICULITIS. NO EVIDENCE OF ABSCESS OR PERFORATION. 2. 3.1 CM ABDOMINAL AORTIC ANEURYSM. 3. TINY NONOBSTRUCTING CALYCEAL CALCULI IN BOTH KIDNEYS. BILATERAL RENAL CORTICAL CYSTS. 4. RIGHT INGUINAL HERNIA CONTAINING FAT. NO INVOLVEMENT OF BOWEL. 5. FATTY INFILTRATION OF THE LIVER. 6. NO OTHER SIGNIFICANT OR ACUTE FINDING IN THE ABDOMEN OR PELVIS ON CT SCAN WITH IV CONTRAST. Chest CT 11/20/18 06:40 IMPRESSION: SCATTERED ATELECTASIS IN THE LUNG BASES. RIGHT LOWER LOBE LUNG NODULE UNCHANGED. NO APPARENT ACUTE FINDINGS. Status: Image reviewed by me Assessment & Plan - Diagnosis (1) A-fib Qualifiers: Atrial fibrillation type: unspecified chronic Qualified Code(s): I48.20 - C hronic atrial fibrillation, unspecified; I48.2 - Chronic atrial fibrillation Is this a current diagnosis for this admission?: No Plan: Continues warfarin for this. INR has remained therapeutic 2-3. I agree with Dr. Weber that if colonoscopy or other procedures is planned, he will need to be transitioned to Lovenox. Not sure if he is a candidate for a newer agent, but I see no contraindication to this, is OK with cardiology. His EGFR is >60. Will defer to cardiology. (2) Diverticulitis of sigmoid colon Is this a current diagnosis for this admission?: Yes Plan: He should have a colonoscopy at some point in the new few weeks, as outpatient after diverticulitis has cleared. (3) Leukocytosis Qualifiers: Leukocytosis type: bandemia Qualified Code(s): D72.825 - Bandemia Is this a current diagnosis for this admission?: Yes Plan: Most likely due to the acute infection. It has been coming down, as expected, with treatment. I am happy to see him again as outpatient to follow-up. He also has history of ITP, but PLT count has been normal. - Plan Summary Plan Summary: Thank you for this consultation. I will be happy to see him again as outpatient if needed. Please call with any questions or concerns. His Chest CT showed stable lung nodules, most likely scar tissue. He should have annual CT screening due to his smoking history. I will defer to primary physician on discharge.
[2018-11-22] MEDS: METOPROLOL TARTRATE 100 MG TABLET PO SCH ×2 (09:53→22:44)
[2018-11-22] MEDS: AMLODIPINE BESYLATE 5 MG TABLET PO SCH ×2 (09:53→22:44)
[2018-11-22] MEDS: LISINOPRIL 10 MG TABLET PO SCH (09:53)
[2018-11-22] MEDS: TAMSULOSIN HCL 0.4 MG CAP.SR.24H PO SCH (09:53)
[2018-11-22] MEDS: CIPROFLOXACIN 400 MG/D5W RTU 400 MG/200 ML RTUPB IV SCH ×2 (09:54→22:45)
[2018-11-22] MEDS ORDERED: WARFARIN SODIUM 4 MG TABLET PO SCH (10:00)
--- NOTE | 2018-11-22 13:28 | PDOC CONSULTATION ---
Consultation Consult Date: 11/22/18 Provider Consulted: ZACHARIAH CLAYTON Consult reason:: Acute sigmoid nonperforated diverticulitis History of Present Illness Admission Date/PCP: 11/20/18 09:51 NYASIA NAJERA MD Patient complains of: Bilateral lower abdominal pain History of Present Illness: DAVID MERAZ is a 73 year old male, obese, smoker, status post CABG, atrial fibrillation on Coumadin, status post AL, COPD with a history of abdominal pain and loose stools 24 hours prior to admission on November 20, 2017. In the ED, the patient underwent blood work which demonstrated leukocytosis (22.6k) and had a CT scan abdomen pelvis significant for acute nonperforated sigmoid diverticulitis. The patient has been kept on IV antibiotics since admission (Cipro and Flagyl) with improvement of his white blood cell count down to 16.9 today and much decreased abdominal pain, now localized to the lower bilateral abdomen. He denies nausea, vomiting, fever, or chills. He reports daily stools ranging from liquid to semi-formed, no blood noted, he occasionally passes flatus. He has been kept on ice chips well-tolerated. Finally, the patient reports to have undergone a normal colonoscopy about 20 years ago. Past Medical History Cardiac Medical History: Reports: Atrial Fibrillation, Coronary Artery Disease, Myocardial Infarction, Hypertension Pulmonary Medical History: Reports: Chronic Obstructive Pulmonary Disease (COPD), Pneumonia GI Medical History: Reports: Gastroesophageal Reflux Disease Musculoskeltal Medical History: Reports: Arthritis Past Surgical History Past Surgical History: Reports: Appendectomy, Coronary Artery Bypass Graft, Orthopedic Surgery, Tonsillectomy, Vascular Surgery, Other - Incision and drainage of RLE abscess with debridement. Left great toe amp. Social History Lives with: Family Smoking Status: Current Every Day Smoker Cigarettes Packs Per Day: 1 Electronic Cigarette use?: No Number of Years Smokin Frequency of Alcohol Use: None Hx Recreational Drug Use: No Hx Prescription Drug Abuse: No - Advance Directive Resuscitation Status: Full Code Family History Family History: Reviewed & Not Pertinent, CAD, DM, Hypertension Parental Family History Reviewed: No Children Family History Reviewed: No Sibling(s) Family History Reviewed.: No Medication/Allergy Home Medications: Amlodipine Besylate [Norvasc 5 mg Tablet] 5 mg PO Q12 11/20/18 Cyclobenzaprine HCl [Flexeril 10 mg Tablet] 10 mg PO Q8HP PRN 11/20/18 Lisinopril [Prinivil] 20 mg PO DAILY 11/20/18 Metoprolol Tartrate [Lopressor 100 mg Tablet] 100 mg PO Q12 11/20/18 Tamsulosin HCl [Flomax 0.4 mg Cap.sr] 0.4 mg PO DAILY 11/20/18 Warfarin Sodium [Coumadin 3 mg Tablet] 3 mg PO Q2D 11/20/18 Warfarin Sodium [Coumadin 4 mg Tablet] 4 mg PO Q2D 11/20/18 Allergies/Adverse Reactions: Sulfa (Sulfonamide Antibiotics) Allergy (Verified 08/14/18 14:59) Physical Exam Vital Signs: Temp Pulse Resp BP Pulse Ox 98.7 F 92 18 147/88 H 95 11/22/18 12:19 11/22/18 12:19 11/22/18 12:19 11/22/18 12:19 11/22/18 12:19 Intake & Output 11/21/18 11/22/18 11/23/18 06:59 06:59 06:59 Intake Total 2700 1882 300 Output Total 350 650 Balance 2350 1232 300 Weight 110.6 kg 110.6 kg General appearance: PRESENT: no acute distress Head exam: PRESENT: atraumatic, normocephalic Eye exam: PRESENT: EOMI, PERRLA Mouth exam: PRESENT: moist, neck supple Neck exam: PRESENT: full ROM Respiratory exam: PRESENT: chest wall tenderness Cardiovascular exam: PRESENT: irregular rhythm GI/Abdominal exam: PRESENT: other - Obese, bilateral lower quadrants tenderness Rectal exam: PRESENT: deferred Gentrourinary exam: PRESENT: other - Deferred Extremities exam: PRESENT: full ROM Musculoskeletal exam: PRESENT: full ROM Neurological exam: PRESENT: alert, oriented to person, oriented to place Psychiatric exam: PRESENT: appropriate affect Skin exam: PRESENT: warm Results Laboratory Results: 11/22/18 06:49 11/22/18 06:49 11/21/18 11/22/18 11/22/18 10:46 06:49 06:49 WBC 16.9 H RBC 5.78 H Hgb 16.1 Hct 47.8 MCV 83 MCH 27.9 MCHC 33.7 RDW 15.3 H Plt Count 205 Seg Neutrophils % 84.3 H Sodium 139.9 Potassium 3.5 L Chloride 107 Carbon Dioxide 24 Anion Gap 9 BUN 19 Creatinine 0.96 Est GFR ( Amer) > 60 Glucose 120 H Calcium 8.9 Magnesium 1.9 Total Bilirubin 1.2 AST 18 Alkaline Phosphatase 68 Total Protein 7.7 Albumin 3.7 Urine Color YELLOW Urine Appearance CLEAR Urine pH 5.0 Ur Specific [place] 1.017 Urine Protein 100 H Urine Glucose (UA) NEGATIVE Urine Ketones 20 H Urine Blood MODERATE H Urine Nitrite NEGATIVE Ur Leukocyte Esterase NEGATIVE Urine WBC (Auto) 3 Urine RBC (Auto) 6 11/20/18 11/20/18 11/20/18 05:50 05:50 10:05 Creatine Kinase 53 L 48 L CK-MB (CK-2) Troponin I < 0.012 NT-Pro-B Natriuret Pep 11/20/18 11/20/18 11/20/18 10:05 15:45 15:45 Creatine Kinase 45 L CK-MB (CK-2) 0.31 0.40 Troponin I NT-Pro-B Natriuret Pep 11/20/18 11/20/18 11/21/18 21:35 21:35 06:30 Creatine Kinase 58 CK-MB (CK-2) 0.27 Troponin I NT-Pro-B Natriuret Pep 1390 H Impressions: Chest X-Ray 11/20/18 05:31 IMPRESSION: No evidence of acute intrathoracic disease. No significant change when compared to the prior study. KUB X-Ray 11/20/18 05:31 IMPRESSION: Nonspecific nonobstructive bowel gas pattern. There are surgical clips in the right upper quadrant. There are degenerative changes of the skeletal and vascular structures. Abdomen/Pelvis CT 11/20/18 06:40 IMPRESSION: 1. SIGMOID DIVERTICULITIS. NO EVIDENCE OF ABSCESS OR PERFORATION. 2. 3.1 CM ABDOMINAL AORTIC ANEURYSM. 3. TINY NONOBSTRUCTING CALYCEAL CALCULI IN BOTH KIDNEYS. BILATERAL RENAL CORTICAL CYSTS. 4. RIGHT INGUINAL HERNIA CONTAINING FAT. NO INVOLVEMENT OF BOWEL. 5. FATTY INFILTRATION OF THE LIVER. 6. NO OTHER SIGNIFICANT OR ACUTE FINDING IN THE ABDOMEN OR PELVIS ON CT SCAN WITH IV CONTRAST. Chest CT 11/20/18 06:40 IMPRESSION: SCATTERED ATELECTASIS IN THE LUNG BASES. RIGHT LOWER LOBE LUNG NODULE UNCHANGED. NO APPARENT ACUTE FINDINGS. Assessment & Plan - Diagnosis (1) Diverticulitis of sigmoid colon Is this a current diagnosis for this admission?: Yes - Plan Summary Plan Summary: Assessment: Bilateral lower abdominal pain Leukocytosis which has decreased from 22.6 on admission to 16.[address] scan abdomen pelvis done on November 20 significant for nonperforated acute sigmoid diverticulitis Bowel function present with stools and flatus Ice chips tolerated last colonoscopy 20 years ago, negative Plan: Advance diet to clear liquids We will follow the patient tomorrow, if the patient continues to improve and his white blood cell count decreases further, we will increase his diet to low residue diet Possible discharge in 2 days or so, or as soon as the patient is able to tolerate low residue diet and his WBC is almost approaching normal values. Recommendations: The patient will need to be sent home on oral antibiotics for 2 weeks (Cipro/Flagyl will be an appropriate combination) Low fiber diet for 3 weeks after discharge, then slowly reintroduce vegetable fibers as tolerated Colonoscopy in 4 to 6 months to rule out a colonic malignancy
[2018-11-22] MEDS: NORMAL SALINE 1000 ML 1,000 ML IV PRN (17:18)
--- NOTE | 2018-11-22 17:58 | PDOC PROGRESS REPORT ---
Subjective Progress Note for:: 11/22/18 Subjective:: 73-year-old male past medical history of A. fib RVR, CAD, hypertension, presented to ED complaining of left lower abdominal pain with significant leukocytosis. CT abdomen positive for sigmoid diverticulitis. 11/22/2018. No acute events overnight, abdominal pain improving, patient is passing flatus has not had a bowel movement, afebrile, denies any fever, chills, nausea, vomiting. Patient has been n.p.o. since Wednesday, surgery consulted, recommendation is nonsurgical management, recommendation is to start on clear liquid advance as tolerated Reason For Visit: SIGMOID DIVERTICULITIS Physical Exam Vital Signs: Temp Pulse Resp BP Pulse Ox 98.9 F 81 16 141/78 H 95 11/22/18 16:15 11/22/18 16:15 11/22/18 16:15 11/22/18 16:15 11/22/18 16:15 Intake & Output 11/21/18 11/22/18 11/23/18 06:59 06:59 06:59 Intake Total 2700 1882 1400 Output Total 350 650 Balance 2350 1232 1400 Weight 110.6 kg 110.6 kg Results Laboratory Results: 11/22/18 06:49 11/22/18 06:49 11/22/18 11/22/18 06:49 06:49 WBC 16.9 H RBC 5.78 H Hgb 16.1 Hct 47.8 MCV 83 MCH 27.9 MCHC 33.7 RDW 15.3 H Plt Count 205 Seg Neutrophils % 84.3 H Sodium 139.9 Potassium 3.5 L Chloride 107 Carbon Dioxide 24 Anion Gap 9 BUN 19 Creatinine 0.96 Est GFR ( Amer) > 60 Glucose 120 H Calcium 8.9 Magnesium 1.9 Total Bilirubin 1.2 AST 18 Alkaline Phosphatase 68 Total Protein 7.7 Albumin 3.7 11/20/18 11/20/18 11/20/18 05:50 05:50 10:05 Creatine Kinase 53 L 48 L CK-MB (CK-2) Troponin I < 0.012 NT-Pro-B Natriuret Pep 11/20/18 11/20/18 11/20/18 10:05 15:45 15:45 Creatine Kinase 45 L CK-MB (CK-2) 0.31 0.40 Troponin I NT-Pro-B Natriuret Pep 11/20/18 11/20/18 11/21/18 21:35 21:35 06:30 Creatine Kinase 58 CK-MB (CK-2) 0.27 Troponin I NT-Pro-B Natriuret Pep 1390 H Impressions: Chest X-Ray 11/20/18 05:31 IMPRESSION: No evidence of acute intrathoracic disease. No significant change when compared to the prior study. KUB X-Ray 11/20/18 05:31 IMPRESSION: Nonspecific nonobstructive bowel gas pattern. There are surgical clips in the right upper quadrant. There are degenerative changes of the skeletal and vascular structures. Abdomen/Pelvis CT 11/20/18 06:40 IMPRESSION: 1. SIGMOID DIVERTICULITIS. NO EVIDENCE OF ABSCESS OR PERFORATION. 2. 3.1 CM ABDOMINAL AORTIC ANEURYSM. 3. TINY NONOBSTRUCTING CALYCEAL CALCULI IN BOTH KIDNEYS. BILATERAL RENAL CORTICAL CYSTS. 4. RIGHT INGUINAL HERNIA CONTAINING FAT. NO INVOLVEMENT OF BOWEL. 5. FATTY INFILTRATION OF THE LIVER. 6. NO OTHER SIGNIFICANT OR ACUTE FINDING IN THE ABDOMEN OR PELVIS ON CT SCAN WITH IV CONTRAST. Chest CT 11/20/18 06:40 IMPRESSION: SCATTERED ATELECTASIS IN THE LUNG BASES. RIGHT LOWER LOBE LUNG NODULE UNCHANGED. NO APPARENT ACUTE FINDINGS. Assessment and Plan - Diagnosis (1) Diverticulitis of sigmoid colon Is this a current diagnosis for this admission?: Yes Plan: Sigmoid colon diverticulitis with significant leukocytosis which are both improving. Day 3 IV antibiotics. Day 3 IV ciprofloxacin. Day 3 IV metronidazole. Blood cultures no growth x48 hours. Surgery consulted. Recommendations noted. Was started on clear liquid, tolerating. (2) CAD (coronary artery disease) Qualifiers: Is this a current diagnosis for this admission?: Yes Plan: History of AR and CABG. Denies any anginal symptoms. Troponins negative. Continue LUNA and beta-blockers. (3) HTN (hypertension) Qualifiers: Hypertension type: essential hypertension Qualified Code(s): I10 - Ess ential (primary) hypertension Is this a current diagnosis for this admission?: Yes Plan: Controlled. Continue beta-blockers, LUNA, CCB. Adjust meds as needed. Outpatient PCP follow-up. (4) Leukocytosis Qualifiers: Leukocytosis type: bandemia Qualified Code(s): D72.825 - Bandemia Is this a current diagnosis for this admission?: Yes Plan: Likely due to underlying sigmoid diverticulitis. Improving. Cultures negative. Plan as per #1. (5) A-fib Qualifiers: Atrial fibrillation type: unspecified chronic Qualified Code(s): I48.20 - Chronic atrial fibrillation, unspecified; I48.2 - Chronic atrial fibrillation Is this a current diagnosis for this admission?: Yes Plan: Rate controlled. Anticoagulated. INR therapeutic. Chronic A. fib likely exacerbated due to underlying severe infectious process. Patient is on beta-blockers with good rate control. Plan is to switch to IV Cardizem if uncontrolled on beta-blockers. Continue beta-blockers, continue Coumadin, INR goal 2-2.5. - Plan Summary Summary: 1.sigmoid diverticulitis Patient is going to be admitted to [facility] for sigmoid diverticulitis is going to be on telemetry, started on IV morphine 2 mg every 4 hours for pain. Blood cultures are pending stool cultures will be requested. Started on Cipro IV and Flagyl. GI prophylaxis initiated. Patient is already on Coumadin for A. fib INR is 2.43. It is going to be n.p.o. except for medications and start an IV fluids normal saline at 75 cc/h. [id number]-old male admitted with abdominal pain found to have sigmoid diverticulitis still complaining of severe pain in the lower abdomen. We are going to keep him at least n.p.o. except for medications for another day. presently on IV Flagyl and Cipro. 2.History of chronic atrial fibrillation Patient has history of chronic atrial fibrillation on warfarin 4 mg p.o. daily to restart Coumadin 4 mg nightly. INR is 2.47 on admission. 11/21/2018-patient has history of chronic atrial fibrillation on warfarin 4 mg daily latest INR is 2.42. Within therapeutic range. Pharmacy is managing the warfarin doses. 3.hypertension Patient has history of chronic essential hypertension blood pressure in the emergency room is stable. Pressure is 158/83. Patient is on lisinopril, amlodipine and metoprolol at home plan is to resume the medications. 11/21/2018-patient blood pressure today is 144/93. Relatively controlled. Patie nt is n.p.o. except for medications. To place him on hydralazine 10 mg IV every 6 PRN for systolic blood pressure more than 160. 4.leukocytosis Patient came with a WBC count of more than 20,000 not on steroids at home. Leukocytosis this is most likely secondary to sigmoid diverticulitis. 11/21/2018-patient's WBC count is 20,700 improved from 23,000 yesterday. Most likely secondary to sigmoid colitis. 5.Obesity The BMI is more than 36 diet exercise weight loss lifestyle modifications are discussed with the patient. 6.tobacco use And is a daily day smoker smoking counseling was provided more than 15 minutes to start him on nicotine patch daily. 7.abdominal aortic aneurysm Incidental finding of abdominal aortic aneurysm 3.1 cm in size. Patient may need follow-up CT scans every 3 to 6 months. 8.COPD Examination chest bilateral wheezing is present. He was diagnosed with COPD but not on inhalers. To start him on Xopenex nebulizations while he was in the hospital. 9.hypokalemia admission serum potassium is 3.5 to supplement potassium with 40 mg of IV potassium. 11/21/2018-patient's serum potassium is 3.3 today to give 40 mg of IV potassium today.
[2018-11-22] MEDS: WARFARIN SODIUM 3 MG TABLET PO SCH (22:44)
[2018-11-22] MEDS: KETOROLAC TROMETHAMINE INJ/PF 30 MG/1 ML SDV IV PRN (22:45)
[2018-11-23] MEDS: METRONIDAZOLE 500 MG/NS RTU 500 MG/100 ML RTUPB IV SCH ×4 (00:14→17:09)
[2018-11-23] MEDS: PANTOPRAZOLE SODIUM 40 MG TABLET.DR PO SCH ×2 (05:35→16:52)
[2018-11-23 06:19] LABS: APPEARANCE,URINE CLEAR; BILIRUBIN,URINE NEGATIVE (NEGATIVE); COLOR,URINE YELLOW; GLUCOSE, URINE NEGATIVE (NEGATIVE); KETONES,URINE TRACE mg/dL (NEGATIVE); LEUKOCYTE ESTERASE,URINE TRACE (NEGATIVE); NITRITE,URINE NEGATIVE (NEGATIVE); PROTEIN,URINE 100 mg/dL (NEGATIVE); URINE SPECIFIC GRAVITY 1.015; UROBILINOGEN,URINE NEGATIVE mg/dL (<2.0)
[2018-11-23 06:25] LABS: ABSOLUTE BASOPHILS # (AUTO) 0.1 10^3/uL (0.0-0.2); ABSOLUTE EOSINOPHILS # (AUTO) 0.3 10^3/uL (0.0-0.6); ABSOLUTE LYMPHOCYTES (AUTO) 1.8 10^3/uL (0.5-4.7); ABSOLUTE NEUT (AUTO) 9.8 10^3/uL (1.7-8.2); BASOPHILS % (AUTO) 0.7 % (0-2); EOSINOPHILS % (AUTO) 2.5 % (0-6); HEMOGLOBIN 15.5 g/dL (13.5-17.0); LYMPHOCYTES % (AUTO) 13.9 % (13-45); MEAN CORPUSCULAR HEMOGLOBIN 27.8 pg (27.0-33.4); MEAN CORPUSCULAR HGB CONC 33.6 g/dL (32.0-36.0); MEAN CORPUSCULAR VOLUME 83 fl (80-97); MONOCYTES % (AUTO) 7.9 % (3-13); PLATELET COUNT 227 10^3/uL (150-450); RED BLOOD COUNT 5.57 10^6/uL (4.35-5.55); RED CELL DISTRIBUTION WIDTH 14.9 % (11.5-14.0); TOTAL CELLS COUNTED % (AUTO) 100 %
[2018-11-23 06:50] LABS: ALBUMIN 3.4 g/dL (3.5-5.0); ALKALINE PHOSPHATASE 61 U/L (38-126); ANION GAP 11 (5-19); ASPARTATE AMINO TRANSFERASE 23 U/L (17-59); BILIRUBIN,DIRECT 0.3 mg/dL (0.0-0.4); BILIRUBIN,TOTAL 0.7 mg/dL (0.2-1.3); BLOOD UREA NITROGEN 21 mg/dL (7-20); CALCIUM 8.5 mg/dL (8.4-10.2); CARBON DIOXIDE 22 mmol/L (22-30); CHLORIDE 108 mmol/L (98-107); GLUCOSE 99 mg/dL (75-110); POTASSIUM 3.3 mmol/L (3.6-5.0)
[2018-11-23 06:55] LABS: INTERNATIONAL RATION (INR) 3.37; PROTHROMBIN TIME 34.9 SEC (11.4-15.4)
[2018-11-23] MEDS ORDERED: SIMETHICONE 40 MG/0.6 ML DROPS 30ML PO ONE (09:59)
--- NOTE | 2018-11-23 10:02 | PDOC PROGRESS REPORT ---
Subjective Progress Note for:: 11/23/18 Subjective:: Patient states that his abdominal pain has improved. He is still only taking in clear liquids. No bleeding. Reason For Visit: SIGMOID DIVERTICULITIS Physical Exam Vital Signs: Temp Pulse Resp BP Pulse Ox 97.7 F 101 H 18 96/66 L 95 11/23/18 08:46 11/23/18 08:46 11/23/18 08:46 11/23/18 08:46 11/23/18 08:46 Intake & Output 11/22/18 11/23/18 11/24/18 06:59 06:59 06:59 Intake Total 1882 2060 1100 Output Total 650 2490 Balance 1232 -430 1100 Weight 110.6 kg 110 kg General appearance: PRESENT: obese Head exam: PRESENT: normocephalic Respiratory exam: PRESENT: clear to auscultation la, unlabored Cardiovascular exam: PRESENT: RRR Extremities exam: ABSENT: pedal edema Neurological exam: PRESENT: alert, awake, oriented to person, oriented to place, oriented to time, oriented to situation Psychiatric exam: PRESENT: appropriate affect Skin exam: PRESENT: normal color Results Laboratory Results: 11/23/18 05:29 11/23/18 05:29 11/23/18 11/23/18 11/23/18 05:29 05:29 05:48 WBC 13.0 H RBC 5.57 H Hgb 15.5 Hct 46.0 MCV 83 MCH 27.8 MCHC 33.6 RDW 14.9 H Plt Count 227 Seg Neutrophils % 75.0 Sodium 141.2 Potassium 3.3 L Chloride 108 H Carbon Dioxide 22 Anion Gap 11 BUN 21 H Creatinine 0.97 Est GFR ( Amer) > 60 Glucose 99 Calcium 8.5 Magnesium 2.0 Total Bilirubin 0.7 AST 23 Alkaline Phosphatase 61 Total Protein 7.0 Albumin 3.4 L Urine Color YELLOW Urine Appearance CLEAR Urine pH 6.0 Ur Specific [place] 1.015 Urine Protein 100 H Urine Glucose (UA) NEGATIVE Urine Ketones TRACE H Urine Blood SMALL H Urine Nitrite NEGATIVE Ur Leukocyte Esterase TRACE H Urine WBC (Auto) 1 Urine RBC (Auto) 3 11/20/18 11/20/18 11/20/18 05:50 05:50 10:05 Creatine Kinase 53 L 48 L CK-MB (CK-2) Troponin I < 0.012 NT-Pro-B Natriuret Pep 11/20/18 11/20/18 11/20/18 10:05 15:45 15:45 Creatine Kinase 45 L CK-MB (CK-2) 0.31 0.40 Troponin I NT-Pro-B Natriuret Pep 11/20/18 11/20/18 11/21/18 21:35 21:35 06:30 Creatine Kinase 58 CK-MB (CK-2) 0.27 Troponin I NT-Pro-B Natriuret Pep 1390 H Impressions: Chest X-Ray 11/20/18 05:31 IMPRESSION: No evidence of acute intrathoracic disease. No significant change when compared to the prior study. KUB X-Ray 11/20/18 05:31 IMPRESSION: Nonspecific nonobstructive bowel gas pattern. There are surgical clips in the right upper quadrant. There are degenerative changes of the skeletal and vascular structures. Abdomen/Pelvis CT 11/20/18 06:40 IMPRESSION: 1. SIGMOID DIVERTICULITIS. NO EVIDENCE OF ABSCESS OR PERFORATION. 2. 3.1 CM ABDOMINAL AORTIC ANEURYSM. 3. TINY NONOBSTRUCTING CALYCEAL CALCULI IN BOTH KIDNEYS. BILATERAL RENAL CORTICAL CYSTS. 4. RIGHT INGUINAL HERNIA CONTAINING FAT. NO INVOLVEMENT OF BOWEL. 5. FATTY INFILTRATION OF THE LIVER. 6. NO OTHER SIGNIFICANT OR ACUTE FINDING IN THE ABDOMEN OR PELVIS ON CT SCAN WITH IV CONTRAST. Chest CT 11/20/18 06:40 IMPRESSION: SCATTERED ATELECTASIS IN THE LUNG BASES. RIGHT LOWER LOBE LUNG NODULE UNCHANGED. NO APPARENT ACUTE FINDINGS. Assessment & Plan - Diagnosis (1) A-fib Qualifiers: Atrial fibrillation type: unspecified chronic Qualified Code(s): I48.20 - C hronic atrial fibrillation, unspecified; I48.2 - Chronic atrial fibrillation Is this a current diagnosis for this admission?: Yes Plan: On warfarin. Currently INR is >3 Goal is 2-2.5. I believe pharmacy is adjusting meds, but consider holding today's dose or lowering this. No evidence of bleeding currently. I will defer to primary team. (2) Diverticulitis of sigmoid colon Is this a current diagnosis for this admission?: Yes (3) Leukocytosis Qualifiers: Leukocytosis type: bandemia Qualified Code(s): D72.825 - Bandemia Is this a current diagnosis for this admission?: Yes Plan: His WBC is coming down, as expected with treatment of diverticulitis. I will sign off and will be happy to see him again as outpatient if needed to make sure his blood counts all return to normal. - Time Time Spent with patient: 15-24 minutes - Plan Summary Plan Summary: Please call with any further questions or concerns.
--- NOTE | 2018-11-23 10:10 | PDOC PROGRESS REPORT ---
Subjective Progress Note for:: 11/23/18 Subjective:: 73 year old male history of hypertension, atrial fibrillation warfarin, smoker, was treated with doxycycline recently for chronic cough came to the emergency room last night or early this morning with complaints of abdominal pain associated with loose stools since yesterday. Pain scale according to the patient is 10 x 10. In the emergency room work-up indicates sigmoid diverticulitis. WBC count is more than 20,000. Medical consult was called for admission. And agreed to stay in the hospital for further evaluation. CT chest was negative for acute pathology. 11/21/[id number]-orqj-old female admitted for left arm weakness and numbness which was resolved. MRI of the brain was negative for acute pathology carotid Doppler is pending. Patient may go home this evening. 11/22/2018. No acute events overnight, abdominal pain improving, patient is passing flatus has not had a bowel movement, afebrile, denies any fever, chills, nausea, vomiting. Patient has been n.p.o. since Wednesday, surgery consulted, recommendation is nonsurgical management, recommendation is to start on clear liquid advance as tolerated 11/23/[id number]-ruwr-old male admitted with sigmoid diverticulitis able to tolerate the clear liquids he is complaining of a lot of gas requesting Gas-X we are going to put him on simethicone he has also atrial fibrillation 2 days ago he went into A. fib with RVR on Cardizem drip today Cardizem drip is off heart rate is around 75. Probably will switch the medication to Cardizem p.o. from today. Comfortable in the bed communicating well. Not in distress. Reason For Visit: SIGMOID DIVERTICULITIS Physical Exam Vital Signs: Temp Pulse Resp BP Pulse Ox 97.7 F 101 H 18 96/66 L 95 11/23/18 08:46 11/23/18 08:46 11/23/18 08:46 11/23/18 08:46 11/23/18 08:46 Intake & Output 11/22/18 11/23/18 11/24/18 06:59 06:59 06:59 Intake Total 1882 2060 1100 Output Total 650 2490 Balance 1232 -430 1100 Weight 110.6 kg 110 kg General appearance: PRESENT: no acute distress, obese Head exam: PRESENT: atraumatic Eye exam: PRESENT: PERRLA Mouth exam: PRESENT: moist, tongue midline Teeth exam: PRESENT: poor dentation Neck exam: ABSENT: carotid bruit, JVD, lymphadenopathy, thyromegaly Respiratory exam: PRESENT: decreased breath sounds Cardiovascular exam: PRESENT: irregular rhythm, systolic murmur. ABSENT: diastolic murmur, rubs GI/Abdominal exam: PRESENT: normal bowel sounds, soft. ABSENT: distended, guarding, mass, organolmegaly, rebound, tenderness Rectal exam: PRESENT: deferred Extremities exam: PRESENT: full ROM. ABSENT: calf tenderness, clubbing, pedal edema Neurological exam: PRESENT: alert, awake, oriented to person, oriented to place, oriented to time, oriented to situation, CN II-XII grossly intact. ABSENT: motor sensory deficit Psychiatric exam: PRESENT: appropriate affect, normal mood. ABSENT: homicidal ideation, suicidal ideation Results Laboratory Results: 11/23/18 05:29 11/23/18 05:29 11/23/18 11/23/18 11/23/18 05:29 05:29 05:48 WBC 13.0 H RBC 5.57 H Hgb 15.5 Hct 46.0 MCV 83 MCH 27.8 MCHC 33.6 RDW 14.9 H Plt Count 227 Seg Neutrophils % 75.0 Sodium 141.2 Potassium 3.3 L Chloride 108 H Carbon Dioxide 22 Anion Gap 11 BUN 21 H Creatinine 0.97 Est GFR ( Amer) > 60 Glucose 99 Calcium 8.5 Magnesium 2.0 Total Bilirubin 0.7 AST 23 Alkaline Phosphatase 61 Total Protein 7.0 Albumin 3.4 L Urine Color YELLOW Urine Appearance CLEAR Urine pH 6.0 Ur Specific [place] 1.015 Urine Protein 100 H Urine Glucose (UA) NEGATIVE Urine Ketones TRACE H Urine Blood SMALL H Urine Nitrite NEGATIVE Ur Leukocyte Esterase TRACE H Urine WBC (Auto) 1 Urine RBC (Auto) 3 11/20/18 11/20/18 11/20/18 05:50 05:50 10:05 Creatine Kinase 53 L 48 L CK-MB (CK-2) Troponin I < 0.012 NT-Pro-B Natriuret Pep 11/20/18 11/20/18 11/20/18 10:05 15:45 15:45 Creatine Kinase 45 L CK-MB (CK-2) 0.31 0.40 Troponin I NT-Pro-B Natriuret Pep 11/20/18 11/20/18 11/21/18 21:35 21:35 06:30 Creatine Kinase 58 CK-MB (CK-2) 0.27 Troponin I NT-Pro-B Natriuret Pep 1390 H Impressions: Chest X-Ray 11/20/18 05:31 IMPRESSION: No evidence of acute intrathoracic disease. No significant change when compared to the prior study. KUB X-Ray 11/20/18 05:31 IMPRESSION: Nonspecific nonobstructive bowel gas pattern. There are surgical clips in the right upper quadrant. There are degenerative changes of the skeletal and vascular structures. Abdomen/Pelvis CT 11/20/18 06:40 IMPRESSION: 1. SIGMOID DIVERTICULITIS. NO EVIDENCE OF ABSCESS OR PERFORATION. 2. 3.1 CM ABDOMINAL AORTIC ANEURYSM. 3. TINY NONOBSTRUCTING CALYCEAL CALCULI IN BOTH KIDNEYS. BILATERAL RENAL CORTICAL CYSTS. 4. RIGHT INGUINAL HERNIA CONTAINING FAT. NO INVOLVEMENT OF BOWEL. 5. FATTY INFILTRATION OF THE LIVER. 6. NO OTHER SIGNIFICANT OR ACUTE FINDING IN THE ABDOMEN OR PELVIS ON CT SCAN WITH IV CONTRAST. Chest CT 11/20/18 06:40 IMPRESSION: SCATTERED ATELECTASIS IN THE LUNG BASES. RIGHT LOWER LOBE LUNG NODULE UNCHANGED. NO APPARENT ACUTE FINDINGS. Assessment and Plan - Diagnosis (1) Diverticulitis of sigmoid colon Is this a current diagnosis for this admission?: Yes (2) A-fib Qualifiers: Qualified Code(s): I48.20 - Chronic atrial fibrillation, unspecified; I48.2 - Chronic atrial fibrillation Is this a current diagnosis for this admission?: Yes (3) COPD (chronic obstructive pulmonary disease) Qualifiers: Qualified Code(s): J44.9 - Chronic obstructive pulmonary disease, unspecified Is this a current diagnosis for this admission?: No (4) HTN (hypertension) Qualifiers: Qualified Code(s): I10 - Essential (primary) hypertension Is this a current diagnosis for this admission?: Yes (5) CAD (coronary artery disease) Qualifiers: Is this a current diagnosis for this admission?: Yes (6) Tobacco abuse Is this a current diagnosis for this admission?: No - Plan Summary Summary: 1.sigmoid diverticulitis Patient is going to be admitted to [facility] for sigmoid diverticulitis is going to be on telemetry, started on IV morphine 2 mg every 4 hours for pain. Blood cultures are pending stool cultures will be requested. Started on Cipro IV and Flagyl. GI prophylaxis initiated. Patient is already on Coumadin for A. fib INR is 2.43. It is going to be n.p.o. except for medications and start an IV fluids normal saline at 75 cc/h. 11/21/[id number]-rbfp-old male admitted with abdominal pain found to have sigmoid diverticulitis still complaining of severe pain in the lower abdomen. We are going to keep him at least n.p.o. except for medications for another day. presently on IV Flagyl and Cipro. 11/23/[id number]-umoh-old male admitted with severe abdominal pains found to have sigmoid diverticulitis he is able to tolerate the diet. Complaining of bloating abdomen with gas. Requesting medication. Other than that he is doing well. Presently on IV Cipro and Flagyl. Cultures are came back negative so far. 2.History of chronic atrial fibrillation Patient has history of chronic atrial fibrillation on warfarin 4 mg p.o. daily to restart Coumadin 4 mg nightly. INR is 2.47 on admission. 11/21/2018-patient has history of chronic atrial fibrillation on warfarin 4 mg daily latest INR is 2.42. Within therapeutic range. Pharmacy is managing the warfarin doses. 11/23/2018-patient has history of chronic atrial fibrillation on Coumadin INR is 3.3 today. Pharmacy adjusting the medications. He was on Cardizem drip until this morning probably we may switch to p.o. Cardizem from today. Patient is on metoprolol at home. 3.hypertension Patient has history of chronic essential hypertension blood pressure in the emergency room is stable. Pressure is 158/83. Patient is on lisinopril, aml odipine and metoprolol at home plan is to resume the medications. 11/21/2018-patient blood pressure today is 144/93. Relatively controlled. Patient is n.p.o. except for medications. To place him on hydralazine 10 mg IV every 6 PRN for systolic blood pressure more than 160. 11/23/2018-patient blood pressure today is 140/88. Stable. Heart rate is controlled around 75. Patient is on metoprolol at home plan maybe restart metoprolol from today after discussion with Dr. Tuttle. 4.leukocytosis Patient came with a WBC count of more than 20,000 not on steroids at home. Leukocytosis this is most likely secondary to sigmoid diverticulitis. 11/21/2018-patient's WBC count is 20,700 improved from 23,000 yesterday. Most likely secondary to sigmoid colitis. 11/23/2018-patient's WBC count is 13,000, at the time of admission it is more than 23,000. Improving. Patient is afebrile. 5.Obesity The BMI is more than 36 diet exercise weight loss lifestyle modifications are discussed with the patient. 6.tobacco use And is a daily day smoker smoking counseling was provided more than 15 minutes to start him on nicotine patch daily. 7.abdominal aortic aneurysm Incidental finding of abdominal aortic aneurysm 3.1 cm in size. Patient may need follow-up CT scans every 3 to 6 months. 8.COPD Examination chest bilateral wheezing is present. He was diagnosed with COPD but not on inhalers. To start him on Xopenex nebulizations while he was in the hospital. 9.hypokalemia admission serum potassium is 3.5 to supplement potassium with 40 mg of IV potassium. 11/21/2018-patient's serum potassium is 3.3 today to give 40 mg of IV potassium today. 11/23/2018-serum potassium today is 3.32 gives daily potassium supplementations.
[2018-11-23] MEDS: KETOROLAC TROMETHAMINE INJ/PF 30 MG/1 ML SDV IV PRN (10:21)
[2018-11-23] MEDS: AMLODIPINE BESYLATE 5 MG TABLET PO SCH ×2 (10:22→21:45)
[2018-11-23] MEDS: METOPROLOL TARTRATE 100 MG TABLET PO SCH ×2 (10:22→21:45)
[2018-11-23] MEDS: LISINOPRIL 10 MG TABLET PO SCH (10:22)
[2018-11-23] MEDS: TAMSULOSIN HCL 0.4 MG CAP.SR.24H PO SCH (10:22)
[2018-11-23] MEDS: CIPROFLOXACIN 400 MG/D5W RTU 400 MG/200 ML RTUPB IV SCH ×2 (10:23→21:45)
[2018-11-23] MEDS ORDERED: POTASSIUM CHLORIDE 10 MEQ CAPSULE.ER PO ONE (11:00)
[2018-11-23] MEDS ORDERED: SIMETHICONE 80 MG TAB.CHEW PO ONE (11:00)
--- NOTE | 2018-11-23 11:53 | PDOC PROGRESS REPORT ---
Subjective Progress Note for:: 11/23/18 Subjective:: The patient feels comfortable, tolerating clear liquids well; however, he has occasional lower abdominal discomfort following the ingestion of tap water he is passing flatus and stools without blood seen Reason For Visit: SIGMOID DIVERTICULITIS Physical Exam Vital Signs: Temp Pulse Resp BP Pulse Ox 97.7 F 101 H 18 96/66 L 95 11/23/18 08:46 11/23/18 08:46 11/23/18 08:46 11/23/18 08:46 11/23/18 08:46 Intake & Output 11/22/18 11/23/18 11/24/18 06:59 06:59 06:59 Intake Total 1882 2060 1100 Output Total 650 2490 Balance 1232 -430 1100 Weight 110.6 kg 110 kg General appearance: PRESENT: no acute distress GI/Abdominal exam: PRESENT: soft, other - Abdomen obese, not distended Results Laboratory Results: 11/23/18 05:29 11/23/18 05:29 11/23/18 11/23/18 11/23/18 05:29 05:29 05:48 WBC 13.0 H RBC 5.57 H Hgb 15.5 Hct 46.0 MCV 83 MCH 27.8 MCHC 33.6 RDW 14.9 H Plt Count 227 Seg Neutrophils % 75.0 Sodium 141.2 Potassium 3.3 L Chloride 108 H Carbon Dioxide 22 Anion Gap 11 BUN 21 H Creatinine 0.97 Est GFR ( Amer) > 60 Glucose 99 Calcium 8.5 Magnesium 2.0 Total Bilirubin 0.7 AST 23 Alkaline Phosphatase 61 Total Protein 7.0 Albumin 3.4 L Urine Color YELLOW Urine Appearance CLEAR Urine pH 6.0 Ur Specific [place] 1.015 Urine Protein 100 H Urine Glucose (UA) NEGATIVE Urine Ketones TRACE H Urine Blood SMALL H Urine Nitrite NEGATIVE Ur Leukocyte Esterase TRACE H Urine WBC (Auto) 1 Urine RBC (Auto) 3 11/20/18 11/20/18 11/20/18 05:50 05:50 10:05 Creatine Kinase 53 L 48 L CK-MB (CK-2) Troponin I < 0.012 NT-Pro-B Natriuret Pep 11/20/18 11/20/18 11/20/18 10:05 15:45 15:45 Creatine Kinase 45 L CK-MB (CK-2) 0.31 0.40 Troponin I NT-Pro-B Natriuret Pep 11/20/18 11/20/18 11/21/18 21:35 21:35 06:30 Creatine Kinase 58 CK-MB (CK-2) 0.27 Troponin I NT-Pro-B Natriuret Pep 1390 H Impressions: Chest X-Ray 11/20/18 05:31 IMPRESSION: No evidence of acute intrathoracic disease. No significant change when compared to the prior study. KUB X-Ray 11/20/18 05:31 IMPRESSION: Nonspecific nonobstructive bowel gas pattern. There are surgical clips in the right upper quadrant. There are degenerative changes of the skeletal and vascular structures. Abdomen/Pelvis CT 11/20/18 06:40 IMPRESSION: 1. SIGMOID DIVERTICULITIS. NO EVIDENCE OF ABSCESS OR PERFORATION. 2. 3.1 CM ABDOMINAL AORTIC ANEURYSM. 3. TINY NONOBSTRUCTING CALYCEAL CALCULI IN BOTH KIDNEYS. BILATERAL RENAL CORTICAL CYSTS. 4. RIGHT INGUINAL HERNIA CONTAINING FAT. NO INVOLVEMENT OF BOWEL. 5. FATTY INFILTRATION OF THE LIVER. 6. NO OTHER SIGNIFICANT OR ACUTE FINDING IN THE ABDOMEN OR PELVIS ON CT SCAN WITH IV CONTRAST. Chest CT 11/20/18 06:40 IMPRESSION: SCATTERED ATELECTASIS IN THE LUNG BASES. RIGHT LOWER LOBE LUNG NODULE UNCHANGED. NO APPARENT ACUTE FINDINGS. Assessment & Plan - Diagnosis (1) Diverticulitis of sigmoid colon Is this a current diagnosis for this admission?: Yes - Time Time Spent with patient: 15-24 minutes - Plan Summary Plan Summary: Assessment: Acute sigmoid diverticulitis nonperforated Abdominal pain much improved Clear liquid diet tolerated with occasional abdominal spasms Blood cell count decreased to 13,000 today from yesterday higher value Physical exam of the abdomen shows no abdominal pain Plan: Increase diet to full liquid diet Will reevaluate patient tomorrow and advance his diet as tolerated. At this time, due to the patient improvement and the presence of flatus and stools, I do not believe that the patient should require any surgical intervention
[2018-11-23] MEDS ORDERED: OXYCODONE HCL IR 5 MG TABLET PO PRN (16:28)
[2018-11-23] MEDS: OXYCODONE-ACETAMINOPHEN 5-325 MG TABLET PO PRN (16:52)
[2018-11-23] MEDS ORDERED: KETOROLAC TROMETHAMINE INJ/PF 30 MG/1 ML SDV IV PRN (21:26)
[2018-11-23] MEDS: ONDANSETRON HCL INJ/PF 4 MG/2 ML SDV IV PRN (22:53)
[2018-11-24] MEDS: METRONIDAZOLE 500 MG/NS RTU 500 MG/100 ML RTUPB IV SCH ×4 (00:05→17:24)
[2018-11-24] MEDS: OXYCODONE-ACETAMINOPHEN 5-325 MG TABLET PO PRN (01:18)
[2018-11-24] MEDS: PANTOPRAZOLE SODIUM 40 MG TABLET.DR PO SCH ×2 (05:40→17:09)
[2018-11-24 06:31] LABS: PROTHROMBIN TIME 48.3 SEC (11.4-15.4)
[2018-11-24 06:32] LABS: INTERNATIONAL RATION (INR) 5.06
[2018-11-24] MEDS ORDERED: PHYTONADIONE 5 MG TABLET PO ONE (07:45)
--- NOTE | 2018-11-24 08:58 | PDOC PROGRESS REPORT ---
Subjective Progress Note for:: 11/24/18 Subjective:: 73 year old male history of hypertension, atrial fibrillation warfarin, smoker, was treated with doxycycline recently for chronic cough came to the emergency room last night or early this morning with complaints of abdominal pain associated with loose stools since yesterday. Pain scale according to the patient is 10 x 10. In the emergency room work-up indicates sigmoid diverticulitis. WBC count is more than 20,000. Medical consult was called for admission. And agreed to stay in the hospital for further evaluation. CT chest was negative for acute pathology. 11/21/[id number]-swcx-old female admitted for left arm weakness and numbness which was resolved. MRI of the brain was negative for acute pathology carotid Doppler is pending. Patient may go home this evening. 11/22/2018. No acute events overnight, abdominal pain improving, patient is passing flatus has not had a bowel movement, afebrile, denies any fever, chills, nausea, vomiting. Patient has been n.p.o. since Wednesday, surgery consulted, recommendation is nonsurgical management, recommendation is to start on clear liquid advance as tolerated 11/[id number]-npip-old male admitted with sigmoid diverticulitis able to tolerate the clear liquids he is complaining of a lot of gas requesting Gas-X we are going to put him on simethicone he has also atrial fibrillation 2 days ago he went into A. fib with RVR on Cardizem drip today Cardizem drip is off heart rate is around 75. Probably will switch the medication to Cardizem p.o. from today. Comfortable in the bed communicating well. Not in distress. 11/24/2018-patient is comfortable in the chair communicating well. Denies any abdominal pains. Able to tolerate the diet without any problems. Cultures came back negative so far. No acute events in the last 24 hours. Patient is afebrile. Reason For Visit: SIGMOID DIVERTICULITIS Physical Exam Vital Signs: Temp Pulse Resp BP Pulse Ox 98.4 F 96 20 116/76 97 11/24/18 04:57 11/24/18 04:57 11/24/18 04:57 11/24/18 04:57 11/24/18 04:57 Intake & Output 11/23/18 11/24/18 11/25/18 06:59 06:59 06:59 Intake Total 2060 2450 100 Output Total 2490 350 Balance -430 2100 100 Weight 110 kg 113.2 kg General appearance: PRESENT: no acute distress, obese Head exam: PRESENT: atraumatic Eye exam: PRESENT: PERRLA Ear exam: PRESENT: drainage Mouth exam: PRESENT: neck supple Teeth exam: PRESENT: poor dentation Neck exam: ABSENT: carotid bruit, JVD, lymphadenopathy, thyromegaly Respiratory exam: PRESENT: decreased breath sounds Cardiovascular exam: PRESENT: irregular rhythm GI/Abdominal exam: PRESENT: normal bowel sounds, soft. ABSENT: distended, guarding, mass, organolmegaly, rebound, tenderness Rectal exam: PRESENT: deferred Extremities exam: PRESENT: full ROM. ABSENT: calf tenderness, clubbing, pedal edema Neurological exam: PRESENT: alert, awake, oriented to person, oriented to place, oriented to time, oriented to situation, CN II-XII grossly intact. ABSENT: motor sensory deficit Psychiatric exam: PRESENT: appropriate affect, normal mood. ABSENT: homicidal ideation, suicidal ideation Results Laboratory Results: 11/23/18 05:29 11/23/18 05:29 11/20/18 11/20/18 11/20/18 05:50 05:50 10:05 Creatine Kinase 53 L 48 L CK-MB (CK-2) Troponin I < 0.012 NT-Pro-B Natriuret Pep 11/20/18 11/20/18 11/20/18 10:05 15:45 15:45 Creatine Kinase 45 L CK-MB (CK-2) 0.31 0.40 Troponin I NT-Pro-B Natriuret Pep 11/20/18 11/20/18 11/21/18 21:35 21:35 06:30 Creatine Kinase 58 CK-MB (CK-2) 0.27 Troponin I NT-Pro-B Natriuret Pep 1390 H Impressions: Chest X-Ray 11/20/18 05:31 IMPRESSION: No evidence of acute intrathoracic disease. No significant change when compared to the prior study. KUB X-Ray 11/20/18 05:31 IMPRESSION: Nonspecific nonobstructive bowel gas pattern. There are surgical clips in the right upper quadrant. There are degenerative changes of the skeletal and vascular structures. Abdomen/Pelvis CT 11/20/18 06:40 IMPRESSION: 1. SIGMOID DIVERTICULITIS. NO EVIDENCE OF ABSCESS OR PERFORATION. 2. 3.1 CM ABDOMINAL AORTIC ANEURYSM. 3. TINY NONOBSTRUCTING CALYCEAL CALCULI IN BOTH KIDNEYS. BILATERAL RENAL CORTICAL CYSTS. 4. RIGHT INGUINAL HERNIA CONTAINING FAT. NO INVOLVEMENT OF BOWEL. 5. FATTY INFILTRATION OF THE LIVER. 6. NO OTHER SIGNIFICANT OR ACUTE FINDING IN THE ABDOMEN OR PELVIS ON CT SCAN WITH IV CONTRAST. Chest CT 11/20/18 06:40 IMPRESSION: SCATTERED ATELECTASIS IN THE LUNG BASES. RIGHT LOWER LOBE LUNG NODULE UNCHANGED. NO APPARENT ACUTE FINDINGS. Assessment and Plan - Diagnosis (1) Diverticulitis of sigmoid colon Is this a current diagnosis for this admission?: Yes (2) A-fib Qualifiers: Atrial fibrillation type: unspecified chronic Qualified Code(s): I48.20 - Chronic atrial fibrillation, unspecified; I48.2 - Chronic atrial fibrillation Is this a current diagnosis for this admission?: Yes (3) COPD (chronic obstructive pulmonary disease) Qualifiers: COPD type: unspecified COPD Qualified Code(s): J44.9 - Chronic obstructive pulmonary disease, unspecified Is this a current diagnosis for this admission?: No (4) HTN (hypertension) Qualifiers: Hypertension type: essential hypertension Qualified Code(s): I10 - Essential (primary) hypertension Is this a current diagnosis for this admission?: Yes (5) CAD (coronary artery disease) Qualifiers: Is this a current diagnosis for this admission?: Yes (6) Tobacco abuse Is this a current diagnosis for this admission?: No - Plan Summary Summary: 1.sigmoid diverticulitis Patient is going to be admitted to [facility] for sigmoid diverticulitis is going to be on telemetry, started on IV morphine 2 mg every 4 hours for pain. Blood cultures are pending stool cultures will be requested. Started on Cipro IV and Flagyl. GI prophylaxis initiated. Patient is already on Coumadin for A. fib INR is 2.43. It is going to be n.p.o. except for medications and start an IV fluids normal saline at 75 cc/h. 11/21/[id number]-ndep-old male admitted with abdominal pain found to have sigmoid diverticulitis still complaining of severe pain in the lower abdomen. We are going to keep him at least n.p.o. except for medications for another day. presently on IV Flagyl and Cipro. 11/23/[id number]-zaqf-old male admitted with severe abdominal pains found to have sigmoid diverticulitis he is able to tolerate the diet. Complaining of bloating abdomen with gas. Requesting medication. Other than that he is doing well. Presently on IV Cipro and Flagyl. Cultures are came back negative so far. 11/24/2018-patient came with complaints of abdominal pain found to have sigmoid diverticulitis on the CT started on IV Flagyl and IV Cipro abdominal pain is almost resolved cultures are negative. Plan is to discontinue Cipro floxacillin from today. 2.History of chronic atrial fibrillation Patient has history of chronic atrial fibrillation on warfarin 4 mg p.o. daily to restart Coumadin 4 mg nightly. INR is 2.47 on admission. 11/21/2018-patient has history of chronic atrial fibrillation on warfarin 4 mg d aily latest INR is 2.42. Within therapeutic range. Pharmacy is managing the warfarin doses. 11/23/2018-patient has history of chronic atrial fibrillation on Coumadin INR is 3.3 today. Pharmacy adjusting the medications. He was on Cardizem drip until this morning probably we may switch to p.o. Cardizem from today. Patient is on metoprolol at home. 11/24/2018-patient has history of chronic atrial fibrillation on Coumadin at home. INR is 5.06 today plan is to hold warfarin give 5 mg of vitamin K p.o. today. Patient rate controlled A. fib. Off the Cardizem drip. Receiving metoprolol 100 mg p.o. twice daily at this time. 3.hypertension Patient has history of chronic essential hypertension blood pressure in the emergency room is stable. Pressure is 158/83. Patient is on lisinopril, amlodipine and metoprolol at home plan is to resume the medications. 11/21/2018-patient blood pressure today is 144/93. Relatively controlled. Patient is n.p.o. except for medications. To place him on hydralazine 10 mg IV every 6 PRN for systolic blood pressure more than 160. 11/23/2018-patient blood pressure today is 140/88. Stable. Heart rate is controlled around 75. Patient is on metoprolol at home plan maybe restart metoprolol from today after discussion with Dr. Tuttle. 11/24/2018-patient blood pressure today is 116/76. Stable. pt Is on PRN hydralazine, metoprolol 100 mg p.o. every 12 hours, amlodipine 5 mg p.o. daily, lisinopril 10 mg p.o. daily.. Plan is to continue the present management. 4.leukocytosis Patient came with a WBC count of more than 20,000 not on steroids at home. Leukocytosis this is most likely secondary to sigmoid diverticulitis. 11/21/2018-patient's WBC count is 20,700 improved from 23,000 yesterday. Most likely secondary to sigmoid colitis. 11/23/2018-patient's WBC count is 13,000, at the time of admission it is more than 23,000. Improving. Patient is afebrile. 11/24/2018-patient's WBC count is 13,000 yesterday improving. Today's labs are pending. Patient is afebrile. 5.Obesity The BMI is more than 36 diet exercise weight loss lifestyle modifications are discussed with the patient. 6.tobacco use And is a daily day smoker smoking counseling was provided more than 15 minutes to start him on nicotine patch daily. 7.abdominal aortic aneurysm Incidental finding of abdominal aortic aneurysm 3.1 cm in size. Patient may need follow-up CT scans every 3 to 6 months. 8.COPD Examination chest bilateral wheezing is present. He was diagnosed with COPD but not on inhalers. To start him on Xopenex nebulizations while he was in the hospital. 9.hypokalemia admission serum potassium is 3.5 to supplement potassium with 40 mg of IV potassium. 11/21/2018-patient's serum potassium is 3.3 today to give 40 mg of IV potassium t anatoliy. 11/23/2018-serum potassium today is 3.32 gives daily potassium supplementations. 10. Coumadin toxicity Today is 5.06, to hold warfarin and to give vitamin K 5 mg p.o. 1 dose today recheck PT/INR tomorrow.
[2018-11-24] MEDS: POTASSIUM CHLORIDE 10 MEQ CAPSULE.ER PO SCH (09:58)
[2018-11-24] MEDS: AMLODIPINE BESYLATE 5 MG TABLET PO SCH ×2 (09:59→21:44)
[2018-11-24] MEDS: TAMSULOSIN HCL 0.4 MG CAP.SR.24H PO SCH (09:59)
[2018-11-24] MEDS: METOPROLOL TARTRATE 100 MG TABLET PO SCH ×2 (09:59→21:44)
[2018-11-24] MEDS: LISINOPRIL 10 MG TABLET PO SCH (09:59)
[2018-11-24] MEDS: NORMAL SALINE 1000 ML 1,000 ML IV PRN (12:27)
--- NOTE | 2018-11-24 14:06 | Progress Note ---
Provider Note Provider Note: CARDIOLOGY PROGRESS NOTE by Dr. Kelsy Tuttle on 11/24/2018. SUBJECTIVE: The patient states his lower quad abdominal pain is much improved. There is no GI bleed. The patient denies any chest pain or discomfort. He continues to be in atrial fibrillation with a ventricular response in the low 100s 2 high 90s. There is no chest pain or discomfort. There is no PND orthopnea or leg edema. There is no ventricular arrhythmia seen on the monitor. There is no bleeding on Coumadin. There is no TIA or CVA symptoms. PHYSICAL EXAMINATION: The patient is moderately obese. In no acute distress he is well-groomed. Selected Entries 11/24/18 16:05 Temperature 98.3 F Temperature Oral Source Pulse Rate 105 H Respiratory 18 Rate Blood Pressure 128/76 H Blood Pressure 93 Mean BP Location Right Arm BP Position Sitting O2 Sat by Pulse 93 Oximetry Oxygen Delivery Room Air Method Head, is atraumatic normocephalic EYES: Pupils equal round regular reactive to light accommodation. Extraocular movements are normal. There is no conjunctival pallor. There is no scleral icterus. NOSE: There is no deviated nasal septum. There is no inflammation nasal mucous membrane. MOUTH: Mucous memories of mouth are moist. Tongue is moist. There is no ulcers. There is no bleeding from the gums. THROAT: There is no redness of the oropharynx. There is no exudates. SKIN: There is no skin rashes or skin lesions. There is no petechia or ecchymosis. NECK: There is no JVD. Carotids are equal there is no bruit. There is no lymphadenopathy. There is no goiter. There is no accessory muscles of respiration use. Trachea central. LUNGS: Shows diminished air entry prolonged expiration without any rhonchi rales wheezing. On percussion there is hyperresonance. On palpation there is no chest wall tenderness. HEART: S1-S2 is heard. S1 is of variable intensity. There is no S3 gallop. There is no S4 gallop. There is systolic murmur left sternal border and the apex there is no rub. ABDOMEN: Is obese. There is no hepatospleno megaly. There is mild tender ness without any rebound guarding or rigidity in the lower quadrants of the abdomen right side more than left side.. Bowel sounds are slightly increased. EXTREMITIES: Femorals are diminished. There is no femoral bruits. Leg pulses are well felt. There is no pedal edema. There is no DVT or cellulitis. There is no cyanosis or clubbing. There is no calf tenderness. [employer] OPERATOR: The patient is conscious awake alert oriented x3 with no focal deficits. PSYCHIATRIC: The patient judgment insight are intact his affect is normal. Labs- All tests 24 hr 11/24/18 11/24/18 04:40 06:07 PT Cancelled 48.3 H* INR Cancelled 5.06 H* INR (Anticoag Therapy) Cancelled Chest X-Ray 11/20/18 05:31 IMPRESSION: No evidence of acute intrathoracic disease. No significant change when compared to the prior study. KUB X-Ray 11/20/18 05:31 IMPRESSION: Nonspecific nonobstructive bowel gas pattern. There are surgical clips in the right upper quadrant. There are degenerative changes of the skeletal and vascular structures. Abdomen/Pelvis CT 11/20/18 06:40 IMPRESSION: 1. SIGMOID DIVERTICULITIS. NO EVIDENCE OF ABSCESS OR PERFORATION. 2. 3.1 CM ABDOMINAL AORTIC ANEURYSM. 3. TINY NONOBSTRUCTING CALYCEAL CALCULI IN BOTH KIDNEYS. BILATERAL RENAL CORTICAL CYSTS. 4. RIGHT INGUINAL HERNIA CONTAINING FAT. NO INVOLVEMENT OF BOWEL. 5. FATTY INFILTRATION OF THE LIVER. 6. NO OTHER SIGNIFICANT OR ACUTE FINDING IN THE ABDOMEN OR PELVIS ON CT SCAN WITH IV CONTRAST. Chest CT 11/20/18 06:40 IMPRESSION: SCATTERED ATELECTASIS IN THE LUNG BASES. RIGHT LOWER LOBE LUNG NODULE UNCHANGED. NO APPARENT ACUTE FINDINGS. IMPRESSION/RECOMMENDATION: 1.Atrial fibrillation with rapid ventricular response. Most likely this is in a patient with chronic atrial fibrillation due to his current infection and stress caused by the infection. Note that the patient's heart rate is much improved. Continue his beta-blockers. If the heart rate should go above 100 then would recommend starting the patient on IV Cardizem. Would recommend hold Coumadin in view of the patient's INR being 5.09. [Supraerapeutic.] 2. Acute diverticulitis: Continue antibiotics. The patient is on full liquid diet. Which this is tolerating. Patient states that he might go home tomorrow. Strongly recommend surgical consult. 3. Coronary artery disease: History of [place] and history of coronary bypass graft surgery. No evidence of acute coronary syndrome. Patient has no anginal symptoms. And his troponins are negative. 4. Hypertension: Blood pressure well controlled. 5. Possible COPD: Asymptomatic. No evidence of acute exacerbation 6. History of diet-controlled diabetes mellitus. 7. Cough.? Cause. 8. Tobacco abuse disorder. Medications reviewed. Management plan and medication regimen discussed with the hospitalist physician Dr. Booth. Medical decision making is of moderate complexity. 40 minutes spent on this patient with more than 50% of time spent in direct patient care. [place] status is stable. Will sign off. Will follow the patient in the office.
--- NOTE | 2018-11-24 17:13 | PDOC PROGRESS REPORT ---
Subjective Progress Note for:: 11/24/18 Subjective:: Patient feels better, tolerating clear liquid diet, wants to go home. No fever overnight. Reason For Visit: SIGMOID DIVERTICULITIS Physical Exam Vital Signs: Temp Pulse Resp BP Pulse Ox 98.3 F 105 H 18 128/76 H 93 11/24/18 16:05 11/24/18 16:05 11/24/18 16:05 11/24/18 16:05 11/24/18 16:05 Intake & Output 11/23/18 11/24/18 11/25/18 06:59 06:59 06:59 Intake Total 2060 2450 200 Output Total 2490 350 Balance -430 2100 200 Weight 110 kg 113.2 kg General appearance: PRESENT: no acute distress GI/Abdominal exam: PRESENT: other - Abdomen is benign, no peritoneal signs no rigidity. Results Laboratory Results: 11/23/18 05:29 11/23/18 05:29 11/20/18 11/20/18 11/20/18 05:50 05:50 10:05 Creatine Kinase 53 L 48 L CK-MB (CK-2) Troponin I < 0.012 NT-Pro-B Natriuret Pep 11/20/18 11/20/18 11/20/18 10:05 15:45 15:45 Creatine Kinase 45 L CK-MB (CK-2) 0.31 0.40 Troponin I NT-Pro-B Natriuret Pep 11/20/18 11/20/18 11/21/18 21:35 21:35 06:30 Creatine Kinase 58 CK-MB (CK-2) 0.27 Troponin I NT-Pro-B Natriuret Pep 1390 H Impressions: Chest X-Ray 11/20/18 05:31 IMPRESSION: No evidence of acute intrathoracic disease. No significant change when compared to the prior study. KUB X-Ray 11/20/18 05:31 IMPRESSION: Nonspecific nonobstructive bowel gas pattern. There are surgical clips in the right upper quadrant. There are degenerative changes of the skeletal and vascular structures. Abdomen/Pelvis CT 11/20/18 06:40 IMPRESSION: 1. SIGMOID DIVERTICULITIS. NO EVIDENCE OF ABSCESS OR PERFORATION. 2. 3.1 CM ABDOMINAL AORTIC ANEURYSM. 3. TINY NONOBSTRUCTING CALYCEAL CALCULI IN BOTH KIDNEYS. BILATERAL RENAL CORTICAL CYSTS. 4. RIGHT INGUINAL HERNIA CONTAINING FAT. NO INVOLVEMENT OF BOWEL. 5. FATTY INFILTRATION OF THE LIVER. 6. NO OTHER SIGNIFICANT OR ACUTE FINDING IN THE ABDOMEN OR PELVIS ON CT SCAN WITH IV CONTRAST. Chest CT 11/20/18 06:40 IMPRESSION: SCATTERED ATELECTASIS IN THE LUNG BASES. RIGHT LOWER LOBE LUNG NODULE UNCHANGED. NO APPARENT ACUTE FINDINGS. Assessment & Plan - Diagnosis (1) Diverticulitis of sigmoid colon Is this a current diagnosis for this admission?: Yes Plan: Impression: Uncomplicated diverticulitis, resolved clinically, patient tolerating a diet Recommendations: 1. Advance diet to full liquids as tolerated; suggest low residue diet, high in fiber; have nursing education instruct patient on dietary management 2. No indication for surgical intervention; surgical list service will sign off; reconsult if clinically indicated. - Time Time Spent with patient: 15-24 minutes
[2018-11-25] MEDS: ONDANSETRON HCL INJ/PF 4 MG/2 ML SDV IV PRN (00:18)
[2018-11-25] MEDS: METRONIDAZOLE 500 MG/NS RTU 500 MG/100 ML RTUPB IV SCH ×2 (00:18→06:27)
[2018-11-25] MEDS: NORMAL SALINE 1000 ML 1,000 ML IV PRN ×2 (03:38→21:48)
[2018-11-25 06:07] LABS: HEMATOCRIT 48.2 % (37.9-51.0); HEMOGLOBIN 15.9 g/dL (13.5-17.0); MEAN CORPUSCULAR HEMOGLOBIN 27.5 pg (27.0-33.4); MEAN CORPUSCULAR HGB CONC 33.1 g/dL (32.0-36.0); MEAN CORPUSCULAR VOLUME 83 fl (80-97); PLATELET COUNT 297 10^3/uL (150-450); RED BLOOD COUNT 5.79 10^6/uL (4.35-5.55); RED CELL DISTRIBUTION WIDTH 15.2 % (11.5-14.0); WHITE BLOOD COUNT 13.4 10^3/uL (4.0-10.5)
[2018-11-25 06:09] LABS: ALBUMIN 3.2 g/dL (3.5-5.0); ALKALINE PHOSPHATASE 50 U/L (38-126); ANION GAP 11 (5-19); ASPARTATE AMINO TRANSFERASE 17 U/L (17-59); BILIRUBIN,DIRECT 0.3 mg/dL (0.0-0.4); BILIRUBIN,TOTAL 0.9 mg/dL (0.2-1.3); BLOOD UREA NITROGEN 23 mg/dL (7-20); CALCIUM 8.5 mg/dL (8.4-10.2); CARBON DIOXIDE 17 mmol/L (22-30); CHLORIDE 110 mmol/L (98-107); GLUCOSE 110 mg/dL (75-110); POTASSIUM 3.8 mmol/L (3.6-5.0); TOTAL PROTEIN 6.3 g/dL (6.3-8.2)
[2018-11-25 06:14] LABS: INTERNATIONAL RATION (INR) 2.63; PROTHROMBIN TIME 28.6 SEC (11.4-15.4)
[2018-11-25] MEDS: PANTOPRAZOLE SODIUM 40 MG TABLET.DR PO SCH ×2 (06:27→17:02)
[2018-11-25 06:37] LABS: ABSOLUTE LYMPHOCYTES# (MANUAL) 1.7 10^3/uL (0.5-4.7); ABSOLUTE MONOCYTES # (MANUAL) 0.8 10^3/uL (0.1-1.4); BASOPHILS % (MANUAL) 0 % (0-2); EOSINOPHILS % (MANUAL) 0 % (0-6); LYMPHOCYTES % (MANUAL) 12 % (13-45); MONOCYTES % (MANUAL) 6 % (3-13); SEGMENTED NEUTROPHILS % (MAN) 81 % (42-78); TOTAL CELLS COUNTED 100
[2018-11-25 06:39] LABS: ANISOCYTOSIS SLIGHT; PLATELET COMMENT ADEQUATE
[2018-11-25 06:40] LABS: TEAR DROP CELLS SLIGHT
--- NOTE | 2018-11-25 08:55 | PDOC PROGRESS REPORT ---
Subjective Progress Note for:: 11/25/18 Subjective:: 73 year old male history of hypertension, atrial fibrillation warfarin, smoker, was treated with doxycycline recently for chronic cough came to the emergency room last night or early this morning with complaints of abdominal pain associated with loose stools since yesterday. Pain scale according to the patient is 10 x 10. In the emergency room work-up indicates sigmoid diverticulitis. WBC count is more than 20,000. Medical consult was called for admission. And agreed to stay in the hospital for further evaluation. CT chest was negative for acute pathology. 11/21/[id number]-old female admitted for left arm weakness and numbness which was resolved. MRI of the brain was negative for acute pathology carotid Doppler is pending. Patient may go home this evening. 11/22/2018. No acute events overnight, abdominal pain improving, patient is passing flatus has not had a bowel movement, afebrile, denies any fever, chills, nausea, vomiting. Patient has been n.p.o. since Wednesday, surgery consulted, recommendation is nonsurgical management, recommendation is to start on clear liquid advance as tolerated 11/[id number]-bats-old male admitted with sigmoid diverticulitis able to tolerate the clear liquids he is complaining of a lot of gas requesting Gas-X we are going to put him on simethicone he has also atrial fibrillation 2 days ago he went into A. fib with RVR on Cardizem drip today Cardizem drip is off heart rate is around 75. Probably will switch the medication to Cardizem p.o. from today. Comfortable in the bed communicating well. Not in distress. 11/24/2018-patient is comfortable in the chair communicating well. Denies any abdominal pains. Able to tolerate the diet without any problems. Cultures came back negative so far. No acute events in the last 24 hours. Patient is afebrile. 11/25/2018-patient complaining of diarrhea every half an hour from this morning. Plan to check for the C. difficile. To start on p.o. vancomycin every 6 hours. To continue IV fluids. Patient is afebrile. T-max is 98.5. Heart rate is 97 rate controlled on metoprolol 100 mg p.o. twice daily. Plan to recheck the labs tomorrow. Her came down to 2.63 to start back on warfarin 2 mg p.o. nightly. Reason For Visit: SIGMOID DIVERTICULITIS Physical Exam Vital Signs: Temp Pulse Resp BP Pulse Ox 98.5 F 86 20 118/81 97 11/25/18 04:02 11/25/18 07:00 11/25/18 04:02 11/25/18 04:02 11/25/18 04:02 Intake & Output 11/24/18 11/25/18 11/26/18 06:59 06:59 06:59 Intake Total 2450 1700 Output Total 350 225 Balance 2100 1475 Weight 113.2 kg General appearance: PRESENT: no acute distress, obese Head exam: PRESENT: atraumatic Eye exam: PRESENT: PERRLA Mouth exam: PRESENT: moist, tongue midline Teeth exam: PRESENT: poor dentation Neck exam: PRESENT: carotid bruit Respiratory exam: PRESENT: decreased breath sounds Cardiovascular exam: PRESENT: irregular rhythm, tachycardia GI/Abdominal exam: PRESENT: normal bowel sounds, soft. ABSENT: distended, guarding, mass, organolmegaly, rebound, tenderness Rectal exam: PRESENT: deferred Extremities exam: PRESENT: full ROM. ABSENT: calf tenderness, clubbing, pedal edema Neurological exam: PRESENT: alert, awake, oriented to person, oriented to place, oriented to time, oriented to situation, CN II-XII grossly intact. ABSENT: motor sensory deficit Psychiatric exam: PRESENT: appropriate affect, normal mood. ABSENT: homicidal ideation, suicidal ideation Results Laboratory Results: 11/25/18 05:29 11/25/18 05:29 11/25/18 11/25/18 05:29 05:29 WBC 13.4 H RBC 5.79 H Hgb 15.9 Hct 48.2 MCV 83 MCH 27.5 MCHC 33.1 RDW 15.2 H Plt Count 297 Seg Neutrophils % Not Reportable Sodium 138.1 Potassium 3.8 Chloride 110 H Carbon Dioxide 17 L Anion Gap 11 BUN 23 H Creatinine 1.06 Est GFR ( Amer) > 60 Glucose 110 Calcium 8.5 Magnesium 1.8 Total Bilirubin 0.9 AST 17 Alkaline Phosphatase 50 Total Protein 6.3 Albumin 3.2 L 11/20/18 11/20/18 11/20/18 05:50 05:50 10:05 Creatine Kinase 53 L 48 L CK-MB (CK-2) Troponin I < 0.012 NT-Pro-B Natriuret Pep 11/20/18 11/20/18 11/20/18 10:05 15:45 15:45 Creatine Kinase 45 L CK-MB (CK-2) 0.31 0.40 Troponin I NT-Pro-B Natriuret Pep 11/20/18 11/20/18 11/21/18 21:35 21:35 06:30 Creatine Kinase 58 CK-MB (CK-2) 0.27 Troponin I NT-Pro-B Natriuret Pep 1390 H Impressions: Chest X-Ray 11/20/18 05:31 IMPRESSION: No evidence of acute intrathoracic disease. No significant change when compared to the prior study. KUB X-Ray 11/20/18 05:31 IMPRESSION: Nonspecific nonobstructive bowel gas pattern. There are surgical clips in the right upper quadrant. There are degenerative changes of the skeletal and vascular structures. Abdomen/Pelvis CT 11/20/18 06:40 IMPRESSION: 1. SIGMOID DIVERTICULITIS. NO EVIDENCE OF ABSCESS OR PERFORATION. 2. 3.1 CM ABDOMINAL AORTIC ANEURYSM. 3. TINY NONOBSTRUCTING CALYCEAL CALCULI IN BOTH KIDNEYS. BILATERAL RENAL CORTICAL CYSTS. 4. RIGHT INGUINAL HERNIA CONTAINING FAT. NO INVOLVEMENT OF BOWEL. 5. FATTY INFILTRATION OF THE LIVER. 6. NO OTHER SIGNIFICANT OR ACUTE FINDING IN THE ABDOMEN OR PELVIS ON CT SCAN WITH IV CONTRAST. Chest CT 11/20/18 06:40 IMPRESSION: SCATTERED ATELECTASIS IN THE LUNG BASES. RIGHT LOWER LOBE LUNG NODULE UNCHANGED. NO APPARENT ACUTE FINDINGS. Assessment and Plan - Diagnosis (1) Diverticulitis of sigmoid colon Is this a current diagnosis for this admission?: Yes (2) A-fib Qualifiers: Atrial fibrillation type: unspecified chronic Qualified Code(s): I48.20 - Chronic atrial fibrillation, unspecified; I48.2 - Chronic atrial fibrillation Is this a current diagnosis for this admission?: Yes (3) COPD (chronic obstructive pulmonary disease) Qualifiers: COPD type: unspecified COPD Qualified Code(s): J44.9 - Chronic obstructive pulmonary disease, unspecified Is this a current diagnosis for this admission?: No (4) HTN (hypertension) Qualifiers: Hypertension type: essential hypertension Qualified Code(s): I10 - Essential (primary) hypertension Is this a current diagnosis for this admission?: Yes (5) CAD (coronary artery disease) Qualifiers: Is this a current diagnosis for this admission?: Yes (6) Tobacco abuse Is this a current diagnosis for this admission?: No - Plan Summary Summary: 1.sigmoid diverticulitis Patient is going to be admitted to [facility] for sigmoid diverticulitis is going to be on telemetry, started on IV morphine 2 mg every 4 hours for pain. Blood cultures are pending stool cultures will be requested. Started on Cipro IV and Flagyl. GI prophylaxis initiated. Patient is already on Coumadin for A. fib INR is 2.43. It is going to be n.p.o. except for medications and start an IV fluids normal saline at 75 cc/h. 11/21/[id number]-vlvn-old male admitted with abdominal pain found to have sigmoid diverticulitis still complaining of severe pain in the lower abdomen. We are going to keep him at least n.p.o. except for medications for another day. presently on IV Flagyl and Cipro. 11/23/[id number]-wzsd-old male admitted with severe abdominal pains found to have sigmoid diverticulitis he is able to tolerate the diet. Complaining of bloating abdomen with gas. Requesting medication. Other than that he is doing well. Presently on IV Cipro and Flagyl. Cultures are came back negative so far. 11/24/2018-patient came with complaints of abdominal pain found to have sigmoid diverticulitis on the CT started on IV Flagyl and IV Cipro abdominal pain is almost resolved cultures are negative. Plan is to discontinue Cipro floxacillin from today. 11/25/2018-patient came in with the sigmoid diverticulitis able to tolerate the low-sodium diet. Surgical team signed off on him. Afebrile. Cultures are negative. Complaining of severe diarrhea from this morning to send for C. difficile and start on p.o. vancomycin. Low 2.History of chronic atrial fibrillation Patient has history of chronic atrial fibrillation on warfarin 4 mg p.o. daily to restart Coumadin 4 mg nightly. INR is 2.47 on admission. 11/21/2018-patient has history of chronic atrial fibrillation on warfarin 4 mg daily latest INR is 2.42. Within therapeutic range. Pharmacy is managing the warfarin doses. 11/23/2018-patient has history of chronic atrial fibrillation on Coumadin INR is 3.3 today. Pharmacy adjusting the medications. He was on Cardizem drip until this morning probably we may switch to p.o. Cardizem from today. Patient is on metoprolol at home. 11/24/2018-patient has history of chronic atrial fibrillation on Coumadin at home. INR is 5.06 today plan is to hold warfarin give 5 mg of vitamin K p.o. today. Patient rate controlled A. fib. Off the Cardizem drip. Receiving metoprolol 100 mg p.o. twice daily at this time. 11/25/2018-patient has history of chronic atrial fibrillation on Coumadin at home. He went into A. fib with RVR. Cardiology consult was done. INR came down to 2.6 plan is to restart Coumadin at low dose today. Heart rate is in the 90s. On metoprolol 100 mg p.o. twice daily plan is to continue the the treatment. If the heart rate goes up more than 100 to start the patient on Cardizem drip. 3.hypertension Patient has history of chronic essential hypertension blood pressure in the emergency room is stable. Pressure is 158/83. Patient is on lisinopril, amlodipine and metoprolol at home plan is to resume the medications. 11/21/2018-patient blood pressure today is 144/93. Relatively controlled. Patient is n.p.o. except for medications. To place him on hydralazine 10 mg IV every 6 PRN for systolic blood pressure more than 160. 11/23/2018-patient blood pressure today is 140/88. Stable. Heart rate is controlled around 75. Patient is on metoprolol at home plan maybe restart metoprolol from today after discussion with Dr. Tuttle. 11/24/2018-patient blood pressure today is 116/76. Stable. pt Is on PRN hydralazine, metoprolol 100 mg p.o. every 12 hours, amlodipine 5 mg p.o. daily, lisinopril 10 mg p.o. daily.. Plan is to continue the present management. 11/25/2018-patient blood pressure today is 118/81. Stable. Patient is receiving IV fluids normal saline at 75 cc/h for decreased urinary output. Plan is to watch for the fluid overload. 4.leukocytosis Patient came with a WBC count of more than 20,000 not on steroids at home. Leukocytosis this is most likely secondary to sigmoid diverticulitis. 11/21/2018-patient's WBC count is 20,700 improved from 23,000 yesterday. Most likely secondary to sigmoid colitis. 11/23/2018-patient's WBC count is 13,000, at the time of admission it is more than 23,000. Improving. Patient is afebrile. 11/24/2018-patient's WBC count is 13,000 yesterday improving. Today's labs are pending. Patient is afebrile. 11/25/2018-WBC count is 13,400 improving. 5.Obesity The BMI is more than 36 diet exercise weight loss lifestyle modifications are discussed with the patient. 6.tobacco use And is a daily day smoker smoking counseling was provided more than 15 minutes to start him on nicotine patch daily. 7.abdominal aortic aneurysm Incidental finding of abdominal aortic aneurysm 3.1 cm in size. Patient may need follow-up CT scans every 3 to 6 months. 8.COPD Examination chest bilateral wheezing is present. He was diagnosed with COPD but not on inhalers. To start him on Xopenex nebulizations while he was in the hospital. 9.hypokalemia admission serum potassium is 3.5 to supplement potassium with 40 mg of IV potassium. 11/21/2018-patient's serum potassium is 3.3 today to give 40 mg of IV potassium today. 11/23/2018-serum potassium today is 3.32 gives daily potassium supplementations. 11/25/2018-patient's potassium is 3.8 hypokalemia is resolved. 10. Coumadin toxicity Today is 5.06, to hold warfarin and to give vitamin K 5 mg p.o. 1 dose today recheck PT/INR tomorrow. 11/25/2018-INR today is 2.6 to start on Coumadin 2 mg p.o. nightly continue to check PT/INR on daily basis.
[2018-11-25] MEDS: POTASSIUM CHLORIDE 10 MEQ CAPSULE.ER PO SCH (09:21)
[2018-11-25] MEDS: TAMSULOSIN HCL 0.4 MG CAP.SR.24H PO SCH (09:21)
[2018-11-25] MEDS: AMLODIPINE BESYLATE 5 MG TABLET PO SCH ×2 (09:21→21:46)
[2018-11-25] MEDS: METOPROLOL TARTRATE 100 MG TABLET PO SCH ×2 (09:21→21:45)
[2018-11-25 10:29] LABS: C DIFFICILE GDH NEGATIVE (NEGATIVE)
[2018-11-25 11:38] LABS: HEMATOCRIT 47.7 % (37.9-51.0); HEMOGLOBIN 15.7 g/dL (13.5-17.0); MEAN CORPUSCULAR HEMOGLOBIN 27.3 pg (27.0-33.4); MEAN CORPUSCULAR HGB CONC 32.8 g/dL (32.0-36.0); MEAN CORPUSCULAR VOLUME 83 fl (80-97); PLATELET COUNT 262 10^3/uL (150-450); RED BLOOD COUNT 5.74 10^6/uL (4.35-5.55); RED CELL DISTRIBUTION WIDTH 15.1 % (11.5-14.0); WHITE BLOOD COUNT 12.1 10^3/uL (4.0-10.5)
[2018-11-25] MEDS ORDERED: VANCOMYCIN HCL INJ 500 MG VIAL PO SCH (12:00)
[2018-11-25 17:36] LABS: APPEARANCE,URINE CLEAR; BILIRUBIN,URINE NEGATIVE (NEGATIVE); COLOR,URINE YELLOW; GLUCOSE, URINE NEGATIVE (NEGATIVE); KETONES,URINE NEGATIVE (NEGATIVE); LEUKOCYTE ESTERASE,URINE TRACE (NEGATIVE); NITRITE,URINE NEGATIVE (NEGATIVE); PROTEIN,URINE 100 mg/dL (NEGATIVE); URINE SPECIFIC GRAVITY 1.015; UROBILINOGEN,URINE NEGATIVE mg/dL (<2.0)
[2018-11-25] MEDS ORDERED: WARFARIN SODIUM 2 MG TABLET PO SCH (22:00)
[2018-11-26 05:11] LABS: INTERNATIONAL RATION (INR) 2.26; PROTHROMBIN TIME 25.3 SEC (11.4-15.4)
[2018-11-26 05:14] LABS: ABSOLUTE BASOPHILS # (AUTO) 0.1 10^3/uL (0.0-0.2); ABSOLUTE EOSINOPHILS # (AUTO) 0.6 10^3/uL (0.0-0.6); ABSOLUTE MONOCYTES (AUTO) 1.4 10^3/uL (0.1-1.4); ABSOLUTE NEUT (AUTO) 7.4 10^3/uL (1.7-8.2); BASOPHILS % (AUTO) 0.7 % (0-2); EOSINOPHILS % (AUTO) 5.3 % (0-6); HEMATOCRIT 47.4 % (37.9-51.0); HEMOGLOBIN 15.8 g/dL (13.5-17.0); LYMPHOCYTES % (AUTO) 9.8 % (13-45); MEAN CORPUSCULAR HEMOGLOBIN 27.5 pg (27.0-33.4); MEAN CORPUSCULAR HGB CONC 33.2 g/dL (32.0-36.0); MEAN CORPUSCULAR VOLUME 83 fl (80-97); MONOCYTES % (AUTO) 13.7 % (3-13); PLATELET COUNT 279 10^3/uL (150-450); RED BLOOD COUNT 5.72 10^6/uL (4.35-5.55); RED CELL DISTRIBUTION WIDTH 15.2 % (11.5-14.0); SEGMENTED NEUTROPHILS % (AUTO) 70.5 % (42-78); TOTAL CELLS COUNTED % (AUTO) 100 %; WHITE BLOOD COUNT 10.5 10^3/uL (4.0-10.5)
[2018-11-26 05:25] LABS: ALBUMIN 3.2 g/dL (3.5-5.0); ALKALINE PHOSPHATASE 49 U/L (38-126); ANION GAP 10 (5-19); ASPARTATE AMINO TRANSFERASE 17 U/L (17-59); BILIRUBIN,DIRECT 0.2 mg/dL (0.0-0.4); BILIRUBIN,TOTAL 0.6 mg/dL (0.2-1.3); BLOOD UREA NITROGEN 21 mg/dL (7-20); CALCIUM 8.5 mg/dL (8.4-10.2); CARBON DIOXIDE 20 mmol/L (22-30); CHLORIDE 112 mmol/L (98-107); GLUCOSE 126 mg/dL (75-110); POTASSIUM 3.5 mmol/L (3.6-5.0); TOTAL PROTEIN 6.5 g/dL (6.3-8.2)
[2018-11-26] MEDS: PANTOPRAZOLE SODIUM 40 MG TABLET.DR PO SCH ×2 (06:40→18:01)
--- NOTE | 2018-11-26 08:31 | PDOC PROGRESS REPORT ---
Subjective Progress Note for:: 11/26/18 Subjective:: 73 year old male history of hypertension, atrial fibrillation warfarin, smoker, was treated with doxycycline recently for chronic cough came to the emergency room last night or early this morning with complaints of abdominal pain associated with loose stools since yesterday. Pain scale according to the patient is 10 x 10. In the emergency room work-up indicates sigmoid diverticulitis. WBC count is more than 20,000. Medical consult was called for admission. And agreed to stay in the hospital for further evaluation. CT chest was negative for acute pathology. 11/21/[id number]-hywv-old female admitted for left arm weakness and numbness which was resolved. MRI of the brain was negative for acute pathology carotid Doppler is pending. Patient may go home this evening. 11/22/2018. No acute events overnight, abdominal pain improving, patient is passing flatus has not had a bowel movement, afebrile, denies any fever, chills, nausea, vomiting. Patient has been n.p.o. since Wednesday, surgery consulted, recommendation is nonsurgical management, recommendation is to start on clear liquid advance as tolerated 11/23/[id number]-ngko-old male admitted with sigmoid diverticulitis able to tolerate the clear liquids he is complaining of a lot of gas requesting Gas-X we are going to put him on simethicone he has also atrial fibrillation 2 days ago he went into A. fib with RVR on Cardizem drip today Cardizem drip is off heart rate is around 75. Probably will switch the medication to Cardizem p.o. from today. Comfortable in the bed communicating well. Not in distress. 11/24/2018-patient is comfortable in the chair communicating well. Denies any abdominal pains. Able to tolerate the diet without any problems. Cultures came back negative so far. No acute events in the last 24 hours. Patient is afebrile. 11/25/2018-patient complaining of diarrhea every half an hour from this morning. Plan to check for the C. difficile. To start on p.o. vancomycin every 6 hours. To continue IV fluids. Patient is afebrile. T-max is 98.5. Heart rate is 97 rate controlled on metoprolol 100 mg p.o. twice daily. Plan to recheck the labs tomorrow. Her came down to 2.63 to start back on warfarin 2 mg p.o. nightly. 11/26/2018-no acute events in the last 24 hours. Afebrile. Patient states diarrhea is improving. Requesting antidiarrheal medication. C. difficile was negative yesterday. INR is 2.26 therapeutic range. To increase the dose of warfarin to 4 mg p.o. nightly tonight and recheck PT/INR tomorrow and to start him on Imodium. Reason For Visit: SIGMOID DIVERTICULITIS Physical Exam Vital Signs: Temp Pulse Resp BP Pulse Ox 97.7 F 114 H 17 130/83 H 97 11/26/18 07:48 11/26/18 07:48 11/26/18 07:48 11/26/18 07:48 11/26/18 07:48 Intake & Output 11/25/18 11/26/18 11/27/18 06:59 06:59 06:59 Intake Total 1700 2395 Output Total 225 75 Balance 1475 2320 Weight 111 kg General appearance: PRESENT: no acute distress, obese Head exam: PRESENT: atraumatic Eye exam: PRESENT: PERRLA Mouth exam: PRESENT: moist, tongue midline Teeth exam: PRESENT: poor dentation Neck exam: ABSENT: carotid bruit, JVD, lymphadenopathy, thyromegaly Respiratory exam: PRESENT: decreased breath sounds Cardiovascular exam: PRESENT: RRR. ABSENT: diastolic murmur, rubs, systolic murmur GI/Abdominal exam: PRESENT: normal bowel sounds, soft. ABSENT: distended, guarding, mass, organolmegaly, rebound, tenderness Rectal exam: PRESENT: deferred Extremities exam: PRESENT: full ROM. ABSENT: calf tenderness, clubbing, pedal edema Neurological exam: PRESENT: alert, awake, oriented to person, oriented to place, oriented to time, oriented to situation, CN II-XII grossly intact. ABSENT: motor sensory deficit Psychiatric exam: PRESENT: appropriate affect, normal mood. ABSENT: homicidal ideation, suicidal ideation Results Laboratory Results: 11/26/18 04:25 11/26/18 04:25 11/25/18 11/25/18 11/26/18 10:45 17:00 04:25 WBC 12.1 H 10.5 RBC 5.74 H 5.72 H Hgb 15.7 15.8 Hct 47.7 47.4 MCV 83 83 MCH 27.3 27.5 MCHC 32.8 33.2 RDW 15.1 H 15.2 H Plt Count 262 279 Seg Neutrophils % 70.5 Sodium Potassium Chloride Carbon Dioxide Anion Gap BUN Creatinine Est GFR ( Amer) Glucose Calcium Magnesium Total Bilirubin AST Alkaline Phosphatase Total Protein Albumin Urine Color YELLOW Urine Appearance CLEAR Urine pH 6.0 Ur Specific [place] 1.015 Urine Protein 100 H Urine Glucose (UA) NEGATIVE Urine Ketones NEGATIVE Urine Blood SMALL H Urine Nitrite NEGATIVE Ur Leukocyte Esterase TRACE H Urine WBC (Auto) 1 Urine RBC (Auto) 1 11/26/18 04:25 WBC RBC Hgb Hct MCV MCH MCHC RDW Plt Count Seg Neutrophils % Sodium 141.7 Potassium 3.5 L Chloride 112 H Carbon Dioxide 20 L Anion Gap 10 BUN 21 H Creatinine 0.97 Est GFR ( Amer) > 60 Glucose 126 H Calcium 8.5 Magnesium 1.8 Total Bilirubin 0.6 AST 17 Alkaline Phosphatase 49 Total Protein 6.5 Albumin 3.2 L Urine Color Urine Appearance Urine pH Ur Specific [place] Urine Protein Urine Glucose (UA) Urine Ketones Urine Blood Urine Nitrite Ur Leukocyte Esterase Urine WBC (Auto) Urine RBC (Auto) 11/20/18 10:05 Blood Blood Culture - Final NO GROWTH IN 5 DAYS 11/20/18 09:39 Blood Blood Culture - Final NO GROWTH IN 5 DAYS 11/20/18 11/20/18 11/20/18 05:50 05:50 10:05 Creatine Kinase 53 L 48 L CK-MB (CK-2) Troponin I < 0.012 NT-Pro-B Natriuret Pep 11/20/18 11/20/18 11/20/18 10:05 15:45 15:45 Creatine Kinase 45 L CK-MB (CK-2) 0.31 0.40 Troponin I NT-Pro-B Natriuret Pep 11/20/18 11/20/18 11/21/18 21:35 21:35 06:30 Creatine Kinase 58 CK-MB (CK-2) 0.27 Troponin I NT-Pro-B Natriuret Pep 1390 H Impressions: Chest X-Ray 11/20/18 05:31 IMPRESSION: No evidence of acute intrathoracic disease. No significant change when compared to the prior study. KUB X-Ray 11/20/18 05:31 IMPRESSION: Nonspecific nonobstructive bowel gas pattern. There are surgical clips in the right upper quadrant. There are degenerative changes of the skeletal and vascular structures. Abdomen/Pelvis CT 11/20/18 06:40 IMPRESSION: 1. SIGMOID DIVERTICULITIS. NO EVIDENCE OF ABSCESS OR PERFORATION. 2. 3.1 CM ABDOMINAL AORTIC ANEURYSM. 3. TINY NONOBSTRUCTING CALYCEAL CALCULI IN BOTH KIDNEYS. BILATERAL RENAL CORTICAL CYSTS. 4. RIGHT INGUINAL HERNIA CONTAINING FAT. NO INVOLVEMENT OF BOWEL. 5. FATTY INFILTRATION OF THE LIVER. 6. NO OTHER SIGNIFICANT OR ACUTE FINDING IN THE ABDOMEN OR PELVIS ON CT SCAN WITH IV CONTRAST. Chest CT 11/20/18 06:40 IMPRESSION: SCATTERED ATELECTASIS IN THE LUNG BASES. RIGHT LOWER LOBE LUNG NODULE UNCHANGED. NO APPARENT ACUTE FINDINGS. Assessment and Plan - Diagnosis (1) Diverticulitis of sigmoid colon Is this a current diagnosis for this admission?: Yes (2) A-fib Qualifiers: Atrial fibrillation type: unspecified chronic Qualified Code(s): I48.20 - Chronic atrial fibrillation, unspecified; I48.2 - Chronic atrial fibrillation Is this a current diagnosis for this admission?: Yes (3) COPD (chronic obstructive pulmonary disease) Qualifiers: COPD type: unspecified COPD Qualified Code(s): J44.9 - Chronic obstructive pulmonary disease, unspecified Is this a current diagnosis for this admission?: No (4) HTN (hypertension) Qualifiers: Hypertension type: essential hypertension Qualified Code(s): I10 - Essential (primary) hypertension Is this a current diagnosis for this admission?: Yes (5) CAD (coronary artery disease) Qualifiers: Is this a current diagnosis for this admission?: Yes (6) Tobacco abuse Is this a current diagnosis for this admission?: No - Plan Summary Summary: 1.sigmoid diverticulitis Patient is going to be admitted to [facility] for sigmoid diverticulitis is going to be on telemetry, started on IV morphine 2 mg every 4 hours for pain. Blood cultures are pending stool cultures will be requested. Started on Cipro IV and Flagyl. GI prophylaxis initiated. Patient is already on Coumadin for A. fib INR is 2.43. It is going to be n.p.o. except for medications and start an IV fluids normal saline at 75 cc/h. 11/21/[id number]-mmqf-old male admitted with abdominal pain found to have sigmoid diverticulitis still complaining of severe pain in the lower abdomen. We are going to keep him at least n.p.o. except for medications for another day. presently on IV Flagyl and Cipro. 11/23/[id number]-mlif-old male admitted with severe abdominal pains found to have sigmoid diverticulitis he is able to tolerate the diet. Complaining of bloating abdomen with gas. Requesting medication. Other than that he is doing well. Presently on IV Cipro and Flagyl. Cultures are came back negative so far. 11/24/2018-patient came with complaints of abdominal pain found to have sigmoid diverticulitis on the CT started on IV Flagyl and IV Cipro abdominal pain is almost resolved cultures are negative. Plan is to discontinue Cipro floxacillin from today. 11/25/2018-patient came in with the sigmoid diverticulitis able to tolerate the low-sodium diet. Surgical team signed off on him. Afebrile. Cultures are negative. Complaining of severe diarrhea from this morning to send for C. difficile and start on p.o. vancomycin. 11/26/2018-patient admitted with sigmoid diverticulosis and abdominal pain abdominal pain was resolved and blood cultures are negative diarrhea is improving stool for C. difficile is negative. Patient is presently off the antibiotics. 2.History of chronic atrial fibrillation Patient has history of chronic atrial fibrillation on warfarin 4 mg p.o. daily to restart Coumadin 4 mg nightly. INR is 2.47 on admission. 11/21/2018-patient has history of chronic atrial fibrillation on warfarin 4 mg daily latest INR is 2.42. Within therapeutic range. Pharmacy is managing the warfarin doses. 11/23/2018-patient has history of chronic atrial fibrillation on Coumadin INR is 3.3 today. Pharmacy adjusting the medications. He was on Cardizem drip until this morning probably we may switch to p.o. Cardizem from today. Patient is on metoprolol at home. 11/24/2018-patient has history of chronic atrial fibrillation on Coumadin at home. INR is 5.06 today plan is to hold warfarin give 5 mg of vitamin K p.o. today. Patient rate controlled A. fib. Off the Cardizem drip. Receiving metoprolol 100 mg p.o. twice daily at this time. 11/25/2018-patient has history of chronic atrial fibrillation on Coumadin at home. He went into A. fib with RVR. Cardiology consult was done. INR came down to 2.6 plan is to restart Coumadin at low dose today. Heart rate is in the 90s. On metoprolol 100 mg p.o. twice daily plan is to continue the the germain tment. If the heart rate goes up more than 100 to start the patient on Cardizem drip. 11/26/2018-patient has history of chronic atrial fibrillation on Coumadin INR is 2.26 today within therapeutic range plan is to increase the dose to 4 mg of his home dose and recheck. PT/INR tomorrow. on exam heart rate in the 70s in sinus rhythm. Recently on metoprolol 100 mg p.o. twice a day. 3.hypertension Patient has history of chronic essential hypertension blood pressure in the emergency room is stable. Pressure is 158/83. Patient is on lisinopril, amlodipine and metoprolol at home plan is to resume the medications. 11/21/2018-patient blood pressure today is 144/93. Relatively controlled. Patient is n.p.o. except for medications. To place him on hydralazine 10 mg IV every 6 PRN for systolic blood pressure more than 160. 11/23/2018-patient blood pressure today is 140/88. Stable. Heart rate is controlled around 75. Patient is on metoprolol at home plan maybe restart metoprolol from today after discussion with Dr. Tuttle. 11/24/2018-patient blood pressure today is 116/76. Stable. pt Is on PRN hy dralazine, metoprolol 100 mg p.o. every 12 hours, amlodipine 5 mg p.o. daily, lisinopril 10 mg p.o. daily.. Plan is to continue the present management. 11/25/2018-patient blood pressure today is 118/81. Stable. Patient is receiving IV fluids normal saline at 75 cc/h for decreased urinary output. Plan is to watch for the fluid overload. 11/26/2018-patient's latest blood pressure is 118/81 stable. Plan is to restart his lisinopril from today. 4.leukocytosis Patient came with a WBC count of more than 20,000 not on steroids at home. Leukocytosis this is most likely secondary to sigmoid diverticulitis. 11/21/2018-patient's WBC count is 20,700 improved from 23,000 yesterday. Most likely secondary to sigmoid colitis. 11/23/2018-patient's WBC count is 13,000, at the time of admission it is more than 23,000. Improving. Patient is afebrile. 11/24/2018-patient's WBC count is 13,000 yesterday improving. Today's labs are pending. Patient is afebrile. 11/25/2018-WBC count is 13,400 improving. 11/26/2018-patient came in with elevated WBC count latest WBCs 10.5. Leukocytosis most likely due to sigmoid diverticulitis resolved. 5.Obesity The BMI is more than 36 diet exercise weight loss lifestyle modifications are discussed with the patient. 6.tobacco use And is a daily day smoker smoking counseling was provided more than 15 minutes to start him on nicotine patch daily. 7.abdominal aortic aneurysm Incidental finding of abdominal aortic aneurysm 3.1 cm in size. Patient may need follow-up CT scans every 3 to 6 months. 8.COPD Examination chest bilateral wheezing is present. He was diagnosed with COPD but not on inhalers. To start him on Xopenex nebulizations while he was in the hospital. 9.hypokalemia admission serum potassium is 3.5 to supplement potassium with 40 mg of IV potassium. 11/21/2018-patient's serum potassium is 3.3 today to give 40 mg of IV potassium today. 11/23/2018-serum potassium today is 3.32 gives daily potassium supplementations. 11/25/2018-patient's potassium is 3.8 hypokalemia is resolved. 11/26/2018-patient serum potassium is 3.5 to continue daily p.o. potassium supplementation. 10. Coumadin toxicity Today is 5.06, to hold warfarin and to give vitamin K 5 mg p.o. 1 dose today recheck PT/INR tomorrow. 11/25/2018-INR today is 2.6 to start on Coumadin 2 mg p.o. nightly continue to check PT/INR on daily basis. 11/26/2018-INR today is 2.26 on Coumadin 2 mg p.o. nightly plan is to increase to dose to 4 mg nightly which is his home dose recheck PT/INR tomorrow. 7.diarrhea Yesterday patient complaining of several loose stools every half an hour today stool for C. difficile is negative yesterday. Vancomycin was discontinued to start him on Imodium from today.
[2018-11-26] MEDS: TAMSULOSIN HCL 0.4 MG CAP.SR.24H PO SCH (10:20)
[2018-11-26] MEDS: AMLODIPINE BESYLATE 5 MG TABLET PO SCH ×2 (10:20→21:23)
[2018-11-26] MEDS: POTASSIUM CHLORIDE 10 MEQ CAPSULE.ER PO SCH (10:20)
[2018-11-26] MEDS: METOPROLOL TARTRATE 100 MG TABLET PO SCH ×2 (10:21→21:22)
[2018-11-26] MEDS: LOPERAMIDE HCL 2 MG CAPSULE PO PRN ×2 (10:24→21:23)
[2018-11-26] MEDS ORDERED: WARFARIN SODIUM 3 MG TABLET PO SCH (22:00)
[2018-11-26] MEDS ORDERED: WARFARIN SODIUM 2 MG TABLET PO SCH (22:00)
[2018-11-27] MEDS: OXYCODONE-ACETAMINOPHEN 5-325 MG TABLET PO PRN (00:47)
[2018-11-27 05:28] LABS: HEMATOCRIT 47.9 % (37.9-51.0); HEMOGLOBIN 16.1 g/dL (13.5-17.0); MEAN CORPUSCULAR HEMOGLOBIN 27.8 pg (27.0-33.4); MEAN CORPUSCULAR HGB CONC 33.6 g/dL (32.0-36.0); MEAN CORPUSCULAR VOLUME 83 fl (80-97); PLATELET COUNT 381 10^3/uL (150-450); RED BLOOD COUNT 5.79 10^6/uL (4.35-5.55); RED CELL DISTRIBUTION WIDTH 15.4 % (11.5-14.0); WHITE BLOOD COUNT 13.1 10^3/uL (4.0-10.5)
[2018-11-27] MEDS: PANTOPRAZOLE SODIUM 40 MG TABLET.DR PO SCH (05:30)
[2018-11-27 05:43] LABS: INTERNATIONAL RATION (INR) 2.92; PROTHROMBIN TIME 31.1 SEC (11.4-15.4)
[2018-11-27 05:45] LABS: ALBUMIN 3.2 g/dL (3.5-5.0); ALKALINE PHOSPHATASE 50 U/L (38-126); ANION GAP 10 (5-19); ASPARTATE AMINO TRANSFERASE 13 U/L (17-59); BILIRUBIN,DIRECT 0.2 mg/dL (0.0-0.4); BILIRUBIN,TOTAL 0.5 mg/dL (0.2-1.3); BLOOD UREA NITROGEN 20 mg/dL (7-20); CALCIUM 8.7 mg/dL (8.4-10.2); CARBON DIOXIDE 18 mmol/L (22-30); CHLORIDE 110 mmol/L (98-107); GLUCOSE 132 mg/dL (75-110); POTASSIUM 3.7 mmol/L (3.6-5.0); TOTAL PROTEIN 6.7 g/dL (6.3-8.2)
--- NOTE | 2018-11-27 08:36 | PDOC DISCHARGE SUMMARY ---
Impression - Admit/DC Date/PCP Admission Date/Primary Care Provider: 11/20/18 09:51 NYASIA NAJERA MD Discharge Date: 11/27/18 - Discharge Diagnosis (1) Diverticulitis of sigmoid colon Is this a current diagnosis for this admission?: Yes (2) A-fib Is this a current diagnosis for this admission?: Yes (3) COPD (chronic obstructive pulmonary disease) Is this a current diagnosis for this admission?: No (4) HTN (hypertension) Is this a current diagnosis for this admission?: Yes (5) CAD (coronary artery disease) Is this a current diagnosis for this admission?: Yes (6) Tobacco abuse Is this a current diagnosis for this admission?: No - Assessment Summary: 1.sigmoid diverticulitis Patient is going to be admitted to [facility] for sigmoid diverticulitis is going to be on telemetry, started on IV morphine 2 mg every 4 hours for pain. Blood cultures are pending stool cultures will be requested. Started on Cipro IV and Flagyl. GI prophylaxis initiated. Patient is already on Coumadin for A. fib INR is 2.43. It is going to be n.p.o. except for medications and start an IV fluids normal saline at 75 cc/h. 11/21/[id number]-kmam-old male admitted with abdominal pain found to have sigmoid diverticulitis still complaining of severe pain in the lower abdomen. We are going to keep him at least n.p.o. except for medications for another day. presently on IV Flagyl and Cipro. 11/23/[id number]-odbj-old male admitted with severe abdominal pains found to have sigmoid diverticulitis he is able to tolerate the diet. Complaining of bloating abdomen with gas. Requesting medication. Other than that he is doing well. Presently on IV Cipro and Flagyl. Cultures are came back negative so far. 11/24/2018-patient came with complaints of abdominal pain found to have sigmoid diverticulitis on the CT started on IV Flagyl and IV Cipro abdominal pain is almost resolved cultures are negative. Plan is to discontinue Cipro floxacillin from today. 11/25/2018-patient came in with the sigmoid diverticulitis able to tolerate the low-sodium diet. Surgical team signed off on him. Afebrile. Cultures are negative. Complaining of severe diarrhea from this morning to send for C. difficile and start on p.o. vancomycin. 11/26/2018-patient admitted with sigmoid diverticulosis and abdominal pain abdominal pain was resolved and blood cultures are negative diarrhea is improving stool for C. difficile is negative. Patient is presently off the antibiotics. 11/27/2018-patient admitted with severe abdominal pains and sigmoid diverticulitis stool cultures are negative blood cultures are negative antibiotic therapy was discontinued. WBC count is normal. Afebrile. Patient is going home today he is was strongly advised to follow-up with primary care physician in 1 week time. To send the patient home on levo floxacillin 500 mg p.o. daily for 1 week. 2.History of chronic atrial fibrillation Patient has history of chronic atrial fibrillation on warfarin 4 mg p.o. daily to restart Coumadin 4 mg nightly. INR is 2.47 on admission. 11/21/2018-patient has history of chronic atrial fibrillation on warfarin 4 mg daily latest INR is 2.42. Within therapeutic range. Pharmacy is managing the warfarin doses. 11/23/2018-patient has history of chronic atrial fibrillation on Coumadin INR is 3.3 today. Pharmacy adjusting the medications. He was on Cardizem drip until this morning probably we may switch to p.o. Cardizem from today. Patient is on metoprolol at home. 11/24/2018-patient has history of chronic atrial fibrillation on Coumadin at home. INR is 5.06 today plan is to hold warfarin give 5 mg of vitamin K p.o. today. Patient rate controlled A. fib. Off the Cardizem drip. Receiving metoprolol 100 mg p.o. twice daily at this time. 11/25/2018-patient has history of chronic atrial fibrillation on Coumadin at home. He went into A. fib with RVR. Cardiology consult was done. INR came down to 2.6 plan is to restart Coumadin at low dose today. Heart rate is in the 90s. On metoprolol 100 mg p.o. twice daily plan is to continue the the t reatment. If the heart rate goes up more than 100 to start the patient on Cardizem drip. 11/26/2018-patient has history of chronic atrial fibrillation on Coumadin INR is 2.26 today within therapeutic range plan is to increase the dose to 4 mg of his home dose and recheck. PT/INR tomorrow. on exam heart rate in the 70s in sinus rhythm. Recently on metoprolol 100 mg p.o. twice a day. 11/27/2018-patient has history of chronic atrial fibrillation on warfarin 2 mg alternating with 4 mg. INR is 2.9 today. Patient is advised to follow-up with primary care physician in 3 to 5 days to recheck his INR. 3.hypertension Patient has history of chronic essential hypertension blood pressure in the emergency room is stable. Pressure is 158/83. Patient is on lisinopril, amlodipine and metoprolol at home plan is to resume the medications. 11/21/2018-patient blood pressure today is 144/93. Relatively controlled. Patient is n.p.o. except for medications. To place him on hydralazine 10 mg IV every 6 PRN for systolic blood pressure more than 160. 11/23/2018-patient blood pressure today is 140/88. Stable. Heart rate is controlled around 75. Patient is on metoprolol at home plan maybe restart metoprolol from today after discussion with Dr. Tuttle. 11/24/2018-patient blood pressure today is 116/76. Stable. pt Is on PRN hydralazine, metoprolol 100 mg p.o. every 12 hours, amlodipine 5 mg p.o. daily, lisinopril 10 mg p.o. daily.. Plan is to continue the present management. 11/25/2018-patient blood pressure today is 118/81. Stable. Patient is receiving IV fluids normal saline at 75 cc/h for decreased urinary output. Plan is to watch for the fluid overload. 11/26/2018-patient's latest blood pressure is 118/81 stable. Plan is to restart his lisinopril from today. 11/27/2018-patient blood pressure today is 122/76. Stable. Patient is advised to continue the present medications lisinopril 10 mg daily, metoprolol 100 mg every 12 hours and amlodipine 5 mg daily. 4.leukocytosis Patient came with a WBC count of more than 20,000 not on steroids at home. Leukocytosis this is most likely secondary to sigmoid diverticulitis. 11/21/2018-patient's WBC count is 20,700 improved from 23,000 yesterday. Most likely secondary to sigmoid colitis. 11/23/2018-patient's WBC count is 13,000, at the time of admission it is more than 23,000. Improving. Patient is afebrile. 11/24/2018-patient's WBC count is 13,000 yesterday improving. Today's labs are pending. Patient is afebrile. 11/25/2018-WBC count is 13,400 improving. 11/26/2018-patient came in with elevated WBC count latest WBCs 10.5. Leukocytosis most likely due to sigmoid diverticulitis resolved. 11/27/2018-WBC count is persisting around 13,000. Improved from more than 20,000 at the time of admission. Patient is afebrile. Going home on levo floxacillin 20 mg p.o. daily for 1 week. 5.Obesity The BMI is more than 36 diet exercise weight loss lifestyle modifications are discussed with the patient. 6.tobacco use And is a daily day smoker smoking counseling was provided more than 15 minutes to start him on nicotine patch daily. 7.abdominal aortic aneurysm Incidental finding of abdominal aortic aneurysm 3.1 cm in size. Patient may need follow-up CT scans every 3 to 6 months. 11/27/2018-patient is strongly advised to follow-up with primary care physician for follow-up visit CTs every 3 to 6 months as recommended by the radiologist. Patient understood and verbalized response. 8.COPD Examination chest bilateral wheezing is present. He was diagnosed with COPD but not on inhalers. To start him on Xopenex nebulizations while he was in the hospital. 9.hypokalemia admission serum potassium is 3.5 to supplement potassium with 40 mg of IV potassium. 11/21/2018-patient's serum potassium is 3.3 today to give 40 mg of IV potassium today. 11/23/2018-serum potassium today is 3.32 gives daily potassium supplementations. 11/25/2018-patient's potassium is 3.8 hypokalemia is resolved. 11/26/2018-patient serum potassium is 3.5 to continue daily p.o. potassium supplementation. 10. Coumadin toxicity Today is 5.06, to hold warfarin and to give vitamin K 5 mg p.o. 1 dose today recheck PT/INR tomorrow. 11/25/2018-INR today is 2.6 to start on Coumadin 2 mg p.o. nightly continue to check PT/INR on daily basis. 11/26/2018-INR today is 2.26 on Coumadin 2 mg p.o. nightly plan is to increase to dose to 4 mg nightly which is his home dose recheck PT/INR tomorrow. 11/27/2018-INR today is 2.9 Coumadin toxicity is resolved. 7.diarrhea Yesterday patient complaining of several loose stools every half an hour today stool for C. difficile is negative yesterday. Vancomycin was discontinued to start him on Imodium from today. 11/27/2018-patient does not have any loose stools from last night. C. difficile negative. Diarrhea is resolved. - Additional Information Resuscitation Status: Full Code Discharge Activity: Activity As Tolerated, Bedrest Referrals: NYASIA NAJERA MD [Primary Care Provider] - Prescriptions: Oxycodone HCl/Acetaminophen [Percocet 5-325 mg Tablet] 1 tab PO Q6HP PRN #10 tablet PRN Reason: Home Medications: Amlodipine Besylate [Norvasc 5 mg Tablet] 5 mg PO Q12 11/20/18 Cyclobenzaprine HCl [Flexeril 10 mg Tablet] 10 mg PO Q8HP PRN 11/20/18 Lisinopril [Prinivil] 20 mg PO DAILY 11/20/18 Metoprolol Tartrate [Lopressor 100 mg Tablet] 100 mg PO Q12 11/20/18 Tamsulosin HCl [Flomax 0.4 mg Cap.sr] 0.4 mg PO DAILY 11/20/18 Warfarin Sodium [Coumadin 3 mg Tablet] 3 mg PO Q2D 11/20/18 Warfarin Sodium [Coumadin 4 mg Tablet] 4 mg PO Q2D 11/20/18 Oxycodone HCl/Acetaminophen [Percocet 5-325 mg Tablet] 1 tab PO Q6HP PRN #10 tablet 11/27/18 History of Present Illiness History of Present Illness: DAVID MERAZ is a 73 year old male history of hypertension, atrial fibrillation warfarin, smoker, was treated with doxycycline recently for chronic cough came to the emergency room last night or early this morning with complaints of abdominal pain associated with loose stools since yesterday. Pain scale according to the patient is 10 x 10. In the emergency room work-up indicates sigmoid diverticulitis. WBC count is more than 20,000. Medical consult was called for admission. And agreed to stay in the hospital for further evaluation. CT chest was negative for acute pathology. Hospital Course Hospital Course: 73 year old male history of hypertension, atrial fibrillation warfarin, smoker, was treated with doxycycline recently for chronic cough came to the emergency room last night or early this morning with complaints of abdominal pain associated with loose stools since yesterday. Pain scale according to the patient is 10 x 10. In the emergency room work-up indicates sigmoid diverticulitis. WBC count is more than 20,000. Medical consult was called for admission. And agreed to stay in the hospital for further evaluation. CT chest was negative for acute pathology. 11/21/[id number]-xlin-old female admitted for left arm weakness and numbness which was resolved. MRI of the brain was negative for acute pathology carotid Doppler is pending. Patient may go home this evening. 11/22/2018. No acute events overnight, abdominal pain improving, patient is passing flatus has not had a bowel movement, afebrile, denies any fever, chills, nausea, vomiting. Patient has been n.p.o. since Wednesday, surgery consulted, recommendation is nonsurgical management, recommendation is to start on clear liquid advance as tolerated 11/23/[id number]-ogrg-old male admitted with sigmoid diverticulitis able to tolerate the clear liquids he is complaining of a lot of gas requesting Gas-X we are going to put him on simethicone he has also atrial fibrillation 2 days ago he went into A. fib with RVR on Cardizem drip today Cardizem drip is off heart rate is around 75. Probably will switch the medication to Cardizem p.o. from today. Comfortable in the bed communicating well. Not in distress. 11/24/2018-patient is comfortable in the chair communicating well. Denies any abdominal pains. Able to tolerate the diet without any problems. Cultures came back negative so far. No acute events in the last 24 hours. Patient is afebrile. 11/25/2018-patient complaining of diarrhea every half an hour from this morning. Plan to check for the C. difficile. To start on p.o. vancomycin every 6 hours. To continue IV fluids. Patient is afebrile. T-max is 98.5. Heart rate is 97 rate controlled on metoprolol 100 mg p.o. twice daily. Plan to recheck the labs tomorrow. Her came down to 2.63 to start back on warfarin 2 mg p.o. nightly. 11/26/2018-no acute events in the last 24 hours. Afebrile. Patient states diarrhea is improving. Requesting antidiarrheal medication. C. difficile was negative yesterday. INR is 2.26 therapeutic range. To increase the dose of warfarin to 4 mg p.o. nightly tonight and recheck PT/INR tomorrow and to start him on Imodium. 11/27/2018-patient is comfortable in the chair communicating well. Expressing desire to go home. I requested him to stay at least another day but declined my advice and preferred to go home on p.o. Percocets and antibiotic therapy. Physical Exam Vital Signs: Temp Pulse Resp BP Pulse Ox 97.5 F 93 18 133/87 H 94 11/27/18 08:24 11/27/18 08:24 11/27/18 08:24 11/27/18 08:24 11/27/18 08:24 Intake & Output 11/26/18 11/27/18 11/28/18 06:59 06:59 06:59 Intake Total 2395 1081 Output Total 75 350 Balance 2320 731 Weight 111 kg General appearance: PRESENT: no acute distress, obese Head exam: PRESENT: atraumatic Eye exam: PRESENT: PERRLA Mouth exam: PRESENT: dry mucosa Teeth exam: PRESENT: poor dentation Neck exam: ABSENT: carotid bruit, JVD, lymphadenopathy, thyromegaly Respiratory exam: PRESENT: decreased breath sounds Cardiovascular exam: PRESENT: RRR. ABSENT: diastolic murmur, rubs, systolic murmur GI/Abdominal exam: PRESENT: normal bowel sounds, soft. ABSENT: distended, guarding, mass, organolmegaly, rebound, tenderness Rectal exam: PRESENT: deferred Extremities exam: PRESENT: full ROM. ABSENT: calf tenderness, clubbing, pedal edema Neurological exam: PRESENT: alert, awake, oriented to person, oriented to place, oriented to time, oriented to situation, CN II-XII grossly intact. ABSENT: motor sensory deficit Psychiatric exam: PRESENT: appropriate affect, normal mood. ABSENT: homicidal ideation, suicidal ideation Results Laboratory Results: WBC 13.1 10^3/uL (4.0-10.5) H 10/13/19 05:04 RBC 5.79 10^6/uL (4.35-5.55) H 11/27/18 05:04 Hgb 16.1 g/dL (13.5-17.0) 11/27/18 05:04 Hct 47.9 % (37.9-51.0) 11/27/18 05:04 MCV 83 fl (80-97) 11/27/18 05:04 MCH 27.8 pg (27.0-33.4) 11/27/18 05:04 MCHC 33.6 g/dL (32.0-36.0) 11/27/18 05:04 RDW 15.4 % (11.5-14.0) H 11/27/18 05:04 Plt Count 381 10^3/uL (150-450) 11/27/18 05:04 Lymph % (Auto) 9.8 % (13-45) L 11/26/18 04:25 [place] % (Auto) 13.7 % (3-13) H 11/26/18 04:25 Eos % (Auto) 5.3 % (0-6) 11/26/18 04:25 Baso % (Auto) 0.7 % (0-2) 11/26/18 04:25 Absolute Neuts (auto) 7.4 10^3/uL (1.7-8.2) 11/26/18 04:25 Absolute Lymphs (auto) 1.0 10^3/uL (0.5-4.7) 11/26/18 04:25 Absolute Monos (auto) 1.4 10^3/uL (0.1-1.4) 11/26/18 04:25 Absolute Eos (auto) 0.6 10^3/uL (0.0-0.6) 11/26/18 04:25 Absolute Basos (auto) 0.1 10^3/uL (0.0-0.2) 11/26/18 04:25 Total Counted 100 11/25/18 05:29 Seg Neutrophils % 70.5 % (42-78) 11/26/18 04:25 Seg Neuts % (Manual) 81 % (42-78) H 11/25/18 05:29 Band Neutrophils % 4 % (3-5) 11/20/18 05:50 Lymphocytes % (Manual) 12 % (13-45) L 11/25/18 05:29 Atypical Lymphs % 1 % (0) 11/25/18 05:29 Monocytes % (Manual) 6 % (3-13) 11/25/18 05:29 Eosinophils % (Manual) 0 % (0-6) 11/25/18 05:29 Basophils % (Manual) 0 % (0-2) 11/25/18 05:29 Abs Neuts (Manual) 10.9 10^3/uL (1.7-8.2) H 11/25/18 05:29 Abs Lymphs (Manual) 1.7 10^3/uL (0.5-4.7) 11/25/18 05:29 Abs Monocytes (Manual) 0.8 10^3/uL (0.1-1.4) 11/25/18 05:29 Absolute Eos (Manual) 0.0 10^3/uL (0.0-0.6) 11/25/18 05:29 Abs Basophils (Manual) 0.0 10^3/uL (0.0-0.2) 11/25/18 05:29 Platelet Comment ADEQUATE 11/25/18 05:29 Anisocytosis SLIGHT 11/25/18 05:29 Tear Drop Cells SLIGHT 11/25/18 05:29 PT 31.1 SEC (11.4-15.4) H 11/27/18 05:04 INR 2.92 11/27/18 05:04 INR (Anticoag Therapy) Cancelled 11/24/18 04:40 Sodium 137.9 mmol/L (137-145) 11/27/18 05:04 Potassium 3.7 mmol/L (3.6-5.0) 11/27/18 05:04 Chloride 110 mmol/L (98-107) H 11/27/18 05:04 Carbon Dioxide 18 mmol/L (22-30) L 11/27/18 05:04 Anion Gap 10 (5-19) 11/27/18 05:04 BUN 20 mg/dL (7-20) 11/27/18 05:04 Creatinine 1.08 mg/dL (0.52-1.25) 11/27/18 05:04 Est GFR ( Amer) > 60 (>60) 11/27/18 05:04 Est GFR (MDRD) Non-Af > 60 (>60) 11/27/18 05:04 Glucose 132 mg/dL (75-110) H 11/27/18 05:04 Hemoglobin A1c % 6.5 % (4.7-6.0) H 11/21/18 06:30 Calcium 8.7 mg/dL (8.4-10.2) 11/27/18 05:04 Magnesium 1.7 mg/dL (1.6-2.3) 11/27/18 05:04 Total Bilirubin 0.5 mg/dL (0.2-1.3) 11/27/18 05:04 Direct Bilirubin 0.2 mg/dL (0.0-0.4) 11/27/18 05:04 Neonat Total Bilirubin Not Reportable 11/27/18 05:04 Neonat Direct Bilirubin Not Reportable 11/27/18 05:04 Neonat Indirect Bili Not Reportable 11/27/18 05:04 AST 13 U/L (17-59) L 11/27/18 05:04 ALT 10 U/L (<50) 11/27/18 05:04 Alkaline Phosphatase 50 U/L (38-126) 11/27/18 05:04 Creatine Kinase 58 U/L (55-170) 11/20/18 21:35 CK-MB (CK-2) 0.27 ng/mL (<4.55) 11/20/18 21:35 Troponin I < 0.012 ng/mL 11/20/18 05:50 NT-Pro-B Natriuret Pep 1390 pg/mL (5-900) H 11/21/18 06:30 Total Protein 6.7 g/dL (6.3-8.2) 11/27/18 05:04 Albumin 3.2 g/dL (3.5-5.0) L 11/27/18 05:04 Triglycerides 156 mg/dL (<150) H 11/21/18 06:30 Cholesterol 177.05 mg/dL (0-200) 11/21/18 06:30 LDL Cholesterol Direct 112 mg/dL (<100) H 11/21/18 06:30 VLDL Cholesterol 31.2 mg/dL (10-31) H 11/21/18 06:30 HDL Cholesterol 27 mg/dL (>40) L 11/21/18 06:30 Lipase 32.1 U/L (23-300) 11/20/18 05:50 TSH 2.68 uIU/mL (0.47-4.68) 11/21/18 06:30 Urine Color YELLOW 11/25/18 17:00 Urine Appearance CLEAR 11/25/18 17:00 Urine pH 6.0 (5.0-9.0) 11/25/18 17:00 Ur Specific [place] 1.015 11/25/18 17:00 Urine Protein 100 mg/dL (NEGATIVE) H 11/25/18 17:00 Urine Glucose (UA) NEGATIVE mg/dL (NEGATIVE) 11/25/18 17:00 Urine Ketones NEGATIVE mg/dL (NEGATIVE) 11/25/18 17:00 Urine Blood SMALL (NEGATIVE) H 11/25/18 17:00 Urine Nitrite NEGATIVE (NEGATIVE) 11/25/18 17:00 Urine Bilirubin NEGATIVE (NEGATIVE) 11/25/18 17:00 Urine Urobilinogen NEGATIVE mg/dL (<2.0) 11/25/18 17:00 Ur Leukocyte Esterase TRACE (NEGATIVE) H 11/25/18 17:00 Urine WBC (Auto) 1 /HPF 11/25/18 17:00 Urine RBC (Auto) 1 /HPF 11/25/18 17:00 U Hyaline Cast (Auto) 3 /LPF 11/25/18 17:00 Squamous Epi Cells Auto <1 /HPF 11/20/18 07:00 Urine Mucus (Auto) RARE /LPF 11/25/18 17:00 Urine Ascorbic Acid NEGATIVE (NEGATIVE) 11/25/18 17:00 Stl C. Difficile GDH Ag NEGATIVE (NEGATIVE) 11/25/18 08:37 Stl C.difficile Tox A&B NEGATIVE (NEGATIVE) 11/25/18 08:37 11/20/18 11/20/18 11/20/18 05:50 10:05 15:45 CK-MB (CK-2) 0.31 0.40 Troponin I < 0.012 NT-Pro-B Natriuret Pep 11/20/18 11/21/18 21:35 06:30 CK-MB (CK-2) 0.27 Troponin I NT-Pro-B Natriuret Pep 1390 H Impressions: Chest X-Ray 11/20/18 05:31 IMPRESSION: No evidence of acute intrathoracic disease. No significant change when compared to the prior study. KUB X-Ray 11/20/18 05:31 IMPRESSION: Nonspecific nonobstructive bowel gas pattern. There are surgical clips in the right upper quadrant. There are degenerative changes of the skeletal and vascular structures. Abdomen/Pelvis CT 11/20/18 06:40 IMPRESSION: 1. SIGMOID DIVERTICULITIS. NO EVIDENCE OF ABSCESS OR PERFORATION. 2. 3.1 CM ABDOMINAL AORTIC ANEURYSM. 3. TINY NONOBSTRUCTING CALYCEAL CALCULI IN BOTH KIDNEYS. BILATERAL RENAL CORTICAL CYSTS. 4. RIGHT INGUINAL HERNIA CONTAINING FAT. NO INVOLVEMENT OF BOWEL. 5. FATTY INFILTRATION OF THE LIVER. 6. NO OTHER SIGNIFICANT OR ACUTE FINDING IN THE ABDOMEN OR PELVIS ON CT SCAN WITH IV CONTRAST. Chest CT 11/20/18 06:40 IMPRESSION: SCATTERED ATELECTASIS IN THE LUNG BASES. RIGHT LOWER LOBE LUNG NODULE UNCHANGED. NO APPARENT ACUTE FINDINGS. Plan Time Spent: Greater than 30 Minutes Stroke Is this a Stroke Patient?: No Acute Heart Failure - Is this a Heart Failure Patient?: No
[2018-11-27] MEDS: AMLODIPINE BESYLATE 5 MG TABLET PO SCH (09:44)
[2018-11-27] MEDS: POTASSIUM CHLORIDE 10 MEQ CAPSULE.ER PO SCH (09:44)
[2018-11-27] MEDS: METOPROLOL TARTRATE 100 MG TABLET PO SCH (09:44)
[2018-11-27] MEDS: TAMSULOSIN HCL 0.4 MG CAP.SR.24H PO SCH (09:44)
[2018-11-27 10:09] VITALS: BP 127/76
[2018-11-27] MEDS ORDERED: WARFARIN SODIUM 3 MG TABLET PO ONE (22:00)
== END 2018-11-27 11:00 | disposition home or self-care (01) | DRG 392 ==
LOC: ER 04:55 → EH 09:51 → 3W 14:55
PROVIDERS: ADMIT Internal Medicine; ATTEND Internal Medicine
DX: K57.30 Diverticulosis of large intestine without perforation or abscess without bleeding (principal); I48.20 Chronic atrial fibrillation, unspecified; I10 Essential (primary) hypertension; D72.829 Elevated white blood cell count, unspecified; I25.10 Atherosclerotic heart disease of native coronary artery without angina pectoris; E66.9 Obesity, unspecified; K21.9 Gastro-esophageal reflux disease without esophagitis; T45.515A Adverse effect of anticoagulants, initial encounter; I71.4 Abdominal aortic aneurysm, without rupture; J44.9 Chronic obstructive pulmonary disease, unspecified; E87.6 Hypokalemia; F17.210 Nicotine dependence, cigarettes, uncomplicated; M19.90 Unspecified osteoarthritis, unspecified site; Z79.01 Long term (current) use of anticoagulants; I25.2 Old myocardial infarction; Z90.49 Acquired absence of other specified parts of digestive tract; Z95.1 Presence of aortocoronary bypass graft; Z89.412 Acquired absence of left great toe; Z82.49 Family history of ischemic heart disease and other diseases of the circulatory system; Z83.3 Family history of diabetes mellitus; Z88.2 Allergy status to sulfonamides; Z68.36 Body mass index [BMI] 36.0-36.9, adult
CPT/HCPCS: 36415; 71046; 71260; 74018; 74177; 80053; 80061; 81001; 82550; 82553; 83036; 83690; 83735; 83880; 84443; 84484; 85025; 85027; 85610; 87040; 87324; 87449; 93005; 93010; 94640; 96360; 99291; J0744; J1885; J2270; J2405; J3370; J3480; J3490; J7030; J7120; J7614; J7620

== ENCOUNTER → 2019-05-16 | Outpatient (CLI) | payer MEDICARE, OTHER ==
--- NOTE | 2019-05-16 09:02 | RADIOLOGY REPORT (SQ) ---
EXAM DESCRIPTION: CT CHEST WITHOUT IMAGES COMPLETED DATE/TIME: 05/16/2019 8:27 am REASON FOR STUDY: (R91.1)SOLITARY PULMONARY NODULE R91.1 SOLITARY PULMONARY NODULE COMPARISON: 03/25/2018 TECHNIQUE: CT scan performed of the chest without intravenous contrast. Images reviewed with lung, soft tissue and bone windows. Reconstructed coronal and sagittal MPR images reviewed. All images st ored on PACS. All CT scanners at this facility use dose modulation, iterative reconstruction, and/or weight based d osing when appropriate to reduce radiation dose to as low as reasonably achievable (ALARA). [facility]: Dose Right [facility]: CareDose [facility]: Dose Right [facility]: Teradose 4D [facility]: [employer] PTY RADIATION DOSE: CT Rad equipment meets quality standard of care and radiation dose reduction techniq ues were employed. CTDIvol: 19.0 mGy. DLP: 808 mGy-cm. mGy. LIMITATIONS: No technical limitations. FINDINGS: LUNGS AND PLEURA: The right lower lobe solid pulmonary nodule has increased in size. It n ow measures 14.4 mm compared to just over 1 cm on prior exam. The subpleural ground-glass opacity pr eviously described is stable in appearance. The left lung field is clear. Persistent bilateral cent rilobular emphysematous changes. HILAR AND MEDIASTINAL STRUCTURES: Persistent pretracheal adenopathy. Largest node measures 2 cm in g reatest diameter. These are stable from prior study. HEART AND VASCULAR STRUCTURES: No aneurysm. Extensive coronary artery calcification. No pericardial effusion. UPPER ABDOMEN: No significant findings. Limited exam. THYROID AND OTHER SOFT TISSUES: No masses. No adenopathy. BONES: No significant finding. HARDWARE: Sternotomy wires are in place. OTHER: No other significant findings. IMPRESSION: The right lower lobe solid pulmonary nodule has increased in size. It now measures 14.4 mm compared to just over 1 cm in size on prior exam. Findings remain concerning for neoplasm. TECHNICAL DOCUMENTATION: JOB ID: [id number] Quality ID # [id number]: Final reports with documentation of one or more dose reduction techniques (e.g., Au tomated exposure control, adjustment of the mA and/or kV according to patient size, use of iterative reconstruction technique) 2010 [employer]- All Rights Reserved Reading location - IP/workstation name: [email or web address]
== END ==
LOC: RAD 08:14
PROVIDERS: ATTEND Physician Assistant Medical
DX: R91.1 Solitary pulmonary nodule (principal)
CPT/HCPCS: 71250

== ENCOUNTER → 2019-05-30 | Outpatient (CLI) | payer MEDICARE ==
--- NOTE | 2019-05-30 14:07 | RADIOLOGY REPORT (SQ) ---
EXAM DESCRIPTION: PET CT SKULL/THIGH IMAGES COMPLETED DATE/TIME: 05/30/2019 1:55 pm REASON FOR STUDY: R91.1 SOLITARY PULMONARY NODULE R91.1 SOLITARY PULMONARY NODULE COMPARISON: CT chest dated 05/16/2019 and PET-CT dated 04/10/2018 RADIONUCLIDE AND DOSE: 9.91 mCi F18 FDG The route of agent administration: Intravenous FASTING BLOOD SUGAR: 149 mg/dl CONTRAST TYPE AND DOSE: No CT contrast given. TECHNIQUE: Blood glucose level was verified. Above dose of FDG was injected intravenously. 2-D seg mented attenuation correction images were obtained from the base of the skull to the midthighs. Nonc ontrast CT images were obtained for attenuation correction and fusion with emission images. CT image s were performed without oral or intravenous contrast and are not sensitive for parenchymal lesions. A series of overlapping emission PET images were obtained. Images reviewed and manipulated at [facility] work station by the radiologist. Images stored on PACS. LIMITATIONS: None. FINDINGS: HEAD AND NECK: No areas of abnormal metabolic activity in the soft tissues of the head and neck. CHEST: No areas of abnormal metabolic activity in the chest. ABDOMEN AND PELVIS: No areas of abnormal metabolic activity in the abdomen or pelvis. Expected physi ologic activity is present in the genitourinary system and bowel. PROXIMAL LOWER EXTREMITIES: No areas of abnormal metabolic activity in the soft tissues of the lower extremities. BONES: No abnormal metabolic activity in the visualized skeleton. ADDITIONAL CT FINDINGS: No additional significant findings on the noncontrast CT images. OTHER: No other significant findings. IMPRESSION: Negative PET-CT. Despite the increase in size of the right lower lobe pulmonary nodule there is no abnormal metabolic activity. Findings are most consistent with benign process. TECHNICAL DOCUMENTATION: JOB ID: [id number] [employer]- All Rights Reserved Reading location - IP/workstation name: [email or web address]
== END ==
LOC: RAD 09:43
PROVIDERS: ATTEND Internal Medicine
DX: R91.1 Solitary pulmonary nodule (principal)
CPT/HCPCS: 78815; A9552

== ENCOUNTER → 2020-02-23 | Outpatient (CLI) | payer MEDICARE ==
[2020-02-23 12:18] LABS: ANION GAP 9 (5-19); BLOOD UREA NITROGEN 18 mg/dL (7-20); CALCIUM 8.5 mg/dL (8.4-10.2); CARBON DIOXIDE 33 mmol/L (22-30); CHLORIDE 97 mmol/L (98-107); GLUCOSE 135 mg/dL (75-110); POTASSIUM 3.2 mmol/L (3.6-5.0)
== END ==
LOC: OD 10:23
PROVIDERS: ATTEND Family Medicine
DX: E87.6 Hypokalemia (principal)
CPT/HCPCS: 36415; 80048

== ENCOUNTER 2020-02-24 12:09 | Emergency (ER) | payer MEDICARE ==
--- NOTE | 2020-02-24 12:36 | ER Document Report ---
ED Medical Screen (RME) - General Chief Complaint: Urinary Retention Stated Complaint: UNABLE TO URINATE,ABDOMINAL PAIN Time Seen by Provider: 02/24/20 12:29 Primary Care Provider: COLLETTE ALVARADO MD [Primary Care Provider] - Follow up as needed Notes: HPI: 75-year-old male presenting for inability to urinate last night. Patient has a history of enlarged prostate. He does see urology. States that he would attempt to urinate but was unable to do so. States he did finally urinate this morning approximately 40 minutes ago but still feels like he has not emptied his bladder. No longer has a pressure sensation in the lower abdomen. States he did move his bowels this morning and felt like this may have alleviated some of the pressure. Patient did take 2 Flomax last night to try to urinate and states it did not work. States he has not had issues where he is not been able to pee before. PHYSICAL EXAMINATION: Obese abdomen, no palpable mass, no tenderness on palpation of the lower abdomen I have greeted and performed a rapid initial assessment of this patient. A comprehensive ED assessment and evaluation of the patient, analysis of test results and completion of medical decision making process will be conducted by an additional ED providers. Please note that clinical decision making for this patient was made during the 2019 pandemic of novel coronavirus which caused a significant strain on the healthcare system including at this particular facility. Criteria for admission discharge and level of care decisions as well as treatment decisions have necessarily changed TRAVEL OUTSIDE OF THE [place] IN LAST 30 DAYS: No - Related Data Allergies/Adverse Reactions: Sulfa (Sulfonamide Antibiotics) Allergy (Verified 08/14/18 14:59) Past Medical History - Past Medical History Cardiac Medical History: Reports: Hx Atrial Fibrillation, Hx Coronary Artery Disease, Hx Heart Attack, Hx Hypertension Pulmonary Medical History: Reports: Hx COPD, Hx Pneumonia Renal/ Medical History: Reports: Hx Benign Prostatic Hyperplasia. Denies: Hx Peritoneal Dialysis GI Medical History: Reports: Hx Gastroesophageal Reflux Disease Musculoskeltal Medical History: Reports Hx Arthritis Past Surgical History: Reports: Hx Appendectomy, Hx Bowel Surgery, Hx Cardiac Surgery - bypass, Hx Coronary Artery Bypass Graft, Hx Orthopedic Surgery, Hx Tonsillectomy, Hx Vascular Surgery, Other - Incision and drainage of RLE abscess with debridement. Left great toe amp. - Immunizations Hx Diphtheria, Pertussis, Tetanus Vaccination: Yes Physical Exam - Vital signs Vitals: Temp Pulse Resp BP Pulse Ox 97.7 F 81 20 144/79 H 95 02/24/20 12:17 02/24/20 12:17 02/24/20 12:17 02/24/20 12:17 02/24/20 12:17 Course - Vital Signs Vital signs: Temp Pulse Resp BP Pulse Ox 97.7 F 81 20 144/79 H 95 02/24/20 12:17 02/24/20 12:17 02/24/20 12:17 02/24/20 12:17 02/24/20 12:17 Doctor's Discharge - Discharge Referrals: COLLETTE ALVARADO MD [Primary Care Provider] - Follow up as needed
[2020-02-24 13:08] LABS: APPEARANCE,URINE CLEAR; BILIRUBIN,URINE NEGATIVE (NEGATIVE); COLOR,URINE YELLOW; GLUCOSE, URINE NEGATIVE (NEGATIVE); KETONES,URINE NEGATIVE (NEGATIVE); LEUKOCYTE ESTERASE,URINE NEGATIVE (NEGATIVE); NITRITE,URINE NEGATIVE (NEGATIVE); PROTEIN,URINE 100 mg/dL (NEGATIVE); URINE SPECIFIC GRAVITY 1.012; UROBILINOGEN,URINE NEGATIVE mg/dL (<2.0)
[2020-02-24 13:17] LABS: ABSOLUTE BASOPHILS # (AUTO) 0.1 10^3/uL (0.0-0.2); ABSOLUTE EOSINOPHILS # (AUTO) 0.2 10^3/uL (0.0-0.6); ABSOLUTE LYMPHOCYTES (AUTO) 1.6 10^3/uL (0.5-4.7); BASOPHILS % (AUTO) 0.7 % (0-2); EOSINOPHILS % (AUTO) 1.9 % (0-6); HEMATOCRIT 44.4 % (37.9-51.0); HEMOGLOBIN 15.1 g/dL (13.5-17.0); LYMPHOCYTES % (AUTO) 13.3 % (13-45); MEAN CORPUSCULAR HEMOGLOBIN 27.2 pg (27.0-33.4); MEAN CORPUSCULAR VOLUME 80 fl (80-97); MONOCYTES % (AUTO) 8.6 % (3-13); PLATELET COUNT 399 10^3/uL (150-450); RED BLOOD COUNT 5.55 10^6/uL (4.35-5.55); RED CELL DISTRIBUTION WIDTH 14.8 % (11.5-14.0); SEGMENTED NEUTROPHILS % (AUTO) 75.5 % (42-78); TOTAL CELLS COUNTED % (AUTO) 100 %
[2020-02-24 13:18] LABS: ALBUMIN 3.4 g/dL (3.5-5.0); ALKALINE PHOSPHATASE 64 U/L (38-126); ANION GAP 7 (5-19); ASPARTATE AMINO TRANSFERASE 25 U/L (17-59); BILIRUBIN,DIRECT 0.3 mg/dL (0.0-0.4); BLOOD UREA NITROGEN 15 mg/dL (7-20); CALCIUM 8.7 mg/dL (8.4-10.2); CARBON DIOXIDE 35 mmol/L (22-30); CHLORIDE 96 mmol/L (98-107); GLUCOSE 195 mg/dL (75-110); POTASSIUM 3.1 mmol/L (3.6-5.0)
--- NOTE | 2020-02-24 13:27 | RADIOLOGY REPORT (SQ) ---
EXAM DESCRIPTION: KUB/ABDOMEN (SINGLE VIEW) IMAGES COMPLETED DATE/TIME: 02/24/2020 12:04 pm REASON FOR STUDY: urinary obs. Abdominal pain central abdomen. COMPARISON: None. NUMBER OF VIEWS: One view. TECHNIQUE: Supine radiographic image of the abdomen acquired. LIMITATIONS: None. FINDINGS: BOWEL GAS PATTERN: Normal bowel gas pattern. No dilated loops. CALCIFICATIONS: Calcified pelvic phleboliths. Vascular calcifications. No suspicious calcifications . SOFT TISSUES: No gross mass or suggestion of organomegaly. HARDWARE: None in the abdomen. BONES: No acute fracture. No worrisome bone lesions. OTHER: No other significant finding. IMPRESSION: NO RADIOGRAPHIC EVIDENCE FOR ACUTE ABDOMINAL DISEASE. TECHNICAL DOCUMENTATION: JOB ID: [id number] 2010 [employer] All Rights Reserved Reading location - IP/workstation name: [email or web address]
[2020-02-24] MEDS ORDERED: POTASSIUM CHLORIDE 10 MEQ TABLET.ER PO ONE (14:19)
--- NOTE | 2020-02-24 14:24 | ER Document Report ---
ED GI/ - General Chief Complaint: Abdominal Pain Stated Complaint: UNABLE TO URINATE,ABDOMINAL PAIN Time Seen by Provider: 02/24/20 12:29 Primary Care Provider: COLLETTE ALVARADO MD [Primary Care Provider] - Follow up as needed Notes: HPI: 75-year-old male who presents today stating that he has had some difficulty urinating over the last 2 days. He is also had some constipation. He does have a history of an enlarged prostate and takes Flomax. Patient states he had a large bowel movement this morning and has been able to pee normally since that time. He currently denies any abdominal or back pain. No chest pain, cough, shortness of breath. ROS: See HPI All other review of systems reviewed and otherwise negative Reviewed vital signs and nursing note as charted by RN. PHYSICAL EXAM: CONSTITUTIONAL: Alert and oriented and responds appropriately to questions. Well-appearing; well-nourished HEAD: Normocephalic; atraumatic EYES: Sclerae non-icteric ENT: Normal nose; no rhinorrhea; moist mucous membranes; pharynx without lesions noted NECK: Supple without meningismus; non-tender; no cervical lymphadenopathy, no masses CARD: Regular rate and rhythm; no murmurs; symmetric distal pulses RESP: Normal chest excursion without splinting or tachypnea; breath sounds clear and equal bilaterally ABD/GI: Normal bowel sounds; elevated BMI; no tenderness to deep palpation of all 4 quadrants of the abdomen : Patient has no testicular pain or swelling. No penile lesions present. No blood at the meatus. Patient's prostate is actually quite normal in size with no obvious tenderness or bogginess BACK: The back appears normal and is non-tender to palpation EXT: Normal ROM in all joints; non-tender to palpation; no edema SKIN: No acute lesions noted NEURO: CN 2-12 intact; 5/5 bilateral upper and lower extremity strength with sensation intact to light touch PSYCH: The patient's mood and manner are appropriate. Grooming and personal hygiene are appropriate. TRAVEL OUTSIDE OF THE [place] IN LAST 30 DAYS: No - Related Data Allergies/Adverse Reactions: Sulfa (Sulfonamide Antibiotics) Allergy (Verified 08/14/18 14:59) Home Medications: norvasc 5mg bid. lopressor. flomax 0.4 mg. lisinopril. warfarin Past Medical History - Social History Smoking Status: Current Every Day Smoker Chew tobacco use (# tins/day): No Frequency of alcohol use: None Drug Abuse: None Family History: Reviewed & Not Pertinent, CAD, DM, Hypertension Patient has homicidal ideation: No - Past Medical History Cardiac Medical History: Reports: Hx Atrial Fibrillation, Hx Coronary Artery Disease, Hx Heart Attack, Hx Hypertension Pulmonary Medical History: Reports: Hx COPD, Hx Pneumonia Renal/ Medical History: Reports: Hx Benign Prostatic Hyperplasia. Denies: Hx Peritoneal Dialysis GI Medical History: Reports: Hx Gastroesophageal Reflux Disease Musculoskeletal Medical History: Reports Hx Arthritis Past Surgical History: Reports: Hx Appendectomy, Hx Bowel Surgery, Hx Cardiac Surgery - bypass, Hx Cholecystectomy, Hx Coronary Artery Bypass Graft, Hx Ort hopedic Surgery, Hx Tonsillectomy, Hx Vascular Surgery, Other - Incision and drainage of RLE abscess with debridement. Left great toe amp. - Immunizations Hx Diphtheria, Pertussis, Tetanus Vaccination: Yes Physical Exam - Vital signs Vitals: Temp Pulse Resp BP Pulse Ox 97.7 F 81 20 144/79 H 95 02/24/20 12:17 02/24/20 12:17 02/24/20 12:17 02/24/20 12:17 02/24/20 12:17 Course - Re-evaluation Re-evalutation: 02/24/20 14:20 Given the above history and physical we did perform basic labs and urinalysis. No obvious signs of infection. An abdominal x-ray was ordered in triage. Patient has had no urinary symptoms after the bowel movement this morning. Patient does have a history of constipation. No prostate tenderness or fever. Bladder scan showed only 120 cc of urine. Given this above Discussion with labs as recorded, with no urinary troubles at this time, we will send a urine culture and discharge the patient home with strict return precautions and follow-up with the primary care physician. Patient and are very comfortable with this plan. - Vital Signs Vital signs: Temp Pulse Resp BP Pulse Ox 97.7 F 81 20 144/79 H 95 02/24/20 12:17 02/24/20 12:17 02/24/20 12:17 02/24/20 12:17 02/24/20 12:17 - Laboratory Results Result Diagrams: 02/24/20 12:49 02/24/20 12:49 Laboratory Results Interpreted: 02/24/20 02/24/20 02/24/20 12:49 12:49 12:49 WBC 12.0 H RDW 14.8 H Absolute Neuts (auto) 9.0 H Potassium 3.1 L Chloride 96 L Carbon Dioxide 35 H Glucose 195 H Albumin 3.4 L Urine Protein 100 H Critical Laboratory Results Reviewed: No Critical Results - Radiology Results Critical Radiology Results Reviewed: No Critical Results Discharge - Discharge Clinical Impression: Urinary retention, Low blood potassium Constipation Qualifiers: Constipation type: unspecified constipation type Qualified Code(s): K59.00 - Constipation, unspecified Condition: Good Disposition: HOME, SELF-CARE Additional Instructions: Come back immediately for any abdominal pain, inability to defecate, blood in your stool, inability urinate, fever, vomiting, or any other acute problems. Please follow-up with your primary care physician as discussed and make sure that you eat a high-fiber food and plenty of fluids. Referrals: COLLETTE ALVARADO MD [Primary Care Provider] - Follow up as needed
[2020-02-24 14:51] VITALS: BP 136/76
== END 2020-02-24 14:45 | disposition home or self-care (01) ==
LOC: ER 12:09
DX: R33.9 Retention of urine, unspecified (principal); E87.6 Hypokalemia; R10.9 Unspecified abdominal pain; R30.0 Dysuria; K59.00 Constipation, unspecified; F17.200 Nicotine dependence, unspecified, uncomplicated; I10 Essential (primary) hypertension; I48.91 Unspecified atrial fibrillation; I25.2 Old myocardial infarction; Z88.2 Allergy status to sulfonamides
CPT/HCPCS: 99284; 36415; 87086; 85025; 80053; 81001; 74018; A9270

== ENCOUNTER → 2020-02-26 | Outpatient (CLI) | payer MEDICARE ==
--- NOTE | 2020-02-26 08:49 | RADIOLOGY REPORT (SQ) ---
EXAM DESCRIPTION: CT ABD/PELVIS WITH IV ONLY IMAGES COMPLETED DATE/TIME: 02/26/2020 8:11 am REASON FOR STUDY: GENERALIZED ABDOMINAL PAIN R10.84 GENERALIZED ABDOMINAL PAIN COMPARISON: PET from 05/30/[address] of the abdomen pelvis with contrast from 09/20/2018. TECHNIQUE: CT scan of the abdomen and pelvis performed using helical scanning technique with dynamic intravenous contrast injection. No oral contrast. Images reviewed with lung, soft tissue, and bone windows. Reconstructed coronal and sagittal MPR images reviewed. Delayed images for evaluation of the urinary system also acquired. All images stored on PACS. All CT scanners at this facility use dose modulation, iterative reconstruction, and/or weight based d osing when appropriate to reduce radiation dose to as low as reasonably achievable (ALARA). [facility]: Dose Right [facility]: CareDose [facility]: Dose Right [facility]: Teradose 4D [facility]: Viigo CONTRAST TYPE AND DOSE: Contrast/concentration: Isovue 350.00 mmol/ml; Total Contrast Delivered: 100 .0 ml; Total Saline Delivered: 72.0 ml RENAL FUNCTION: GFR > 60. RADIATION DOSE: CT Rad equipment meets quality standard of care and radiation dose reduction techniq ues were employed. CTDIvol: 18.7 - 21.0 mGy. DLP: 2167 mGy-cm. LIMITATIONS: None. FINDINGS: LOWER CHEST: Patchy peripheral consolidative opacities in the lower lobes and to a lesser extent the lingula (image 2 of series 4) and right middle lobe (image 8 of series 4). The 10 mm nodu le in the right lower lobe (image 8 of series 4) is unchanged. The heart is enlarged and there is mo derate atherosclerotic calcification of the coronary arteries. There is no pericardial effusion. LIVER: The morphology of the liver is noncirrhotic. The portal veins are patent. There is no hepati c mass. SPLEEN: The spleen is enlarged. There is a peripheral geographic area of low attenuation in the sple en (image 21 of series 2) that is nonspecific and could represent an infarct. There is a 13 mm acces holli splenule in the splenic hilum. PANCREAS: No acute gross abnormality of the pancreas. GALLBLADDER: Surgically absent. ADRENAL GLANDS: No mass or asymmetry. RIGHT KIDNEY AND URETER: 3 mm caliceal calculus in a lower pole calyx (image 35 of series 2). There are several low-attenuation lesions scattered throughout the kidney that measure up to 2.3 x 2.4 cm a nd are unchanged in size and number compared to the CT from 11/20/2018. There is no hydronephrosis, h ydroureter or ureterolithiasis. LEFT KIDNEY AND URETER: 3 mm caliceal calculus within a posterior interpolar calyx (image 39 of serie s 2). There are several low-attenuation lesions scattered throughout the kidney that measure up to 5 .1 x 5 cm and are unchanged in size and number compared to the CT from 11/20/2018. There is no hydron ephrosis, hydroureter or ureterolithiasis. AORTA AND VESSELS: Unchanged atherosclerotic calcification of the splenic artery, proximal SMA, renal arteries, abdominal aorta and iliac arteries. 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 The left common iliac artery is ectatic (maximum transverse diameter of 2.1 cm) . There is no abdominal aortic dissection or stenosis RETROPERITONEUM: No retroperitoneal adenopathy, hemorrhage or mass. BOWEL AND PERITONEAL CAVITY: Colonic diverticulosis without diverticulitis. There is no bowel obstru ction, bowel wall thickening or pericolonic/ perienteric inflammation. There is no mesenteric adenop athy, free intraperitoneal fluid or mesenteric/omental inflammation. APPENDIX: Unable to identify the appendix. PELVIS: Prostatomegaly. The urinary bladder is contracted. ABDOMINAL WALL: Fat containing paraumbilical and right inguinal hernias. BONES: Degenerative spondylosis of the lumbar spine. OTHER: No other findings. IMPRESSION: 1. Patchy peripheral consolidative opacities in the lower lobes and to a lesser extent t he lingula in the right middle lobe. Clinical correlation to exclude a pneumonia is recommended. 2. Stable 10 mm nodule in the right lower lobe (image 8 of series 4) - continued CT surveillance is r ecommended. 3. Splenomegaly and peripheral geographic area of low attenuation in the spleen - the latter finding could represent an infarct. 4. 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 5. Colonic diverticulosis. 6. Prostatomegaly. TECHNICAL DOCUMENTATION: JOB ID: [id number] Quality ID # [id number]: Final reports with documentation of one or more dose reduction techniques (e.g., Au tomated exposure control, adjustment of the mA and/or kV according to patient size, use of iterative reconstruction technique) 2010 [employer]- All Rights Reserved Reading location - IP/workstation name: [email or web address]
== END ==
LOC: RAD 08:18
PROVIDERS: ATTEND Family Medicine
DX: K57.30 Diverticulosis of large intestine without perforation or abscess without bleeding (principal); N20.0 Calculus of kidney; R10.84 Generalized abdominal pain; R16.1 Splenomegaly, not elsewhere classified
CPT/HCPCS: 74177